=== PATIENT | male | born 1955 | race African-American/Black ===

== ENCOUNTER 2017-03-10 08:55 | Inpatient (IN) | payer MEDICAID ==
--- NOTE | 2017-03-10 09:19 | EDPHY ---
H & P Stated Complaint: B swollen legs Time Seen by Provider: 03/10/17 09:18 Source: Patient Exam Limitations: No limitations - Personal History Current Tetanus Diphtheria and Acellular Pertussis (TDAP): Yes Tetanus Vaccine Date: 2016 - Medical/Surgical History Hx Asthma: No Hx Chronic Respiratory Disease: No Hx Diabetes: No Hx Cardiac Disease: No Hx Renal Disease: Yes Hx Cirrhosis: No Hx Alcoholism: No Hx HIV/AIDS: No Hx Splenectomy or Spleen Trauma: No Other PMH: scolison, russo kerry, IBS, rectal surgery, hodgkins lymphoma/ remission 2011, lactose intolerance, tremor, "three kidneys" - Social History Smoking Status: Never smoked Constitutional: Initial Vital Signs Temperature (C) 36.4 C 03/10/17 08:56 Heart Rate 67 03/10/17 08:56 Respiratory Rate 18 03/10/17 08:56 Blood Pressure 149/83 H 03/10/17 08:56 O2 Sat (%) 99 03/10/17 08:56 O2 Delivery Mode Room Air Allergies/Adverse Reactions: ibuprofen [From Motrin] Allergy (Verified 03/10/17 09:05) Home Medications: Medication Instructions Recorded Bentyl 20 MG (*) 03/10/17 Inderal 10mg (*) 03/10/17 Wellbutrin Sr 03/10/17 Medical Decision Making - Diagnostics Imaging: Discussed imaging studies w/ vulcanizing machine operator Radiologist ED Course/Re-evaluation: CHIEF COMPLAINT: Abdominal swelling, lower extremity swelling. HISTORY OF PRESENT ILLNESS: The patient is a 61-year-old male with history of Hodgkin's lymphoma. He had chemotherapy in 2010 and is now in remission. The patient has not had a repeat scan in many years as he has been incarcerated for 25 years. He was released 5 weeks ago and has noticed increased lower extremity and abdominal swelling. He denies chest pain, shortness of breath, or fever. REVIEW OF SYSTEMS: A 10 point review of systems was performed and is negative with the exception of the elements mentioned in the history of present illness. PHYSICAL EXAM: HR, BP, O2 Sat, RR. Temp noted General Appearance: Alert, well hydrated, appropriate, and non-toxic appearing. Head: Atraumatic without scalp tenderness or obvious injury Eyes: Pupils equal, round, reactive to light and accommodation, EOMI, no trauma , no injection. Throat: There is no erythema or exudates, no lesions, normal tonsils, mucus membranes moist. Neck: Supple, 2+ carotid upstroke, nontender, no lymphadenopathy. Respiratory: No retractions, no distress, no wheezes, and no accessory muscle use. Lungs are clear to auscultation bilaterally. Cardiovascular: Regular rate and rhythm, no murmurs, rubs, or gallops. Bilateral carotid, radial, dorsalis pedis, and posterior tibial pulses intact. Good capillary refill all extremities. Gastrointestinal: Abdomen is tense and distended. Diffusely tender. Musculoskeletal: Bilateral peripheral edema with vein collateralization. Neurological: Alert, appropriate, and interactive. The patient has normal DTRs and non-focal cranial nerves, motor, sensory, and cerebellar exam. Skin: No rashes, good turgor, no nodules on palpation. Past medical history: Hodgkin's lymphoma in remission. Past surgical history: Denies. Family history: Noncontributory. Social history: Incarcerated for 25 years, released 5 weeks ago. [facility] the [facility]. Denies alcohol use. DIAGNOSTICS/PROCEDURES/CRITICAL CARE TIME: CT abdomen shows [place]'s syndrome vs large bowel obstruction. DIFFERENTIAL DIAGNOSIS: MEDICAL DECISION MAKING: The patient has a concerning history of Hodgkin's lymphoma, in remission. He denies history of liver disease and states he does not use alcohol. He has not had a recent workup or followup as he has been incarcerated for 25 years. The patient has a diffusely tender abdomen with fluid. I am concerned about possible bowel obstruction. He has peripheral swelling with more than expected vein collateralization. Lab work including abdominal CT to look for tumor or bowel obstruction. The patient is hypertensive at 149/83. The patient's CT shows Ogalv's syndrome vs distal large bowel obstruction. His lab work shows low Potassium and low Albumin but is otherwise negative. The patient will be admitted to the hospitalist, Dr. Lang. The general surgeon Dr. Russell will consult. - Data Points Laboratory Results: Laboratory Results 03/10/17 09:41 03/10/17 09:41 03/10/17 03/10/17 03/10/17 09:41 09:41 09:41 WBC 5.90 10^3/uL 10^3/uL (3.80-9.50) RBC 4.12 10^6/uL L 10^6/uL (4.40-6.38) Hgb 13.1 g/dL L g/dL (13.7-17.5) POC Hgb Hct 36.8 % L % (40.0-51.0) POC Hct MCV 89.3 fL fL (81.5-99.8) MCH 31.8 pg pg (27.9-34.1) MCHC 35.6 g/dL g/dL (32.4-36.7) RDW 14.6 % % (11.5-15.2) Plt Count 227 10^3/uL 10^3/uL (150-400) MPV 8.9 fL fL (8.7-11.7) Neut % (Auto) 71.1 % % (39.3-74.2) Lymph % (Auto) 19.8 % % (15.0-45.0) [place] % (Auto) 6.1 % % (4.5-13.0) Eos % (Auto) 1.9 % % (0.6-7.6) Baso % (Auto) 0.8 % % (0.3-1.7) Nucleat RBC Rel Count 0.0 % % (0.0-0.2) Absolute Neuts (auto) 4.19 10^3/uL 10^3/uL (1.70-6.50) Absolute Lymphs (auto) 1.17 10^3/uL 10^3/uL (1.00-3.00) Absolute Monos (auto) 0.36 10^3/uL 10^3/uL (0.30-0.80) Absolute Eos (auto) 0.11 10^3/uL 10^3/uL (0.03-0.40) Absolute Basos (auto) 0.05 10^3/uL 10^3/uL (0.02-0.10) Absolute Nucleated RBC 0.00 10^3/uL 10^3/uL (0-0.01) Immature Gran % 0.3 % % (0.0-1.1) Immature Gran # 0.02 10^3/uL 10^3/uL (0.00-0.10) PT 14.2 SEC SEC (12.0-15.0) INR 1.08 (0.83-1.16) APTT 30.1 SEC SEC (23.0-38.0) POC Sodium Sodium 145 mEq/L mEq/L (135-145) POC Potassium Potassium 3.1 mEq/L L mEq/L (3.5-5.2) POC Chloride Chloride 106 mEq/L mEq/L (97-110) Carbon Dioxide 29 mEq/l mEq/l (22-31) Anion Gap 10 mEq/L mEq/L (8-16) POC BUN BUN 16 mg/dL mg/dL (7-23) Creatinine 0.9 mg/dL mg/dL (0.7-1.3) POC Creatinine Estimated GFR > 60 Glucose 77 mg/dL mg/dL (70-100) POC Glucose Calcium 8.6 mg/dL mg/dL (8.5-10.4) Magnesium 1.8 mg/dL mg/dL (1.6-2.3) Total Bilirubin 0.5 mg/dL mg/dL (0.1-1.4) Conjugated Bilirubin 0.2 mg/dL mg/dL (0.0-0.5) Unconjugated Bilirubin 0.3 mg/dL mg/dL (0.0-1.1) AST 27 IU/L IU/L (17-59) ALT 39 IU/L IU/L (21-72) Alkaline Phosphatase 77 IU/L IU/L (38-126) Troponin I < 0.012 ng/mL ng/mL (0.000-0.034) NT-Pro-B Natriuret Pep 208 pg/mL H pg/mL (0-125) Total Protein 6.3 g/dL g/dL (6.3-8.2) Albumin 3.1 g/dL L g/dL (3.5-5.0) Lipase 155 IU/L IU/L (23-300) 03/10/17 09:37 WBC RBC Hgb POC Hgb 13.6 gm/dL L gm/dL (13.7-17.5) Hct POC Hct 40 % % (40-51) MCV MCH MCHC RDW Plt Count MPV Neut % (Auto) Lymph % (Auto) [place] % (Auto) Eos % (Auto) Baso % (Auto) Nucleat RBC Rel Count Absolute Neuts (auto) Absolute Lymphs (auto) Absolute Monos (auto) Absolute Eos (auto) Absolute Basos (auto) Absolute Nucleated RBC Immature Gran % Immature Gran # PT INR APTT POC Sodium 144 mEq/L mEq/L (135-145) Sodium POC Potassium 2.9 mEq/L L mEq/L (3.3-5.0) Potassium POC Chloride 102 mEq/L mEq/L (97-110) Chloride Carbon Dioxide Anion Gap POC BUN 15 mg/dL mg/dL (7-23) BUN Creatinine POC Creatinine 1.0 mg/dL mg/dL (0.7-1.3) Estimated GFR Glucose POC Glucose 79 mg/dL mg/dL (70-100) Calcium Magnesium Total Bilirubin Conjugated Bilirubin Unconjugated Bilirubin AST ALT Alkaline Phosphatase Troponin I NT-Pro-B Natriuret Pep Total Protein Albumin Lipase Point of Care Test Results: 03/10/17 09:37 POC Sodium 144 POC Potassium 2.9 L POC Chloride 102 POC BUN 15 POC Creatinine 1.0 POC Glucose 79 Departure - Departure Disposition: [facility] Inpatient Acute Clinical Impression: Zara's syndrome, Large bowel obstruction Condition: Fair Referrals: NONE *PRIMARY CARE P,. [Primary Care Provider] - As per Instructions Report Scribed for: Jimi Smith Report Scribed by: Joanna Fischer Date of Report: 03/10/17 Time of Report: 09:37
[2017-03-10] MEDS ORDERED: IOPAMIDOL (ISOVUE-300) 100 ML BTL ONE (09:42)
[2017-03-10 09:51] LABS: PLATELET COUNT 227 10^3/uL (150-400)
[2017-03-10 10:00] LABS: INR 1.08 (0.83-1.16); PROTIME(PATIENT) 14.2 SEC (12.0-15.0)
[2017-03-10] MEDS ORDERED: ONDANSETRON 4 MG/2 ML VIAL IVP PRN (12:18)
[2017-03-10] MEDS ORDERED: ONDANSETRON DISINTEGRATING 4 MG TAB PO PRN (12:18)
[2017-03-10] MEDS ORDERED: PROTOCOL POTASSIUM 1 DOSE MISC PRN (12:45)
[2017-03-10] MEDS: ACETAMINOPHEN 325 MG TAB PO PRN ×2 (12:59→20:03)
--- NOTE | 2017-03-10 13:41 | GCON ---
[f rep st] CONSULTATION DATE OF CONSULTATION: 03/10/2017 CHIEF COMPLAINT: Abdominal pain. HPI: I am asked to see this patient in consultation by Petra Decker for a chief complaint of abdo tori pain. Patient is a 61-year-old with a complex past medical history including multiple episodes of constipation and dilated colon. He does have a history of Hodgkin lymphoma treated by chemothera py in remission since 2011. He has had rectal surgery. 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 He will then have a bowel movement, pass g as, and will improve. He states that he did require hospitalization for this about a year ago, that he underwent a colonoscopy with decompression. Has been released from long-term incarceration recent ly and living in a situation that is difficult for him. He feels that this has increased his bowel s ymptoms. He has been having distended belly for the past few days, although did have a bowel movemen t this morning and feels a little less distended. No blood in his stools or melena, but did state he had some rectal bleeding about 6 months ago. He is having some abdominal tenderness, but no nausea or vomiting. ALLERGIES: The patient has allergies to Motrin, also food allergies to corn, peanuts, soy, and wheat . MEDICATIONS: Active medications are: Tylenol, Lovenox, ondansetron. Medications prior to admission are: Wellbutrin, Inderal, and Bentyl. He denies any narcotic pain me dication. 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 He has scoliosis and underlying irritable bowel syndrome. He has food intolerances. FAMILY HISTORY: Negative for colon cancer. SOCIAL HISTORY: Denies alcohol use. REVIEW OF SYSTEMS: I have performed a complete review of systems which is negative except for the pe rtinent positives and negatives noted above in the HPI. PHYSICAL EXAM: VITAL SIGNS: He is afebrile at 36.4, BP 149/86, pulse 62. CONSTITUTIONAL: He is al ert and oriented, no apparent distress. EYES: No scleral icterus. HEENT: No oral lesions. CARDIO VASCULAR: Regular rhythm. CHEST: Clear to auscultation. ABDOMEN: Significantly distended and tym panic. There is some tenderness to palpation. In the upper area is a midline infraumbilical surgica l scar. No rebound. NEUROLOGIC: Grossly nonfocal. SKIN: No rashes. LABORATORY DATA: Show a potassium low at 3.1, BUN and creatinine are 16 and 0.9. Pro time normal at 14.2 with an INR 1.02. White count 8, hematocrit 36.8 with hemoglobin of 13.1. LFTs are normal. L ipase normal. CT scan shows significantly distended transverse colon measuring 15 x 13 cm, but no ev idence of volvulus or obstruction. ASSESSMENT: Patient with distended colon. I suspect this is acute on chronic issue. He does have h istory of significant colonic dilation in the past, apparently requiring hospitalization and decompre ssion at an outside facility, perhaps a year ago. Since then, does state that his abdomen gets signi ficantly distended to this same extent, intermittently, usually will resolve spontaneously after pass ing gas. Suspect that he has some underlying neurologic bowel issue predisposing him to pseudo-obstr uction. The patient also has had prior rectal surgery. However, there is no evidence of obstruction . Although patient's dilation is above 12 cm and considered severe, he is hemodynamically and clinic ally stable. I suspect likely because this is acute on chronic issue, although he does have abdomina l pain and we will need to monitor for any signs of peritonitis. TREATMENT OPTIONS: Could consider neostigmine, although given the significant side effects in this o lder patient with unknown if he has underlying coronary disease, could hold risks. First off, I woul d recommend conservative measures with a rectal tube and correct his electrolytes. This patient is p assing stool already. This may resolve spontaneously. However, if not, may need consider options of a colonic decompression. However, this would hold increased risks. There is increased risk of perf oration, especially since this would have to be done unprepped and generally colonic decompression in the setting of pseudo-obstruction does not provide durable treatment. PLAN: Discussed with the hospitalist. They will correct electrolytes and place a rectal tube. I wo uld recommend repeat plain film of the x-ray later today to ensure that this is not worsening. And i f not better, could consider options of neostigmine or high risk attempt at colonic decompression if seen by surgery and they do not feel he has any peritoneal signs and is okay for colonoscopy, if need ed. We will follow. Thank you for this consult. /[id number]/MODL
--- NOTE | 2017-03-10 14:25 | GHP ---
[f rep st] HISTORY AND PHYSICAL DATE OF ADMISSION: 03/10/2017 CHIEF COMPLAINT: Abdominal pain as well as swelling to his lower extremity. HISTORY OF PRESENT ILLNESS: The patient is a 61-year-old male with a past medical history of Hodgkin lymphoma that has been in remission, who presented to the emergency room with ongoing abdominal discomfort. He also is concerned about lower extremity leg swelling. He has been incarcerated for the past 25 years and was released February 05. He describes that he has had issues with his abdomen for many years. He was seen at [facility] approximately a year and a half ago and had a workup there which included endoscopy. He does not recall exactly the results of this. He describes having loose stools and increased pain anytime he eats. He said he has not eaten much. He also describes having a recent weight loss in the last month from 148 pounds to 130 pounds. He denies any fever. He has chronic chills. He also says he has some chest pain and shortness of breath when his abdomen feels distended. What has helped him with the abdominal pain is when he passes flatus and is able to lie on his left side. He has been having worsening swelling to his lower extremities for the past 2 weeks. During my interview, he is having some vague abdominal pain. He also had an imperforated anus at . PAST MEDICAL HISTORY: 1. Scoliosis. 2. Hodgkin lymphoma that is in remission. His oncologist is Dr. Lion at [facility] in [place]. He saw him approximately a year ago. 3. Tremor. 4. Three kidneys. 5. Kidney infection in 2004. PAST SURGICAL HISTORY: Mc rods for scoliosis in 1963, rectal surgery to treat his imperforated anus. SOCIAL HISTORY: He currently lives at the [facility]. He does not smoke. He does not drink alcohol. He is not in a relationship and he does not have any children. His family is located in the [place], [place], area. He is hoping to return there. FAMILY HISTORY: He knows his mom is alive and does not know her health history. His father of complications from an [place] at age 67. ALLERGIES: Ibuprofen and to various foods. HOME MEDICATIONS: Wellbutrin SR, Inderal 10 mg, and Bentyl 20 mg p.r.n. REVIEW OF SYSTEMS: A 10-point review of system was performed and was negative other than pertinent positives in the HPI and past medical history. PHYSICAL EXAM: GENERAL: The patient is a 61-year-old male who appears in poor health and appears uncomfortable. VITAL SIGNS: Blood pressure is 149/86, heart rate is 60, respiratory rate is 16, O2 saturation on room air 97%, temperature 36.4 Celsius. EYES: Pupils are equal and reactive. EOMs are intact. ENT: Normal ears, hearing intact. NECK: Trachea is midline. CARDIOVASCULAR: He is in regular rate and rhythm. No murmurs, rubs, or gallops noted. CHEST/LUNGS: Normal respiratory effort without wheezing, rales , rhonchi. ABDOMEN: Extremely distended. He has some vague abdominal pain with palpation to his bilateral lower quadrants. SKIN: No rashes or ulcers. EXTREMITIES: Bilateral lower extremities, he has a positive Homans sign when right foot is flexed. MUSCULOSKELETAL: Equal upper and lower extremity strength. PSYCHIATRIC: He is alert and oriented. Normal affect. Normal insight and normal memory. LABORATORY DATA: CBC shows a white blood cell count of 5.9, hemoglobin 13.1, hematocrit of 36.8, platelet count of 227. Coags show a pro time 14.2, INR of 1.08, PTT is 30.1. Chemistries: Sodium 148, potassium 3.1, chloride of 106, CO2 of 29, BUN 16, creatinine 0.9. Troponin is less than 0.012. BNP of 208, albumin of 3.1, lipase of 155. CT of the abdomen was performed, which showed massively distended colon with no evidence of volvulus or low colonic mass. He has query neurogenic bowel. It notes that his transverse colon measures 15 x 13 cm in diameter. He has no pneumatosis, portal vein gas, pneumoperitoneum or evidence of ischemic bowel. He has mild left hydronephrosis, which may be secondary to mass effect of the dilated colon. On the upper urinary tract, he has query anasarca, evidenced by diffuse mesenteric and subcutaneous edema. No free fluid or abscess is noted. I reviewed his care with Dr. Jimi Smith in the emergency room. I also reviewed his care with Dr. Leela Coleman and Dr. Delia Solomon. I appreciate their involvement with his care. ASSESSMENT/PLAN: 1. Abdominal pain. I suspect this is mainly due to his massively distended colon. I suspect he has had this in the past. I have asked to get previous records from his oncologist to evaluate if this has been enlarging. For now we will ask nursing staff to place a rectal tube to allow for patient's comfort. In addition, we will make him n.p.o. He may need a colonoscopy. Will ask Surgery for their input in regard to this. Will get a repeat abdominal x ray for close monitoring. 2. Significant weight loss with hypoalbuminemia. This may be because he just got out of residential and he has been living at the [facility]. Further followup with Dr. Lion in case he needs further workup in regard to his lymphoma. 3. Hypokalemia. Will place him on the protocol and add potassium to his IV fluids. 4. Tremor. Will resume his home medications once he is taking in oral intake. 5. Lower extremity swelling. Will get an ultrasound for further evaluation. 6. Length of stay. Will place him in as observation status for now. This can be re-evaluated in the morning. 7. Deep vein thrombosis prophylaxis, high risk due to his past medical history and age. Will hold low molecular weight heparin in case he needs surgical intervention.. 8. Code status. Full. /[id number]/MODL MTDD
--- NOTE | 2017-03-10 17:07 | GCON ---
[f rep st] CONSULTATION DATE OF CONSULTATION: 03/10/2017 REFERRING PHYSICIAN: Jimi Smith MD REASON FOR CONSULTATION: Enlarged colon. HISTORY OF PRESENT ILLNESS: The patient is a 61-year-old man with a past medical history significant for Hodgkin lymphoma that has been in remission. He presents to the emergency room with a 2-3 month history of abdominal distention. He has also had new left lower leg edema and pain. He has had pre vious abdominal surgery for what sounds like an imperforate anus as a child. He reports that he has also had other workup for abdominal pain at [facility]. He is able to pass gas, especially when l michael on his side. He does have loose stools. He reports that his distention has increased over the past couple of months. He has also had some weight loss. He does not have a lot of abdominal pain. PAST MEDICAL HISTORY: Hodgkin lymphoma in remission. PAST SURGICAL HISTORY: Mc rods for scoliosis, rectal surgery. SOCIAL HISTORY: He currently lives at [facility]. He denies tobacco use. FAMILY HISTORY: Significant for myocardial infarction. ALLERGIES: Ibuprofen. REVIEW OF SYSTEMS: Ten-point review of systems negative except per HPI. PHYSICAL EXAMINATION: VITALS: 36.4, 60, 149/86, 16, 97% room air. GENERAL: Pleasant, well-nourish ed, well-groomed man, sitting up on gurney. Appears comfortable. HEENT: Normocephalic. No gross h earing deficits. Mucous membranes moist. Pupils equal and round. No scleral icterus. LUNGS: Judit r to auscultation bilaterally. No increased work of breathing. CARDIAC: Regular rate. He has slig ht peripheral edema. ABDOMEN: His bowel sounds are present. He has a large midline incision that i s well healed. He is very distended and tympanitic. He does not have peritoneal signs. EXTREMITIES : His left calf is tender to palpation. His right calf is not. No obvious rashes. NEURO: Grossly intact. PSYCH: Mood and affect normal. RESULTS REVIEWED: I personally reviewed the results of his CT scan and see a markedly dilated transv erse colon with some stool within it. I do not see any distinct signs of a transition point. His wh ite count is normal. IMPRESSION AND PLAN: A 61-year-old with markedly dilated colon. This appears to be an [id number] sarina issue. I think that he would benefit from a rectal tube. I have asked the hospitalist to also carlos AYERS who may consider a decompressive colonoscopy. This is, of course, risky, as his colon is s o dilated that this could cause perforation. However, I do not see an acute reason to take him to [facility] operating room at this time. He has had abdominal issues in the past that have resolved with conse rvative, nonsurgical treatment, and I am hopeful this may do the same. Surgery will continue to foll ow. /[id number]/MODL
--- NOTE | 2017-03-10 17:39 | CPEKG ---
Heart Rate: 61 RR Interval: 984 P-R Interval: 136 QRSD Interval: 82 QT Interval: 420 QTC Interval: 423 P Davenport: 47 QRS Davenport: 17 T Wave Daven[place]: 0 EKG Severity - BORDERLINE ECG - EKG Impression: SINUS RHYTHM EKG Impression: BORDERLINE T ABNORMALITIES, INFERIOR LEADS Electronically Signed By: Noe Coronel 11-Mar-2017 04:30:44
--- NOTE | 2017-03-10 19:43 | SOAPPROG ---
SOAP Progress Note Assessment/Plan: Assessment: Abdominal distension with increase distension on abd film at 5:00 PM but now abdominal exam is improved and overall softer to palpation no rebound. As pt is passing gas suspect this is beginning to resolve. Still with low potassium Plan: Replace potassium Continue conservative treatment as clinically improved on exam Recheck [address] way in AM, consider high risk colon if not better Discussed with patient to alert nursing staff if he feels abdominal distension is getting worse or if abdominal pain, then consider high risk colonic decompression tonight. 03/10/17 19:36 Subjective: PM rounds Pt passing gas rectal tube placed, no increase abd pain Objective: Vital Signs Temp Pulse Resp BP Pulse Ox 37.2 C 82 18 129/70 H 98 03/10/17 19:27 03/10/17 19:27 03/10/17 19:27 03/10/17 19:27 03/10/17 19:27 Laboratory Results 03/10/17 18:35 03/09/17 03/10/17 03/11/17 05:59 05:59 05:59 Intake Total 600 Balance 600 PT 14.2 SEC (12.0-15.0) 03/10/17 09:41 INR 1.08 (0.83-1.16) 03/10/17 09:41 Physical Exam - Physical Exam General Appearance: no apparent distress Respiratory: lungs clear Cardiac/Chest: regular rate, rhythm Abdomen: non-tender, distended (overall abd is softer as compared to this afternoon) ICD10 Worksheet Patient Problems: Problems Problem Status Onset Large bowel obstruction Acute [place]'s syndrome Acute
[2017-03-10] MEDS ORDERED: POTASSIUM Cl (KCl) 100 ML IV SCH (19:55)
[2017-03-10] MEDS ORDERED: PNEUMOCOCCAL 0.5ML VACCINE VIAL IM ONE (19:56)
[2017-03-10] MEDS: POTASSIUM Cl (KCl) 10 MEQ in NS 100 ML IV SCH ×3 (20:33→22:54)
[2017-03-10] MEDS: LORazepam 2 MG/ML INJ IVP PRN (22:42)
[2017-03-11] MEDS: POTASSIUM Cl (KCl) 10 MEQ in NS 100 ML IV SCH (00:03)
[2017-03-11] MEDS: NS W/ 20 KCl/L 1,000 ML IV SCH ×2 (00:05→11:15)
[2017-03-11] MEDS: ACETAMINOPHEN 325 MG TAB PO PRN ×3 (04:50→21:40)
[2017-03-11 05:19] LABS: PLATELET COUNT 225 10^3/uL (150-400)
[2017-03-11] MEDS ORDERED: PROTOCOL MAGNESIUM 1 DOSE IV PRN (05:58)
[2017-03-11] MEDS ORDERED: PROTOCOL K PHOSPHATE 1 DOSE IV PRN (05:58)
[2017-03-11] MEDS ORDERED: POTASSIUM Cl (KCl) 100 ML IV SCH (06:30)
[2017-03-11] MEDS: POTASSIUM Cl (KCl) 100 ML IV SCH ×3 (06:47→09:45)
[2017-03-11] MEDS ORDERED: MAGNESIUM SULF 1 GM/DEXTROSE 100 ML IV ONE (09:00)
[2017-03-11] MEDS ORDERED: ENOXAPARIN 40 MG/0.4 ML SYR SC SCH (09:00)
--- NOTE | 2017-03-11 10:44 | ASMTCASEMG ---
Living Arrangements What is your living Answers: With Other (Not Family) arrangement? Who do you live with? Type Of Residence What kind of residence do Answers: Prison you live in? Type of Residence Facility Name Notes: [facility] Discharge Plan Comments Coordination Status Comments Notes: Patient is a 61yo single male who was admitted for abdominal pain, (massive distended colon), hypokalemia, tremor, and significant weight loss with hypoalbuminemia. Patient just recently was released from residential after 25 years and is living at [facility]. No therapies have been ordered. D/C needs TBD. CM will follow. Date Signed: 03/11/2017 10:43 AM Electronically Signed By:Morena Smith LCSW
[2017-03-11] MEDS ORDERED: fentaNYL 100 MCG/2 ML INJ ONE (11:21)
[2017-03-11] MEDS ORDERED: MIDAZOLAM 2 MG/2 ML VIAL ONE (11:21)
--- NOTE | 2017-03-11 11:29 | ASMTCMCOM ---
CM Note CM Note Notes: Spoke with patient who is distressed he has to sleep on the floor at [facility] and is convinced it aggravates his medical condition. Contacted [facility] and spoke with a porter sample case there who states patient does in fact have to sleep on the floor and they do not have storage for a cot even if patient had his own. Attempted to call patient's nuclear medicine officer, Dayan Rucker ([phone]) but their office is closed. Patient states his nuclear medicine officer is actively involved in helping him get housing and so we will contact her tomorrow to see what can be coordinated for patient at discharge. CM will follow. Date Signed: 03/11/2017 11:28 AM Electronically Signed By:Morena Smith LCSW
--- NOTE | 2017-03-11 11:37 | PDPROPOC ---
Sedation Plan of Care Sedation Plan of Care: vital signs stable, mental status noted, patient educated of risks, benefits, alternatives, patient can tolerate sedation ASA Classification: ASA 2 Planned drugs: fentanyl, midazolam Mallampati Score: Class 2 Mallampati Reference Image: Patient passed 3-3-2 rule?: Yes
--- NOTE | 2017-03-11 12:04 | GIREPORT ---
[facility] - Endoscopy Department Patient Name: Mario Germain Procedure Date: 03/11/2017 11:26 AM Patient Type: Inpatient Attending MD/ ER Physician: Delia Solomon MD Procedure: Colonoscopy Indications: Generalized abdominal pain, Abnormal CT of the GI tract with massively dilated colon unresponsive to medical management Providers: Delia Solomon MD Medicines: Midazolam 3 mg IV, Fentanyl 100 micrograms IV Complications: No immediate complications. Description of Procedure: After obtaining informed consent, the scope was passed under direct vis ion. Throughout the procedure, the patient's blood pressure, pulse, and oxyg en saturations were monitored continuously. The Colonoscope was introduced through the anus and advanced to the transverse colon for evaluation. T his was the intended extent. The colonoscopy was performed with difficulty due to poor endoscopic visualization. The patient tolerated the procedure w ell. The quality of the bowel preparation was poor. The rectum was photograp hed. Findings: The perianal exam findings include tender. The lumen of the in the colon was significantly dilated. decompressed Estimated Blood Loss: Estimated blood loss: none. Post Op Diagnosis: - Preparation of the colon was poor full of liquid stool. - No obstruction seen. Mucosal could not be evaluated due to poor prep. - Dilated colon decompressed. - No specimens collected. Recommendation: - Clear liquid diet. - [facility] to [facility]. - Ambulate as tolerated. - OK to d/c rectal tube. - Thank you for allowing me to participate in the care of your patient. Attending Participation: I personally performed the entire procedure. Delia Solomon MD Delia Solomon MD 03/11/2017 12:03:33 PM This report has been signed electronicallyDelia Solomon MD Number of Addenda: 0 Note Initiated On: 03/11/2017 11:26 AM Total Procedure Duration Time 0 hours 9 minutes 26 seconds [email or web address]
--- NOTE | 2017-03-11 17:28 | SOAPPROG ---
SOAP Progress Note Assessment/Plan: Assessment/plan: 61yo M with massive colonic distension XR this am with persistent dilation GI did decompressive colonoscopy today Patient continues to have significant distension Passing flatus, especially when laying on left side Repeat XR in am Clear liquids Appreciate hospitalists and GI. Will remain on standby if he needs surgical intervention S: just got back from colonoscopy. hungry. passes gas if lays on left side. feels same amount of distension as before procedure O: Lying in bed, comfortable, no acute distress No increased work of breathing Midline scar well healed. Abdominal distension significant. Tenderness to deep palpation right lower quadrant. No rebound or guarding. Plan: 03/11/17 17:24 Objective: Vital Signs Temp Pulse Resp BP Pulse Ox 36.3 C 78 18 130/89 H 100 03/11/17 13:16 03/11/17 15:16 03/11/17 15:16 03/11/17 15:16 03/11/17 15:16 PT 14.2 SEC (12.0-15.0) 03/10/17 09:41 INR 1.08 (0.83-1.16) 03/10/17 09:41 ICD10 Worksheet Patient Problems: Problems Problem Status Onset Large bowel obstruction Acute [place]'s syndrome Acute
--- NOTE | 2017-03-11 17:34 | HOSPPROG ---
Hospitalist Progress Note Assessment/Plan: * Acute on chronic colonic distention s/p colonoscopy decompression -okay to DC rectal tube per GI -continue clear liquids - check f/u AXR in am * Congenital imperforate anus s/p surgical repair as an -unclear if needs revision - very tight * Hodgkin's lymphoma - in remission * Essential tremor - continue propranolol Subjective: Feels much better, very hungry, wants to eat Objective: Vital Signs Temp Pulse Resp BP Pulse Ox 36.3 C 74 18 130/89 H 96 03/11/17 13:16 03/11/17 16:16 03/11/17 15:16 03/11/17 15:16 03/11/17 16:16 PT 14.2 SEC (12.0-15.0) 03/10/17 09:41 INR 1.08 (0.83-1.16) 03/10/17 09:41 ABD XRAY viewed - massive colonic distention CT ABD - no perf, massive colon distention Laboratory Tests 03/11/17 04:51 WBC 4.77 Hct 35.6 L Plt Count 225 - Physical Exam Constitutional: no apparent distress, appears nourished, not in pain Cardiovascular: regular rate and rhythym, no murmur, rub, or gallop Respiratory: no respiratory distress, no rales or rhonchi, clear to auscultation Gastrointestinal: normoactive bowel sounds, soft, non-tender abdomen, no palpable masses Skin: no rashes or abrasions, no fluctuance, no induration Neurologic: AAOx3, sensation intact bilaterally Psychiatric: interacting appropriately, not anxious, not encephalopathic, thought process linear ICD10 Worksheet Patient Problems: Problems Problem Status Onset Large bowel obstruction Acute [place]'s syndrome Acute
[2017-03-11] MEDS ORDERED: POTASSIUM CL 10 MEQ TAB PO ONE (21:06)
--- NOTE | 2017-03-11 21:33 | SOAPPROG ---
SO[facility]IR[facility] Progress Note Assessment/Plan: Assessment: 61-year-old male seen in conjunction today with Bianka LATHAM. Patient with a history of imperforate anus and now with massive colonic distention Decompressive colonoscopy today showed no obstruction but has had very little success and ameliorating his distension. Patient stasis problems been going on for approximately 3 months but he does have bowel movements and passes gas regularly HEENT nonicteric Chest clear Cor regular rhythm Abdomen markedly distended and tympanitic but nontender, well-healed midline scar, no hernias Impression is chronic neurogenic colon probably related to his early imperforate anus problem/no relief from colonoscopy or from Perla likes tablet/ patient is on Wellbutrin and Bentyl which could be contributing Plan: Will add Reglan 03/11/17 21:29 03/11/17 21:33 Also hyperkalemia may need to be addressed more aggressively the potassium is 3.1/he is on a potassium protocol Objective: Vital Signs Temp Pulse Resp BP Pulse Ox 36.9 C 93 16 118/61 96 03/11/17 19:02 03/11/17 19:02 03/11/17 19:02 03/11/17 19:02 03/11/17 19:02 Laboratory Results 03/11/17 20:20 03/10/17 03/11/17 03/12/17 05:59 05:59 05:59 Intake Total 1768 Output Total 900 Balance 868 PT 14.2 SEC (12.0-15.0) 03/10/17 09:41 INR 1.08 (0.83-1.16) 03/10/17 09:41 ICD10 Worksheet Patient Problems: Problems Problem Status Onset Large bowel obstruction Acute [place]'s syndrome Acute
[2017-03-11] MEDS: LORazepam 2 MG/ML INJ IVP PRN (21:40)
[2017-03-11] MEDS: DICYCLOMINE 20 MG TAB PO SCH (21:41)
[2017-03-11] MEDS: PROPRANOLOL HCL 10 MG TAB PO SCH (21:41)
[2017-03-12] MEDS: NS W/ 20 KCl/L 1,000 ML IV SCH (02:12)
[2017-03-12 06:02] LABS: PLATELET COUNT 199 10^3/uL (150-400)
[2017-03-12] MEDS ORDERED: POTASSIUM CL 10 MEQ TAB PO ONE ×3 (07:03→19:57)
[2017-03-12] MEDS ORDERED: MAGNESIUM SULF 1 GM/DEXTROSE 100 ML IV ONE (07:04)
[2017-03-12] MEDS: PROPRANOLOL HCL 10 MG TAB PO SCH ×2 (09:18→16:23)
[2017-03-12] MEDS: buPROPion XL 150 MG TAB PO SCH (09:18)
[2017-03-12] MEDS: DICYCLOMINE 20 MG TAB PO SCH (09:19)
--- NOTE | 2017-03-12 10:21 | SOAPPROG ---
SOAP Progress Note Assessment/Plan: Assessment/Plan: 61 y/o male with massively distended colon and history of imperforate anus Much less abdominal distention than in the ER and looks to be significantly more comfortable Decompressive colonoscopy yesterday showed no obstruction and mildly decreased his distention Advance to regular diet, consulted with GI Discussed following up outpatient, with possible partial colectomy in the future (non-urgent) if he continues to have recurrence of colon distention S: patient is laying in bed in no acute distress he reports feeling better today is passing gas and having BMs with mild discomfort he is very insistent that he does not want a colostomy O: Abdomen: distended with significant decrease from Saturday, soft, non-tender to palpation, large scar present from correction of imperforate anus as a child 03/12/17 10:35 Objective: Vital Signs Temp Pulse Resp BP Pulse Ox 36.6 C 70 18 133/91 H 98 03/12/17 08:00 03/12/17 08:00 03/12/17 08:00 03/12/17 08:00 03/12/17 08:00 Laboratory Results 03/12/17 05:09 03/12/17 05:09 03/11/17 03/12/17 03/13/17 05:59 05:59 05:59 Intake Total 2459 Output Total 1250 Balance 1209 PT 14.2 SEC (12.0-15.0) 03/10/17 09:41 INR 1.08 (0.83-1.16) 03/10/17 09:41 ICD10 Worksheet Patient Problems: Problems Problem Status Onset Large bowel obstruction Acute [place]'s syndrome Acute
--- NOTE | 2017-03-12 11:52 | SOAPPROG ---
SOAP Progress Note Assessment/Plan: Assessment: Abdominal distension with increase distension on abd film at 5:00 PM but now abdominal exam is improved and overall softer to palpation no rebound. As pt is passing gas suspect this is beginning to resolve. Still with low potassium Plan: Replace potassium Continue conservative treatment as clinically improved on exam Recheck 2 way in AM, consider high risk colon if not better Discussed with patient to alert nursing staff if he feels abdominal distension is getting worse or if abdominal pain, then consider high risk colonic decompression tonight. 03/10/17 19:36 03/12/17 11:50 A/ Dilated colon with adb distension s/p colonic decompression yesterday. Since post procedure there has been some reaccumulation p/ Trial of increased diet Ambulate If recurrent colonic distension may need to consider surgical options. Pt wants to try conservative measures first. Subjective: Abd distension Pt feels overall better but noting some reaccumulation of gas Objective: Vital Signs Temp Pulse Resp BP Pulse Ox 36.6 C 70 18 133/91 H 98 03/12/17 08:00 03/12/17 08:00 03/12/17 08:00 03/12/17 08:00 03/12/17 08:00 Laboratory Results 03/12/17 05:09 03/12/17 05:09 03/11/17 03/12/17 03/13/17 05:59 05:59 05:59 Intake Total 2459 Output Total 1250 Balance 1209 PT 14.2 SEC (12.0-15.0) 03/10/17 09:41 INR 1.08 (0.83-1.16) 03/10/17 09:41 Physical Exam - Physical Exam General Appearance: WD/WN Respiratory: lungs clear Cardiac/Chest: regular rate, rhythm Abdomen: non-tender, distended ICD10 Worksheet Patient Problems: Problems Problem Status Onset Large bowel obstruction Acute [place]'s syndrome Acute
--- NOTE | 2017-03-12 11:59 | PDMN ---
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
--- NOTE | 2017-03-12 16:37 | HOSPPROG ---
Hospitalist Progress Note Assessment/Plan: * Acute on chronic colonic distention s/p colonoscopy decompression -not tolerating PO -wishes to proceed with surgery * Congenital imperforate anus s/p surgical repair as an -needs revision - very tight * Hodgkin's lymphoma - in remission * Essential tremor - continue propranolol Subjective: Not really tolerating PO Objective: Vital Signs Temp Pulse Resp BP Pulse Ox 36.6 C 70 18 133/91 H 98 03/12/17 08:00 03/12/17 08:00 03/12/17 08:00 03/12/17 08:00 03/12/17 08:00 Laboratory Results 03/12/17 05:09 03/12/17 05:09 03/11/17 03/12/17 03/13/17 05:59 05:59 05:59 Intake Total 2459 Output Total 1250 Balance 1209 PT 14.2 SEC (12.0-15.0) 03/10/17 09:41 INR 1.08 (0.83-1.16) 03/10/17 09:41 d/w Dr. obrien - patient wishes to proceed with OR, he has not been doing well for some time AXR viewed, my personal interpretation is - minimal improvement - Physical Exam Constitutional: no apparent distress, appears nourished, not in pain Cardiovascular: regular rate and rhythym, no murmur, rub, or gallop Respiratory: no respiratory distress, no rales or rhonchi, clear to auscultation Gastrointestinal: normoactive bowel sounds, soft, non-tender abdomen, no palpable masses Skin: no rashes or abrasions, no fluctuance, no induration Neurologic: AAOx3, sensation intact bilaterally Psychiatric: interacting appropriately, not anxious, not encephalopathic, thought process linear ICD10 Worksheet Patient Problems: Problems Problem Status Onset Large bowel obstruction Acute Zara's syndrome Acute
--- NOTE | 2017-03-12 17:37 | ASMTCMCOM ---
CM Note CM Note Notes: Left 2 messages for Dayan Martinez, patient's marine safety officer. She has not returned calls yet. Patient was informed today by Dr. Coleman he would benefit from surgery. Patient has agreed with her recommendation. D/C needs are changing due to new surgery to take place. No therapies have been ordered to date. This too may change after patient has surgery. Spoke with patient's nurse who states patient may need SNF rehab care after surgery. CM will follow. Date Signed: 03/12/2017 05:37 PM Electronically Signed By:Morena Smith LCSW
[2017-03-12] MEDS: LORazepam 2 MG/ML INJ IVP PRN (20:18)
--- NOTE | 2017-03-12 23:08 | SOAPPROG ---
SOOMAIRA Progress Note Assessment/Plan: Assessment/Plan: 61 y/o male with massively distended colon and history of imperforate anus Much less abdominal distention than in the ER and looks to be significantly more comfortable Decompressive colonoscopy yesterday showed no obstruction and mildly decreased his distention Advance to regular diet, consulted with GI Discussed following up outpatient, with possible partial colectomy in the future (non-urgent) if he continues to have recurrence of colon distention Addendum: Later discussed that he would want surgery at this hospital admission. Will discuss more tomorrow S: patient is laying in bed in no acute distress he reports feeling better today is passing gas and having BMs with mild discomfort he is very insistent that he does not want a colostomy O: General: Pleasant, sitting in bed HEENT: Normocephalic, no gross hearing deficits, mucous membranes moist, pupils equal and round, no scleral icterus Lungs: No increased work of breathing Abdomen: distended with significant decrease from Saturday, soft, non-tender to palpation, large scar present from correction of imperforate anus as a child 03/12/17 10:35 03/12/17 23:05 Objective: Vital Signs Temp Pulse Resp BP Pulse Ox 36.8 C 79 16 125/71 H 98 03/12/17 16:00 03/12/17 16:00 03/12/17 16:00 03/12/17 16:00 03/12/17 16:00 Laboratory Results 03/12/17 05:09 03/12/17 19:06 03/11/17 03/12/17 03/13/17 05:59 05:59 05:59 Intake Total 2459 Output Total 1250 Balance 1209 PT 14.2 SEC (12.0-15.0) 03/10/17 09:41 INR 1.08 (0.83-1.16) 03/10/17 09:41 ICD10 Worksheet Patient Problems: Problems Problem Status Onset Large bowel obstruction Acute [place]'s syndrome Acute
[2017-03-13] MEDS: PROPRANOLOL HCL 10 MG TAB PO SCH ×4 (00:06→22:20)
[2017-03-13] MEDS ORDERED: POTASSIUM CL 10 MEQ TAB PO ONE ×2 (09:00→22:26)
[2017-03-13] MEDS ORDERED: MAGNESIUM SULF 1 GM/DEXTROSE 100 ML IV ONE (09:00)
--- NOTE | 2017-03-13 09:29 | SOAPPROG ---
SOAP Progress Note Assessment/Plan: Assessment/plan: 61yo M with massive colonic distension s/p decompressive colonoscopy without improvement in dilation OR saturday for open colectomy Passing flatus, especially when laying on left side Clear liquids Appreciate hospitalists and GI Seen c Dr. Coleman S: feels very bloated and uncomfortable. RLQ pain. O: Lying in bed, comfortable, no acute distress No increased work of breathing Midline scar well healed. Abdominal distension significant. Tenderness to deep palpation right lower quadrant. No rebound or guarding. Objective: Vital Signs Temp Pulse Resp BP Pulse Ox 36.4 C 68 16 134/84 H 100 03/13/17 08:00 03/13/17 08:00 03/13/17 08:00 03/13/17 08:00 03/13/17 08:00 Laboratory Results 03/12/17 05:09 03/13/17 04:56 03/12/17 03/13/17 03/14/17 05:59 05:59 05:59 Intake Total 2459 Output Total 1250 Balance 1209 PT 14.2 SEC (12.0-15.0) 03/10/17 09:41 INR 1.08 (0.83-1.16) 03/10/17 09:41 ICD10 Worksheet Patient Problems: Problems Problem Status Onset Large bowel obstruction Acute Zara's syndrome Acute
[2017-03-13] MEDS: buPROPion XL 150 MG TAB PO SCH (09:54)
--- NOTE | 2017-03-13 16:12 | HOSPPROG ---
Hospitalist Progress Note Assessment/Plan: * Acute on chronic colonic distention s/p colonoscopy decompression -massive colon distention continues -to OR Saturday - d/w Dr. Coleman * Congenital imperforate anus s/p surgical repair as an -needs revision - very tight * Hodgkin's lymphoma - in remission * Essential tremor - continue propranolol * Foot pain - possible due to frostbite -check Xray Subjective: Right foot pain with numbness to toes. Tender to touch. No trauma. Possible frostbite as he has been sleeping outside and tennis shoes often freeze Objective: Vital Signs Temp Pulse Resp BP Pulse Ox 36.4 C 85 16 134/84 H 100 03/13/17 08:00 03/13/17 15:55 03/13/17 08:00 03/13/17 15:55 03/13/17 08:00 Laboratory Results 03/12/17 05:09 03/13/17 04:56 03/12/17 03/13/17 03/14/17 05:59 05:59 05:59 Intake Total 2459 Output Total 1250 250 Balance 1209 -250 PT 14.2 SEC (12.0-15.0) 03/10/17 09:41 INR 1.08 (0.83-1.16) 03/10/17 09:41 - Physical Exam Constitutional: no apparent distress, appears nourished, not in pain Cardiovascular: regular rate and rhythym, no murmur, rub, or gallop Respiratory: no respiratory distress, no rales or rhonchi, clear to auscultation Gastrointestinal: normoactive bowel sounds, distension, No tenderness, No ascites Skin: no rashes or abrasions, no fluctuance, no induration Musculoskeletal: full muscle strength, no muscle tenderness, normal joint ROM Neurologic: AAOx3, sensation intact bilaterally ICD10 Worksheet Patient Problems: Problems Problem Status Onset Large bowel obstruction Acute [place]'s syndrome Acute
--- NOTE | 2017-03-13 17:03 | ASMTCMCOM ---
CM Note CM Note Notes: Left another message for Dayan, patient's mounted police officer. ULTC 100 was completed and faxed to [facility] for LTC Medicaid. Alyse was contacted also to work on patient's LTC Medicaid.Patient may need SNF rehab care after surgery. Conversation with Dayan is important as patient states she is helping him secure housing and also has the ability to arrange respite care if needed. Care coordination with Dayan will most likely give us the most options. CM will follow. Date Signed: 03/13/2017 05:03 PM Electronically Signed By:Morena Smith LCSW
--- NOTE | 2017-03-13 17:58 | ASMTCMCOM ---
CM Note CM Note Notes: Met with patient who gave me the resource people he is currently working with. Poppy Hutton with [facility] is patient's mental health counselor ([phone]). Patient has applied for SSI and Jayy Delroy is the individual handling his application. ([phone], ext [phone]) Jayy has been trying to call him and he has missed the calls and returned the calls but only has left a message. Patient would appreciate a call to Jayy to find out what he needs and make sure the application is going forward. Patient has a health wrestling coach with the [facility], Eileen Grimm ([phone]). Patient is a with honorable discharge from the [employer]. His VA outreach person is Bassem Ardon ([phone]).. Patient's cancer dr is Dr. Lion ([phone]). Patient reports Juliet Leal with [facility] [employer] is helping him with housing options ([phone]) Sawyer Renard Grove with [facility] helps with getting patient's medications when needed. To start tomorrow, CM needs to contact the SSI intake , Jayy to find out where patient is in the application process. Continue to try and get Dayan on the phone to coordinate housing and touch base with Juliet to see where they are at with securing patient housing. CM will follow. Date Signed: 03/13/2017 05:58 PM Electronically Signed By:Morena Smith LCSW
[2017-03-13] MEDS: LORazepam 2 MG/ML INJ IVP PRN (23:41)
[2017-03-14 06:06] LABS: PLATELET COUNT 178 10^3/uL (150-400)
[2017-03-14] MEDS: buPROPion XL 150 MG TAB PO SCH (08:08)
[2017-03-14] MEDS: PROPRANOLOL HCL 10 MG TAB PO SCH ×3 (08:08→21:48)
[2017-03-14] MEDS ORDERED: POTASSIUM CL 10 MEQ TAB PO ONE ×2 (12:15→21:43)
[2017-03-14] MEDS ORDERED: HYDROmorphONE/DILAUDID 1 MG/ML INJ IVP PRN (12:54)
[2017-03-14] MEDS: oxyCODONE IR 5 MG TAB PO PRN ×2 (14:19→21:48)
[2017-03-14] MEDS: ACETAMINOPHEN 325 MG TAB PO PRN (14:19)
[2017-03-14] MEDS ORDERED: MAGNESIUM SULF 1 GM/DEXTROSE 100 ML IV ONE (16:15)
--- NOTE | 2017-03-14 17:16 | HOSPPROG ---
Hospitalist Progress Note Assessment/Plan: * Acute on chronic colonic distention s/p colonoscopy decompression -massive colon distention continues -to OR tomorrow * Congenital imperforate anus s/p surgical repair as an -needs revision - very tight * Hodgkin's lymphoma - in remission * Essential tremor - continue propranolol * Stress fracture right foot - consult PT Subjective: Still with abdominal pain Objective: Vital Signs Temp Pulse Resp BP Pulse Ox 36.8 C 84 18 128/78 H 97 03/14/17 15:34 03/14/17 15:34 03/14/17 15:34 03/14/17 15:34 03/14/17 15:34 Laboratory Results 03/14/17 05:02 03/14/17 05:02 03/13/17 03/14/17 03/15/17 05:59 05:59 05:59 Intake Total 1100 Output Total 925 Balance 175 PT 14.2 SEC (12.0-15.0) 03/10/17 09:41 INR 1.08 (0.83-1.16) 03/10/17 09:41 - Physical Exam Constitutional: no apparent distress, appears nourished, not in pain Cardiovascular: regular rate and rhythym, no murmur, rub, or gallop Respiratory: no respiratory distress, no rales or rhonchi, clear to auscultation Gastrointestinal: distension, No tenderness, No ascites, No guarding, No rebound Skin: no rashes or abrasions, no fluctuance, no induration Neurologic: AAOx3, sensation intact bilaterally Psychiatric: interacting appropriately, not anxious, not encephalopathic, thought process linear ICD10 Worksheet Patient Problems: Problems Problem Status Onset Large bowel obstruction Acute Zara's syndrome Acute
--- NOTE | 2017-03-14 21:49 | SOAPPROG ---
SOAP Progress Note Assessment/Plan: Assessment/Plan: 61 y/o male with massively distended colon and history of imperforate anus More distension today and more uncomfortable Will proceed with colectomy and possible ileostomy Risks and benefits discussed S: patient is laying in bed in no acute distress he reports feeling worse today O: General: Pleasant, sitting in bed HEENT: Normocephalic, no gross hearing deficits, mucous membranes moist, pupils equal and round, no scleral icterus Lungs: No increased work of breathing Abdomen: distended with significant increase from yesteday. Firm and uncomfortable but no peritoneal signs, large scar present from correction of imperforate anus as a child 03/12/17 10:35 03/12/17 23:05 03/14/17 21:47 Objective: Vital Signs Temp Pulse Resp BP Pulse Ox 36.8 C 84 18 128/78 H 97 03/14/17 15:34 03/14/17 15:34 03/14/17 15:34 03/14/17 15:34 03/14/17 15:34 Laboratory Results 03/14/17 05:02 03/14/17 19:20 03/13/17 03/14/17 03/15/17 05:59 05:59 05:59 Intake Total 1100 Output Total 925 Balance 175 PT 14.2 SEC (12.0-15.0) 03/10/17 09:41 INR 1.08 (0.83-1.16) 03/10/17 09:41 ICD10 Worksheet Patient Problems: Problems Problem Status Onset Large bowel obstruction Acute Zara's syndrome Acute
[2017-03-14] MEDS: LORazepam 2 MG/ML INJ IVP PRN (23:26)
[2017-03-15] MEDS: oxyCODONE IR 5 MG TAB PO PRN (06:28)
[2017-03-15] MEDS ORDERED: ERTAPENEM 1 GM VIAL IVP ONE (07:47)
[2017-03-15] MEDS ORDERED: POTASSIUM Cl (KCl) 100 ML IV SCH (08:15)
[2017-03-15] MEDS: buPROPion XL 150 MG TAB PO SCH (08:34)
[2017-03-15] MEDS: PROPRANOLOL HCL 10 MG TAB PO SCH ×2 (08:34→23:03)
[2017-03-15] MEDS: POTASSIUM Cl (KCl) 10 MEQ in NS 100 ML IV SCH ×2 (08:48→09:57)
[2017-03-15] MEDS ORDERED: BUPIVACAINE 0.5% 30 ML SDV ONE (10:32)
[2017-03-15] MEDS ORDERED: ERTAPENEM 1 GM VIAL ONE (11:15)
[2017-03-15] MEDS ORDERED: MIDAZOLAM 2 MG/2 ML VIAL IVP ONE (12:59)
--- NOTE | 2017-03-15 13:02 | PDANEPAE ---
ANE Past Medical History - Cardiovascular History Hx Hypertension: Yes Hx Arrhythmias: No Hx Chest Pain: Yes Hx Coronary Artery / Peripheral Vascular Disease: No Hx CHF / Valvular Disease: No Hx Palpitations: No - Pulmonary History Hx COPD: No Hx Asthma/Reactive Airway Disease: No Hx Recent Upper Respiratory Infection: No Hx Oxygen in Use at Home: No Hx Sleep Apnea: No Sleep Apnea Screening Result - Last Documented: Negative - Endocrine History Hx Diabetes: No Hypothyroid: No Hyperthyroid: No Obesity: no - Liver History Hx Hepatic Disorders: Yes Hepatic History Comment: hep c - Neurological & Psychiatric Hx Hx Neurological and Psychiatric Disorders: Yes Neurological / Psychiatric History Comment: depression - Cancer History Hx Cancer: Yes - Congenital Disorder History Hx Congenital Disorders: Yes Congenital History Comment: per patient, has 3 kidneys - GI History GERD: mild Hx Gastrointestinal Disorders: Yes ANE Review of Systems Review of Systems: - Exercise capacity METS (RN): 4 METS ANE Patient History - Allergies Allergies/Adverse Reactions: corn Allergy (Verified 03/15/17 11:08) ibuprofen [From Motrin] Allergy (Verified 03/10/17 09:05) peanut Allergy (Verified 03/10/17 12:26) soy Allergy (Verified 03/10/17 12:26) wheat Allergy (Verified 03/10/17 12:26) - Home Medications Home Medications: Dicyclomine HCl 20 mg PO BID 03/10/17 [Last Taken 03/09/17 21:00] Propranolol HCl [Inderal 10mg (*)] 10 mg PO TID 03/10/17 [Last Taken 03/09/17 21 :00] buPROPion XL [Wellbutrin Xl] 150 mg PO DAILY 03/10/17 [Last Taken 03/09/17 08:00 ] - NPO status NPO Since - Liquids (Date): 03/15/17 NPO Since - Liquids (Time): 00:00 NPO Since - Solids (Date): 03/15/17 NPO Since - Solids (Time): 00:00 - Anes Hx Anes Hx: no prior problems - Smoking Hx Smoking Status: Never smoked - Alcohol Use Alcohol Use: None - Family Anes Hx Family Anes Hx: neg - N/A ANE Labs/Vital Signs - Labs Result Diagrams: 03/14/17 05:02 03/15/17 05:00 - Vital Signs Blood Pressure: 128/90 Heart Rate: 54 Respiratory Rate: 16 O2 Sat (%): 99 Height: 172.72 cm Weight: 60.8 kg ANE Physical Exam - Airway Neck exam: decreased ROM Mallampati Score: Class 2 Mouth exam: normal dental/mouth exam - Pulmonary Pulmonary: no respiratory distress, no rales or rhonchi, clear to auscultation - Cardiovascular Cardiovascular: regular rate and rhythym, no murmur, rub, or gallop - ASA Status ASA Status: III ANE Anesthesia Plan Anesthesia Plan: general endotracheal anesthesia, spinal Total IV Anesthesia: No
[2017-03-15] MEDS ORDERED: MIDAZOLAM 2 MG/2 ML VIAL ONE (13:12)
[2017-03-15] MEDS ORDERED: fentaNYL 100 MCG/2 ML INJ ONE (13:23)
[2017-03-15] MEDS ORDERED: PROPOFOL 200 MG/20 ML VIAL ONE (13:25)
[2017-03-15] MEDS ORDERED: morphINE PF 5 MG/10 ML INJ ONE (13:26)
[2017-03-15] MEDS ORDERED: ROCURONIUM 50 MG/5 ML VIAL ONE (13:37)
[2017-03-15] MEDS ORDERED: ONDANSETRON 4 MG/2 ML VIAL ONE (13:37)
[2017-03-15] MEDS ORDERED: DEXAMETHASONE 4 MG/ML VIAL ONE (13:37)
[2017-03-15] MEDS ORDERED: PHENYLEPHRINE HCL 100 MCG/ML SYR ONE ×2 (13:40→16:17)
[2017-03-15] MEDS ORDERED: LIDOCAINE 2% 5 ML SDV ONE (13:40)
[2017-03-15] MEDS ORDERED: PROPOFOL/EMULSION 500 MG/50 ML BOTTLE IV ONE (14:03)
[2017-03-15] MEDS ORDERED: REMIFENTANIL HCL 1 MG VIAL ONE (14:04)
[2017-03-15] MEDS ORDERED: LR 500 ML IV PRN (14:18)
[2017-03-15] MEDS ORDERED: ONDANSETRON 4 MG/2 ML VIAL IVP PRN (14:18)
[2017-03-15] MEDS ORDERED: NALOXONE HCL 0.4 MG/ML INJ IVP PRN ×3 (14:18→17:31)
[2017-03-15] MEDS ORDERED: fentaNYL 100 MCG/2 ML INJ IVP PRN (14:18)
--- NOTE | 2017-03-15 15:12 | ASMTCMCOM ---
CM Note CM Note Notes: Surgical PA asked Michelle to meet Pt. in room today to offer support/meal assistance to his friend who is here supporting him for surgery. Abdirahmanr met Pt. and his friend, Mariela in room. Provided Mariela with some snacks from floor refrigerator. Mariela and Pt. very grateful. Pt. had open colectomy surgery today. Should Pt. need LTC 30-day stay, PT and OT consults will be needed. Marni from [facility] came to see Pt. today, but unfortunately he was in surgery. Marni states she will return on Saturday. Michelle made [employer] referrals to the following today in preparation for Medicaid LTC stay: [facility], [facility], [facility] Worrell, and [facility]ole Galindo. Please see colleagues prior notes for lots of details regarding Pt's support system in the community. CM to follow for d/c POC. Date Signed: 03/15/2017 03:11 PM Electronically Signed By:Nayana Helm LCSW
--- NOTE | 2017-03-15 16:28 | POSTOPPROG ---
Post Op Note Date of Operation: 03/15/17 Surgeon: Leela Coleman Manager Of International: ana Anesthesiologist: klever Anesthesia: GET(General Endotracheal) Pre-op Diagnosis: megacolon Post-op Diagnosis: same Indication: 61yo M history of imperforate anus, chronicly dilated colon Procedure: ex lap colectomy Findings: massively dilated proximal, transverse and descending colon Inf/Abcess present in the surg proc area at time of surgery?: No EBL: 100-500 Specimen(s): colon
--- NOTE | 2017-03-15 16:52 | HOSPPROG ---
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 - very tight * Hodgkin's lymphoma - in remission * Essential tremor - continue propranolol * Stress fracture right foot - consult PT Subjective: No complaints Objective: Vital Signs Temp Pulse Resp BP Pulse Ox 37.6 C 54 L 16 128/90 H 99 03/15/17 11:05 03/15/17 13:03 03/15/17 13:03 03/15/17 13:03 03/15/17 13:03 Laboratory Results 03/14/17 05:02 03/15/17 05:00 03/14/17 03/15/17 03/16/17 05:59 05:59 05:59 Intake Total 1100 Output Total 925 300 Balance 175 -300 PT 14.2 SEC (12.0-15.0) 03/10/17 09:41 INR 1.08 (0.83-1.16) 03/10/17 09:41 - Physical Exam Constitutional: no apparent distress, appears nourished, not in pain Cardiovascular: No edema Respiratory: no respiratory distress Neurologic: AAOx3, No facial droop Psychiatric: interacting appropriately, thought process linear, No anxious, No depressed, No agitated ICD10 Worksheet Patient Problems: Problems Problem Status Onset Large bowel obstruction Acute Fruitland's syndrome Acute
[2017-03-15] MEDS ORDERED: HYDROmorphONE/DILAUDID 1 MG/ML INJ ONE ×2 (17:07→17:41)
--- NOTE | 2017-03-15 17:16 | POSTANESTH ---
Post Anesthetic Evaluation Cardiovascular Status: Normal, Stable Respiratory Status: Normal, Stable Level of Consciousness/Mental Status: Can Participate in Eval Pain Control: Adequate, Prn Tx Ordered Nausea/Vomiting Control: Adequate, Prn Tx Ordered Complications Possibly Related to Anesthesia: None Noted
[2017-03-15] MEDS: HYDROmorphONE/DILAUDID 1 MG/ML INJ IVP PRN ×5 (17:22→18:20)
[2017-03-15] MEDS ORDERED: KETOROLAC 30 MG/1 ML SDV IVP ONE (17:40)
[2017-03-15] MEDS ORDERED: KETOROLAC 30 MG/1 ML SDV ONE (17:51)
[2017-03-15] MEDS: HYDROmorphONE/DILAUDID 6 MG/30 ML PCA IV PRN (18:52)
[2017-03-15] MEDS: NS 1,000 ML IV SCH (18:55)
[2017-03-16] MEDS: NS 1,000 ML IV SCH ×2 (05:00→16:03)
[2017-03-16 06:25] LABS: PLATELET COUNT 189 10^3/uL (150-400)
[2017-03-16] MEDS: PROPRANOLOL HCL 10 MG TAB PO SCH ×4 (06:53→21:13)
[2017-03-16] MEDS: POTASSIUM Cl (KCl) 10 MEQ in NS 100 ML IV SCH (06:54)
[2017-03-16] MEDS ORDERED: MAGNESIUM SULF 1 GM/DEXTROSE 100 ML IV ONE (07:56)
[2017-03-16] MEDS: buPROPion XL 150 MG TAB PO SCH (08:06)
--- NOTE | 2017-03-16 17:05 | ASMTCMCOM ---
CM Note CM Note Notes: PT and OT now recommending SNF. Per Epifanio [facility] has accepted Pt. Caitlyn to meet w/ Pt. on Saturday. Please refer to Allscripts to see if Pt. accepted anywhere else, so Pt. can have choice. Await visit from [facility] for assessment on Saturday to see if Pt. is eligible for LTC medicaid stay. CM to follow for d/c POC. Date Signed: 03/16/2017 05:04 PM Electronically Signed By:Nayana Helm LCSW
--- NOTE | 2017-03-16 17:48 | HOSPPROG ---
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 -needs revision - very tight * Hodgkin's lymphoma - in remission * Essential tremor - continue propranolol * Stress fracture right foot - consult PT Subjective: Doing well Objective: Vital Signs Temp Pulse Resp BP Pulse Ox 37.3 C 84 16 106/60 94 03/16/17 17:44 03/16/17 17:44 03/16/17 17:44 03/16/17 17:44 03/16/17 17:44 Laboratory Results 03/16/17 04:49 03/16/17 04:49 03/15/17 03/16/17 03/17/17 05:59 05:59 05:59 Intake Total 2000 Output Total 1125 500 Balance 875 -500 PT 14.2 SEC (12.0-15.0) 03/10/17 09:41 INR 1.08 (0.83-1.16) 03/10/17 09:41 on IV dilaudid RADIOTELEGRAPHER with good pain control - Physical Exam Constitutional: no apparent distress, appears nourished, not in pain Cardiovascular: regular rate and rhythym, no murmur, rub, or gallop Respiratory: no respiratory distress, no rales or rhonchi, clear to auscultation Gastrointestinal: normoactive bowel sounds, soft, non-tender abdomen, no palpable masses Skin: no rashes or abrasions, no fluctuance, no induration Neurologic: AAOx3, sensation intact bilaterally Psychiatric: interacting appropriately, not anxious, not encephalopathic, thought process linear ICD10 Worksheet Patient Problems: Problems Problem Status Onset Large bowel obstruction Acute Webster's syndrome Acute
[2017-03-17] MEDS: NS 1,000 ML IV SCH (02:29)
[2017-03-17 05:09] LABS: PLATELET COUNT 147 10^3/uL (150-400)
[2017-03-17] MEDS: buPROPion XL 150 MG TAB PO SCH (08:15)
[2017-03-17] MEDS: PROPRANOLOL HCL 10 MG TAB PO SCH ×3 (08:15→21:47)
--- NOTE | 2017-03-17 09:07 | SOAPPROG ---
YAKELIN Progress Note Assessment/Plan: Assessment: 61-year-old male seen in conjunction today with Bianka LATHAM. Patient with a history of imperforate anus and now with massive colonic distention Decompressive colonoscopy today showed no obstruction but has had very little success and ameliorating his distension. Patient stasis problems been going on for approximately 3 months but he does have bowel movements and passes gas regularly HEENT nonicteric Chest clear Cor regular rhythm Abdomen markedly distended and tympanitic but nontender, well-healed midline scar, no hernias Impression is chronic neurogenic colon probably related to his early imperforate anus problem/no relief from colonoscopy or from Perla likes tablet/ patient is on Wellbutrin and Bentyl which could be contributing Plan: Will add Reglan 03/11/17 21:29 03/11/17 21:33 Also hyperkalemia may need to be addressed more aggressively the potassium is 3.1/he is on a potassium protocol 03/17/17 09:06 afebrile/ minimal flatus/ afebrile/ vs stable/ wound ok/ uo good Objective: Vital Signs Temp Pulse Resp BP Pulse Ox 37.3 C 91 14 130/63 H 94 03/17/17 07:44 03/17/17 07:44 03/17/17 07:44 03/17/17 07:44 03/17/17 07:44 Laboratory Results 03/17/17 04:32 03/17/17 04:32 03/16/17 03/17/17 03/18/17 05:59 05:59 05:59 Intake Total 2000 1200 Output Total 1125 500 Balance 875 700 PT 14.2 SEC (12.0-15.0) 03/10/17 09:41 INR 1.08 (0.83-1.16) 03/10/17 09:41 ICD10 Worksheet Patient Problems: Problems Problem Status Onset Large bowel obstruction Acute Zara's syndrome Acute
[2017-03-17] MEDS: HYDROmorphONE/DILAUDID 6 MG/30 ML PCA IV PRN (10:50)
[2017-03-17] MEDS: D5W 1/2 NS 1,000 ML IV SCH (11:36)
--- NOTE | 2017-03-17 17:05 | HOSPPROG ---
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 -needs revision - very tight * Hodgkin's lymphoma - in remission * Essential tremor - continue propranolol * Stress fracture right foot - consult PT Subjective: No flatus, pain well controlled on IV dilaudid analysis or research safety inspector Objective: Vital Signs Temp Pulse Resp BP Pulse Ox 37.7 C 86 14 141/80 H 96 03/17/17 16:00 03/17/17 16:00 03/17/17 16:00 03/17/17 16:00 03/17/17 16:00 Laboratory Results 03/17/17 11:45 03/17/17 04:32 03/16/17 03/17/17 03/18/17 05:59 05:59 05:59 Intake Total 2000 1200 Output Total 9708 966 1770 Balance 875 700 -1175 PT 14.2 SEC (12.0-15.0) 03/10/17 09:41 INR 1.08 (0.83-1.16) 03/10/17 09:41 IV dilaudid COLLAR TRIMMER for pain control - Physical Exam Constitutional: no apparent distress, appears nourished, not in pain Cardiovascular: regular rate and rhythym, no murmur, rub, or gallop Respiratory: no respiratory distress, no rales or rhonchi, clear to auscultation Gastrointestinal: soft, non-tender abdomen, no palpable masses, No normoactive bowel sounds Skin: no rashes or abrasions, no fluctuance, no induration Neurologic: AAOx3, sensation intact bilaterally Psychiatric: interacting appropriately, not anxious, not encephalopathic, thought process linear ICD10 Worksheet Patient Problems: Problems Problem Status Onset Large bowel obstruction Acute Sparta's syndrome Acute
[2017-03-18] MEDS: D5W 1/2 NS 1,000 ML IV SCH ×2 (00:54→07:42)
[2017-03-18 05:33] LABS: PLATELET COUNT 160 10^3/uL (150-400)
[2017-03-18] MEDS ORDERED: POTASSIUM CL 10 MEQ TAB PO ONE (08:09)
--- NOTE | 2017-03-18 09:43 | SOAPPROG ---
SOAP Progress Note Assessment/Plan: Assessment/plan: 61yo M with massive colonic distension, POD#3 s/p subtotal colectomy No flatus, no BM NPO, sips and chips ok Increased nausea this am - will check AXR Appreciate hospitalists Dispo: inpatient until return of bowel function S: feels "terrible" this morning. tired and weak. increased nausea. wants something to eat O: Lying in bed, no acute distress No increased work of breathing Hypoactive bowel sounds, softly distended. Tenderness around incision. No rebound or guarding. Midline dressing with mild staining Objective: Vital Signs Temp Pulse Resp BP Pulse Ox 37.0 C 73 13 132/89 H 94 03/18/17 07:25 03/18/17 07:25 03/18/17 07:25 03/18/17 07:25 03/18/17 07:25 Laboratory Results 03/18/17 05:10 03/18/17 05:10 03/17/17 03/18/17 03/19/17 05:59 05:59 05:59 Intake Total 1200 1200 Output Total 500 2500 500 Balance 700 -1300 -500 PT 14.2 SEC (12.0-15.0) 03/10/17 09:41 INR 1.08 (0.83-1.16) 03/10/17 09:41 ICD10 Worksheet Patient Problems: Problems Problem Status Onset Large bowel obstruction Acute Zara's syndrome Acute
[2017-03-18] MEDS ORDERED: cefOXitin SODIUM 2 GM in STERILE WATER INJ 21 ML IV ONE (10:42)
[2017-03-18] MEDS ORDERED: BUPIVACAINE 0.25% 30 ML SDV ONE (11:02)
--- NOTE | 2017-03-18 11:13 | PDANEPAE ---
ANE History of Present Illness free air s/p colectomy ANE Past Medical History - Cardiovascular History Hx Hypertension: Yes Hx Arrhythmias: No Hx Chest Pain: Yes Hx Coronary Artery / Peripheral Vascular Disease: No Hx CHF / Valvular Disease: No Hx Palpitations: No - Pulmonary History Hx COPD: No Hx Asthma/Reactive Airway Disease: No Hx Recent Upper Respiratory Infection: No Hx Oxygen in Use at Home: No Hx Sleep Apnea: No Sleep Apnea Screening Result - Last Documented: Negative - Endocrine History Hx Diabetes: No Hypothyroid: No Hyperthyroid: No Obesity: no - Liver History Hx Hepatic Disorders: Yes Hepatic History Comment: hep c - Neurological & Psychiatric Hx Hx Neurological and Psychiatric Disorders: Yes Neurological / Psychiatric History Comment: depression - Cancer History Hx Cancer: Yes - Congenital Disorder History Hx Congenital Disorders: Yes Congenital History Comment: per patient, has 3 kidneys - GI History GERD: mild Hx Gastrointestinal Disorders: Yes ANE Review of Systems Review of Systems: - Exercise capacity Exercise capacity: >=4 METS METS (RN): 4 METS - Systems Gastrointestinal: Reports: abdominal pain, other ANE Patient History - Allergies Allergies/Adverse Reactions: corn Allergy (Verified 03/15/17 11:08) ibuprofen [From Motrin] Allergy (Verified 03/10/17 09:05) peanut Allergy (Verified 03/10/17 12:26) soy Allergy (Verified 03/10/17 12:26) wheat Allergy (Verified 03/10/17 12:26) - Home Medications Home Medications: Dicyclomine HCl 20 mg PO BID 03/10/17 [Last Taken 03/09/17 21:00] Propranolol HCl [Inderal 10mg (*)] 10 mg PO TID 03/10/17 [Last Taken 03/09/17 21 :00] buPROPion XL [Wellbutrin Xl] 150 mg PO DAILY 03/10/17 [Last Taken 03/09/17 08:00 ] - NPO status NPO Status: no food or drink >8 hours NPO Since - Liquids (Date): 03/15/17 NPO Since - Liquids (Time): 00:00 NPO Since - Solids (Date): 03/15/17 NPO Since - Solids (Time): 00:00 - Anes Hx Anes Hx: no prior problems - Smoking Hx Smoking Status: Never smoked - Alcohol Use Alcohol Use: None ANE Labs/Vital Signs - Labs Result Diagrams: 03/18/17 05:10 03/18/17 05:10 - Vital Signs Vital Signs: reviewed preoperatively; see RN documention for details Blood Pressure: 132/89 Heart Rate: 73 Respiratory Rate: 14 O2 Sat (%): 94 Height: 172.72 cm Weight: 60.8 kg ANE Physical Exam - Airway Neck exam: FROM Mallampati Score: Class 2 Mouth exam: poor dentition - Pulmonary Pulmonary: no respiratory distress - Cardiovascular Cardiovascular: regular rate and rhythym - ASA Status ASA Status: III, E ANE Anesthesia Plan Anesthesia Plan: general endotracheal anesthesia (poss a.line/TLC)
[2017-03-18] MEDS: buPROPion XL 150 MG TAB PO SCH (11:15)
[2017-03-18] MEDS: PROPRANOLOL HCL 10 MG TAB PO SCH ×3 (11:16→23:20)
[2017-03-18] MEDS ORDERED: LIDOCAINE 2% 100 MG/5 ML SYR ONE (11:32)
[2017-03-18] MEDS ORDERED: ROCURONIUM 100 MG/10 ML VIAL ONE (11:32)
[2017-03-18] MEDS ORDERED: fentaNYL 100 MCG/2 ML INJ ONE ×3 (11:32→12:43)
[2017-03-18] MEDS ORDERED: PROPOFOL 200 MG/20 ML VIAL ONE (12:13)
[2017-03-18] MEDS ORDERED: LR 1,000 ML IV ONE (12:32)
--- NOTE | 2017-03-18 12:55 | HOSPPROG ---
Hospitalist Progress Note Assessment/Plan: DIAGNOSES: * acute pneumoperitoneum today lead to return to operating room with finding of anastomotic leak treated with partial colectomy and end-colostomy and pouch formation * sinus tachycardia postop -differential diagnosis includes bleeding, infection, pain; no fevers at this time or other specific signs of infection or sepsis * Acute on chronic colonic distention s/p colonoscopy decompression -massive colon distention continued - s/p lap partial colectomy * post-op ileus * Congenital imperforate anus s/p surgical repair as an -needs revision - very tight * Hodgkin's lymphoma - in remission * Essential tremor - continue propranolol * Stress fracture right foot -physical therapy, bruit PLANS: -recheck hemoglobin -follow closely for signs of fever or other signs of infection -IV hydration -depending on duration of his ileus in recovery may need to consider TPN SUBJECTIVE: Patient with notable abdominal discomfort No short of breath, or chest discomfort No chills or sweats No appetite at all OBJECTIVE Vitals reviewed: Tachycardia, otherwise no fever blood pressure is good Management Manager, my review: Exam: alert oriented skin warm dry color ok resps not labored lungs clear BSs heart regular abd distended with absent bowel sounds, ostomy site looks okay, rectal drain with small amount of semi-liquid stool; NG in with a very small amount of bilious drainage limbs warm, no edema iv site ok Abdominal x-ray today, I reviewed image which shows massive amount of pneumoperitoneum Objective: Vital Signs Temp Pulse Resp BP Pulse Ox 37 C 73 14 132/89 H 94 03/18/17 12:38 03/18/17 12:38 03/18/17 12:38 03/18/17 12:38 03/18/17 12:38 Laboratory Results 03/18/17 05:10 03/18/17 05:10 03/17/17 03/18/17 03/19/17 06:59 06:59 06:59 Intake Total 1200 1200 Output Total 400 2500 500 Balance 800 -1300 -500 PT 14.2 SEC (12.0-15.0) 03/10/17 09:41 INR 1.08 (0.83-1.16) 03/10/17 09:41 - Time Spent With Patient Time Spent with Patient: greater than 35 minutes Time Spent with Patient: Greater than 35 minutes spent on this patients care, greater than 50% of time spent counseling, educating, and coordinating care regarding the above mentioned plan. ICD10 Worksheet Patient Problems: Problems Problem Status Onset Large bowel obstruction Acute Zara's syndrome Acute
[2017-03-18] MEDS ORDERED: SUGAMMADEX SODIUM 200 MG/2 ML VIAL IVP ONE (13:34)
[2017-03-18] MEDS ORDERED: HYDROmorphONE/DILAUDID 1 MG/ML INJ IVP PRN (14:08)
[2017-03-18] MEDS ORDERED: PROMETHAZINE HCL 25 MG/ML INJ IVP PRN (14:08)
[2017-03-18] MEDS ORDERED: NALOXONE HCL 0.4 MG/ML INJ IVP PRN (14:08)
[2017-03-18] MEDS ORDERED: ONDANSETRON 4 MG/2 ML VIAL IVP PRN (14:08)
[2017-03-18] MEDS ORDERED: fentaNYL 100 MCG/2 ML INJ IVP PRN (14:08)
[2017-03-18] MEDS ORDERED: ALBUTEROL 3 ML DEYVIAL IH PRN (14:08)
--- NOTE | 2017-03-18 14:20 | POSTOPPROG ---
Post Op Note Date of Operation: 03/18/17 Surgeon: Anshul Francois Manager Procurement: katt Anesthesiologist: robb Anesthesia: GET(General Endotracheal) Pre-op Diagnosis: free air Post-op Diagnosis: anastomotic leak Indication: 61yo M s/p subtotal colectomy with free air Procedure: ex lap colectomy, end colostomy Findings: several small holes at anastomosis, very tense rectal distension Inf/Abcess present in the surg proc area at time of surgery?: Yes Depth: Organ Space EBL: 100-500 Drains: Fede Lundy Specimen(s): peritoneal fluid for culture anastomosis for permanent
--- NOTE | 2017-03-18 15:49 | ASMTCMCOM ---
CHARLES Note CHARLES Note Notes: Marni from [facility] came to meet with patient today but he was in surgery. She will return on Saturday to do his review. [facility] is considering patient but Caitlyn needs to present to her board since the patient is a registered sex offender. Patient has been cooperative and respectful for the duration of his stay with us. He has also been proactive trying to get himself set up with support systems since he was released from detention. CM will follow. Date Signed: 03/18/2017 03:48 PM Electronically Signed By:Morena Smith LCSW
[2017-03-18] MEDS: NS 1,000 ML IV SCH (16:55)
[2017-03-18] MEDS ORDERED: POTASSIUM Cl (KCl) 100 ML IV SCH (17:00)
--- NOTE | 2017-03-18 17:38 | GOP ---
[f rep st] OPERATIVE REPORT DATE OF OPERATION: 03/18/2017 SURGEON: Anshul Francois MD SCREEN PRINTING MACHINE LOADER UNLOADER: Gama Oh MD and Bianka Turcios PA-C. ANESTHESIA: General endotracheal. ANESTHESIOLOGIST: Provided by Dr. Yuniel Freeman. PREOPERATIVE DIAGNOSIS: Intraabdominal free air. POSTOPERATIVE DIAGNOSIS: Anastomotic leak. PROCEDURE PERFORMED: 1. Exploratory laparotomy. 2. Extensive adhesiolysis. 3. Resection of previous anastomosis with end ileostomy and Sheldon's pouch. FINDINGS: Small 1-2 mm perforation noted on the anterior portion of the previous anastomosis. Distal rectum full of fluid. Proximal small bowel dilated. No other significant findings noted. No gross contamination of the abdominal cavity. SPECIMENS: Previous anastomotic site as well as abdominal fluid cultures. ESTIMATED BLOOD LOSS: 100 cc. DESCRIPTION OF PROCEDURE: The patient was greeted in the preoperative suite. Once again, risks, benefits, and alternatives were discussed. Consent was signed. He was then brought back to the operative suite, placed on the OR table in supine position. After all anesthesia machines, including SCDs, were on and functioning, World Health Organization time-out was performed. After a successful induction of general anesthesia, the patient's abdomen was prepped and draped in typical sterile fashion. Entered the abdomen via his previous midline incision via cutting the stitch. Once successfully in the abdomen, I eviscerated the small bowel. There was minimal contamination, although there was some blood-tinged fluid in both quadrants which was successfully irrigated. I turned my attention toward the patient's ileo rectal anastomosis. Initially did not find anything that concerning for a leak. I then began to systematically run the small bowel and stomach, starting at the stomach and moving to the ligament of Treitz more distally and found no other significant pathology. I once again interrogated the anastomosis and on the end of the right most anterior portion identified a small 1-2 mm leak which was probed and had bilious fluid emanating from it. After this was done, I left that for a period of time and completed adhesiolysis through the patient's small bowel which was extensive. Once I successfully lysed the adhesions, and had a better idea of the lay out of the patient's small bowel, I turned my attention back toward the anastomosis. I made the decision at that point in time to resect the anastomosis down to a distal portion of rectum which again was fairly fluid- filled and dilated. Given the fact that the patient I do not feel is emptying appropriately, I did not feel comfortable over-sewing it. Once I successfully stapled it off using multiple fires of the RUTHIE blue load stapler, I took down the mesentery with multiple Vicryl ties. I then stapled off the proximal portion and passed off the previous anastomotic site. I then irrigated the patient's abdomen with warm normal saline, noting clear effluent in the suction canister. I placed a 19-German Curtis drain on the patient's rectal stump and brought it out through a separate stab incision in the left upper quadrant which was attached to the skin with an interrupted silk stitch. I then reapproximated. Prior to this, I changed gown and gloves, and a clean closure set was brought in. I then reapproximated the midline fascia with a #1 PDS suture, noting excellent fascial reapproximation. Prior to doing that, however, I had brought the ileostomy through a separate incision in a mid rectus incision for future ileostomy. The midline was closed with yudy. I then matured my ileostomy through this previous incision noting to brook it so that there was at least 1-2 cm of the stoma everted from the skin edge. After this was done, I digitized it, and it was widely patent. A 2 piece stoma appliance was successfully placed. A sterile dressing was placed in the midline. Given the fact that the patient had a significant amount of fluid in his rectal stump, I then placed a Malecot drain into his rectum and attached it to the skin. Immediately I got 200-300 cc of liquid stool into a Bah bag which was attached to the Malecot drain. The patient was then extubated in the operative suite and taken to the PACU in satisfactory condition. DRAINS: 19-German channel drain and pelvis adjacent to rectal stump. COUNTS: All counts were reported as correct x2. /[id number]/MODL MTDD
[2017-03-18] MEDS: POTASSIUM Cl (KCl) 10 MEQ in NS 100 ML IV SCH ×2 (17:41→20:09)
[2017-03-18] MEDS: METOCLOPRAMIDE 10 MG/2 ML VIAL IV SCH (20:09)
[2017-03-19] MEDS: METOCLOPRAMIDE 10 MG/2 ML VIAL IV SCH ×5 (00:49→23:45)
[2017-03-19] MEDS: NS 1,000 ML IV SCH ×2 (03:29→13:46)
[2017-03-19 05:14] LABS: PLATELET COUNT 229 10^3/uL (150-400)
[2017-03-19] MEDS ORDERED: FLUCONAZOLE/NaCl 100 ML IV SCH (09:00)
--- NOTE | 2017-03-19 09:05 | SOAPPROG ---
YAKELIN Progress Note Assessment/Plan: Assessment: 61-year-old male seen in conjunction today with Bianka LATHAM. Patient with a history of imperforate anus and now with massive colonic distention Decompressive colonoscopy today showed no obstruction but has had very little success and ameliorating his distension. Patient stasis problems been going on for approximately 3 months but he does have bowel movements and passes gas regularly HEENT nonicteric Chest clear Cor regular rhythm Abdomen markedly distended and tympanitic but nontender, well-healed midline scar, no hernias Impression is chronic neurogenic colon probably related to his early imperforate anus problem/no relief from colonoscopy or from Perla likes tablet/ patient is on Wellbutrin and Bentyl which could be contributing Plan: Will add Reglan 03/11/17 21:29 03/11/17 21:33 Also hyperkalemia may need to be addressed more aggressively the potassium is 3.1/he is on a potassium protocol 03/17/17 09:06 afebrile/ minimal flatus/ afebrile/ vs stable/ wound ok/ uo good 03/19/17 09:04 ABD SOFT/ OSTOMY OK/ AFEBRILE/ PULLED HIS NG OUT/ +BS, -FLATUS/ STABLE Objective: Vital Signs Temp Pulse Resp BP Pulse Ox 36.9 C 109 H 16 122/92 H 99 03/19/17 07:19 03/19/17 07:19 03/19/17 07:19 03/19/17 07:19 03/19/17 07:19 Microbiology 03/18/17 11:56 Gram Stain - Final Abdomen - Aspirate Laboratory Results 03/19/17 04:36 03/19/17 04:36 03/18/17 03/19/17 03/20/17 05:59 05:59 05:59 Intake Total 1200 2950 Output Total 2500 1995 45 Balance -1300 955 -45 PT 14.2 SEC (12.0-15.0) 03/10/17 09:41 INR 1.08 (0.83-1.16) 03/10/17 09:41 ICD10 Worksheet Patient Problems: Problems Problem Status Onset Large bowel obstruction Acute [place]'s syndrome Acute
[2017-03-19] MEDS: ERTAPENEM 1 GM VIAL IVP SCH (09:11)
[2017-03-19] MEDS: PROPRANOLOL HCL 10 MG TAB PO SCH ×3 (09:21→23:08)
[2017-03-19] MEDS: buPROPion XL 150 MG TAB PO SCH (09:21)
--- NOTE | 2017-03-19 10:04 | SOAPPROG ---
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 Pain well controlled. No nausea. No bloating. O: Lying in bed, no acute distress No increased work of breathing + quiet bowel sounds, soft, min distended. Nontender. No rebound or guarding. Midline dressing without staining. R ileostomy with good profile, thin serosanguinous fluid in bag. Rectal tube thin stool in bag. law yellow urine Objective: Vital Signs Temp Pulse Resp BP Pulse Ox 36.9 C 109 H 16 122/92 H 99 03/19/17 07:19 03/19/17 07:19 03/19/17 07:19 03/19/17 07:19 03/19/17 07:19 Microbiology 03/18/17 11:56 Gram Stain - Final Abdomen - Aspirate Laboratory Results 03/19/17 04:36 03/19/17 04:36 03/18/17 03/19/17 03/20/17 05:59 05:59 05:59 Intake Total 1200 2950 Output Total 2500 1995 45 Balance -1300 955 -45 PT 14.2 SEC (12.0-15.0) 03/10/17 09:41 INR 1.08 (0.83-1.16) 03/10/17 09:41 ICD10 Worksheet Patient Problems: Problems Problem Status Onset Large bowel obstruction Acute Emmett's syndrome Acute
--- NOTE | 2017-03-19 10:41 | ASMTCMCOM ---
CM Note CM Note Notes: CM met w/ pt for dispo planning. Pt is requesting that his flight communications officer be contacted, Dayan Rucker ([phone]). CM left a msg for Dayan and requested a call back. Marni from [facility] will come on to evaluate for 30 day SNF rehab. CM to follow. Plan: SNF Date Signed: 03/19/2017 10:40 AM Electronically Signed By:NICKO Cantu
--- NOTE | 2017-03-19 10:47 | HOSPPROG ---
Hospitalist Progress Note Assessment/Plan: DIAGNOSES: * Acute on chronic masses colonic distention due to colonic atony s/p colonoscopy decompression followed by lap partial colectomy with anastomosis, then anastomotic leak requiring adhesiolysis, partial colon resection with colostomy 03/18 * sinus tachycardia postop -no fevers, no evidence of bleeding, excellent urine output * post-op ileus * Hodgkin's lymphoma - in remission * Essential tremor - continue propranolol * Stress fracture right foot -physical therapy, bruit I reviewed in detail today with Dr. Leela Coleman PLANS: -continue routine postop care, will leave NG out at this time but if he becomes more symptomatic or has significant distension would need to put back in, patient is very reluctant -follow closely for signs of fever or other signs of infection -IV hydration -strongly encouraged increased activity for the patient -watch closely to see if he tolerates further doses of regular though he may not accept this medicine -consider using methyl naltrexone with NG tube out -depending on duration of his ileus in recovery may need to consider TPN SUBJECTIVE: Nasogastric tube came out last night, sounds like it may have been twisted internally and not likely in proper position and was giving patient quite a bit of for difficulty with throat symptoms, throat symptoms resolved with tube out At this time he has very well controlled abdominal pain, he has had some mild intermittent nausea but not really very bothersome to him. Reglan was started last night when his tube came out and he has had very bothersome side effects from the Reglan does not want that medicine anymore. Denies any chills or fever symptoms, shortness of breath, chest pain, leg symptoms OBJECTIVE Vitals reviewed: Continues with Tachycardia, otherwise no fever, blood pressure is good Exam: alert oriented more relaxed today than yesterday skin warm dry color ok resps not labored lungs clear BSs heart regular abd distended but soft with absent bowel sounds, some tenderness no rebound, ostomy site looks okay small amount of fluid in bag, rectal drain with small amount of semi-liquid stool; NG out limbs warm, no edema iv site ok Laboratory data: White blood cell count a bit higher, hemoglobin stable Serum chemistries including basic and liver panels are stable Objective: Vital Signs Temp Pulse Resp BP Pulse Ox 36.9 C 109 H 16 122/92 H 99 03/19/17 07:19 03/19/17 07:19 03/19/17 07:19 03/19/17 07:19 03/19/17 07:19 Microbiology 03/18/17 11:56 Gram Stain - Final Abdomen - Aspirate Laboratory Results 03/19/17 04:36 03/19/17 04:36 03/18/17 03/19/17 03/20/17 06:59 06:59 06:59 Intake Total 1200 2950 Output Total 2500 1995 45 Balance -1300 955 -45 PT 14.2 SEC (12.0-15.0) 03/10/17 09:41 INR 1.08 (0.83-1.16) 03/10/17 09:41 - Time Spent With Patient Time Spent with Patient: greater than 35 minutes Time Spent with Patient: Greater than 35 minutes spent on this patients care, greater than 50% of time spent counseling, educating, and coordinating care regarding the above mentioned plan. ICD10 Worksheet Patient Problems: Problems Problem Status Onset Large bowel obstruction Acute [place]'s syndrome Acute
[2017-03-19] MEDS ORDERED: MAGNESIUM SULF 1 GM/DEXTROSE 100 ML IV ONE (11:01)
[2017-03-20] MEDS: METOCLOPRAMIDE 10 MG/2 ML VIAL IV SCH ×2 (01:58→11:55)
[2017-03-20] MEDS: HYDROmorphONE/DILAUDID 6 MG/30 ML PCA IV PRN (08:45)
--- NOTE | 2017-03-20 09:42 | SOAPPROG ---
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 Good ileosotmy function O: General: Pleasant, sitting in bed, a bit cranky although not disrespectful Abdomen: flat. ostomy with good profile. Lots of stool in bag. NADJA with serosanguinous fluid. 03/12/17 10:35 03/12/17 23:05 03/14/17 21:47 03/20/17 09:39 Objective: Vital Signs Temp Pulse Resp BP Pulse Ox 36.9 C 105 H 16 147/88 H 97 03/20/17 07:12 03/20/17 07:12 03/20/17 07:12 03/20/17 07:12 03/20/17 07:12 Microbiology 03/18/17 11:56 Gram Stain - Final Abdomen - Aspirate Laboratory Results 03/19/17 04:36 03/20/17 05:32 03/19/17 03/20/17 03/21/17 05:59 05:59 05:59 Intake Total 2949 2629 Output Total 1994 1789 Balance 955 839 PT 14.2 SEC (12.0-15.0) 03/10/17 09:41 INR 1.08 (0.83-1.16) 03/10/17 09:41 ICD10 Worksheet Patient Problems: Problems Problem Status Onset Large bowel obstruction Acute [place]'s syndrome Acute
[2017-03-20] MEDS: ERTAPENEM 1 GM VIAL IVP SCH (10:26)
[2017-03-20] MEDS: NS 1,000 ML IV SCH (10:26)
[2017-03-20] MEDS: buPROPion XL 150 MG TAB PO SCH (10:31)
[2017-03-20] MEDS: PROPRANOLOL HCL 10 MG TAB PO SCH ×3 (10:31→22:48)
--- NOTE | 2017-03-20 10:41 | WOCRNPDOC ---
ISAAKCRSalome Advanced Assessment Note - Ileostomy Assessment, Advanced Right Medial Abdomen Ileostomy Ileostomy Appliance Intact: Yes Ileostomy Appliance Currently in Use: Two Piece Flat, 2 3/4 Stoma Color: [place], Red Stoma Turgor: Moist Stoma Shape: Round Stoma Height: Protruding Slightly Ileostomy Effluent: Fecal, Liquid Ileostomy Comment/Treatment Details: Delivered Day 2 teachings material to patient. Plan was to change ostomy for patient while he observed/asked questions. Patient reports ostomy was changed in the early hours of the morning because it was leaking and is not up to another change at this time. 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 He reports that currently, a barrier to caring for it is the pain from his incision and his inability to see the ostomy. Patient reports, and ELIZ Luevano confirms, that patient will be going to a SNF upon discharge from [facility]. Wound care will round again tomorrow for continued teaching, encouraging as much participation from patient as he is willing.
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
--- NOTE | 2017-03-20 18:06 | HOSPPROG ---
Hospitalist Progress Note Assessment/Plan: DIAGNOSES: * Acute on chronic massive colonic distention due to colonic atony, s/p colonoscopy decompression followed by lap partial colectomy with anastomosis, then anastomotic leak requiring adhesiolysis, partial colon resection with ileostomy 03/18; post-op ileus -now has bowel sounds and good ostomy output, starting to get slightly hungry , no nausea * sinus tachycardia postop persists at this time -no fevers, no evidence of bleeding, excellent urine output -may be slightly dry * Hodgkin's lymphoma treated several years ago- in remission * Essential tremor - continue propranolol once he is able to take p.o. * Stress fracture right foot -physical therapy PLANS: -continue routine postop care, will leave NG out at this time but if he becomes more symptomatic or has significant distension would need to put back in, patient is very reluctant -if doing well tomorrow consider advancing diet for DR Coleman -IV hydration -strongly encouraged increased activity for the patient SUBJECTIVE: Again still tolerating absence of nasogastric suction, now has bowel sounds in stool output from ostomy. He is starting to get a little bit hungry, no nausea , no chills or sweats, insignificant pain No fever symptoms, no respiratory symptoms, did get up and walk a short distance today OBJECTIVE Vitals reviewed: Continues with Tachycardia, otherwise no fever, blood pressure is good Exam: alert oriented more relaxed today than yesterday skin warm dry color ok resps not labored lungs clear BSs heart regular abd distended but soft with absent bowel sounds, some tenderness no rebound, ostomy site looks okay with good output today limbs warm, no edema iv site ok Objective: Vital Signs Temp Pulse Resp BP Pulse Ox 36.9 C 115 H 16 153/82 H 94 03/20/17 17:28 03/20/17 17:28 03/20/17 17:28 03/20/17 17:28 03/20/17 17:28 Microbiology 03/18/17 11:56 Gram Stain - Final Abdomen - Aspirate Laboratory Results 03/19/17 04:36 03/20/17 05:32 03/19/17 03/20/17 03/21/17 06:59 06:59 06:59 Intake Total 2950 2629 Output Total 1994 1789 1200 Balance 955 839 -1200 PT 14.2 SEC (12.0-15.0) 03/10/17 09:41 INR 1.08 (0.83-1.16) 03/10/17 09:41 ICD10 Worksheet Patient Problems: Problems Problem Status Onset Large bowel obstruction Acute [place]'s syndrome Acute
[2017-03-21] MEDS: NS 1,000 ML IV SCH (05:25)
[2017-03-21] MEDS: ERTAPENEM 1 GM VIAL IVP SCH (08:14)
--- NOTE | 2017-03-21 09:00 | HOSPPROG ---
Hospitalist Progress Note Assessment/Plan: This patient has a remote history of surgery for imperforate anus, and chronic history of colonic distension, comes in at this time with colonic atony and significant ongoing symptoms from that. He developed some acute severe symptomatology requiring colonic decompression and it was elected to undergo partial colectomy which was done laparoscopically but followed by anastomotic leak and resurgery. He is now recovering with return of bowel function and will begin eating soon. He also has been living outdoors and doing a lot of walking and has pain in his right foot with x-ray showing a possible 3rd metatarsal stress injury. DIAGNOSES: * Acute on chronic massive colonic distention due to colonic atony, s/p colonoscopy decompression followed by lap partial colectomy with anastomosis, then anastomotic leak requiring adhesiolysis, partial colon resection with ileostomy 03/18; post-op ileus -now has bowel sounds and good ostomy output, starting to get slightly hungry , no nausea * low grade temp elevation Am 03/21 * sinus tachycardia postop persists at this time -no fevers, no evidence of bleeding, excellent urine output -may be slightly dry * Hodgkin's lymphoma treated several years ago- in remission * Essential tremor - continue propranolol once he is able to take p.o. * Stress fracture right foot -physical therapy PLANS: -follow temperatures closely -continue routine postop care -advanced diet starting today as per Dr. Coleman -IV hydration -strongly encouraged increased activity for the patient; will ask PT to get a boot for R foot SUBJECTIVE: Denies significant abdominal discomfort, has noticed increased output from his ostomy. Is hungry this morning. No shortness of breath, no chills No nausea OBJECTIVE Vitals reviewed: mild tachycardia continues, temperature 37.5degrees this morning good blood pressure Exam: alert oriented relaxed skin warm dry color ok resps not labored lungs clear BSs heart regular abd minimally distended, soft with bowel sounds, minimal tenderness, ostomy site looks good with good output today limbs warm, no edema iv site ok Objective: Vital Signs Temp Pulse Resp BP Pulse Ox 37.5 C 101 H 20 152/86 H 98 03/21/17 08:00 03/21/17 08:00 03/21/17 08:00 03/21/17 08:00 03/21/17 08:00 Microbiology 03/18/17 11:56 Gram Stain - Final Abdomen - Aspirate Laboratory Results 03/19/17 04:36 03/20/17 05:32 03/20/17 03/21/17 03/22/17 06:59 06:59 06:59 Intake Total 2629 1343 Output Total 4086 3940 375 Balance 839 -1327 -375 PT 14.2 SEC (12.0-15.0) 03/10/17 09:41 INR 1.08 (0.83-1.16) 03/10/17 09:41 ICD10 Worksheet Patient Problems: Problems Problem Status Onset Large bowel obstruction Acute Zara's syndrome Acute
[2017-03-21] MEDS: oxyCODONE IR 5 MG TAB PO PRN ×3 (09:02→20:09)
[2017-03-21] MEDS: buPROPion XL 150 MG TAB PO SCH (09:03)
[2017-03-21] MEDS: PROPRANOLOL HCL 10 MG TAB PO SCH ×4 (09:03→23:35)
--- NOTE | 2017-03-21 10:54 | SOAPPROG ---
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 Urinating well since law removal, pain improved from yesterday and is controlled. Having ileostomy output and had ileostomy education yesterday. O: General: Pleasant, sitting in bed, no acute distress Abdomen: flat,ostomy with good profile, liquid stool in bag. NADJA with serosanguinous fluid. Rectal rube in place. 03/21/17 10:55 Objective: Vital Signs Temp Pulse Resp BP Pulse Ox 36.9 C 97 16 157/92 H 100 03/21/17 10:00 03/21/17 10:00 03/21/17 10:00 03/21/17 10:00 03/21/17 10:00 Microbiology 03/18/17 11:56 Gram Stain - Final Abdomen - Aspirate Laboratory Results 03/19/17 04:36 03/20/17 05:32 03/20/17 03/21/17 03/22/17 05:59 05:59 05:59 Intake Total 2629 1343 Output Total 1790 2670 675 Balance 839 1327 -675 PT 14.2 SEC (12.0-15.0) 03/10/17 09:41 INR 1.08 (0.83-1.16) 03/10/17 09:41 ICD10 Worksheet Patient Problems: Problems Problem Status Onset Large bowel obstruction Acute [place]'s syndrome Acute
[2017-03-22] MEDS: oxyCODONE IR 5 MG TAB PO PRN ×5 (00:17→21:09)
[2017-03-22] MEDS: LORazepam 0.5 MG TAB PO PRN (03:59)
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
[2017-03-22] MEDS: PROPRANOLOL HCL 10 MG TAB PO SCH ×3 (09:48→21:09)
[2017-03-22] MEDS: buPROPion XL 150 MG TAB PO SCH (09:48)
[2017-03-22] MEDS: ERTAPENEM 1 GM VIAL IVP SCH (09:49)
--- NOTE | 2017-03-22 14:55 | SOAPPROG ---
SOAP Progress Note Assessment/Plan: Assessment/Plan: 61 y/o male with massively distended colon and history of imperforate anus s/p subtotal colectomy, had leak and now with end ileostomy U/S for DVT CBC and CMP tomorrow Ileostomy good output, liquid stools, stools should begin to thicken Encouraged increased ambulation IV was D/Cd and patient is tolerating PO meds with increased pain control Foot fracture - hospitalist following, PT Heme/ID - abx S: Patient reports feeling well today, his pain is mild. After advancing to regular diet he feels he has more energy. He does report having an anxiety attack yesterday evening. He ambulated in the jesus today and plans on doing it 2 -3 more times today. IV is out and patient is on PO medications with increased pain control. He continues to have some acid reflux which is much improved when he is sitting upright. He occasionally uses suction device at his bedside. O: General: Pleasant, sitting in bed, no acute distress Abdomen: flat, ostomy with good profile, liquid stool in bag. NADJA with serosanguinous fluid. Rectal rube in place. 03/22/17 15:09 Objective: Vital Signs Temp Pulse Resp BP Pulse Ox 36.8 C 86 12 96/51 L 95 03/22/17 11:01 03/22/17 11:01 03/22/17 11:01 03/22/17 11:01 03/22/17 11:01 Microbiology 03/18/17 11:56 Gram Stain - Final Abdomen - Aspirate Laboratory Results 03/19/17 04:36 03/20/17 05:32 03/21/17 03/22/17 03/23/17 05:59 05:59 05:59 Intake Total 1343 Output Total 2670 1790 130 Balance -1327 -1790 -130 PT 14.2 SEC (12.0-15.0) 03/10/17 09:41 INR 1.08 (0.83-1.16) 03/10/17 09:41 ICD10 Worksheet Patient Problems: Problems Problem Status Onset Large bowel obstruction Acute Zara's syndrome Acute
--- NOTE | 2017-03-22 17:45 | ASMTCMCOM ---
CM Note CM Note Notes: SWer met w/ Pt. at bedside. With Pt.'s explicit verbal consent, Pt. invited his friend Mariela to join us in discussion when she arrived back to the room. Abdirahmanr reiterated to Pt. that because of his registry as a sex offender he is not going to get admitted through our [facility] regular SNF referral process. Pt. understanding of the situation. Pt. has a plan to get a room to rent possibly with his friend Jasiel who is also currently homeless. Pt. states that Juliet from [facility] is assisting him with finding apartments . Would like SWer to call Juliet to check on status. Abdirahmanr left Juliet a detailed msg today. Await return call. Pt. also asked Abdirahmanr to contact [employer] Dayan Rucker [phone] to see if Officer Alka can assist with admitting him to [facility] as part of his re-entry program from half-way. Left msg for Officer Alka. She did not return the last message I left her. Pt. and SWer discussed scenario where Pt. goes [facility] bed. Pt. states he has already completed homeless Coordinated Entry process. Perhaps [facility] can assist with advocacy for Pt. to get a reserved [facility] bed through a [facility] program. Also, CM to consider getting Pt. into a medical respite bed in [place] through the [facility]. Pt. would rather not go to a [facility] if possible. Pt. also states sleeping on the floor at [facility] is also not tenable now due to his physical condition. Note: Pt. states he receives Old Age Pension benefits at this time in the amt of some $700/mo. 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 CM to follow. Date Signed: 03/22/2017 05:45 PM Electronically Signed By:Nayana Helm LCSW
[2017-03-23] MEDS: LORazepam 0.5 MG TAB PO PRN (01:00)
[2017-03-23] MEDS: oxyCODONE IR 5 MG TAB PO PRN ×5 (01:01→22:20)
[2017-03-23] MEDS: ERTAPENEM 1 GM VIAL IVP SCH (08:05)
[2017-03-23] MEDS: PROPRANOLOL HCL 10 MG TAB PO SCH ×3 (08:05→22:14)
[2017-03-23] MEDS: buPROPion XL 150 MG TAB PO SCH (08:16)
--- NOTE | 2017-03-23 10:20 | SOAPPROG ---
SOAP Progress Note Assessment/Plan: Assessment/Plan: 61 y/o male with massively distended colon and history of imperforate anus s/p subtotal colectomy, had leak and now with end ileostomy U/S for DVT negative CBC and CMP showed mild decrease in his H&H, re-check in a few days Ileostomy good output, lots of flatus in bag and stools beginning to thicken Encouraged increased ambulation Plan on removing rectal tube tomorrow Abx per ID S: Patient reports feeling significantly better today. He is tolerating a full diet and is excited to try some pizza today. His pain is well-controlled. He continues to have good ostomy output and denies nausea/vomiting. His reflux is decreasing in severity the more he stays upright. He is planning on ambulation 3x today. O: General: Pleasant, sitting in bed, no acute distress Abdomen: flat, ostomy with good profile, gas and liquid stool (mildly more solid than yesterday) in bag. NADJA with serosanguinous fluid. Rectal tube in place. Normoactive BS, soft and nontender. 03/23/17 10:54 Objective: Vital Signs Temp Pulse Resp BP Pulse Ox 36.8 C 85 16 101/59 L 96 03/23/17 07:25 03/23/17 08:05 03/23/17 07:25 03/23/17 08:05 03/23/17 07:25 Microbiology 03/18/17 11:56 Gram Stain - Final Abdomen - Aspirate Laboratory Results 03/23/17 05:08 03/23/17 05:08 03/22/17 03/23/17 03/24/17 05:59 05:59 05:59 Intake Total 400 Output Total 1790 2220 225 Balance -1790 -1820 -225 PT 14.2 SEC (12.0-15.0) 03/10/17 09:41 INR 1.08 (0.83-1.16) 03/10/17 09:41 ICD10 Worksheet Patient Problems: Problems Problem Status Onset Large bowel obstruction Acute Zara's syndrome Acute
--- NOTE | 2017-03-23 12:11 | HOSPPROG ---
Hospitalist Progress Note Assessment/Plan: Colon distention 2/2 atony s/p c-scope for decompression followed by sub-total colectomy after free air seen on imaging, POD #8. Minimal contamination per OR note. Polymicrobial Cx data. Discussed with ID. Making good progress. Good ostomy output. -cont invanz, day 5/ -cont to advance diet, ambulate -d/c rectal tube today per surgery H/O Hodgkins - outpt f/u Stress fracture right foot - Cont PT, no pain with ambulation Dispo - Cont inpt. difficult dispo, needs SNF, but hard to place with sex offender history. CM working on LTC options. Subjective: Pt doing well. Tolerating po. Denies abdominal pain, CP or SOB. Ambulating. No fevers. Eager to have rectal tube removed. Objective: Vital Signs Temp Pulse Resp BP Pulse Ox 36.8 C 85 16 101/59 L 96 03/23/17 07:25 03/23/17 08:05 03/23/17 07:25 03/23/17 08:05 03/23/17 07:25 Microbiology 03/18/17 11:56 Gram Stain - Final Abdomen - Aspirate Laboratory Results 03/23/17 05:08 03/23/17 05:08 03/22/17 03/23/17 03/24/17 05:59 05:59 05:59 Intake Total 400 Output Total 1790 2220 225 Balance -1790 -1820 -225 PT 14.2 SEC (12.0-15.0) 03/10/17 09:41 INR 1.08 (0.83-1.16) 03/10/17 09:41 - Physical Exam Constitutional: no apparent distress Eyes: PERRL Ears, Nose, Mouth, Throat: moist mucous membranes Cardiovascular: regular rate and rhythym Respiratory: no respiratory distress, clear to auscultation Gastrointestinal: normoactive bowel sounds, soft, non-tender abdomen Skin: warm Musculoskeletal: full muscle strength Neurologic: AAOx3 Psychiatric: interacting appropriately ICD10 Worksheet Patient Problems: Problems Problem Status Onset Large bowel obstruction Acute Zara's syndrome Acute
[2017-03-24] MEDS: LORazepam 0.5 MG TAB PO PRN (01:09)
[2017-03-24] MEDS: oxyCODONE IR 5 MG TAB PO PRN ×3 (08:43→21:23)
[2017-03-24] MEDS: PROPRANOLOL HCL 10 MG TAB PO SCH ×3 (08:44→21:23)
[2017-03-24] MEDS: ERTAPENEM 1 GM VIAL IVP SCH (08:44)
[2017-03-24] MEDS: buPROPion XL 150 MG TAB PO SCH (08:47)
--- NOTE | 2017-03-24 10:57 | SOAPPROG ---
SOAP Progress Note Assessment/Plan: Assessment/Plan: 61 y/o male with massively distended colon and history of imperforate anus s/p subtotal colectomy, had leak and now with end ileostomy Remove rectal tube today S: Marcellus was sleeping and declined examination 03/23/17 10:54 03/24/17 10:56 Objective: Vital Signs Temp Pulse Resp BP Pulse Ox 36.9 C 95 18 115/63 96 03/24/17 08:00 03/24/17 08:44 03/24/17 08:00 03/24/17 08:44 03/24/17 08:00 Laboratory Results 03/23/17 05:08 03/23/17 05:08 03/23/17 03/24/17 03/25/17 05:59 05:59 05:59 Intake Total 400 550 Output Total 2220 1290 Balance -1820 -740 PT 14.2 SEC (12.0-15.0) 03/10/17 09:41 INR 1.08 (0.83-1.16) 03/10/17 09:41 ICD10 Worksheet Patient Problems: Problems Problem Status Onset Large bowel obstruction Acute Zara's syndrome Acute
--- NOTE | 2017-03-24 16:47 | HOSPPROG ---
Hospitalist Progress Note Assessment/Plan: Colon distention 2/2 atony s/p c-scope for decompression followed by sub-total colectomy after free air seen on imaging, POD #9. Minimal contamination per OR note. Polymicrobial Cx data. Discussed with ID. Making good progress. Good ostomy output. -cont invanz, day 6/ -cont to advance diet, ambulate -d/c rectal tube today per surgery H/O Hodgkins - outpt f/u Stress fracture right foot - Cont PT, no pain with ambulation Dispo - Cont inpt. difficult dispo, needs SNF, but hard to place with sex offender history. CM working on options, but may d/c to homeless skilled nursing. CM will look into [facility] options. Subjective: Pt feels ok, bottom a little sore after removal of rectal tube. Ostomy functioning. No N/V. No fevers. Ambulating. He is frustrated about not being able to get into a SNF. Acknowledges he will probably dc to skilled nursing. Objective: Vital Signs Temp Pulse Resp BP Pulse Ox 37.2 C 90 18 99/60 L 95 03/24/17 15:56 03/24/17 15:56 03/24/17 15:56 03/24/17 15:56 03/24/17 15:56 Laboratory Results 03/23/17 05:08 03/23/17 05:08 03/23/17 03/24/17 03/25/17 05:59 05:59 05:59 Intake Total 400 550 Output Total 2220 1290 450 Balance -1820 -740 -450 PT 14.2 SEC (12.0-15.0) 03/10/17 09:41 INR 1.08 (0.83-1.16) 03/10/17 09:41 ICD10 Worksheet Patient Problems: Problems Problem Status Onset Large bowel obstruction Acute Lund's syndrome Acute
[2017-03-24] MEDS: traMADol 50 MG TAB PO PRN (18:40)
[2017-03-25] MEDS: LORazepam 0.5 MG TAB PO PRN (02:41)
[2017-03-25] MEDS: oxyCODONE IR 5 MG TAB PO PRN ×2 (09:39→20:29)
[2017-03-25] MEDS: PROPRANOLOL HCL 10 MG TAB PO SCH ×3 (09:39→21:15)
[2017-03-25] MEDS: ERTAPENEM 1 GM VIAL IVP SCH (09:39)
[2017-03-25] MEDS: buPROPion XL 150 MG TAB PO SCH (09:46)
--- NOTE | 2017-03-25 09:59 | ASMTCMCOM ---
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 As a sex offender doen't have options with SNF's. Will need friend/family care or to Alf. Date Signed: 03/25/2017 09:58 AM Electronically Signed By:Kim Gray LCSW
--- NOTE | 2017-03-25 10:03 | SOAPPROG ---
SOAP Progress Note Assessment/Plan: Assessment/Plan: 61 yo M with massively distended colon and history of imperforate anus s/p subtotal colectomy, s/p anastomotic leak now with end ileostomy Return of bowel function Rectal tube removed over weekend - no new issues Voiding spontaneously NADJA drain to suction Ostomy education Ambulation, IS IV antibiotics Dispo: pending placement S: Tired this morning but overall well. No abdominal pain or nausea. Not hungry yet this morning. Had the sensation of needing to have a BM after rectal tube removed. Has not yet participated in ostomy change O: Sitting in chair, comfortable no acute distress Abdomen soft, nondistended. ileostomy with good profile, soft stool in bag. NADJA with serosanguinous fluid. +BS Midline incision intact Objective: Vital Signs Temp Pulse Resp BP Pulse Ox 37.2 C 89 16 118/76 95 03/25/17 08:00 03/25/17 09:39 03/25/17 08:00 03/25/17 09:39 03/25/17 08:00 Microbiology 03/18/17 11:56 Gram Stain - Final Abdomen - Aspirate Laboratory Results 03/25/17 05:01 03/23/17 05:08 03/24/17 03/25/17 03/26/17 05:59 05:59 05:59 Intake Total 550 2020 Output Total 1290 1450 Balance -740 570 PT 14.2 SEC (12.0-15.0) 03/10/17 09:41 INR 1.08 (0.83-1.16) 03/10/17 09:41 ICD10 Worksheet Patient Problems: Problems Problem Status Onset Large bowel obstruction Acute Zara's syndrome Acute
--- NOTE | 2017-03-25 10:34 | HOSPPROG ---
Hospitalist Progress Note Assessment/Plan: Colon distention 2/2 atony s/p c-scope for decompression followed by sub-total colectomy after free air seen on imaging, POD #9. Minimal contamination per OR note. Polymicrobial Cx data. Discussed with ID. Making good progress. Good ostomy output. -cont invanz, day 08/31 -advance diet, ambulate -rectal tube out H/O Hodgkins - outpt f/u Stress fracture right foot - Cont PT, no pain with ambulation Dispo - Cont inpt. difficult dispo, needs SNF, but hard to place with sex offender history. CM working on options, but may d/c to homeless half-way. CM will look into [facility] options. Subjective: Pt doing fine. Denies pain. No fevers. No N/V. Objective: Vital Signs Temp Pulse Resp BP Pulse Ox 37.2 C 89 16 118/76 95 03/25/17 08:00 03/25/17 09:39 03/25/17 08:00 03/25/17 09:39 03/25/17 08:00 Microbiology 03/18/17 11:56 Gram Stain - Final Abdomen - Aspirate Laboratory Results 03/25/17 05:01 03/23/17 05:08 03/24/17 03/25/17 03/26/17 05:59 05:59 05:59 Intake Total 550 2020 Output Total 1290 1450 Balance -740 570 PT 14.2 SEC (12.0-15.0) 03/10/17 09:41 INR 1.08 (0.83-1.16) 03/10/17 09:41 - Physical Exam Constitutional: no apparent distress Eyes: PERRL Ears, Nose, Mouth, Throat: moist mucous membranes Cardiovascular: regular rate and rhythym Respiratory: no respiratory distress, clear to auscultation Gastrointestinal: normoactive bowel sounds, soft, non-tender abdomen, other ( ostomy appears healthy, functioning well, nl output) Skin: warm Musculoskeletal: full muscle strength Neurologic: AAOx3 Psychiatric: interacting appropriately ICD10 Worksheet Patient Problems: Problems Problem Status Onset Large bowel obstruction Acute Zara's syndrome Acute
--- NOTE | 2017-03-25 11:26 | ASMTCMCOM ---
CM Note CM Note Notes: This CM contacted [facility] [employer] [phone] who is trying to assist patient in finding housing-no luck as yet. Also this CM left a message for Dayan Juan [phone], patient's Podiatrist Assistant. Date Signed: 03/25/2017 11:26 AM Electronically Signed By:Kim Gray LCSW
--- NOTE | 2017-03-26 08:42 | SOAPPROG ---
SOAP Progress Note Assessment/Plan: Assessment/Plan: 61 yo M with massively distended colon and history of imperforate anus s/p subtotal colectomy, s/p anastomotic leak now with end ileostomy Return of bowel function Recheck labs Rectal tube removed over weekend - no new issues Voiding spontaneously NADJA drain to suction Ostomy education Ambulation, IS IV antibiotics Dispo: pending placement S: Feels "off" and weak. Does not feel any abdominal pain or rectal pain. No distension O: laying in bed, comfortable no acute distress Abdomen soft, nondistended. ileostomy with good profile, soft stool in bag. NADJA with scant serosanguinous fluid. +BS Midline incision intact Objective: Vital Signs Temp Pulse Resp BP Pulse Ox 36.7 C 82 16 102/69 96 03/26/17 07:24 03/26/17 07:24 03/26/17 07:24 03/26/17 07:24 03/26/17 07:24 Microbiology 03/18/17 11:56 Gram Stain - Final Abdomen - Aspirate Anaerobic Culture - Final Lactobacillus Species Bacteroides Ovatus Bifidobacterium Species Laboratory Results 03/25/17 05:01 03/23/17 05:08 03/25/17 03/26/17 03/27/17 05:59 05:59 05:59 Intake Total 2020 Output Total 1450 1085 Balance 570 -1085 PT 14.2 SEC (12.0-15.0) 03/10/17 09:41 INR 1.08 (0.83-1.16) 03/10/17 09:41 ICD10 Worksheet Patient Problems: Problems Problem Status Onset Large bowel obstruction Acute Dover's syndrome Acute
[2017-03-26] MEDS: PROPRANOLOL HCL 10 MG TAB PO SCH ×4 (09:42→22:06)
[2017-03-26] MEDS: buPROPion XL 150 MG TAB PO SCH (09:43)
[2017-03-26 12:12] LABS: PLATELET COUNT 618 10^3/uL (150-400)
--- NOTE | 2017-03-26 13:17 | HOSPPROG ---
Hospitalist Progress Note Assessment/Plan: Colon distention 2/2 atony s/p c-scope for decompression followed by sub-total colectomy after free air seen on imaging, POD #10. Minimal contamination per OR note. Polymicrobial Cx data. Discussed with ID, treat for 7 days. Making good progress. Good ostomy output. -completed 7 days of invanz -advance diet, ambulate -rectal tube out Hyperkalemia - suspect volume depletion, will repeat Azotemia - ?poor oral intake -NS x1L, recheck in am Thrombocytosis - again query volume depletion vs APR -follow H/O Hodgkins - outpt f/u Stress fracture right foot - Cont PT, no pain with ambulation Dispo - Cont inpt. difficult dispo, needs SNF, but hard to place with sex offender history. CM working on options, but may d/c to homeless fpc. CM will look into [facility] options. Subjective: Pt doing ok. He reports not drinking much fluids. No fevers. No abdominal pain, N/V. No CP or SOB. He is ambulating. Objective: Vital Signs Temp Pulse Resp BP Pulse Ox 36.7 C 82 16 102/69 96 03/26/17 07:24 03/26/17 07:24 03/26/17 07:24 03/26/17 07:24 03/26/17 07:24 Microbiology 03/18/17 11:56 Gram Stain - Final Abdomen - Aspirate Anaerobic Culture - Final Lactobacillus Species Bacteroides Ovatus Bifidobacterium Species Laboratory Results 03/26/17 11:56 03/26/17 11:56 03/25/17 03/26/17 03/27/17 05:59 05:59 05:59 Intake Total 2020 Output Total 1450 1085 Balance 570 -1085 PT 14.2 SEC (12.0-15.0) 03/10/17 09:41 INR 1.08 (0.83-1.16) 03/10/17 09:41 - Physical Exam Constitutional: no apparent distress Eyes: PERRL Ears, Nose, Mouth, Throat: moist mucous membranes Cardiovascular: regular rate and rhythym Respiratory: no respiratory distress, clear to auscultation Gastrointestinal: normoactive bowel sounds, soft, non-tender abdomen, other ( ostomy functioning well) Skin: warm Musculoskeletal: full muscle strength Neurologic: AAOx3 Psychiatric: interacting appropriately ICD10 Worksheet Patient Problems: Problems Problem Status Onset Large bowel obstruction Acute Zara's syndrome Acute
[2017-03-26] MEDS: oxyCODONE IR 5 MG TAB PO PRN (14:40)
[2017-03-26] MEDS ORDERED: NS 1,000 ML IV SCH (15:00)
--- NOTE | 2017-03-26 15:02 | WOCRNPDOC ---
MARLO Advanced Assessment Note - Ileostomy Assessment, Advanced Right Medial Abdomen Ileostomy Ileostomy Appliance Intact: Yes Ileostomy Appliance Currently in Use: Two Piece Flat, 2 3/4 Ileostomy Accessory: Barrier Ring, Stoma Paste (in crease at 4 o'clock) Stoma Color: Red Stoma Turgor: Moist Stoma Shape: Round Stoma Height: Protruding Mucocutaneus Junction: Intact Ileostomy Effluent: Fecal Ileostomy Details: End Peristomal Skin: Intact Ileostomy Comment/Treatment Details: Removed 2-piece appliance, which was covering yudy on midline incision. Stoma is red, moist, protruding, w/ small , pinpoint, raised nodules throughout. Uncertain of etiology, but nodules are intact and no bleeding or necrosis noted. Peristomal skin is intact w/ no evidence of breakdown. Contours of patient's abdomen do not provide an even pouching surface; crease in peristomal skin noted at 4 o'clock. This was filled in w/ paste. Stoma measuring 35mm in diameter, borderline for 2 3/4 vs 2 1/4 appliance. Given abdominal contours, patient may be better suited for a 1-piece appliance, which can more readily conform to the abdomen than a 2-piece system which is more rigid. For now, will continue w/ 2-piece 2 3/4 system, using an ostomy ring around opening to provide additional barrier against effluent leaking. Patient did not particiapte in appliance change. He did not ask any questions, and said he thought it would be "easy" to manage. parts and service manager will continue to evaluate while he remains inpatient.
[2017-03-26] MEDS ORDERED: RANITIDINE HCL 150 MG/10 ML UDCUP PO PRN (15:44)
--- NOTE | 2017-03-26 16:25 | ASMTCMCOM ---
CM Note CM Note Notes: Nicole Pillai ([facility] mental health clinician with [facility] [employer]) called to check on patient and his status. Nicole plans to call Poppy with the ACT program, [facility] to ask her to coordinate with us. The ACT program is a program to keep people living in their communities with support. Nicole also suggested [facility] in [place] who has taken people out of jail in the past. She knows Ksenia Welsh who is an ACT therapist and can help patient possibly secure housing there. The number Nicole gave me calls directly to the facility and they do not know Patricia. (when I called) Nicole plans to email Ksenia Recinos and copy me so I will await the email to pursue this further. Contacted Juliet ([employer]) via telephone today and Juliet states her program can help with finances but the patient has to find the place to rent. Juliet suggested [facility], a respite program in [place]. However, when I spoke to Angie Rosas ([phone]) she states they do not accept referrals from any hospital except [facility]. Juliet stated patient had identified 2 properties, one with a [employer] and one with [employer], Prashant Prado. She has tried to call them but has not heard back from either one of them. As these leads did not work out, we are back to custodial bed unless we find something else.CM will follow. Date Signed: 03/26/2017 04:25 PM Electronically Signed By:Morena Smith LCSW
[2017-03-27] MEDS: LORazepam 0.5 MG TAB PO PRN (02:51)
--- NOTE | 2017-03-27 09:10 | SOAPPROG ---
SOAP Progress Note Assessment/Plan: Assessment/Plan: 61 yo M with massively distended colon and history of imperforate anus s/p subtotal colectomy, s/p anastomotic leak now with end ileostomy Return of bowel function Recheck platelets Rectal tube removed - no new issues Voiding spontaneously NADJA drain removal today Ostomy education Ambulation, IS IV antibiotics Dispo: pending placement. seen with Dr. Coleman S: Tired this morning. Does not feel any abdominal pain or rectal pain. No distension O: laying in bed, comfortable no acute distress Abdomen soft, nondistended. stool in appliance. NADJA with scant serosanguinous fluid Midline incision intact 03/27/17 09:10 Objective: Vital Signs Temp Pulse Resp BP Pulse Ox 36.3 C 97 16 122/73 H 98 03/26/17 22:03 03/26/17 22:03 03/26/17 22:03 03/26/17 22:03 03/26/17 22:03 Laboratory Results 03/26/17 11:56 03/26/17 14:50 03/26/17 03/27/17 03/28/17 05:59 05:59 05:59 Intake Total 1000 Output Total 1085 375 Balance -1085 625 PT 14.2 SEC (12.0-15.0) 03/10/17 09:41 INR 1.08 (0.83-1.16) 03/10/17 09:41 ICD10 Worksheet Patient Problems: Problems Problem Status Onset Large bowel obstruction Acute Grannis's syndrome Acute
[2017-03-27] MEDS: PROPRANOLOL HCL 10 MG TAB PO SCH ×2 (09:37→17:48)
[2017-03-27] MEDS: RANITIDINE HCL 150 MG/10 ML UDCUP PO PRN ×2 (09:38→17:20)
[2017-03-27 09:57] LABS: PLATELET COUNT 586 10^3/uL (150-400)
[2017-03-27] MEDS: buPROPion XL 150 MG TAB PO SCH (10:24)
--- NOTE | 2017-03-27 10:44 | WOCRNPDOC ---
MAR[facility] Advanced Assessment Note - Ileostomy Assessment, Advanced Right Medial Abdomen Ileostomy Ileostomy Appliance Intact: Yes Ileostomy Appliance Currently in Use: Two Piece Flat, 2 1/4 Stoma Shape: Round Stoma Height: Protruding Slightly Ileostomy Comment/Treatment Details: Saw patient this AM to reinforce need of self-sufficiency with ileostomy as finding placement, and therefore someone to assist with appliance, is proving difficult. Patient continues to express no concern in caring for the ostomy yet has also not attempted to care for it himself. He claims that "once this line is out", referring to a NADJA drain, he'll be able to better assist. Per ELIZ Junior, the ileostomy leaked and was replaced last night by nursing staff with a 2 1/4 two piece appliance. Appliance intact currently and draining green, liquid stool. Patient not interested in changing today. Wound care will round again tomorrow, Thurs 03/28.
--- NOTE | 2017-03-27 16:13 | ASMTCMCOM ---
CM Note CM Note Notes: Today Michelle worked on trying to get Pt. into a housing respite program. [facility] cannot take Pt. due to sexual offender registry. Pt. gladly signed Releases of Information for [facility] (see hard chart). Emailed releases to Poppy Mcdaniels at [facility] . Abdirahmanr spoke with Poppy on the phone. Poppy hopes to admit Pt. to the [facility] respite program. Please follow with her to see if this plan can work. If Pt. cannot admit to [facility] respite program, CM to arrange for [facility] bed and follow up appointments. SWer updated Pt. Pt. aware of Jail option should [facility] respite not work out. CM to follow. Date Signed: 03/27/2017 04:12 PM Electronically Signed By:Nayana Helm LCSW
--- NOTE | 2017-03-27 17:55 | HOSPPROG ---
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 Coleman and case mgmt - NADJA drain removed # Hypokalemia. Repleted # Acute hyponatremia. 2/2 hypovolemia, s/p NS - recheck in AM # Hx Hodgkins. Chronic, outpt f/u # Stress fracture right foot. Amb w/ walker, cont PT Diet. Regular PPx. High risk, lovenox Code. Full Dispo. ADD /, pending safe discharge arrangements w/ case mgmt Subjective: patient wants to be discharged to a respite situation, he is very apprehensive about alf and his ability to be safe there Objective: Vital Signs Temp Pulse Resp BP Pulse Ox 36.3 C 95 18 116/81 H 98 03/27/17 08:00 03/27/17 08:00 03/27/17 08:00 03/27/17 08:00 03/27/17 08:00 Laboratory Results 03/27/17 09:11 03/27/17 09:11 03/26/17 03/27/17 03/28/17 05:59 05:59 05:59 Intake Total 1000 200 Output Total 1085 375 Balance -1085 625 200 PT 14.2 SEC (12.0-15.0) 03/10/17 09:41 INR 1.08 (0.83-1.16) 03/10/17 09:41 - Time Spent With Patient Time Spent with Patient: greater than 35 minutes Time Spent with Patient: Greater than 35 minutes spent on this patients care, greater than 50% of time spent counseling, educating, and coordinating care regarding the above mentioned plan. - Pending Discharge Pending Discharge Within 48 Hours: Yes Pending Discharge Date: 03/29/17 Pending Discharge Time: 11:00 - Physical Exam Constitutional: not in pain, chronically ill appearing, cachectic, No uncomfortable Cardiovascular: regular rate and rhythym, no murmur, rub, or gallop, No edema Respiratory: no respiratory distress, no rales or rhonchi, clear to auscultation Gastrointestinal: normoactive bowel sounds, distension (mild), other (ostomy w/ normal appearing stool), No tenderness Skin: No erythema Neurologic: AAOx3 Psychiatric: interacting appropriately, not anxious, not encephalopathic, thought process linear ICD10 Worksheet Patient Problems: Problems Problem Status Onset Large bowel obstruction Acute London's syndrome Acute
[2017-03-27] MEDS ORDERED: PROPRANOLOL HCL 10 MG TAB PO PRN (18:09)
[2017-03-28] MEDS: oxyCODONE IR 5 MG TAB PO PRN ×2 (02:15→19:24)
--- NOTE | 2017-03-28 08:25 | SOAPPROG ---
SOAP Progress Note Assessment/Plan: Assessment/Plan: 61 y/o male with massively distended colon and history of imperforate anus s/p subtotal colectomy, had leak and now with end ileostomy Platelets still high but trending down, H&H mildly lower than yesterday All yudy to be taken out today Will make an appt for him at the wound healing center next week Encouraged increased ambulation to build strength Case management working on discharge plan S: Patient was awake laying in bed. Feels much better today than he has the past 2 days. He has increased his ambulation. Complains of occasional nausea. He mentions his ostomy leaked multiple times yesterday, has not leaked today. Mentions having some feelings in his rectum like he has to have a BM. O: General: alert an oriented laying awake in bed Abdomen: soft, nondistended, staple line intact, stool present in appliance. 03/23/17 10:54 03/24/17 10:56 03/28/17 08:19 03/28/17 08:26 03/28/17 08:27 03/28/17 08:28 03/28/17 11:05 Objective: Vital Signs Temp Pulse Resp BP Pulse Ox 36.4 C 83 18 116/79 100 03/28/17 07:37 03/28/17 07:37 03/28/17 07:18 03/28/17 07:18 03/28/17 07:37 Laboratory Results 03/27/17 09:11 03/27/17 09:11 03/27/17 03/28/17 03/29/17 05:59 05:59 05:59 Intake Total 1000 400 Output Total 375 250 75 Balance 625 150 -75 PT 14.2 SEC (12.0-15.0) 03/10/17 09:41 INR 1.08 (0.83-1.16) 03/10/17 09:41 ICD10 Worksheet Patient Problems: Problems Problem Status Onset Large bowel obstruction Acute [place]'s syndrome Acute
[2017-03-28 09:10] LABS: PLATELET COUNT 560 10^3/uL (150-400)
--- NOTE | 2017-03-28 13:02 | ASMTCMCOM ---
CM Note CM Note Notes: Left another message for Poppy Arslan at [facility] ([phone]) regarding need for patient to be admitted to their respite program. Awaiting her return call. CM will follow. Date Signed: 03/28/2017 01:01 PM Electronically Signed By:Morena Smith LCSW
--- NOTE | 2017-03-28 13:12 | WOCRNPDOC ---
MAR[facility] Advanced Assessment Note - Ileostomy Assessment, Advanced Right Medial Abdomen Ileostomy Ileostomy Appliance Intact: Yes Ileostomy Appliance Currently in Use: Two Piece Flat, 2 1/4 Stoma Color: [place] Stoma Turgor: Moist Stoma Shape: Round Stoma Height: Protruding Slightly Ileostomy Effluent: Fecal, Thick, Liquid Ileostomy Comment/Treatment Details: Patient still not interested in hands on teaching. He tells me that in the last day his appliance has been changes 4 times because of issues with leaking. He is unable to identify a pattern or location of the leaks. I reviewed that he has a crease in his anatomy at about 4 o'clock and asked if he'd observed anyone place anything to fill that crease when they've changed the appliance. He states no. We also reviewed ensuring that the skin surrounding the stoma is clean and very dry before applying the appliances. Also suggested he apply heat to the area with each new appliances. Suggesed he either use his hand to cover the area, or to request a warm blanket to apply to the site for several minutes. Patient did minimally assist me in draining the pouch. He would prefer that nursing offer him gloves and wipes if asking him to perform this task. He did also have a conversation with Dr. Coleman today and is hopeful that she has something "that will make the leaking stop". Wound care will attempt to round again tomorrow for further teaching.
[2017-03-28] MEDS ORDERED: FAMOTIDINE 20 MG TAB PO PRN (15:52)
--- NOTE | 2017-03-28 16:15 | HOSPPROG ---
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 Repleted # Acute hyponatremia. 2/2 hypovolemia, s/p NS, resolved # Hx Hodgkins. Chronic, outpt f/u # Stress fracture right foot. Amb w/ walker, cont PT Diet. Regular PPx. High risk, lovenox Code. Full Dispo. ADD /, pending safe discharge arrangements w/ case mgmt Subjective: abd pain intermittent, responding to PO pain Rx Objective: Vital Signs Temp Pulse Resp BP Pulse Ox 37.1 C 102 H 18 116/79 99 03/28/17 15:26 03/28/17 15:26 03/28/17 15:26 03/28/17 15:26 03/28/17 15:26 Laboratory Results 03/28/17 09:02 03/28/17 09:02 03/27/17 03/28/17 03/29/17 05:59 05:59 05:59 Intake Total 1000 400 50 Output Total 375 250 175 Balance 625 150 -125 PT 14.2 SEC (12.0-15.0) 03/10/17 09:41 INR 1.08 (0.83-1.16) 03/10/17 09:41 - Pending Discharge Pending Discharge Within 24 Hours: Yes Pending Discharge Date: 03/29/17 Pending Discharge Time: 11:00 - Physical Exam Constitutional: no apparent distress, not in pain, chronically ill appearing, uncomfortable, cachectic Cardiovascular: regular rate and rhythym, no murmur, rub, or gallop, No edema Respiratory: no respiratory distress, no rales or rhonchi, clear to auscultation Gastrointestinal: normoactive bowel sounds, tenderness (minimal to palpation), other (central incision, ostomy), No guarding, No distension Skin: other (no wound breakdown, no necrosis/erythema/leak) Neurologic: AAOx3, sensation intact bilaterally, No weakness Psychiatric: interacting appropriately, not anxious, not encephalopathic, thought process linear ICD10 Worksheet Patient Problems: Problems Problem Status Onset Hayti's syndrome Acute Large bowel obstruction Acute
[2017-03-29] MEDS: oxyCODONE IR 5 MG TAB PO PRN ×2 (04:40→14:02)
[2017-03-29 08:58] LABS: PLATELET COUNT 534 10^3/uL (150-400)
--- NOTE | 2017-03-29 15:03 | SOAPPROG ---
SOAP Progress Note Assessment/Plan: Assessment/Plan: 61 yo M with massively distended colon and history of imperforate anus s/p subtotal colectomy, s/p anastomotic leak now with end ileostomy Return of bowel function. Regular diet Platelets improving Ostomy education Ambulation, IS Dispo: pending placement. seen with Dr. Coleman S: Lots of energy this morning. Does not feel any abdominal pain or rectal pain. No distension O: laying in bed, comfortable no acute distress Abdomen soft, nondistended. stool in appliance. Midline incision CDI Objective: Vital Signs Temp Pulse Resp BP Pulse Ox 36.6 C 93 16 104/71 98 03/29/17 07:37 03/29/17 07:37 03/29/17 07:37 03/29/17 07:37 03/29/17 07:37 Laboratory Results 03/29/17 08:36 03/29/17 08:36 03/28/17 03/29/17 03/30/17 05:59 05:59 05:59 Intake Total 400 290 200 Output Total 250 600 Balance 150 -310 200 PT 14.2 SEC (12.0-15.0) 03/10/17 09:41 INR 1.08 (0.83-1.16) 03/10/17 09:41 ICD10 Worksheet Patient Problems: Problems Problem Status Onset Large bowel obstruction Acute Pryor's syndrome Acute
--- NOTE | 2017-03-29 16:24 | ASMTCMCOM ---
CM Note CM Note Notes: Poppy McdanielsGopi, informed CM today that the respite program does not hold beds for anyone. She also states the respite program said we can d/c patient on March when they have a bed but he has to go through the crisis center application process and it is no guarantee patient will get the bed. In researching another possible resource [facility] ([facility]), I sent an email to patient's parole mental health worker Nicole Pillai. I have requested she see if she can make the referral since they will only accept clients through the court systems, probation/parole. The program is a senior living house specifically for people released from the corrections system. We are awaiting her reply. The d/c plan is back to 2 nights with the hospital usp bed unless Nicole can help us. [facility] ([phone]) is located at [address] [place] [address] CM will follow. Date Signed: 03/29/2017 04:23 PM Electronically Signed By:Morena Smith LCSW
--- NOTE | 2017-03-29 16:59 | HOSPPROG ---
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 services for patients on parole, counseled patient extensively regarding our progress, and coordinated w/ case mgmt throughout day , updated Dr. Coleman that we will likely not have a safe discharge plan by end of day today, and it will likely not be until Saturday that we have a response from the outside parties # Hypokalemia. Repleted # Acute hyponatremia. 2/2 hypovolemia, s/p NS # Hx Hodgkins. Chronic, outpt f/u # Stress fracture right foot. Amb w/ walker, cont PT Diet. Regular PPx. High risk, lovenox Code. Full Dispo. ADD uncertain, pending safe discharge arrangements w/ case mgmt Subjective: patient less pain on abd, passing flatus Objective: Vital Signs Temp Pulse Resp BP Pulse Ox 36.6 C 93 16 104/71 98 03/29/17 07:37 03/29/17 07:37 03/29/17 07:37 03/29/17 07:37 03/29/17 07:37 Laboratory Results 03/29/17 08:36 03/29/17 08:36 03/28/17 03/29/17 03/30/17 05:59 05:59 05:59 Intake Total 400 290 200 Output Total 250 600 Balance 150 -310 200 PT 14.2 SEC (12.0-15.0) 03/10/17 09:41 INR 1.08 (0.83-1.16) 03/10/17 09:41 - Time Spent With Patient Time Spent with Patient: greater than 35 minutes Time Spent with Patient: Greater than 35 minutes spent on this patients care, greater than 50% of time spent counseling, educating, and coordinating care regarding the above mentioned plan. - Physical Exam Constitutional: not in pain, chronically ill appearing, cachectic, No uncomfortable Cardiovascular: regular rate and rhythym, no murmur, rub, or gallop, No edema Respiratory: no respiratory distress, no rales or rhonchi, clear to auscultation Gastrointestinal: tenderness (mild mid abd), other (ostomy in place), No guarding, No distension Skin: No erythema, No induration, No fluctuance, No rash Neurologic: AAOx3 Psychiatric: interacting appropriately, not anxious, not encephalopathic, thought process linear ICD10 Worksheet Patient Problems: Problems Problem Status Onset Zara's syndrome Acute Large bowel obstruction Acute
[2017-03-30] MEDS: oxyCODONE IR 5 MG TAB PO PRN ×3 (01:57→22:40)
--- NOTE | 2017-03-30 12:42 | SOAPPROG ---
YAKELIN Progress Note Assessment/Plan: Assessment: 61-year-old male seen in conjunction today with Bianka LATHAM. Patient with a history of imperforate anus and now with massive colonic distention Decompressive colonoscopy today showed no obstruction but has had very little success and ameliorating his distension. Patient stasis problems been going on for approximately 3 months but he does have bowel movements and passes gas regularly HEENT nonicteric Chest clear Cor regular rhythm Abdomen markedly distended and tympanitic but nontender, well-healed midline scar, no hernias Impression is chronic neurogenic colon probably related to his early imperforate anus problem/no relief from colonoscopy or from Prela likes tablet/ patient is on Wellbutrin and Bentyl which could be contributing Plan: Will add Reglan 03/11/17 21:29 03/11/17 21:33 Also hyperkalemia may need to be addressed more aggressively the potassium is 3.1/he is on a potassium protocol 03/17/17 09:06 afebrile/ minimal flatus/ afebrile/ vs stable/ wound ok/ uo good 03/19/17 09:04 ABD SOFT/ OSTOMY OK/ AFEBRILE/ PULLED HIS NG OUT/ +BS, -FLATUS/ STABLE 03/30/17 12:41 AFEBRILE/IMPROVING DRAMATICALLY/OSTOMY OKAY/ABDOMEN SOFT Objective: Vital Signs Temp Pulse Resp BP Pulse Ox 36.6 C 94 16 123/74 H 97 03/30/17 07:52 03/30/17 07:52 03/30/17 07:52 03/30/17 07:52 03/30/17 07:52 Laboratory Results 03/29/17 08:36 03/29/17 08:36 03/29/17 03/30/17 03/31/17 05:59 05:59 05:59 Intake Total 290 1450 Output Total 600 200 Balance -310 1250 PT 14.2 SEC (12.0-15.0) 03/10/17 09:41 INR 1.08 (0.83-1.16) 03/10/17 09:41 ICD10 Worksheet Patient Problems: Problems Problem Status Onset Large bowel obstruction Acute Zara's syndrome Acute
--- NOTE | 2017-03-30 16:18 | HOSPPROG ---
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 services for patients on parole, counseled patient extensively regarding our progress, and coordinated w/ case mgmt throughout day , counseled him that it will likely not be until Saturday that we have a response from the outside parties - patient and I had very honest dialogue about the alternative to respite care, which is 2 nights of secured [facility] bed and him going to the [facility] crisis center to apply in-person for their respite, as they have informed us that they are not able to hold or guarantee a respite for him from [facility] # Hypokalemia. Repleted # Acute hyponatremia. 2/2 hypovolemia, s/p NS # Hx Hodgkins. Chronic, outpt f/u # Stress fracture right foot. Amb w/ walker, cont PT Diet. Regular PPx. High risk, lovenox Code. Full Dispo. ADD uncertain, pending safe discharge arrangements w/ case mgmt Subjective: mild abd pain, mostly w/ reflux symptoms Objective: Vital Signs Temp Pulse Resp BP Pulse Ox 36.7 C 96 14 108/73 97 03/30/17 15:22 03/30/17 15:22 03/30/17 15:22 03/30/17 15:22 03/30/17 15:22 Laboratory Results 03/29/17 08:36 03/29/17 08:36 03/29/17 03/30/17 03/31/17 05:59 05:59 05:59 Intake Total 290 1450 Output Total 600 200 Balance -310 1250 PT 14.2 SEC (12.0-15.0) 03/10/17 09:41 INR 1.08 (0.83-1.16) 03/10/17 09:41 - Time Spent With Patient Time Spent with Patient: greater than 35 minutes Time Spent with Patient: Greater than 35 minutes spent on this patients care, greater than 50% of time spent counseling, educating, and coordinating care regarding the above mentioned plan. - Physical Exam Constitutional: not in pain, chronically ill appearing, cachectic, No uncomfortable Cardiovascular: regular rate and rhythym, no murmur, rub, or gallop Respiratory: no respiratory distress, no rales or rhonchi, clear to auscultation Gastrointestinal: normoactive bowel sounds, tenderness (mild R side of abd), other (ostomy), No guarding, No distension Skin: No erythema (around ostomy and surg site) Neurologic: AAOx3 Psychiatric: interacting appropriately, not anxious, not encephalopathic, thought process linear ICD10 Worksheet Patient Problems: Problems Problem Status Onset Van Wert's syndrome Acute Large bowel obstruction Acute
[2017-03-30] MEDS: CALCIUM CARBONATE 500 MG CHEWABLE TAB PO PRN (21:04)
[2017-03-30] MEDS: FAMOTIDINE 20 MG TAB PO SCH ×2 (21:04→21:08)
[2017-03-31] MEDS: FAMOTIDINE 20 MG TAB PO SCH ×2 (09:03→19:39)
--- NOTE | 2017-03-31 10:59 | HOSPPROG ---
Hospitalist Progress Note Assessment/Plan: Assessment: 61 yo M p/w acute colonic distention 2/2 atony requiring decompression, subtotal colectomy c/b anastomotic leak requiring subsequent ileostomy and acute vomiting 2/3 PM Plan: # Vomiting. Acute, new problem to this provider, further w/u indicated. Unclear if this is 2/2 patient's many food sensitivities (he is concerned that it may have been triggered by his sensitivity to turkey) vs. developing SBO (patient unable to beatriz solids or liquids last PM) - getting stat abd upright x-ray - bowel rest, patient only attempting liquids this AM - patient prefers to hold off on IV line, but I encouraged that we run IVF if he indeed has an SBO, and potential NGT - communicated above with Dr. 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 services for patients on parole, counseled him that it will likely not be until Saturday that we have a response from the outside parties - patient and I have had very honest dialogue about the alternative to respite care, which is 2 nights of secured fdc bed and him going to the [facility] crisis center to apply in-person for their respite, as they have informed us that they are not able to hold or guarantee a respite for him from [facility] (patient and I both agree that this scenario would be high-risk for him, as he is deconditioned , using walker, and at risk for ostomy site complications if he is having to bus across town for [facility] appointments, possibly out in the elements all day, and has uncertain nocturnal arrangements) # Hypokalemia. Repleted # Acute hyponatremia. 2/2 hypovolemia, s/p NS # Hx Hodgkins. Chronic, outpt f/u # Stress fracture right foot. Amb w/ walker, cont PT - patient requested boot, one ordered when OOB Diet. Regular PPx. High risk, lovenox Code. Full Dispo. ADD uncertain, pending safe discharge arrangements w/ case mgmt Subjective: vomited sandwich and broth last PM, ongoing bilat flank "gas" pain, liquids ostomy output Objective: Vital Signs Temp Pulse Resp BP Pulse Ox 36.7 C 97 16 123/78 H 98 03/31/17 07:13 03/31/17 07:13 03/31/17 07:13 03/31/17 07:13 03/31/17 07:13 Laboratory Results 03/29/17 08:36 03/29/17 08:36 03/30/17 03/31/17 04/01/17 05:59 05:59 05:59 Intake Total 1450 500 Output Total 200 Balance 1250 500 PT 14.2 SEC (12.0-15.0) 03/10/17 09:41 INR 1.08 (0.83-1.16) 03/10/17 09:41 - Physical Exam Constitutional: no apparent distress, chronically ill appearing, uncomfortable, cachectic Cardiovascular: regular rate and rhythym, no murmur, rub, or gallop, No edema Respiratory: no respiratory distress, no rales or rhonchi, clear to auscultation Gastrointestinal: tenderness (mild in bilat CVAs), other (R ostomy w/ liquid brown stool), No normoactive bowel sounds (hypoactive bowel sounds), No guarding , No distension Skin: No erythema, No induration, No fluctuance, No rash, No other (no necrosis at wound) Neurologic: AAOx3, sensation intact bilaterally, No weakness Psychiatric: interacting appropriately, not anxious, not encephalopathic, thought process linear ICD10 Worksheet Patient Problems: Problems Problem Status Onset Zara's syndrome Acute Large bowel obstruction Acute
[2017-03-31] MEDS: oxyCODONE IR 5 MG TAB PO PRN (11:44)
--- NOTE | 2017-03-31 13:33 | SOAPPROG ---
SOAP Progress Note Assessment/Plan: Assessment: 61-year-old male seen in conjunction today with Bianka LATHAM. Patient with a history of imperforate anus and now with massive colonic distention Decompressive colonoscopy today showed no obstruction but has had very little success and ameliorating his distension. Patient stasis problems been going on for approximately 3 months but he does have bowel movements and passes gas regularly HEENT nonicteric Chest clear Cor regular rhythm Abdomen markedly distended and tympanitic but nontender, well-healed midline scar, no hernias Impression is chronic neurogenic colon probably related to his early imperforate anus problem/no relief from colonoscopy or from Perla likes tablet/ patient is on Wellbutrin and Bentyl which could be contributing Plan: Will add Reglan 03/11/17 21:29 03/11/17 21:33 Also hyperkalemia may need to be addressed more aggressively the potassium is 3.1/he is on a potassium protocol 03/17/17 09:06 afebrile/ minimal flatus/ afebrile/ vs stable/ wound ok/ uo good 03/19/17 09:04 ABD SOFT/ OSTOMY OK/ AFEBRILE/ PULLED HIS NG OUT/ +BS, -FLATUS/ STABLE 03/30/17 12:41 AFEBRILE/IMPROVING DRAMATICALLY/OSTOMY OKAY/ABDOMEN SOFT 03/31/17 13:32 Emesis today for uncertain reasons/eating well presently/abdomen soft nontender will/wound okay/ostomy functioning well 2 abdomen is nondiagnostic Objective: Vital Signs Temp Pulse Resp BP Pulse Ox 36.7 C 97 16 123/78 H 98 03/31/17 07:13 03/31/17 07:13 03/31/17 07:13 03/31/17 07:13 03/31/17 07:13 Laboratory Results 03/29/17 08:36 03/29/17 08:36 03/30/17 03/31/17 04/01/17 05:59 05:59 05:59 Intake Total 1450 500 Output Total 200 Balance 1250 500 PT 14.2 SEC (12.0-15.0) 03/10/17 09:41 INR 1.08 (0.83-1.16) 03/10/17 09:41 ICD10 Worksheet Patient Problems: Problems Problem Status Onset Large bowel obstruction Acute Weehawken's syndrome Acute
--- NOTE | 2017-03-31 13:38 | WOCRNPDOC ---
MARLO Advanced Assessment Note - Ileostomy Assessment, Advanced Right Medial Abdomen Ileostomy Ileostomy Appliance Intact: Yes Ileostomy Appliance Currently in Use: Two Piece Flat, 2 1/4, Cut to Fit Stoma Color: Red (nodular) Stoma Turgor: Moist Stoma Shape: Oval ([id number]) Stoma Height: Protruding Ileostomy Effluent: Fecal, Pasty Ileostomy Details: End, Sheldon's Pouch Peristomal Skin: Intact Ileostomy Comment/Treatment Details: Appliance change and teaching at the bedside today w/ moderate patient assist. He was able to empty his pouch by himself. He had a 2-piece appliance in place, which is too rigid for his abdomen and overlaps onto his midline sutures. I switched him to a 1-piece system today, which I am hoping will work better w/ his abdominal contours. He is so thin from recent illness, and has loose skin surrounding his stoma, which can make it complicated to pouch. operations and maintenance technician will follow up with him on Saturday to determine if 1-piece system is working well. Patient will need supplies when he dc's, and we discussed this at length. Wound/ostomy care should be able to provide him with some supplies to help bridge the gap in care until his [employer] officer can find a permanent placement for him.
[2017-04-01] MEDS: CALCIUM CARBONATE 500 MG CHEWABLE TAB PO PRN ×2 (05:12→12:25)
[2017-04-01] MEDS: oxyCODONE IR 5 MG TAB PO PRN ×2 (05:12→16:23)
[2017-04-01] MEDS: FAMOTIDINE 20 MG TAB PO SCH ×2 (08:13→20:56)
[2017-04-01 08:32] LABS: PLATELET COUNT 592 10^3/uL (150-400)
--- NOTE | 2017-04-01 12:42 | SOAPPROG ---
SOAP Progress Note Assessment/Plan: Assessment/Plan: 61 y/o male with massively distended colon and history of imperforate anus s/p subtotal colectomy, had leak and now with end ileostomy Emesis on Saturday, none since, is eating well Hyperkalemia and Elevated Cr per hospitalists New ostomy appliance, doing well no leaking Case management working on discharge plan S: Pt sitting up in chair, feels much stronger, pain is controlled. Reports some rectal mucus. O: General: alert , is able to stand up out of chair easily unassisted Abdomen: soft, nondistended, incision cdi, stool present in appliance. 04/01/17 12:39 04/01/17 12:42 04/01/17 17:53 Objective: Vital Signs Temp Pulse Resp BP Pulse Ox 36.7 C 99 16 118/72 98 04/01/17 08:14 04/01/17 08:14 04/01/17 08:14 04/01/17 08:14 04/01/17 08:14 Laboratory Results 04/01/17 08:18 04/01/17 08:18 03/31/17 04/01/17 04/02/17 05:59 05:59 05:59 Intake Total 500 500 Balance 500 500 PT 14.2 SEC (12.0-15.0) 03/10/17 09:41 INR 1.08 (0.83-1.16) 03/10/17 09:41 ICD10 Worksheet Patient Problems: Problems Problem Status Onset Large bowel obstruction Acute Zara's syndrome Acute
[2017-04-01] MEDS ORDERED: NS 1,000 ML IV ONE (16:20)
--- NOTE | 2017-04-01 16:26 | HOSPPROG ---
Hospitalist Progress Note Assessment/Plan: # massively dilated colon s/p endoscopic decompression, colectomy c/b anastamotic leak s/p resection and end ileostomy - s/p invanz x 7 days # MALATHI/hyperK - patient agreeable to 1L NS - suspect pre-renal/hypovolemia - recheck tomorrow # tachycardia - possibly d/y hypovolemia in setting of inadequate PO intake - trial of 1L NS # ABLA - post-op # hypoNa - hypovolemic # thrombocytosis - concerned that this is d/t ongoing inflammation - recheck tomorrow # Hodgkins # stress fx R foot # dispo - CM looking at options Subjective: c/o being bored, frustrated with still being inthe hospital Objective: Vital Signs Temp Pulse Resp BP Pulse Ox 36.5 C 114 H 16 117/81 H 99 04/01/17 15:35 04/01/17 15:35 04/01/17 15:35 04/01/17 15:35 04/01/17 15:35 Laboratory Results 04/01/17 08:18 04/01/17 08:18 03/31/17 04/01/17 04/02/17 05:59 05:59 05:59 Intake Total 500 500 Balance 500 500 PT 14.2 SEC (12.0-15.0) 03/10/17 09:41 INR 1.08 (0.83-1.16) 03/10/17 09:[address] abd personally reviewed - Physical Exam Constitutional: no apparent distress, appears nourished Eyes: anicteric sclera Ears, Nose, Mouth, Throat: hearing normal Cardiovascular: No edema Respiratory: no respiratory distress Gastrointestinal: other (ostomy, no TTP) Genitourinary: No law in urethra Skin: warm Musculoskeletal: full muscle strength Neurologic: AAOx3 Psychiatric: not anxious ICD10 Worksheet Patient Problems: Problems Problem Status Onset Zara's syndrome Acute Large bowel obstruction Acute
--- NOTE | 2017-04-01 16:49 | ASMTCMCOM ---
CM Note CM Note Notes: Spoke with Nicole Rosas today and she states the [facility] program will not work because patient will have to be active and engaged and what he needs is time to rest and recover. Nicole agreed to call [facility] for me to advocate some more for patient and their respite care program. They have told us they do not hold beds and cannot guarantee patient anything. Nicole is also going to check on hotel vouchers for the patient through her program in the event we have no other options. CM will check back in with Nicole tomorrow. CM will follow. Date Signed: 04/01/2017 04:30 PM Electronically Signed By:Morena Smith LCSW
[2017-04-02] MEDS: CALCIUM CARBONATE 500 MG CHEWABLE TAB PO PRN ×3 (03:35→20:44)
[2017-04-02] MEDS: oxyCODONE IR 5 MG TAB PO PRN ×4 (03:40→22:48)
[2017-04-02 05:33] LABS: PLATELET COUNT 489 10^3/uL (150-400)
[2017-04-02] MEDS: FAMOTIDINE 20 MG TAB PO SCH ×2 (09:03→20:43)
--- NOTE | 2017-04-02 13:58 | SOAPPROG ---
SOAP Progress Note Assessment/Plan: Assessment/Plan: 61 yo M with massively distended colon and history of imperforate anus s/p subtotal colectomy, s/p anastomotic leak now with end ileostomy Return of bowel function. Regular diet Ostomy education Ambulation, IS Dispo: pending placement S: Feeling well. eating [place] food. no complaints other than occ gas pains O: sitting up in chair, comfortable no acute distress Appliance leak Midline incision CDI Objective: Vital Signs Temp Pulse Resp BP Pulse Ox 36.6 C 96 18 102/74 98 04/02/17 07:31 04/02/17 07:31 04/02/17 07:31 04/02/17 07:31 04/02/17 07:31 Laboratory Results 04/02/17 05:10 04/02/17 05:10 04/01/17 04/02/17 04/03/17 05:59 05:59 05:59 Intake Total 500 2030 Output Total 500 350 Balance 500 1530 -350 PT 14.2 SEC (12.0-15.0) 03/10/17 09:41 INR 1.08 (0.83-1.16) 03/10/17 09:41 ICD10 Worksheet Patient Problems: Problems Problem Status Onset Large bowel obstruction Acute Zara's syndrome Acute
[2017-04-02] MEDS ORDERED: NS 1,000 ML IV SCH (14:45)
--- NOTE | 2017-04-02 14:45 | HOSPPROG ---
Hospitalist Progress Note Assessment/Plan: # massively dilated colon s/p endoscopic decompression, colectomy c/b anastomotic leak s/p resection and end ileostomy - s/p invanz x 7 days # MALATHI/hyperK - FeNa 0.3% - will give 2L NS overnight and recheck tomorrow # tachycardia - better after 1L NS # ABLA - post-op # hypoNa - hypovolemic # thrombocytosis - concerned that this is d/t ongoing inflammation - recheck tomorrow # Hodgkins # stress fx R foot # dispo - CM looking at options Subjective: feels better today; changing ostomy bag Objective: Vital Signs Temp Pulse Resp BP Pulse Ox 36.6 C 96 18 102/74 98 04/02/17 07:31 04/02/17 07:31 04/02/17 07:31 04/02/17 07:31 04/02/17 07:31 Laboratory Results 04/02/17 05:10 04/02/17 05:10 04/01/17 04/02/17 04/03/17 05:59 05:59 05:59 Intake Total 500 2030 Output Total 500 350 Balance 500 1530 -350 PT 14.2 SEC (12.0-15.0) 03/10/17 09:41 INR 1.08 (0.83-1.16) 03/10/17 09:[address] Coleman - Physical Exam Constitutional: no apparent distress, appears nourished Eyes: anicteric sclera Ears, Nose, Mouth, Throat: hearing normal Cardiovascular: No edema Respiratory: no respiratory distress Gastrointestinal: other (ostomy) Genitourinary: No law in urethra Skin: warm Musculoskeletal: full muscle strength Neurologic: AAOx3 Psychiatric: not anxious ICD10 Worksheet Patient Problems: Problems Problem Status Onset [place]'s syndrome Acute Large bowel obstruction Acute
--- NOTE | 2017-04-02 15:32 | ASMTCMCOM ---
CM Note CM Note Notes: Left a message for Nicole Pillai, patient's parole mental health worker to see if she and her tube drawing supervisor were able to get [facility] to commit to giving Mario the bed for respite in light of his special circumstances.Awaiting a call back from them. CM will follow. Date Signed: 04/02/2017 03:31 PM Electronically Signed By:Morena Smith LCSW
[2017-04-03] MEDS: CALCIUM CARBONATE 500 MG CHEWABLE TAB PO PRN ×3 (06:04→16:10)
[2017-04-03] MEDS: FAMOTIDINE 20 MG TAB PO SCH ×2 (07:51→21:22)
[2017-04-03] MEDS: oxyCODONE IR 5 MG TAB PO PRN ×3 (07:51→18:27)
--- NOTE | 2017-04-03 08:06 | SOAPPROG ---
SOAP Progress Note Assessment/Plan: Assessment/Plan: 61 yo M with massively distended colon and history of imperforate anus s/p subtotal colectomy, s/p anastomotic leak now with end ileostomy Return of bowel function. Regular diet Ostomy education Ambulation, IS Dispo: pending placement S: Feeling well. occ gas pains O: sitting up in chair, comfortable no acute distress Abd soft, nt, nd. Ostomy stool in appliance Midline incision CDI 04/03/17 08:05 Objective: Vital Signs Temp Pulse Resp BP Pulse Ox 36.7 C 77 18 106/69 98 04/03/17 07:35 04/03/17 07:35 04/03/17 07:35 04/03/17 07:35 04/03/17 07:35 Laboratory Results 04/02/17 05:10 04/03/17 04:47 04/02/17 04/03/17 04/04/17 05:59 05:59 05:59 Intake Total 2030 1800 Output Total 500 352 Balance 1530 1448 PT 14.2 SEC (12.0-15.0) 03/10/17 09:41 INR 1.08 (0.83-1.16) 03/10/17 09:41 ICD10 Worksheet Patient Problems: Problems Problem Status Onset Large bowel obstruction Acute [place]'s syndrome Acute
--- NOTE | 2017-04-03 09:58 | HOSPPROG ---
Hospitalist Progress Note Assessment/Plan: # massively dilated colon s/p endoscopic decompression, colectomy c/b anastomotic leak s/p resection and end ileostomy - s/p invanz x 7 days # MALATHI/hyperK - better today; push fluids, recheck tomorrow # tachycardia - resolved after IVF # ABLA - post-op # hypoNa - hypovolemic # thrombocytosis - concerned that this is d/t ongoing inflammation - recheck tomorrow # hx Hodgkins # stress fx R foot # dispo - CM looking at options Subjective: feels better; eating well Objective: Vital Signs Temp Pulse Resp BP Pulse Ox 36.7 C 77 18 106/69 98 04/03/17 07:35 04/03/17 07:35 04/03/17 07:35 04/03/17 07:35 04/03/17 07:35 Laboratory Results 04/02/17 05:10 04/03/17 04:47 04/02/17 04/03/17 04/04/17 05:59 05:59 05:59 Intake Total 2030 1800 Output Total 500 352 Balance 1530 1448 PT 14.2 SEC (12.0-15.0) 03/10/17 09:41 INR 1.08 (0.83-1.16) 03/10/17 09:41 - Physical Exam Constitutional: unkempt Cardiovascular: regular rate and rhythym, no murmur, rub, or gallop Respiratory: no respiratory distress, no rales or rhonchi Gastrointestinal: soft, non-tender abdomen, no palpable masses, other (ostomy) ICD10 Worksheet Patient Problems: Problems Problem Status Onset [place]'s syndrome Acute Large bowel obstruction Acute
--- NOTE | 2017-04-03 18:43 | ASMTCMCOM ---
CM Note CM Note Notes: Researched an assisted living that considers sex offenders and sent a referral today to the [facility] in [place], [place]. Spoke with Ivy on the phone who said they take Medicaid but it was unclear how the reimbursement would happen. She will have the admission people review the referral and call us back tomorrow. Spoke with the [facility] in [place] who states patient is eligible to receive veterans benfits but she did not have any services she thought he would be eligible for. She did say he can present to the hospital for an assessment. Spoke with taxi driver supervisor from parole office and she did not have any ideas other than the [facility]. Poppy Mcdaniels, wound care center consultant from [facility] was unable to get the respite program to make any committment and in fact is saying she doesn't think the respite program will come through and we need to arrange for a fpc bed. CM is out of resources currently except for our hospital fpc bed. CM will follow. Date Signed: 04/03/2017 06:42 PM Electronically Signed By:Morena Smith LCSW
[2017-04-04] MEDS: CALCIUM CARBONATE 500 MG CHEWABLE TAB PO PRN ×2 (02:35→08:33)
[2017-04-04 06:01] LABS: PLATELET COUNT 399 10^3/uL (150-400)
[2017-04-04] MEDS: FAMOTIDINE 20 MG TAB PO SCH (08:33)
[2017-04-04] MEDS ORDERED: NS 1,000 ML IV ONE (09:03)
[2017-04-04] MEDS ORDERED: SIMETHICONE 80 MG TAB CHEW PO ONE (10:45)
--- NOTE | 2017-04-04 10:49 | SOAPPROG ---
SOAP Progress Note Assessment/Plan: Assessment/Plan: 61 y/o male with massively distended colon and history of imperforate anus s/p subtotal colectomy, had leak and now with end ileostomy BUN and Cr improved today, instructions per hospitalist Ostomy appliances from the wound healing center tubed up to his room to be tried Abdominal pain last night, but good ostomy output Case management working on discharge plan S: Pt sitting up in chair, reports not sleeping well due to stomach aches last night. Good ostomy output with stool and gas. He is feeling better this morning. O: General: sitting up in chair, alert and oriented, in no acute distress Abdomen: soft, nondistended, incision cdi, stool and gas present in appliance. Objective: Vital Signs Temp Pulse Resp BP Pulse Ox 36.5 C 111 H 16 112/70 98 04/04/17 08:00 04/04/17 08:00 04/04/17 08:00 04/04/17 08:00 04/04/17 08:00 Laboratory Results 04/04/17 05:31 04/04/17 05:31 04/03/17 04/04/17 04/05/17 05:59 05:59 05:59 Intake Total 1800 598 Output Total 352 900 Balance 1448 -302 PT 14.2 SEC (12.0-15.0) 03/10/17 09:41 INR 1.08 (0.83-1.16) 03/10/17 09:41 ICD10 Worksheet Patient Problems: Problems Problem Status Onset Large bowel obstruction Acute [place]'s syndrome Acute
[2017-04-04] MEDS: SIMETHICONE 80 MG TAB CHEW PO SCH ×4 (11:55→20:58)
[2017-04-04] MEDS: PANTOPRAZOLE SODIUM 40 MG TAB PO SCH (11:56)
[2017-04-04] MEDS: ENOXAPARIN 40 MG/0.4 ML SYR SC SCH (11:57)
[2017-04-04] MEDS: oxyCODONE IR 5 MG TAB PO PRN ×3 (12:34→23:36)
--- NOTE | 2017-04-04 13:57 | WOCRNPDOC ---
WOCRSalome Advanced Assessment Note - Ileostomy Assessment, Advanced Right Medial Abdomen Ileostomy Ileostomy Appliance Intact: Yes Ileostomy Appliance Currently in Use: Two Piece Flat, 2 1/4 Ileostomy Accessory: Belt (Provided today with instruction) Stoma Color: [place] Stoma Turgor: Moist Stoma Shape: Round Stoma Height: Protruding Slightly Ileostomy Effluent: Fecal, Liquid Ileostomy Comment/Treatment Details: Patient provided with several wafers and one piece convex appliances to try. Patient provided with a mirror as he indicated that this was a barrier to being able to complete an appliance change independently. Ultimately, patient needs to demonstrate competence with this skill and has been reluctant to take on the task independently. There is little more that wound care can provide this patient at this time. Have asked nursing staff to encourage independence with all tasks related to caring for and changing of ostomy and appliance. Wound care will not continue to round. Wound care will be happy to observe and project manager/team coach if/when patient states he is willing/ ready to perform an appliance change.
[2017-04-05] MEDS: oxyCODONE IR 5 MG TAB PO PRN ×3 (04:11→19:44)
[2017-04-05] MEDS: PANTOPRAZOLE SODIUM 40 MG TAB PO SCH (08:23)
[2017-04-05] MEDS: SIMETHICONE 80 MG TAB CHEW PO SCH ×4 (08:23→19:44)
[2017-04-05] MEDS: ENOXAPARIN 40 MG/0.4 ML SYR SC SCH (08:24)
--- NOTE | 2017-04-05 08:54 | SOAPPROG ---
SOAP Progress Note Assessment/Plan: Assessment/Plan: 61 yo M with massively distended colon and history of imperforate anus s/p subtotal colectomy, s/p anastomotic leak now with end ileostomy Return of bowel function. Regular diet Ostomy education - trying different appliances to prevent leaks Ambulation, IS Dispo: pending placement. Seen with Dr. Coleman S: No changes. feeling well. getting labs drawn and upset that labor mediator came by at 4am O: laying in bed, comfortable no acute distress Abd soft, nt, nd. Ostomy stool in appliance Midline incision CDI Objective: Vital Signs Temp Pulse Resp BP Pulse Ox 36.6 C 91 18 99/71 L 98 04/05/17 08:00 04/05/17 08:00 04/05/17 08:00 04/05/17 08:00 04/05/17 08:00 Laboratory Results 04/04/17 05:31 04/04/17 05:31 04/04/17 04/05/17 04/06/17 05:59 05:59 05:59 Intake Total 598 Output Total 900 130 Balance -302 -130 PT 14.2 SEC (12.0-15.0) 03/10/17 09:41 INR 1.08 (0.83-1.16) 03/10/17 09:41 ICD10 Worksheet Patient Problems: Problems Problem Status Onset Large bowel obstruction Acute Zara's syndrome Acute
--- NOTE | 2017-04-05 13:34 | HOSPPROG ---
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 (not noted on CT abd) # tachycardia - resolved after IVF # ABLA - post-op # hypoNa - hypovolemic # thrombocytosis - resolved - recheck every few days # hx Hodgkins # stress fx R foot # dispo - CM looking at options; should be ready medically in a few days if can sustain renal function without NS bolus Subjective: feels well today Objective: Vital Signs Temp Pulse Resp BP Pulse Ox 36.6 C 91 18 99/71 L 98 04/05/17 08:00 04/05/17 08:00 04/05/17 08:00 04/05/17 08:00 04/05/17 08:00 Laboratory Results 04/04/17 05:31 04/05/17 08:55 04/04/17 04/05/17 04/06/17 05:59 05:59 05:59 Intake Total 598 Output Total 900 230 Balance -302 -230 PT 14.2 SEC (12.0-15.0) 03/10/17 09:41 INR 1.08 (0.83-1.16) 03/10/17 09:41 - Physical Exam Constitutional: no apparent distress, appears nourished Cardiovascular: No edema Respiratory: no respiratory distress Gastrointestinal: other (soft, ostomy with good output) Genitourinary: No law in urethra Skin: warm Musculoskeletal: no muscle tenderness Neurologic: AAOx3 Psychiatric: interacting appropriately ICD10 Worksheet Patient Problems: Problems Problem Status Onset [place]'s syndrome Acute Large bowel obstruction Acute
[2017-04-05] MEDS: CALCIUM CARBONATE 500 MG CHEWABLE TAB PO PRN (15:23)
--- NOTE | 2017-04-05 17:01 | ASMTCMCOM ---
CM Note CM Note Notes: CM spoke w/ Amy at [facility]. Amy will come out to assess pt. CM met w/ pt and provided updates. Pt would prefer to stay in [place]. Pt reports that he doesn't think his marketing and communications officer will allow him to go that far. CM spoke w/ Nicole (P#: [phone]) today and she reports that a PhD from [facility] is looking resources at the PR. CM spoke w/ Poppy Mcdaniels (P#: [phone]) CHARLES at [facility] and she suggested that CM call the mobile crisis to see if they can come do an evaluation. CM called the mobile crisis. CM was notified that pt will need to be medically cleared. Per Bassem RN pt will be here for a couple more days to monitor kidney functioning. CM to follow. Plan: TBD Date Signed: 04/05/2017 05:00 PM Electronically Signed By:NICKO Cantu
[2017-04-06] MEDS: oxyCODONE IR 5 MG TAB PO PRN ×3 (00:09→20:07)
[2017-04-06] MEDS: CALCIUM CARBONATE 500 MG CHEWABLE TAB PO PRN ×4 (00:09→20:07)
[2017-04-06] MEDS: SIMETHICONE 80 MG TAB CHEW PO SCH ×4 (07:25→20:07)
[2017-04-06] MEDS ORDERED: SUCRALFATE 1 GM TAB PO PRN (08:33)
--- NOTE | 2017-04-06 08:34 | SOAPPROG ---
SOAP Progress Note Assessment/Plan: Assessment/Plan: 61 yo M with massively distended colon and history of imperforate anus s/p subtotal colectomy, s/p anastomotic leak now with end ileostomy Return of bowel function. Regular diet Ostomy education - trying different appliances to prevent leaks. trial and error Ambulation, IS appreciate hospitalists Dispo: pending placement. Seen with Dr. Coleman S: No changes. feeling well. O: laying in bed, comfortable no acute distress Abd soft, nt, nd. Ostomy stool in appliance Midline incision CDI Objective: Vital Signs Temp Pulse Resp BP Pulse Ox 36.6 C 93 16 105/69 95 04/06/17 08:00 04/06/17 08:00 04/06/17 08:00 04/06/17 08:00 04/06/17 08:00 Laboratory Results 04/04/17 05:31 04/06/17 07:46 04/05/17 04/06/17 04/07/17 05:59 05:59 05:59 Intake Total 500 Output Total 230 Balance 270 PT 14.2 SEC (12.0-15.0) 03/10/17 09:41 INR 1.08 (0.83-1.16) 03/10/17 09:41 ICD10 Worksheet Patient Problems: Problems Problem Status Onset Large bowel obstruction Acute Zara's syndrome Acute
[2017-04-06] MEDS: PANTOPRAZOLE SODIUM 40 MG TAB PO SCH (08:58)
--- NOTE | 2017-04-06 13:22 | HOSPPROG ---
Hospitalist Progress Note Assessment/Plan: 61-year-old recently incarcerated man admitted with massively dilated colon and imperforate anus status post total colectomy complicated by a leak and now with end ileostomy. He has been doing better with good p.o. intake today, tolerating [employer]. # massively dilated colon status post endoscopic decompression, colectomy and eventual ileostomy. Tolerating good p.o. currently working with wound and ostomy care and ready for dispo once a adequate plan has been established. He was evaluated by assisted-living last night and we are waiting their apply * Continue ostomy care * Continue monitoring electrolytes although appears to be more stable * Appears ready for discharge # acute kidney injury, creatinine has stabilized at 1.3. Electrolytes stable today. Will continue to monitor while in-house. # tachycardia, resolved # acute blood loss anemia, stable and expected due to surgery # hyponatremia, resolved # thrombocytosis, improved # history of Hodgkin's lymphoma remotely # stress fracture right foot working with physical therapy Disposition: Currently looking at an assisted living facility which evaluated him last night and awaiting the reply. Other options would include [facility]. Subjective: Patient new to me and chart reviewed. No specific complaints today eating well with minimal pain. Objective: Vital Signs Temp Pulse Resp BP Pulse Ox 36.6 C 93 16 105/69 95 04/06/17 08:00 04/06/17 08:00 04/06/17 08:00 04/06/17 08:00 04/06/17 08:00 Laboratory Results 04/04/17 05:31 04/06/17 07:46 04/05/17 04/06/17 04/07/17 05:59 05:59 05:59 Intake Total 500 Output Total 230 Balance 270 PT 14.2 SEC (12.0-15.0) 03/10/17 09:41 INR 1.08 (0.83-1.16) 03/10/17 09:41 - Physical Exam Constitutional: no apparent distress, chronically ill appearing Eyes: PERRL Ears, Nose, Mouth, Throat: moist mucous membranes Cardiovascular: regular rate and rhythym Respiratory: no respiratory distress Gastrointestinal: normoactive bowel sounds, other (And ileostomy) Genitourinary: no bladder fullness Skin: warm, normal color Neurologic: No facial droop Psychiatric: interacting appropriately, not anxious ICD10 Worksheet Patient Problems: Problems Problem Status Onset Large bowel obstruction Acute Zara's syndrome Acute
[2017-04-07] MEDS: CALCIUM CARBONATE 500 MG CHEWABLE TAB PO PRN ×3 (02:23→19:49)
[2017-04-07] MEDS: oxyCODONE IR 5 MG TAB PO PRN ×5 (05:06→23:35)
[2017-04-07] MEDS: SIMETHICONE 80 MG TAB CHEW PO SCH ×5 (09:00→23:00)
[2017-04-07] MEDS: PANTOPRAZOLE SODIUM 40 MG TAB PO SCH (09:23)
--- NOTE | 2017-04-07 10:40 | SOAPPROG ---
SOAP Progress Note Assessment/Plan: Assessment/Plan: 61 yo M with massively distended colon and history of imperforate anus s/p subtotal colectomy, s/p anastomotic leak now with end ileostomy Return of bowel function. Regular diet Ostomy education - trying different appliances to prevent leaks. trial and error Ambulation, IS appreciate hospitalists Dispo: pending placement. S: No changes. feeling well. ate taco posadas for dinner last night and looking at [employer] food menu now. O: sitting up in chair, comfortable no acute distress Abd soft, nt, nd. Ostomy stool in appliance Midline incision CDI, no e/o infection Objective: Vital Signs Temp Pulse Resp BP Pulse Ox 36.6 C 119 H 16 104/73 97 04/07/17 07:50 04/07/17 07:50 04/07/17 07:50 04/07/17 07:50 04/07/17 07:50 Laboratory Results 04/04/17 05:31 04/06/17 04/07/17 04/08/17 05:59 05:59 05:59 Intake Total 500 1506 Output Total 230 1100 Balance 270 406 PT 14.2 SEC (12.0-15.0) 03/10/17 09:41 INR 1.08 (0.83-1.16) 03/10/17 09:41 ICD10 Worksheet Patient Problems: Problems Problem Status Onset Large bowel obstruction Acute Zara's syndrome Acute
--- NOTE | 2017-04-07 13:28 | HOSPPROG ---
Hospitalist Progress Note Assessment/Plan: 61-year-old recently incarcerated man admitted with massively dilated colon and imperforate anus status post total colectomy complicated by a leak and now with end ileostomy. He has been doing better with good p.o. intake today, tolerating [employer]. # massively dilated colon status post endoscopic decompression, colectomy and eventual ileostomy. Tolerating good p.o. currently working with wound and ostomy care and ready for dispo once a adequate plan has been established. He was evaluated by assisted-living last night and we are waiting their apply * Continue ostomy care * Continue monitoring electrolytes although appears to be more stable * Appears ready for discharge # acute kidney injury, creatinine has stabilized at 1.2. Electrolytes stable today. Will continue to monitor while in-house. # tachycardia, intermittent tachycardia, elevated this morning however pulse 92 currently and patient asymptomatic. He states he has a history of tachycardia generally in the 100s which is chronic # acute blood loss anemia, stable and expected due to surgery # hyponatremia, resolved # thrombocytosis, improved # history of Hodgkin's lymphoma remotely # stress fracture right foot working with physical therapy Disposition: Currently looking at an assisted living facility which evaluated him last night and awaiting the reply. Other options would include [facility]. Subjective: Doing well, eating well, no new complaints Objective: Vital Signs Temp Pulse Resp BP Pulse Ox 36.6 C 119 H 16 104/73 97 04/07/17 07:50 04/07/17 07:50 04/07/17 07:50 04/07/17 07:50 04/07/17 07:50 Laboratory Results 04/04/17 05:31 04/07/17 10:31 04/06/17 04/07/17 04/08/17 05:59 05:59 05:59 Intake Total 500 1506 Output Total 230 1100 Balance 270 406 PT 14.2 SEC (12.0-15.0) 03/10/17 09:41 INR 1.08 (0.83-1.16) 03/10/17 09:41 - Physical Exam Constitutional: no apparent distress, chronically ill appearing Cardiovascular: regular rate and rhythym Respiratory: no respiratory distress ICD10 Worksheet Patient Problems: Problems Problem Status Onset [place]'s syndrome Acute Large bowel obstruction Acute
[2017-04-08] MEDS: CALCIUM CARBONATE 500 MG CHEWABLE TAB PO PRN ×2 (06:52→16:55)
[2017-04-08] MEDS: oxyCODONE IR 5 MG TAB PO PRN ×4 (06:52→21:26)
[2017-04-08] MEDS: SIMETHICONE 80 MG TAB CHEW PO SCH ×4 (06:54→21:27)
[2017-04-08] MEDS: PANTOPRAZOLE SODIUM 40 MG TAB PO SCH (06:54)
--- NOTE | 2017-04-08 09:22 | SOAPPROG ---
SOAP Progress Note Assessment/Plan: Assessment/Plan: 61 yo M with massively distended colon and history of imperforate anus s/p subtotal colectomy, s/p anastomotic leak now with end ileostomy Return of bowel function. Regular diet Ostomy education - trying different appliances to prevent leaks. trial and error Ambulation, IS appreciate hospitalists Dispo: pending placement. S: No changes. tolerating diet. leaked from appliance yesterday because it got too full. O: sitting up in chair, comfortable no acute distress Abd soft, nt, nd. Ostomy stool in appliance Midline incision CDI, no e/o infection Objective: Vital Signs Temp Pulse Resp BP Pulse Ox 37.1 C 86 18 93/63 L 100 04/08/17 07:58 04/08/17 07:58 04/08/17 07:58 04/08/17 07:58 04/08/17 07:58 Laboratory Results 04/04/17 05:31 04/07/17 10:31 04/07/17 04/08/17 04/09/17 05:59 05:59 05:59 Intake Total 1506 480 Output Total 1100 800 Balance 406 -320 PT 14.2 SEC (12.0-15.0) 03/10/17 09:41 INR 1.08 (0.83-1.16) 03/10/17 09:41 ICD10 Worksheet Patient Problems: Problems Problem Status Onset Large bowel obstruction Acute Zara's syndrome Acute
--- NOTE | 2017-04-08 13:55 | HOSPPROG ---
Hospitalist Progress Note Assessment/Plan: 61-year-old recently incarcerated man admitted with massively dilated colon and imperforate anus status post total colectomy complicated by a leak and now with end ileostomy. He has been doing better with good p.o. intake today, asking for lasagna. # massively dilated colon status post endoscopic decompression, colectomy and eventual ileostomy. Tolerating good p.o. currently working with wound and ostomy care and ready for dispo once a adequate plan has been established. He was evaluated by assisted-living last night and we are waiting their apply * Continue ostomy care * Electrolytes stable for several days off IV fluids * Appears ready for discharge # acute kidney injury, creatinine has stabilized at 1.2. Electrolytes stable today. Will continue to monitor while in-house. # tachycardia, intermittent tachycardia, elevated this morning however pulse 92 currently and patient asymptomatic. He states he has a history of tachycardia generally in the 100s which is chronic # acute blood loss anemia, stable and expected due to surgery # hyponatremia, resolved # thrombocytosis, improved # history of Hodgkin's lymphoma remotely # stress fracture right foot working with physical therapy Disposition: Currently looking at an assisted living facility which evaluated him last night and awaiting the reply. Other options would include [facility]. Subjective: No complaints today. wants to eat lao food today Objective: Vital Signs Temp Pulse Resp BP Pulse Ox 37.1 C 86 18 93/63 L 100 04/08/17 07:58 04/08/17 07:58 04/08/17 07:58 04/08/17 07:58 04/08/17 07:58 Laboratory Results 04/04/17 05:31 04/07/17 10:31 04/07/17 04/08/17 04/09/17 05:59 05:59 05:59 Intake Total 1506 480 Output Total 1100 800 700 Balance 406 -320 -700 PT 14.2 SEC (12.0-15.0) 03/10/17 09:41 INR 1.08 (0.83-1.16) 03/10/17 09:41 - Physical Exam Constitutional: no apparent distress Cardiovascular: regular rate and rhythym, No edema Respiratory: no respiratory distress Psychiatric: interacting appropriately ICD10 Worksheet Patient Problems: Problems Problem Status Onset Zara's syndrome Acute Large bowel obstruction Acute
--- NOTE | 2017-04-08 16:16 | ASMTCMCOM ---
CM Note CM Note Notes: Spoke with [facility] who states they cannot accept patient in their facility due to his medical needs being too much for them. Contacted the respite program at [facility] to request they come and do an asessment. Jenna from [facility] told me patient is not eligible for the respite program and told me to call [facility] [place]. I called [facility] and they said I had been misinformed because the crisis program is supposed to do all their screenings for them. The [facility] manager rn case told me she was going to call the respite program and talk to them about this. She also said he is eligilbe for respite care and doesn't know why we were told he was not. I am awaiting her return call. Spoke with Leela Leal ([phone]) [employer] and she is calling a colleague of hers in [place] with [facility] which could possibly be a respite for patient. She wants to make the call because they normally only take referrals from [facility] but she understands the obstacles in helping someon out of [facility]. Leela runs [employer]. She will call or email me back. Spoke with patient today who is doing well to not get discouraged. He is very grateful the hospital is supporting him and hopeful a solution can be found. Patient did say he would be willing to go to [place] if he had to. Poppy Arslan was also informed the respite program will not come to evaluate and [facility] did not understand. She will call [facility] as well and will call me back around 4:00 today. CM will follow. Date Signed: 04/08/2017 04:15 PM Electronically Signed By:Morena Smith LCSW
[2017-04-09] MEDS: PANTOPRAZOLE SODIUM 40 MG TAB PO SCH (08:43)
[2017-04-09] MEDS: oxyCODONE IR 5 MG TAB PO PRN ×3 (08:43→19:07)
[2017-04-09] MEDS: SIMETHICONE 80 MG TAB CHEW PO SCH ×4 (08:43→21:45)
[2017-04-09] MEDS: CALCIUM CARBONATE 500 MG CHEWABLE TAB PO PRN (12:15)
--- NOTE | 2017-04-09 15:44 | HOSPPROG ---
Hospitalist Progress Note Assessment/Plan: 61-year-old recently incarcerated man admitted with massively dilated colon and imperforate anus status post total colectomy complicated by a leak and now with end ileostomy. He has been doing better with good p.o. intake today, asking for lasagna. # massively dilated colon status post endoscopic decompression, colectomy and eventual ileostomy. Tolerating good p.o. currently working with wound and ostomy care and ready for dispo once a adequate plan has been established. He was evaluated by assisted-living last night and we are waiting their apply * Continue ostomy care, this is permanent * Electrolytes stable for several days off IV fluids * Appears ready for discharge # acute kidney injury, creatinine has stabilized at 1.2. Electrolytes stable today. Will continue to monitor while in-house. # tachycardia, intermittent tachycardia, elevated this morning however pulse 92 currently and patient asymptomatic. He states he has a history of tachycardia generally in the 100s which is chronic # acute blood loss anemia, stable and expected due to surgery # hyponatremia, resolved # thrombocytosis, improved # history of Hodgkin's lymphoma remotely # stress fracture right foot working with physical therapy Disposition: Patient to go to [facility] care [facility], they request a urine tox screen prior to transfer Subjective: No complaints Objective: Vital Signs Temp Pulse Resp BP Pulse Ox 36.2 C 96 18 102/58 L 100 04/09/17 07:33 04/08/17 22:21 04/09/17 07:33 04/09/17 07:33 04/08/17 22:21 Laboratory Results 04/04/17 05:31 04/07/17 10:31 04/08/17 04/09/17 04/10/17 05:59 05:59 05:59 Intake Total 480 Output Total 800 700 Balance -320 -700 PT 14.2 SEC (12.0-15.0) 03/10/17 09:41 INR 1.08 (0.83-1.16) 03/10/17 09:41 - Physical Exam Constitutional: no apparent distress ICD10 Worksheet Patient Problems: Problems Problem Status Onset Echo's syndrome Acute Large bowel obstruction Acute
--- NOTE | 2017-04-09 16:26 | ASMTCMCOM ---
CM Note CM Note Notes: [facility] to say she will come to assess patient for respite program which is now housed at [facility]. Jenna did state after the eval that [facility] will accept him into the program and gave me a taxi voucher to transport him there tomorrow. (they will not have a bed until tomorrow) Patient is relieved and happy to get to stay in [place] and not have to go to [place] since he already has several services started here. Patient needs clothes and a walker which case management will have tomorrow. Jenna needs patient to have a tox screen to meet state and federal requirements for the program. Patient's nurse ordered and CM will fax results to Jenna:[facility] ([phone]). This is a must or they will send patient back. Patient will need supplies to care for his ileostomy which can be done tomorrow before d/c. Case Management will discuss with the physician in the morning. D/C to [facility] respite program/[facility] tomorrow. CM will follow. Date Signed: 04/09/2017 04:25 PM Electronically Signed By:Morena Smith LCSW
--- NOTE | 2017-04-09 17:09 | SOAPPROG ---
SOAP Progress Note Assessment/Plan: Assessment/Plan: 61 yo M with massively distended colon and history of imperforate anus s/p subtotal colectomy, s/p anastomotic leak now with end ileostomy Return of bowel function. Regular diet Ostomy education - trying different appliances to prevent leaks. trial and error Ambulation, IS appreciate hospitalists Dispo: pending placement. follow-up with Dr. Coleman in 1 month or sooner if needed. S: No changes. tolerating diet. leaked from appliance this morning so he taped the edges O: sitting up in chair, comfortable no acute distress Abd soft, nt, nd. Ostomy stool in appliance Midline incision CDI, no e/o infection Objective: Vital Signs Temp Pulse Resp BP Pulse Ox 36.7 C 88 18 99/57 L 97 04/09/17 16:00 04/09/17 16:00 04/09/17 16:00 04/09/17 16:00 04/09/17 16:00 Laboratory Results 04/04/17 05:31 04/07/17 10:31 04/08/17 04/09/17 04/10/17 05:59 05:59 05:59 Intake Total 480 Output Total 800 700 Balance -320 -700 PT 14.2 SEC (12.0-15.0) 03/10/17 09:41 INR 1.08 (0.83-1.16) 03/10/17 09:41 ICD10 Worksheet Patient Problems: Problems Problem Status Onset Large bowel obstruction Acute Zara's syndrome Acute
[2017-04-09 21:49] VITALS: RESP 16
[2017-04-10] MEDS: CALCIUM CARBONATE 500 MG CHEWABLE TAB PO PRN (01:34)
[2017-04-10 07:58] VITALS: BP 92/56; PULSE 81; TEMP 98; O2SAT 96
[2017-04-10] MEDS: oxyCODONE IR 5 MG TAB PO PRN (08:04)
[2017-04-10] MEDS: PANTOPRAZOLE SODIUM 40 MG TAB PO SCH (08:04)
[2017-04-10] MEDS: SIMETHICONE 80 MG TAB CHEW PO SCH (08:04)
[2017-04-10] MEDS: traMADol 50 MG TAB PO PRN (10:49)
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
--- NOTE | 2017-04-10 18:50 | GDS ---
[f rep st] DISCHARGE SUMMARY DISCHARGE DIAGNOSES: Include: 1. Massively dilated colon, status post endoscopic decompression colectomy, and ileostomy. 2. Acute kidney injury, resolved. 3. Intermittent tachycardia. 4. Acute blood loss anemia. 5. Hypovolemic hyponatremia. 6. Reactive thrombocytosis. 7. History of Hodgkin lymphoma. 8. Stress fracture of the right foot. HISTORY OF PRESENT ILLNESS: A 61-year-old male who presents with abdominal pain with a massively dil ated colon and imperforate anus, status post total colectomy complicated by leak, now with an end ile ostomy. For details of patient's initial presentation, please see the History and Physical from 02/25. CONSULTATIVE SERVICES: General Surgery, Dr. Coleman. HOSPITAL COURSE BY ISSUE: 1. Massively dilated colon: Patient presented initially with abdominal pain AND found to have sever e dilation of his colon and an imperforate anus. Was taken for a total colectomy, which was complica siena by leak, ultimately leading to surgical placement of an end ileostomy. Patient has been receivin g ostomy care and stabilization. On the day of disposition, his ostomy is functioning well, and he i s tolerating solid oral intake without complication. He is to follow in the outpatient setting with Dr. Coleman as well as the wound care team. 2. Acute kidney injury: Patient received fluid resuscitation. Creatinine is 1.2 on the day of disp osition. 3. Acute blood loss anemia: Patient's vital signs are stable. hemoglobin is 11 and hematocrit 32, on the day of discharge. He will follow in the outpatient setting with his primary care provider for long-term monitoring of his anemia. APPOINTMENTS: Include: 1. Dr. Coleman. 2. [facility]. PENDING STUDIES: At the time of this dictation are none. TIME SPENT: I spent greater than 30 minutes in the planning and coordination of this discharge. /[id number]
== END 2017-04-10 11:28 | disposition home or self-care (01) | DRG 330 ==
LOC: INTOOBSV 11:06 → F3E 11:42 → OBSVTOIN 03-11 14:57
PROVIDERS: ADMIT Internal Medicine; ATTEND Internal Medicine
PROC: 0DJD8ZZ Inspection of Lower Intestinal Tract, Via Natural or Artificial Opening Endoscopic (ICD-10-PCS; 2017-03-11)
PROC: 0DBE0ZX Excision of Large Intestine, Open Approach, Diagnostic (ICD-10-PCS; principal; 2017-03-15 11:00)
PROC: 0DN80ZZ Release Small Intestine, Open Approach (ICD-10-PCS; 2017-03-18)
PROC: 0DB80ZZ Excision of Small Intestine, Open Approach (ICD-10-PCS; 2017-03-18)
PROC: 0D1B0Z4 Bypass Ileum to Cutaneous, Open Approach (ICD-10-PCS; 2017-03-18)
DX: K59.39 Other megacolon (principal); K59.2 Neurogenic bowel, not elsewhere classified; K91.89 Other postprocedural complications and disorders of digestive system; K56.7 Ileus, unspecified; D62 Acute posthemorrhagic anemia; N17.9 Acute kidney failure, unspecified; K66.8 Other specified disorders of peritoneum; R00.0 Tachycardia, unspecified; E87.5 Hyperkalemia; E87.1 Hypo-osmolality and hyponatremia; M84.374A Stress fracture, right foot, initial encounter for fracture; G25.0 Essential tremor; I10 Essential (primary) hypertension; C81.90 Hodgkin lymphoma, unspecified, unspecified site; Q42.3 Congenital absence, atresia and stenosis of anus without fistula; Z65.2 Problems related to release from prison; Z59.8 Other problems related to housing and economic circumstances
CPT/HCPCS: 80307; 82947-QW; 97116-GP; 97161-GP; 97165-GO; 97530-GO; 97530-GP; 97535-GO; G0009; G0378; G0480; J0171; J0694; J1100; J1170; J1335; J1450; J1650; J1885; J2001; J2060; J2250; J2274; J2370; J2405; J2704; J2765; J3010; J3475; J3480; Q9967

== ENCOUNTER 2017-06-03 11:14 | Emergency (ER) | payer MEDICAID ==
[2017-06-03 11:21] VITALS: BP 145/111
--- NOTE | 2017-06-03 11:51 | EDPHY ---
H & P Time Seen by Provider: 06/03/17 11:27 HPI/ROS: Chief complaint. Abdominal pain HPI. 7-year-old male presents emergency department with problems with this colostomy. He apparently was seen Saturday only in at triage because his supplies for ostomy care had not arrived. He was given supplies and then he did not want to check in. He arrives with no ostomy bag and stool down the front of them. He feels he is having a hard time caring for his ostomy and again does not have supplies currently. No vomiting. No fever. ROS Constitutional. no fever/chills, no weakness Eyes. no problems with vision ENT. no sore throat, no nasal drainage Cardiovascular. no chest pain Respiratory. no shortness of breath, no cough Abdominal. No ostomy bag . no problems urinating MS. no calf pain/swelling, no neck/back pain, no joint pain Skin. no rash Lymph. no swollen glands Neuro. no headache, no dizziness, no difficulty walking or with speech Past Medical/Surgical History: Past medical history scoliosis, IBS, rectal reconstruction, Hodgkin's lymphoma, colostomy Social History: Single, nonsmoker, no alcohol Smoking Status: Never smoked Physical Exam: General Appearance: Alert well-developed male mild distress vital signs are stable Eyes: Pupils equal and round no pallor or injection. ENT, Mouth: Mucous membranes are moist. Respiratory: There are no retractions, lungs are clear to auscultation. Cardiovascular: Regular rate and rhythm. Gastrointestinal: Abdomen is soft. Id no ostomy bag. No obvious evidence for infection Neurological: Awake and alert, sensory and motor exams grossly normal. Skin: Irritation of the skin around the ostomy site. Musculoskeletal: Neck is supple nontender. Extremities symmetrical, full range of motion. Psychiatric: Patient is oriented X 3, there is no agitation. Constitutional: Initial Vital Signs Temperature (C) 36.7 C 06/03/17 11:18 Heart Rate 113 H 06/03/17 11:18 Respiratory Rate 20 06/03/17 11:18 Blood Pressure 145/111 H 06/03/17 11:18 O2 Sat (%) 99 06/03/17 11:18 O2 Delivery Mode Room Air Allergies/Adverse Reactions: corn Allergy (Verified 06/03/17 11:17) ibuprofen [From Motrin] Allergy (Verified 06/03/17 11:17) peanut Allergy (Verified 06/03/17 11:17) soy Allergy (Verified 06/03/17 11:17) wheat Allergy (Verified 06/03/17 11:17) Home Medications: Medication Instructions Recorded Pantoprazole Sodium [Protonix 40mg 40 mg PO DAILY #30 tab 04/10/17 (*)] Propranolol HCl [Inderal 10mg (*)] 10 mg PO TID #90 tab 04/10/17 Simethicone [Mylicon] 80 mg PO PCHS #90 tab.chew 04/10/17 Sucralfate [Carafate 1 GM (*)] 1 gm PO ACHS PRN #90 tab 04/10/17 buPROPion XL [Wellbutrin 150mg XL] 150 mg PO DAILY #30 tab 04/10/17 traMADol [Ultram 50 mg (*)] 50 mg PO Q6HRS PRN #60 tab 04/10/17 Oxycontin 06/03/17 Medical Decision Making Procedures: Patient is cleaned up an ostomy bag is placed. ED Course/Re-evaluation: Case management is involved and the wound care an ostomy care team will see the patient now. I discussed this with the patient. He expresses understanding and agreement Differential Diagnosis: Homeless male with ostomy that is out of supplies. No obvious evidence for infection, acute abdomen, bleeding Departure - Departure Disposition: Home, Routine, Self-Care Clinical Impression: Colostomy complication, unspecified Condition: Good Instructions: Colostomy Care (ED) Additional Instructions: The wound care and colostomy care team will see you now. Return for worsening symptoms Referrals: Leela Coleman MD [Primary Care Provider] - As per Instructions
--- NOTE | 2017-06-03 18:52 | ASMTCMCOM ---
CM Note CM Note Notes: Patient presented to the ED through triage for bleeding and leaking of his ileostomy (refer to 03/11/17 admission and surgery notes for additional info r/t ostomy). Pt did not have a pouch on his ileostomy and had stool all over his chest, abdomen, groin area and legs. The ED RN assisted the patient with cleaning up, provided paper scrub pants and top, and applied a new pouch and wafer/flange. This CM spoke with patient and it is difficult to follow his story as he sometimes starts verbalizing a new thought in the middle of the sentence or keeps perserverating on "people just need to tell me the truth, stop lying to me." [Pt had been provided a pouch and two wafers/flanges on Thursday 06/01 when he had stopped by the ED in the morning for ostomy supplies; the ED cafe worker Jacque provided pt with enough supplies that would get him through Saturday. This CM followed up with pt over the phone on Saturday and pt stated he was supposed to receive his ostomy supplies this last week but they never showed up and that he contacted the ostomy supplier, Michael ( ) and they said they were going to ship out another box of supplies but in the meantime "a company in [place]" will be delivering two days worth of supplies. Pt didn't know the name of the company in [place]. This CM attempted to contact [place] but they are not available on the weekend. This CM contacted [employer] and [employer], both located in [place], and neither company had pt in their system or knew anything about delivering a two day supply to someone in [place]. This CM called the pt Saturday afternoon and left a voicemail but never received a call back.] Today this CM called over to [facility] ([id number]) and spoke with Nilda, front desk auxiliary staff, who is familiar with patient and his ongoing issue with not having ostomy supplies. Nilda stated patient could come over there to receive some extra supplies while his shipment delivery gets figured out. Patient wants to walk over to the Wound Care clinic himself, "I like talking to them." Pt made it over to the Wound Clinic and the new wafer and pouch started leaking again by the time he got there. This CM walked over to the clinic to drop off the cab voucher (pt was going to be cab'd to [facility] navigation center after picking up his supplies) and then spoke with Mel (?) ELIZ Quintero at the clinic, who is very familiar with patient. The RN assisted patient with cleaning and applying another new set of wafer/flange and pouch. Pt's skin is very irritated so it was difficult to get the wafer to stick his skin. Patient was provided numerous extra wafers, flanges, borders, pouches and spray adhesive and a new belt (and pt was educated/instructed/demonstrated on how to wear the bag to help support the ostomy pouch). Pt states his ostomy supplies were supposed to be delivered to [facility] at [address] [place] [address] and his White Sugar Boiler, Poppy Hutton, through [facility] at the [facility] was going to help him w/receiving them. This CM called ELIZ Rivero Search Engineer at [facility] ([facility] - [phone]) and she said pt hasn't been seen there since 02/28/17. Josefa said she notified Poppy of pt's ED visit and needing supplies; Poppy told Josefa the supplies have not been delivered there today but will keep an eye out and call the patient if they do get delivered. Per Josefa, pt has been staying at respite apartment through [facility] up until yesterday when they asked him to leave because he wasn't following the rules (letting someone stay with him and then lying about it). Pt tried to stay at the [facility] [facility] last night but because pt had initially been [facility] to [facility] when he completed Coordinated Entry in February, he was not allowed to stay there unless it was a reserved bed through [facility]. Pt stated he slept on the bus and went to [facility] in [place] overnight. This CM called [facility] Campaign Assistant Prison Warden ([phone]) and confirmed that patient would need to go through "re-entry" at [facility] to use their services. Pt is reluctant "theyre just going to have me sleep on the floor," but we discussed that they might refer him to [facility] due to his new complex medical needs but also might still refer him to [facility]. Pt agreeable to being cab'd over to [facility] Navigation center and completing re-entry process. This CM called [facility] CM front desk auxiliary again and provided ED CM # for their staff to call for additional information, questions, assistance, etc. This CM never heard back from [facility]. This CM spoke with teodora Pierre at [facility] around 5:30pm to see if she was able to view pt's "re-entry" referral from today, and she said pt had again been referred to [facility] rotating shelters. This CM called patient ([phone]) to see where he was and to offer the reserved bed at the custodial but pt didn't answer and his voicemail box was full. This CM had also set up an appt at [facility] on 06/14 at 2:05pm w/Juanita Shabazz; Josefa offered to help pt with ostomy care, troubleshooting and even assisting w/receiving and storing supplies. When CM informed patient of this appt he then told me his PCP is Dr. Pat and he doesn't want to be seen at [facility]. While the patient was at the Wound Care Clinic, this CM called Josefa back and informed her of pt's PCP and she will pass this onto Poppy, but will keep pt's 06/14 appt in case Poppy can persuade patient to be seen at [facility] to streamline care coordination, etc. This CM called pt's ostomy supplier Michael again but was never able to get through to anyone; at one point the phone tree lead to a message that simply said "Due to unexpected circumstances, we are closed and not able to answer your call at this time." Pt may need to be set up with a new ostomy supplier? Also, patient has a environmental technical officer, "Mr Polo" and pt states he has been in contact with him and keeping him up to date. This CM to follow up tomorrow. Date Signed: 06/03/2017 06:51 PM Electronically Signed By:Nayana Butcher RN
--- NOTE | 2017-06-03 18:59 | ASDISCHSUM ---
Discharge Information Plan Status:Homeless/Intermediate Medically Cleared to Leave: Discharge Date:06/03/2017 12:44 PM D/C Disposition:Streets (Homeless) ADT D/C Disposition:Home, Routine, Self-Care Projected Discharge Date:06/03/2017 12:44 PM Transportation at D/C:Cab Voucher Discharge Delay Reason: Follow-Up Date:06/03/2017 12:44 PM Discharge Slot: Final Diagnosis: Placement Information Patient Contact Information Contact Name:BENJABernardino Relationship: Address: Home Phone: Work Phone: City: Alternate Phone: State/Zip Code: Email: Financial Information Financial Class:Medicaid Primary Plan Desc:MEDICAID HEALTH FIRST INVENTORY ASSOCIATE AND DRIVER Primary Plan Number:[id number] Secondary Plan Desc: Secondary Plan Number: Assessment Information [facility] Progress Note CM Note CM Note Notes: Patient presented to the ED through triage for bleeding and leaking of his ileostomy (refer to 03/11/17 admission and surgery notes for additional info r/t ostomy). Pt did not have a pouch on his ileostomy and had stool all over his chest, abdomen, groin area and legs. The ED RN assisted the patient with cleaning up, provided paper scrub pants and top, and applied a new pouch and wafer/flange. This CM spoke with patient and it is difficult to follow his story as he sometimes starts verbalizing a new thought in the middle of the sentence or keeps perserverating on "people just need to tell me the truth, stop lying to me." [Pt had been provided a pouch and two wafers/flanges on Thursday 06/01 when he had stopped by the ED in the morning for ostomy supplies; the ED screen maker Jacque provided pt with enough supplies that would get him through Saturday. This CM followed up with pt over the phone on Saturday and pt stated he was supposed to receive his ostomy supplies this last week but they never showed up and that he contacted the ostomy supplier, [facility] ( ) and they said they were going to ship out another box of supplies but in the meantime "a company in [place]" will be delivering two days worth of supplies. Pt didn't know the name of the company in [place]. This CM attempted to contact [employer] but they are not available on the weekend. This CM contacted [employer] in [place] and [employer], both located in [place], and neither company had pt in their system or knew anything about delivering a two day supply to someone in [place]. This CM called the pt Saturday afternoon and left a voicemail but never received a call back.] Today this CM called over to [facility] ([id number]) and spoke with Nilda, frontload driver staff, who is familiar with patient and his ongoing issue with not having ostomy supplies. Nilda stated patient could come over there to receive some extra supplies while his shipment delivery gets figured out. Patient wants to walk over to the Wound Care clinic himself, "I like talking to them." Pt made it over to the Wound Clinic and the new wafer and pouch started leaking again by the time he got there. This CM walked over to the clinic to drop off the cab voucher (pt was going to be cab'd to [facility] navigation center after picking up his supplies) and then spoke with Mel (?) ELIZ Quintero at the clinic, who is very familiar with patient. The RN assisted patient with cleaning and applying another new set of wafer/flange and pouch. Pt's skin is very irritated so it was difficult to get the wafer to stick his skin. Patient was provided numerous extra wafers, flanges, borders, pouches and spray adhesive and a new belt (and pt was educated/instructed/demonstrated on how to wear the bag to help support the ostomy pouch). Pt states his ostomy supplies were supposed to be delivered to [facility] at [address] [place] [address] and his Paper Stripper, Poppy Hutton, through [facility] the [facility] was going to help him w/receiving them. This CM called ELIZ Rivero Curing Press Operator at [facility] ([facility] - [phone]) and she said pt hasn't been seen there since 02/28/17. Josefa said she notified Poppy of pt's ED visit and needing supplies; Poppy told Josefa the supplies have not been delivered there today but will keep an eye out and call the patient if they do get delivered. Per Josefa, pt has been staying at respite apartment through [facility] up until yesterday when they asked him to leave because he wasn't following the rules (letting someone stay with him and then lying about it). Pt tried to stay at the [facility] last night but because pt had initially been referred to [facility] when he completed Coordinated Entry in February, he was not allowed to stay there unless it was a reserved bed through [facility]. Pt stated he slept on the bus and went to [facility] in [place] overnight. This CM called [facility] Teaching Associate Research Geneticist ([phone]) and confirmed that patient would need to go through "re-entry" at [facility] to use their services. Pt is reluctant "theyre just going to have me sleep on the floor," but we discussed that they might refer him to [facility] due to his new complex medical needs but also might still refer him to [facility]. Pt agreeable to being cab'd over to [facility] Navigation center and completing re-entry process. This CM called [facility] CM frontload driver again and provided ED CM # for their staff to call for additional information, questions, assistance, etc. This CM never heard back from [facility]. This CM spoke with teodora Pierre at [facility] around 5:30pm to see if she was able to view pt's "re-entry" referral from today, and she said pt had again been referred to [facility] rotating shelters. This CM called patient ([phone]) to see where he was and to offer the reserved bed at the halfway but pt didn't answer and his voicemail box was full. This CM had also set up an appt at [facility] on 06/14 at 2:05pm w/Juanita Shabazz; Josefa offered to help pt with ostomy care, troubleshooting and even assisting w/receiving and storing supplies. When CM informed patient of this appt he then told me his PCP is Dr. Pat and he doesn't want to be [facility]. While the patient was at the Wound Care Clinic, this CM called Josefa back and informed her of pt's PCP and she will pass this onto Poppy, but will keep pt's 06/14 appt in case Poppy can persuade patient to be seen at [facility] to streamline care coordination, etc. This CM called pt's ostomy supplier Michael again but was never able to get through to anyone; at one point the phone tree lead to a message that simply said "Due to unexpected circumstances, we are closed and not able to answer your call at this time." Pt may need to be set up with a new ostomy supplier? Also, patient has a disability liaison officer, "Mr Polo" and pt states he has been in contact with him and keeping him up to date. This CM to follow up tomorrow. Date Signed: 06/03/2017 06:51 PM Electronically Signed By:Nayana Butcher RN Intervention Information Intervention Type:Cab Vouchers Date of Service:06/03/2017 06:53 PM Patient Type:Emergency Room Staff Member:ELIZ Butcher Sharon Hours:0.5 Discipline:Paper Stripper Severity: Comment:Cab to [facility] Intervention Type:Education Family/Patient Date of Service:06/03/2017 06:53 PM Patient Type:Emergency Room Staff Member:ELIZ Butcher Sharon Hours:1 Discipline:Paper Stripper Severity: Comment:Various time spent with patient Intervention Type:Clothing Date of Service:06/03/2017 06:53 PM Patient Type:Emergency Room Staff Member:ELIZ Butcher Sharon Hours:0.25 Discipline:Paper Stripper Severity: Comment:paper scrubs (couple of sets), cloth s crub pants Intervention Type:Post Acute Communication Date of Service:06/03/2017 06:53 PM Patient Type:Emergency Room Staff Member:ELIZ Butcher Sharon Hours:2 Discipline:Paper Stripper Severity: Comment:[facility], [facility], [facility] Intervention Type:Health Clinic Date of Service:06/03/2017 06:53 PM Patient Type:Emergency Room Staff Member:ELIZ Butcher Sharon Hours:0.5 Discipline:Paper Stripper Severity: Comment:[facility], [facility] , [facility]
== END 2017-06-03 12:44 | disposition home or self-care (01) ==
DX: K94.00 Colostomy complication, unspecified (principal); Z91.010 Allergy to peanuts

== ENCOUNTER 2017-06-14 15:16 | Inpatient (IN) | payer MEDICAID ==
[2017-06-14] MEDS ORDERED: ACETAMINOPHEN 325 MG TAB PO PRN (16:20)
[2017-06-14] MEDS ORDERED: ONDANSETRON DISINTEGRATING 4 MG TAB PO PRN (16:20)
[2017-06-14] MEDS ORDERED: ONDANSETRON 4 MG/2 ML VIAL IVP PRN (16:20)
[2017-06-14] MEDS ORDERED: HYDROmorphONE/DILAUDID 1 MG/ML INJ IVP PRN (16:35)
--- NOTE | 2017-06-14 16:39 | PDGENHP ---
History and Physical - Chief Complaint malfunctionin ileostomy, skin breakdown - History of Present Illness This is a 61 yo male who is being directly admitted from the Wound clinic due to malfunctioning ileostomy and surrounding wound breakdown. There is leaking around the ileostomy. He denies abd pain. He is homeless and caring for his ostomy has been difficult. He denies fever. denies n/v. no cp or sob. no leg swelling. PMHx: scoliosis IBS Rectal reconstruction Mc rods for scoliosis Hodgkins lymphoma colostomy stress fracture of right foot imperforate anus soc hx: no t/e/i fmHx: father from an [place] Labs: most recent reviewed. showed elevate cr. but none obtained today. History Information - Allergies/Home Medication List Allergies/Adverse Reactions: corn Allergy (Verified 06/03/17 11:17) ibuprofen [From Motrin] Allergy (Verified 06/03/17 11:17) peanut Allergy (Verified 06/03/17 11:17) soy Allergy (Verified 06/03/17 11:17) wheat Allergy (Verified 06/03/17 11:17) Home Medications: Oxycontin 06/03/17 [Last Taken Unknown] I have personally reviewed and updated: medical history, social history - Social History Smoking Status: Never smoked Review of Systems Review of Systems: ROS: 10pt was reviewed & negative except for what was stated in HPI & below Physical Exam Physical Exam: Constitutional: no apparent distress Eyes: PERRL, EOMI Ears, Nose, Mouth, Throat: moist mucous membranes, hearing normal Cardiovascular: regular rate and rhythym, No edema Respiratory: no respiratory distress, no rales or rhonchi, clear to auscultation Gastrointestinal: other (ileostomy bag in place. There is old stool around the skin and on his underwear. There is skin breakdown surrounding the ileostomy bag mostly on the right side) Skin: warm Neurologic: AAOx3 Psychiatric: interacting appropriately, not anxious, not encephalopathic Lymph, Heme, Immunologic: No petechiae Assessment & Plan Assessment: #Malfunctioning Ileostomy #Skin breakdown around Ileostomy #IBS Plan: Admit observation regular diet for now, will make NPO at midnight in case of procedure Surgery to see in a.m. pain mgmt scds
[2017-06-14] MEDS ORDERED: HYDROmorphone HCL/NS 0.5 MG/ML SYR IVP PRN (16:41)
[2017-06-14 17:09] LABS: PLATELET COUNT 206 10^3/uL (150-400)
[2017-06-14] MEDS: oxyCODONE IR 5 MG TAB PO PRN ×2 (17:37→23:35)
[2017-06-14] MEDS ORDERED: traMADol 50 MG TAB PO PRN (19:39)
[2017-06-14] MEDS ORDERED: PROPRANOLOL HCL 10 MG TAB PO PRN (19:39)
[2017-06-15 04:32] LABS: PLATELET COUNT 171 10^3/uL (150-400)
[2017-06-15] MEDS: oxyCODONE IR 5 MG TAB PO PRN ×3 (05:35→20:03)
[2017-06-15] MEDS ORDERED: buPROPion XL 150 MG TAB PO SCH (09:00)
[2017-06-15] MEDS: buPROPion XL 150 MG TAB PO SCH (11:01)
--- NOTE | 2017-06-15 11:48 | HOSPPROG ---
Hospitalist Progress Note Assessment/Plan: 61 yo M w ostomy and skin breakdown skin breakdown: due to leakage no e/o infection wound care nurse to see imperforate anus: needs full thickness biopsy- dr obrien arranging at [facility] proph: [facility]mwh h/o hodgkins: counts ok cough: follow no dyspnea or sob dispo: inpt Subjective: case d/w dr obrien. cough Objective: Vital Signs Temp Pulse Resp BP Pulse Ox 36.8 C 64 16 96/51 L 95 06/15/17 07:44 06/15/17 07:44 06/15/17 07:44 06/15/17 07:44 06/15/17 07:44 Laboratory Results 06/15/17 04:12 06/15/17 04:12 06/14/17 06/15/17 06/16/17 05:59 05:59 05:59 Intake Total 500 Balance 500 - Physical Exam Constitutional: no apparent distress, appears nourished Eyes: PERRL, anicteric sclera Ears, Nose, Mouth, Throat: moist mucous membranes, hearing normal Cardiovascular: regular rate and rhythym, no murmur, rub, or gallop Respiratory: no respiratory distress, no rales or rhonchi Gastrointestinal: normoactive bowel sounds, soft, non-tender abdomen, other ( moderate skin breakdown around ostomy site.) Genitourinary: no bladder fullness, No law in urethra Skin: warm, normal color Musculoskeletal: full muscle strength ICD10 Worksheet Patient Problems: Problems Problem Status Onset Large bowel obstruction Acute Zara's syndrome Acute
--- NOTE | 2017-06-15 12:05 | SOAPPROG ---
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 O: Alert, NAD Afebrile Abdomen: soft, nontender. Ostomy is pink with brown stool in appliance. Surrounding skin breakdown Plan: Seen with Dr. Coleman. Pt will need full thickness skin bx. Discussed with pt plan to arrange to have done at [facility] on Saturday. Situation is complicated due to pt being homeless and history of incarceration. He does not qualify for SNF. Will keep him here until bx is arranged at [facility]. 06/15/17 12:05 Objective: Vital Signs Temp Pulse Resp BP Pulse Ox 36.8 C 64 16 96/51 L 95 06/15/17 07:44 06/15/17 07:44 06/15/17 07:44 06/15/17 07:44 06/15/17 07:44 Laboratory Results 06/15/17 04:12 06/15/17 04:12 06/14/17 06/15/17 06/16/17 05:59 05:59 05:59 Intake Total 500 Balance 500 ICD10 Worksheet Patient Problems: Problems Problem Status Onset Large bowel obstruction Acute Senatobia's syndrome Acute
--- NOTE | 2017-06-15 12:07 | ASMTCMCOM ---
CM Note CM Note Notes: Mr. Germain is well known to me through the [facility] program. Mario's last home was [facility] for [facility] years. HIs mother and family live in [place]; he has recently been in touch with his brother and mother. He has had a colostomy since childhood and was managed through the [facility] system. Mario states that he is a . No further information regarding this fact. Mario is a [facility] client. For the past two weeks Mario has been given the [facility] Homeless Residential bed (reserved by me). It is very difficult for Mario to sleep on the floor because of his ill-fitting appliance; the over night services are on the floor. The longterm bed is a cot; one step above the floor. He is very thankful and appreciative. Lisa Shaw reached a doctor at [facility] that is willing to do a biopsy of Mario's colon. This should be done during this admission or directly following. Dr. Shaw is following. A skilled facility or a perm. supportive housing solution is a goal for Mario. Seeing that his colostomy is hard for the doctor's to manage as a wound. He is not a standard fit and most solutions have failed; having a perm. supportive housing solution would allow for daily wound care though home health services. Please feel free to contact me regarding this patient. Date Signed: 06/15/2017 12:07 PM Electronically Signed By:Francisca Suarez RN
--- NOTE | 2017-06-15 12:57 | PDMN ---
Medical Necessity Medical necessity: C/M review: est. 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
[2017-06-16] MEDS: oxyCODONE IR 5 MG TAB PO PRN ×3 (07:39→23:14)
[2017-06-16] MEDS: buPROPion XL 150 MG TAB PO SCH (08:04)
[2017-06-16] MEDS: ENOXAPARIN 40 MG/0.4 ML SYR SC SCH (08:05)
--- NOTE | 2017-06-16 09:56 | SOAPPROG ---
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 O: Alert, NAD Afebrile Abdomen: soft, nontender. Ostomy is pink with brown stool in appliance. Surrounding skin breakdown Plan: Seen with Dr. Coleman. Pt will need full thickness skin bx. Discussed with pt plan to arrange to have done at [facility] on Saturday. Situation is complicated due to pt being homeless and history of incarceration. He does not qualify for SNF. Will keep him here until bx is arranged at [facility]. 06/15/17 12:05 06/16/17 09:52 Doing well overall, although c/o itchiness around stoma. Wound care to see later today. More questions answered. Stoma is pink with brown stool in appliance. Per pt, case management has found him a bed when he is discharged from here. Objective: Vital Signs Temp Pulse Resp BP Pulse Ox 36.9 C 97 18 130/77 H 98 06/16/17 08:01 06/16/17 08:01 06/16/17 08:01 06/16/17 08:01 06/16/17 08:01 Laboratory Results 06/15/17 04:12 06/16/17 03:45 06/15/17 06/16/17 06/17/17 05:59 05:59 05:59 Intake Total 500 2740 Balance 500 2740 ICD10 Worksheet Patient Problems: Problems Problem Status Onset Large bowel obstruction Acute [place]'s syndrome Acute
--- NOTE | 2017-06-16 13:35 | HOSPPROG ---
Hospitalist Progress Note Assessment/Plan: 61 yo M w ostomy and skin breakdown skin breakdown: due to leakage no e/o infection wound care nurse to see imperforate anus: needs full thickness biopsy- dr obrien arranging at [facility] proph: [facility] h/o hodgkins: counts ok cough: follow no dyspnea or sob dispo: inpt Subjective: case d/w dr obrien Objective: Vital Signs Temp Pulse Resp BP Pulse Ox 36.9 C 97 18 130/77 H 98 06/16/17 08:01 06/16/17 08:01 06/16/17 08:01 06/16/17 08:01 06/16/17 08:01 Laboratory Results 06/15/17 04:12 06/16/17 03:45 06/15/17 06/16/17 06/17/17 05:59 05:59 05:59 Intake Total 500 2740 Balance 500 2740 - Physical Exam Constitutional: no apparent distress, appears nourished Eyes: PERRL, anicteric sclera Ears, Nose, Mouth, Throat: moist mucous membranes, hearing normal Cardiovascular: regular rate and rhythym, no murmur, rub, or gallop Respiratory: no respiratory distress, no rales or rhonchi Gastrointestinal: normoactive bowel sounds, soft, non-tender abdomen, other ( skin breakdown improved) Genitourinary: no bladder fullness, No law in urethra Skin: warm, normal color Musculoskeletal: full muscle strength ICD10 Worksheet Patient Problems: Problems Problem Status Onset Large bowel obstruction Acute [place]'s syndrome Acute
--- NOTE | 2017-06-16 14:07 | WOCRNPDOC ---
MARLO Advanced Assessment Note - Colostomy Assessment, Advanced Right Upper Abdomen Ileostomy Stoma Colostomy Appliance Intact: Yes Colostomy Appliance Currently in Use: One Piece Convex, 1 3/4 Colostomy Accessory: Barrier Ring, Powder Stoma Color: [place] Stoma Turgor: Moist Stoma Shape: Oval Stoma Height: Protruding Slightly Mucocutaneus Junction: Intact Colostomy Effluent: Fecal, Thin Colostomy Size - Head-to-Toe Length X Width X Depth (cm): 3.9x2.5 Peristomal Skin: Raw, Denuded Peristomal Skin Complications: Irritant Contact Dermatitis Colostomy Comment/Treatment Details: Patient admitted from outpatient wound clinic for lisa-stomal skin issues. Patient reports that he's been having difficulty maintaining his ostomy appliance because, as a homeless individual, he often has to ambulate great distances. As such, he has been using rubber cement to attempt to create a seal. With patient's permission, I removed his appliance and measured stoma. Lisa-stomal skin is macerated circumferentially to about 1cm from stoma. Evidence of much greater skin breakdown present on patient's abdomen, now healed but still thin and tender. Patient had not realized that stoma had changed so much in size and shape. He reports that he is still cutting his appliances from a template. When I asked to see the template, it was round cut at 39mm, allowing lisa-stomal skin to be exposed to effluant. This template was discarded and a new one cut to fit current stoma and placed in pink bucket in room with patient supplies. Skin cleaned gently with warm water and wash cloth and dried thoroughly. Lisa-stomal powder applied to macerated skin. Barrier ring cut in 1/2 and stretched to fit oval stoma. One piece appliance cut to fit stoma. Patient tolerated with moderate pain but was medicated by ELIZ Chung during change. 3 one piece appliances and 3 barrier rings sent to floor for patient's use. Wound care will round again later this week.
[2017-06-17] MEDS: ENOXAPARIN 40 MG/0.4 ML SYR SC SCH (08:42)
[2017-06-17] MEDS: buPROPion XL 150 MG TAB PO SCH (08:43)
--- NOTE | 2017-06-17 12:27 | SOAPPROG ---
SOAP Progress Note Assessment/Plan: Assessment/Plan: 61yo M with a complicated surgical history, including imperforate anus repaired as an . Most recently s/p subtotal colectomy for toxic megacolon, with anastomotic leak requiring diverting ileostomy. Admitted with peristomal skin breakdown due to appliances not fitting. Complicated by homelessness Needs bx to determine if innervation of rectum, rule out Hirschprungs. If biopsy negative, will do ileostomy takedown. If biopsy positive, will need relocation of ileostomy. Complicated because full thickness biopsy needs to be performed at [facility]. I am looking into the name of the rn transport that he was referred to at the to assist in coordination of care. For now, regular diet. Wound/ostomy care. Hospitalist management of comorbidities. O: Alert, NAD Afebrile Abdomen: soft, nontender. Ostomy is pink with brown stool in appliance. Surrounding skin breakdown Objective: Vital Signs Temp Pulse Resp BP Pulse Ox 36.9 C 74 16 126/71 H 96 06/17/17 07:28 06/17/17 07:28 06/17/17 07:28 06/17/17 07:28 06/17/17 07:28 Laboratory Results 06/15/17 04:12 06/16/17 03:45 06/16/17 06/17/17 06/18/17 05:59 05:59 05:59 Intake Total 2740 1600 Balance 2740 1600 ICD10 Worksheet Patient Problems: Problems Problem Status Onset Large bowel obstruction Acute [place]'s syndrome Acute
[2017-06-17] MEDS: MULTIVITAMINS W-MINERALS 1 EACH TAB PO SCH (13:24)
--- NOTE | 2017-06-17 18:28 | HOSPPROG ---
Hospitalist Progress Note Assessment/Plan: Assessment: 61 yo M p/w ostomy and skin breakdown in setting of imperforate anus Plan: # acute ostomy and skin breakdown: 2/2 leakage at stoma and difficult seal, patient using non-medical adhesives to keep ostomy pouch from leaking, and these have resulted in excoriation at the stoma site which requires revision -d/w Gen Surg, the methodology of revision depends on whether the patient has objective denervation at the anus, and this can be determined by full thickness biopsy (to be performed at [facility]) -patient will require transfer for biopsy procedure once it is secured through [facility], and then can be repatriated to [facility] for revision surgery by Dr. Coleman -once all of his medical needs are met, he can be transitioned back to the alf bed currently held for him, given high risk of infxn/complication of care if homeless -encouraged patient to eat as tolerated, and will attempt to clarify this w/ kitchen so patient is served as much as he is hungry to eat, cont ensure/supp -patient requested we contact his brother Dallin ([phone]) to provide update # Hx hodgkin's lymphoma: counts ok Diet. As tolerates, d/w kitchen, they have advised that b/c of tray size, only one entree can be ordered (w/ as many sides as desired) per order placed/called , but patient is welcome to call in as many orders as he needs to feel nourished PPx. Mod risk, ambulating, refuses pharm Code. Full Dispo. ADD uncertain Subjective: minimal pain at site, ambulating steadily Objective: Vital Signs Temp Pulse Resp BP Pulse Ox 37 C 89 16 108/69 96 06/17/17 14:46 06/17/17 14:46 06/17/17 14:46 06/17/17 14:46 06/17/17 14:46 Laboratory Results 06/15/17 04:12 06/16/17 03:45 06/16/17 06/17/17 06/18/17 05:59 05:59 05:59 Intake Total 2740 1600 340 Balance 2740 1600 340 - Physical Exam Constitutional: no apparent distress, not in pain, chronically ill appearing, cachectic, No uncomfortable Cardiovascular: regular rate and rhythym, no murmur, rub, or gallop, No edema Respiratory: no respiratory distress, no rales or rhonchi, clear to auscultation Gastrointestinal: normoactive bowel sounds, soft, non-tender abdomen, other (R ostomy present), No guarding, No distension Skin: other (unable to visualize under stool/ostomy bag) Neurologic: AAOx3, sensation intact bilaterally, No weakness Psychiatric: interacting appropriately, not anxious, not encephalopathic, thought process linear ICD10 Worksheet Patient Problems: Problems Problem Status Onset [place]'s syndrome Acute Large bowel obstruction Acute
[2017-06-18] MEDS: ENOXAPARIN 40 MG/0.4 ML SYR SC SCH (09:36)
[2017-06-18] MEDS: buPROPion XL 150 MG TAB PO SCH (10:07)
[2017-06-18] MEDS: MULTIVITAMINS W-MINERALS 1 EACH TAB PO SCH (10:07)
--- NOTE | 2017-06-18 14:12 | SOAPPROG ---
YAKELIN Progress Note Assessment/Plan: Assessment: 61 yo s/p sub total colectomy with primary anastomosis. Had a post op 1-2 mm leak and s/p resection of margin and distal anastomosis. Homelessness Having difficulty pouching his ileostomy since his body habitus has changed so much Multiple efforts to manage as an outpatient Mario will have a few options - 1) reverse ileostomy - will need full thickness rectal biopsy to make sure does not have neurogenic bowel - ? hirshsprungs as a child - learned that had imperforate anus and ileostomy 2) If no nerve tissue is found then revision/relocation of ileostomy Procedure cannot be done at [facility]. Will transfer to [place] on Saturday to see Dr. Mccabe. Case discussed with him this am S: Upset that did not get correct breakfast O: Appliance in place Plan: 06/18/17 14:12 06/18/17 14:13 06/18/17 14:15 Objective: Vital Signs Temp Pulse Resp BP Pulse Ox 36.6 C 97 17 119/95 H 98 06/18/17 08:00 06/18/17 08:00 06/18/17 08:00 06/18/17 08:00 06/18/17 08:00 Laboratory Results 06/15/17 04:12 06/16/17 03:45 06/17/17 06/18/17 06/19/17 05:59 05:59 05:59 Intake Total 1600 1040 Balance 1600 1040 ICD10 Worksheet Patient Problems: Problems Problem Status Onset Large bowel obstruction Acute [place]'s syndrome Acute
[2017-06-18] MEDS: oxyCODONE IR 5 MG TAB PO PRN ×2 (16:55→20:55)
--- NOTE | 2017-06-18 17:16 | ASMTCMCOM ---
CM Note CM Note Notes: Spoke w/Dr Coleman regarding plan of care. Pt will need to go to [facility] for biopsy procedure that cannot be done here. Please see Dr Mcgraw note 06/18. Then, based on bx findings, pt will return to [facility] for indicated surgery. Pt is scheduled for this procedure at [facility] this Saturday, June 21 at 12:30. Contact # at [place] is [phone] Shaw has spoken with accepting GI doc, Dr Mccabe. We will need to clarify if hospitalist needs to do doc to doc as well. There are instructions at the front of chart, however, there is some conflicting info on these we need to clarify as well. Left voicemail today addressing this. Pt will most likely need transport arranged for about 10:45 on Saturday. Francisca Suarez is involved in this case. Please see her note from 06/15. Received call from [place] at [facility] who said that he received call from pt asking if he could help set him up at SNF after his hospitalization. CM will try to meet w/pt tomorrow to discuss but would be good idea to consult w/Francisca Suarez first. CM will follow. Date Signed: 06/18/2017 05:15 PM Electronically Signed By:Kirti Burrows RN
--- NOTE | 2017-06-18 17:26 | HOSPPROG ---
Hospitalist Progress Note Assessment/Plan: Assessment: 61 yo M p/w ostomy and skin breakdown in setting of imperforate anus Plan: # acute ostomy and skin breakdown: 2/2 leakage at stoma and difficult seal, patient using non-medical adhesives to keep ostomy pouch from leaking, and these have resulted in excoriation at the stoma site which requires revision -the methodology of revision depends on whether the patient has objective denervation at the anus, and this can be determined by full thickness biopsy ( to be performed at [facility]), case mgmt arranging procedure for this Saturday, to be transferred to [facility] and returned same day (will need DC and then H&P) if no complications -patient then can be repatriated to [facility] for revision surgery by Dr. Coleman ( either change in ostomy site vs. reanastomosis, depending on whether he has a Hirshsprung's pathology) -once all of his medical needs are met, he can be transitioned back to the senior living bed currently held for him, given high risk of infxn/complication of care if homeless -encouraged patient to eat as tolerated, counseled him that I did clarify this w / kitchen so patient is served as much as he is hungry to eat, cont ensure/supp , and he knows that he needs to make separate orders to kitchen if he would like multiple entrees -patient requested we contact his brother Dallin ([phone]) to provide update # Hx hodgkin's lymphoma: counts ok Diet. As tolerates, d/w kitchen, they have advised that b/c of tray size, only one entree can be ordered (w/ as many sides as desired) per order placed/called , but patient is welcome to call in as many orders as he needs to feel nourished PPx. Mod risk, ambulating, refuses pharm Code. Full Dispo. ADD uncertain Subjective: patient still aggravated by his experience with kitchen questioning his meal orders Objective: Vital Signs Temp Pulse Resp BP Pulse Ox 36.7 C 104 H 17 120/79 96 06/18/17 15:56 06/18/17 15:56 06/18/17 15:56 06/18/17 15:56 06/18/17 15:56 Laboratory Results 06/15/17 04:12 06/16/17 03:45 06/17/17 06/18/17 06/19/17 05:59 05:59 05:59 Intake Total 1600 1040 500 Balance 1600 1040 500 - Time Spent With Patient Time Spent with Patient: greater than 25 minutes Time Spent with Patient: Greater than 25 minutes spent on this patients care, greater than 50% of time spent counseling, educating, and coordinating care regarding the above mentioned plan. - Physical Exam Constitutional: no apparent distress, not in pain, chronically ill appearing, cachectic, No uncomfortable Neurologic: AAOx3 Psychiatric: interacting appropriately, not anxious, not encephalopathic, thought process linear ICD10 Worksheet Patient Problems: Problems Problem Status Onset [place]'s syndrome Acute Large bowel obstruction Acute
--- NOTE | 2017-06-19 08:08 | SOAPPROG ---
YAKELIN Progress Note Assessment/Plan: Assessment: Called his brother to give updates this am at [place] request. Spoke with Dallin Nunez 61 yo s/p sub total colectomy with primary anastomosis. Had a post op 1-2 mm leak and s/p resection of margin and distal anastomosis. Homelessness Having difficulty pouching his ileostomy since his body habitus has changed so much Multiple efforts to manage as an outpatient Mario will have a few options - 1) reverse ileostomy - will need full thickness rectal biopsy to make sure does not have neurogenic bowel - ? [place] as a child - learned that had imperforate anus and ileostomy 2) If no nerve tissue is found then revision/relocation of ileostomy Procedure cannot be done at [facility]. Will transfer to [place] on Saturday to see Dr. Mccabe. Anticipate results from biopsy around June 26- and can plan surgery from there Plan: 06/18/17 14:12 06/18/17 14:13 06/18/17 14:15 06/19/17 08:07 Objective: Vital Signs Temp Pulse Resp BP Pulse Ox 37.1 C 84 18 112/70 95 06/19/17 02:52 06/19/17 02:52 06/19/17 02:52 06/19/17 02:52 06/19/17 02:52 Laboratory Results 06/15/17 04:12 06/16/17 03:45 06/18/17 06/19/17 06/20/17 05:59 05:59 05:59 Intake Total 1040 1440 Balance 1040 1440 ICD10 Worksheet Patient Problems: Problems Problem Status Onset Large bowel obstruction Acute [place]ara's syndrome Acute
[2017-06-19] MEDS: MULTIVITAMINS W-MINERALS 1 EACH TAB PO SCH (09:44)
[2017-06-19] MEDS: buPROPion XL 150 MG TAB PO SCH (09:44)
[2017-06-19] MEDS: ENOXAPARIN 40 MG/0.4 ML SYR SC SCH (09:47)
[2017-06-19] MEDS: oxyCODONE IR 5 MG TAB PO PRN ×2 (10:36→21:35)
--- NOTE | 2017-06-19 11:18 | WOCRNPDOC ---
WOCRN Advanced Assessment Note - Colostomy Assessment, Advanced Right Upper Abdomen Ileostomy Stoma Colostomy Appliance Intact: Yes Colostomy Appliance Currently in Use: One Piece Flat, 2 1/4, Cut to Fit Stoma Color: Red Stoma Turgor: Dry Stoma Height: Protruding Mucocutaneus Junction: Intact Colostomy Effluent: Fecal, Pasty Peristomal Skin: Macerated Peristomal Skin Complications: Irritant Contact Dermatitis, Psuedoverrucous Lesions Colostomy Comment/Treatment Details: Upon inspection the barrier on the patient was no longer sealed around the stoma, so it was removed. The patient's os at 7 oclock. Lisa stomal skin is scarred and macerated to 1 cm lisa stoma but there is minimal denudement. There is scar tissue present to several cm past the stoma circumferentially, however the remainder of the skin is intact. A new template for the stoma was created and cut and left in the room. A one piece soft convex cut to fit ostomy appliance was used without an adapt barrier ring after one layer of crusting with stoma powder and skin prep. Discussed plan with patient. Patient seems to have tried multiple different pouches and plans over the months with limited success. The pineda for this patient is staying on top of the daily pouching changes and changing the wafer at the first sign of the barrier being compromised peristomally. It would be helpful for the patient to wear a belt as well, with either a flat or a soft convex appliance, as it should help the pouch stay intact. Wound/pantograph machine set up operator will round weekly and staff radiologist's will change pouch daily. Priscilla KHAN and Gin RN in room for care.
--- NOTE | 2017-06-19 15:27 | HOSPPROG ---
Hospitalist Progress Note Assessment/Plan: Assessment: 61 yo M p/w ostomy and skin breakdown in setting of possible neurogenic anus Plan: # acute ostomy and skin breakdown: 2/2 leakage at stoma and difficult seal 2/2 changes in body habitus, patient using non-medical adhesives to keep ostomy pouch from leaking, and these have resulted in excoriation at the stoma site which requires revision -the methodology of revision depends on whether the patient has objective denervation at the anus, and this can be determined by full thickness biopsy ( to be performed at [facility]) -d/w Dr. Coleman and case mgmt, the procedure has been arranged with Dr. Mccabe at [facility] for 06/21 and he should be discharge first thing 06/21 AM w/ EMTALA to be completed for transfer to inpatient hospital medicine service at [facility] -plan readmit/accept patient from [facility] following the biopsy on 06/21 PM, as our case mgmt dept is able to arrange him w/ ongoing outpt intermediate to minimize the ostomy complications -discharge patient from [facility] w/ scheduled follow-up in wound clinic after biopsy results available (06/26-06/28) and Dr. Coleman will determine whether patient can get reanastomosis (preferable if he does NOT have neurogenic anus) vs. ostomy relocation (if he does have neurogenic anus) -plan communicated by Dr. Coleman to patient's brother, Dallin # Hx hodgkin's lymphoma: counts ok Diet. As tolerates, d/w kitchen, they have advised that b/c of tray size, only one entree can be ordered (w/ as many sides as desired) per order placed/called , but patient is welcome to call in as many orders as he needs to feel nourished PPx. Mod risk, ambulating, refuses pharm Code. Full Dispo. ADD transfer for biopsy 06/21 Subjective: patient reports mild pain at ostomy site skin, eating well Objective: Vital Signs Temp Pulse Resp BP Pulse Ox 36.4 C 83 18 116/76 97 06/19/17 08:00 06/19/17 08:00 06/19/17 08:00 06/19/17 08:00 06/19/17 08:00 Laboratory Results 06/15/17 04:12 06/16/17 03:45 06/18/17 06/19/17 06/20/17 05:59 05:59 05:59 Intake Total 1040 1440 Balance 1040 1440 - Physical Exam Constitutional: no apparent distress, not in pain, chronically ill appearing, cachectic, No uncomfortable Cardiovascular: regular rate and rhythym, no murmur, rub, or gallop, No edema Respiratory: no respiratory distress, no rales or rhonchi, clear to auscultation Gastrointestinal: normoactive bowel sounds, soft, non-tender abdomen, other ( ostomy bag RUQ), No guarding, No distension Neurologic: AAOx3 Psychiatric: interacting appropriately, not anxious, not encephalopathic, thought process linear ICD10 Worksheet Patient Problems: Problems Problem Status Onset [place]'s syndrome Acute Large bowel obstruction Acute
--- NOTE | 2017-06-19 16:17 | ASMTCMCOM ---
CHARLES Note CM Note Notes: Plan is for pt to transfer to [facility] with EMTALA Saturday for biopsy and return to [facility] on same day. Biopsy will determine next course of action. In addition to reserved group home bed pt has, he states he is working with Juliet Morales from [facility] for more permanent housing. He states the options so far have been in [place] and he needs to be closer to [place] fo visits to his [facility], etc. CM will continue working with pt for DC plan. Date Signed: 06/19/2017 04:16 PM Electronically Signed By:Zuly Cantu LCSW
[2017-06-20] MEDS: ENOXAPARIN 40 MG/0.4 ML SYR SC SCH (08:52)
[2017-06-20] MEDS: oxyCODONE IR 5 MG TAB PO PRN ×3 (08:52→23:00)
[2017-06-20] MEDS: MULTIVITAMINS W-MINERALS 1 EACH TAB PO SCH (08:52)
[2017-06-20] MEDS: buPROPion XL 150 MG TAB PO SCH (08:52)
--- NOTE | 2017-06-20 15:05 | HOSPPROG ---
Hospitalist Progress Note Assessment/Plan: * Massively dilated colon s/p subtotal colectomy, complicated by anastomotic leak * Ileostomy with skin breakdown - needs revision * Possible neurogenic bowel -rectal biopsy tomorrow at -reanastomosis vs. ostomy relocation to be determined depending on biopsy result * Congenital imperforate anus * h/o Hodgkins Subjective: Tolerating PO Objective: Vital Signs Temp Pulse Resp BP Pulse Ox 36.6 C 84 16 124/67 H 96 06/20/17 07:40 06/20/17 07:40 06/20/17 07:40 06/20/17 07:40 06/20/17 07:40 Laboratory Results 06/15/17 04:12 06/16/17 03:45 06/19/17 06/20/17 06/21/17 05:59 05:59 05:59 Intake Total 1440 2900 Balance 1440 2900 - Physical Exam Constitutional: no apparent distress, appears nourished, not in pain Cardiovascular: regular rate and rhythym, no murmur, rub, or gallop Respiratory: no respiratory distress, no rales or rhonchi, clear to auscultation Gastrointestinal: normoactive bowel sounds, soft, non-tender abdomen, no palpable masses Skin: no rashes or abrasions, no fluctuance, no induration Neurologic: AAOx3, sensation intact bilaterally Psychiatric: interacting appropriately, not anxious, not encephalopathic, thought process linear ICD10 Worksheet Patient Problems: Problems Problem Status Onset Large bowel obstruction Acute [place]'s syndrome Acute
--- NOTE | 2017-06-20 16:25 | ASMTCMCOM ---
CM Note CM Note Notes: Pt will get a biopsy at [facility] with Dr Mccabe tomorrow. He needs to arrive at noon. [facility] transport set to picker tender at 10:15 and take to the [facility] at [address] in [place] on the 2nd floor outpatient pavilion ([phone]). [facility] set up a will call for his return to [facility] is aware Pt's med list should be sent with [facility] tomorrow. Date Signed: 06/20/2017 04:25 PM Electronically Signed By:Zuly Cantu LCSW
[2017-06-21] MEDS: buPROPion XL 150 MG TAB PO SCH (08:23)
[2017-06-21] MEDS: MULTIVITAMINS W-MINERALS 1 EACH TAB PO SCH (08:23)
[2017-06-21] MEDS: oxyCODONE IR 5 MG TAB PO PRN (08:40)
--- NOTE | 2017-06-21 15:45 | ASMTCMCOM ---
CM Note CM Note Notes: Patient chart reviewed. Spoke with hospital medicine. Patient went to [facility] in [place] for endoscopic biopsy. Will return to inpatient bed here later today. Likely to keep here until biopsy results are in due to his chronic health condition. CM to follow. Plan: TBD Date Signed: 06/21/2017 03:44 PM Electronically Signed By:Radha Blanc RN
--- NOTE | 2017-06-21 17:59 | HOSPPROG ---
Hospitalist Progress Note Assessment/Plan: Patient left for this am with intent to return tonight after rectal biopsy. 9 clips were required during procedure and has decided to keep him at their facility for pain control. Unclear if he will be stable to return to our facility tomorrow. * Massively dilated colon s/p subtotal colectomy, complicated by anastomotic leak * Ileostomy with skin breakdown - needs revision * Possible neurogenic bowel -full thickness rectal biopsy at -reanastomosis vs. ostomy relocation to be determined depending on biopsy result * Congenital imperforate anus * h/o Hodgkins Objective: Vital Signs Temp Pulse Resp BP Pulse Ox 36.6 C 79 18 125/68 H 93 06/21/17 08:00 06/21/17 08:00 06/21/17 08:00 06/21/17 08:00 06/21/17 08:00 Laboratory Results 06/15/17 04:12 06/16/17 03:45 06/20/17 06/21/17 06/22/17 05:59 05:59 05:59 Intake Total 2900 2800 150 Balance 2900 2800 150 ICD10 Worksheet Patient Problems: Problems Problem Status Onset Large bowel obstruction Acute [place]'s syndrome Acute
[2017-06-22] MEDS: MULTIVITAMINS W-MINERALS 1 EACH TAB PO SCH (09:18)
[2017-06-22] MEDS: buPROPion XL 150 MG TAB PO SCH (09:18)
--- NOTE | 2017-06-22 16:43 | HOSPPROG ---
Hospitalist Progress Note Assessment/Plan: * Massively dilated colon s/p subtotal colectomy, complicated by anastomotic leak * Ileostomy with skin breakdown - needs revision * Possible Hirschsprung -full thickness rectal biopsy at - await path -Cipro 500mg BID for 7 days -no NSAIDS for 7 days -reanastomosis vs. ostomy relocation to be determined depending on biopsy result * Congenital imperforate anus * h/o Hodgkins * Anemia -low HH at -recheck CBC in am Subjective: Procedure went well, some pain Objective: Vital Signs Temp Pulse Resp BP Pulse Ox 36.5 C 86 18 102/77 96 06/22/17 16:00 06/22/17 16:00 06/22/17 16:00 06/22/17 16:00 06/22/17 16:00 Laboratory Results 06/15/17 04:12 06/16/17 03:45 06/21/17 06/22/17 06/23/17 05:59 05:59 05:59 Intake Total 2800 150 Balance 2800 150 case d/w DR. Wynne at [facility] - he needs PO abx for 1 week procedure note from reviewed - clips placed - Physical Exam Constitutional: no apparent distress, appears nourished, not in pain Cardiovascular: regular rate and rhythym, no murmur, rub, or gallop Respiratory: no respiratory distress, no rales or rhonchi, clear to auscultation Gastrointestinal: normoactive bowel sounds, soft, non-tender abdomen, no palpable masses Skin: no rashes or abrasions, no fluctuance, no induration Neurologic: AAOx3, sensation intact bilaterally Psychiatric: interacting appropriately, not anxious, not encephalopathic, thought process linear ICD10 Worksheet Patient Problems: Problems Problem Status Onset Large bowel obstruction Acute Zara's syndrome Acute
[2017-06-22] MEDS: CIPROFLOXACIN 500 MG TAB PO SCH (20:55)
[2017-06-23] MEDS: oxyCODONE IR 5 MG TAB PO PRN ×3 (00:38→20:10)
[2017-06-23 05:23] LABS: PLATELET COUNT 194 10^3/uL (150-400)
[2017-06-23] MEDS: buPROPion XL 150 MG TAB PO SCH (09:17)
[2017-06-23] MEDS: MULTIVITAMINS W-MINERALS 1 EACH TAB PO SCH (09:17)
[2017-06-23] MEDS: CIPROFLOXACIN 500 MG TAB PO SCH ×2 (09:17→20:10)
--- NOTE | 2017-06-23 14:04 | HOSPPROG ---
Hospitalist Progress Note Assessment/Plan: * Massively dilated colon s/p subtotal colectomy, complicated by anastomotic leak * Ileostomy with skin breakdown - needs revision * Possible Hirschsprung -full thickness rectal biopsy at - await path -Cipro 500mg BID for 7 days -no NSAIDS for 7 days -reanastomosis vs. ostomy relocation to be determined depending on biopsy result * Congenital imperforate anus * h/o Hodgkins * Anemia -stable Subjective: No complaints. Objective: Vital Signs Temp Pulse Resp BP Pulse Ox 36.8 C 82 16 107/94 H 94 06/23/17 08:00 06/23/17 08:00 06/23/17 08:00 06/23/17 08:00 06/23/17 08:00 Laboratory Results 06/23/17 04:46 06/23/17 04:46 06/22/17 06/23/17 06/24/17 05:59 05:59 05:59 Intake Total 150 1480 Balance 150 1480 - Physical Exam Constitutional: no apparent distress, appears nourished, not in pain Cardiovascular: regular rate and rhythym, no murmur, rub, or gallop Respiratory: no respiratory distress, no rales or rhonchi, clear to auscultation Gastrointestinal: normoactive bowel sounds, soft, non-tender abdomen, no palpable masses Skin: no rashes or abrasions, no fluctuance, no induration Neurologic: AAOx3, sensation intact bilaterally Psychiatric: interacting appropriately, not anxious, not encephalopathic, thought process linear ICD10 Worksheet Patient Problems: Problems Problem Status Onset Large bowel obstruction Acute [place]'s syndrome Acute
--- NOTE | 2017-06-23 14:33 | ASMTCMCOM ---
CM Note CM Note Notes: Patient is back at [facility] after leaving on 06/21 to go to [facility] for a full thickness rectal biopsy. He had to stay overnight there and returned to the unit yesterday afternoon. The result of the biopsy will help determine if patient needs a reanastomosis or an ostomy relocation. He has been staying at the [facility], but a more permanent housing situation is needed. Director of Case Management Francisca Suarez has been working with patient and [facility] toward this end. Date Signed: 06/23/2017 02:32 PM Electronically Signed By:Ruth Peña RN
[2017-06-24] MEDS: oxyCODONE IR 5 MG TAB PO PRN ×3 (04:13→15:01)
[2017-06-24] MEDS: CIPROFLOXACIN 500 MG TAB PO SCH ×2 (09:21→21:23)
[2017-06-24] MEDS: buPROPion XL 150 MG TAB PO SCH (09:21)
[2017-06-24] MEDS: MULTIVITAMINS W-MINERALS 1 EACH TAB PO SCH (09:21)
--- NOTE | 2017-06-24 13:28 | ASMTCMCOM ---
CM Note CM Note Notes: Chart reviewed. Patient per MD is to stay until biopsy results are back. He is homeless but per the patient has passed up housing options in [place] as he would prefer to stay in [place]. The Director of CM has been involved with his care and in the past has secured one of the [facility] beds for him. This may be the only option at discharge although its not optimal. CM to follow. Plan: TBD Date Signed: 06/24/2017 01:28 PM Electronically Signed By:Radha Blanc RN
--- NOTE | 2017-06-24 16:30 | SOAPPROG ---
YAKELIN Progress Note Assessment/Plan: Assessment/Plan: 61yo M with a complicated surgical history, including imperforate anus repaired as an . Most recently s/p subtotal colectomy for toxic megacolon, with anastomotic leak requiring diverting ileostomy. Admitted with peristomal skin breakdown due to appliances not fitting. Complicated by homelessness I stopped by twice today and both times patient not in the room. Awaiting biopsy results. If biopsy negative, will do ileostomy takedown. If biopsy positive, will need relocation of ileostomy. For now, regular diet. Wound/ ostomy care. Hospitalist management of comorbidities. Exam deferred Objective: Vital Signs Temp Pulse Resp BP Pulse Ox 37.2 C 90 14 120/63 97 06/24/17 15:14 06/24/17 15:14 06/24/17 15:14 06/24/17 15:14 06/24/17 15:14 Laboratory Results 06/23/17 04:46 06/23/17 04:46 06/23/17 06/24/17 06/25/17 05:59 05:59 05:59 Intake Total 1480 500 Balance 1480 500 ICD10 Worksheet Patient Problems: Problems Problem Status Onset Large bowel obstruction Acute Zara's syndrome Acute
--- NOTE | 2017-06-24 17:55 | HOSPPROG ---
Hospitalist Progress Note Assessment/Plan: * Massively dilated colon s/p subtotal colectomy, complicated by anastomotic leak * Ileostomy with skin breakdown - needs revision * Possible Hirschsprung -full thickness rectal biopsy at - await path -Cipro 500mg BID for 7 days -no NSAIDS for 7 days -reanastomosis vs. ostomy relocation to be determined depending on biopsy result * Congenital imperforate anus * h/o Hodgkins * Anemia -stable Subjective: No new complaints. Objective: Vital Signs Temp Pulse Resp BP Pulse Ox 37.2 C 90 14 120/63 97 06/24/17 15:14 06/24/17 15:14 06/24/17 15:14 06/24/17 15:14 06/24/17 15:14 Laboratory Results 06/23/17 04:46 06/23/17 04:46 06/23/17 06/24/17 06/25/17 05:59 05:59 05:59 Intake Total 1480 500 Balance 1480 500 - Physical Exam Constitutional: no apparent distress, appears nourished, not in pain Cardiovascular: regular rate and rhythym, no murmur, rub, or gallop Respiratory: no respiratory distress, no rales or rhonchi, clear to auscultation Gastrointestinal: normoactive bowel sounds, soft, non-tender abdomen, no palpable masses Skin: no rashes or abrasions, no fluctuance, no induration Neurologic: AAOx3, sensation intact bilaterally Psychiatric: interacting appropriately, not anxious, not encephalopathic, thought process linear ICD10 Worksheet Patient Problems: Problems Problem Status Onset Large bowel obstruction Acute Zara's syndrome Acute
--- NOTE | 2017-06-25 08:34 | HOSPPROG ---
Hospitalist Progress Note Assessment/Plan: #Dilated colon: s/p subtotal colectomy #Ileostomy with skin breakdown from anastomotic leak: revision per surgery. Awaiting path. Wound care consulted #Possible Hirschsprung: rectal path pending at [facility] -Cipro 500m BID x 7 days, no NSAIDs #Congential imperforate anus #h/o Hodgkins #Normocytic anemia #Diet: reg #DVT ppx: ambulatory #Disp: cont inpatient admission for wound care, surgical plan Subjective: no N/V. No abd pain Objective: Vital Signs Temp Pulse Resp BP Pulse Ox 36.9 C 78 16 116/69 97 06/25/17 04:54 06/25/17 04:54 06/25/17 04:54 06/25/17 04:54 06/25/17 04:54 Laboratory Results 06/23/17 04:46 06/23/17 04:46 06/24/17 06/25/17 06/26/17 05:59 05:59 05:59 Intake Total 500 200 Balance 500 200 - Time Spent With Patient Time Spent with Patient: greater than 35 minutes Time Spent with Patient: Greater than 35 minutes spent on this patients care, greater than 50% of time spent counseling, educating, and coordinating care regarding the above mentioned plan. - Physical Exam Constitutional: no apparent distress Eyes: PERRL Ears, Nose, Mouth, Throat: moist mucous membranes Cardiovascular: regular rate and rhythym Respiratory: no respiratory distress Gastrointestinal: other (ileostomy with brown stool) Genitourinary: no bladder fullness Skin: warm Musculoskeletal: full muscle strength Neurologic: AAOx3, CN II-XII Intact Psychiatric: interacting appropriately ICD10 Worksheet Patient Problems: Problems Problem Status Onset Large bowel obstruction Acute Zara's syndrome Acute
[2017-06-25] MEDS: CIPROFLOXACIN 500 MG TAB PO SCH ×2 (09:17→22:14)
[2017-06-25] MEDS: MULTIVITAMINS W-MINERALS 1 EACH TAB PO SCH (09:17)
[2017-06-25] MEDS: buPROPion XL 150 MG TAB PO SCH (09:17)
[2017-06-25] MEDS: oxyCODONE IR 5 MG TAB PO PRN ×3 (09:20→22:15)
[2017-06-26] MEDS: CIPROFLOXACIN 500 MG TAB PO SCH ×2 (08:42→20:23)
[2017-06-26] MEDS: buPROPion XL 150 MG TAB PO SCH (08:42)
[2017-06-26] MEDS: MULTIVITAMINS W-MINERALS 1 EACH TAB PO SCH (08:42)
--- NOTE | 2017-06-26 11:07 | SOAPPROG ---
SOAP Progress Note Assessment/Plan: Assessment/Plan: 61yo M with a complicated surgical history, including imperforate anus repaired as an infant. Most recently s/p subtotal colectomy for toxic megacolon, with anastomotic leak requiring diverting ileostomy. Admitted with peristomal skin breakdown due to appliances not fitting. Complicated by homelessness Biopsy at [facility] negative for Hirschsprung. Proceed with ostomy takedown with likely diverting ileostomy (temporary 6 weeks ) on Saturday06/28/17 scheduled at 12:45. Wound/ostomy nurse will see prior to surgery to ray ideal ostomy placement Objective: Vital Signs Temp Pulse Resp BP Pulse Ox 37.0 C 91 17 122/80 H 97 06/26/17 09:50 06/26/17 09:50 06/26/17 09:50 06/26/17 09:50 06/26/17 09:50 Laboratory Results 06/23/17 04:46 06/23/17 04:46 06/25/17 06/26/17 06/27/17 05:59 05:59 05:59 Intake Total 200 2700 Balance 200 2700 ICD10 Worksheet Patient Problems: Problems Problem Status Onset Large bowel obstruction Acute [place]'s syndrome Acute
[2017-06-26] MEDS: oxyCODONE IR 5 MG TAB PO PRN ×2 (11:56→23:17)
--- NOTE | 2017-06-26 14:33 | HOSPPROG ---
Hospitalist Progress Note Assessment/Plan: #Dilated colon: s/p subtotal colectomy #Ileostomy with skin breakdown from anastomotic leak: plan for ostomy takedown and diverting ostomy 06/28/17. Wound care consulted #Possible Hirschsprung: path negative from [facility]. Cipro 500m BID x 7 days to be stopped 06/27. #Insomnia: melatonin #Congential imperforate anus #h/o Hodgkins #Normocytic anemia: H/H stable #Social issues: "feels imprisoned here". Concerned about belonging at the [facility]. Case management is assisting #Diet: reg #DVT ppx: ambulatory #Disp: cont inpatient admission for wound care, surgical plan Subjective: "I feel like I am in alf again" Objective: Vital Signs Temp Pulse Resp BP Pulse Ox 37.0 C 91 17 122/80 H 97 06/26/17 09:50 06/26/17 09:50 06/26/17 09:50 06/26/17 09:50 06/26/17 09:50 Laboratory Results 06/23/17 04:46 06/23/17 04:46 06/25/17 06/26/17 06/27/17 05:59 05:59 05:59 Intake Total 200 2700 Balance 200 2700 - Physical Exam Constitutional: other (very thin) Eyes: PERRL Ears, Nose, Mouth, Throat: moist mucous membranes Cardiovascular: regular rate and rhythym Respiratory: no respiratory distress Gastrointestinal: normoactive bowel sounds, other (ostomy in place, +BS, no TTP) ICD10 Worksheet Patient Problems: Problems Problem Status Onset Large bowel obstruction Acute [place]'s syndrome Acute
[2017-06-26] MEDS: MELATONIN 3 MG TAB PO SCH (20:23)
[2017-06-27] MEDS: CIPROFLOXACIN 500 MG TAB PO SCH ×2 (10:20→21:01)
[2017-06-27] MEDS: MULTIVITAMINS W-MINERALS 1 EACH TAB PO SCH (10:20)
[2017-06-27] MEDS: buPROPion XL 150 MG TAB PO SCH (10:20)
--- NOTE | 2017-06-27 13:53 | HOSPPROG ---
Hospitalist Progress Note Assessment/Plan: #Ileostomy with skin breakdown from anastomotic leak: -plan for ostomy takedown and diverting ostomy 06/28/17. Wound care consulted #Possible Hirschsprung: path negative from [facility]. Cipro 500m BID x 7 days to be stopped 06/27. #Insomnia: melatonin #Congential imperforate anus #h/o Hodgkins #Normocytic anemia: H/H stable #Social issues: "feels imprisoned here". Concerned about belonging at the [facility]. Case management is assisting with mail, obtaining personal items #Diet: reg #DVT ppx: ambulatory #Disp: cont inpatient admission for wound care, surgery Subjective: no acute issues overnight Objective: Vital Signs Temp Pulse Resp BP Pulse Ox 37.0 C 65 18 108/70 95 06/27/17 09:23 06/27/17 09:23 06/27/17 09:23 06/27/17 09:23 06/27/17 09:23 Laboratory Results 06/23/17 04:46 06/23/17 04:46 06/26/17 06/27/17 06/28/17 05:59 05:59 05:59 Intake Total 2700 500 240 Balance 2700 500 240 - Physical Exam Constitutional: no apparent distress Eyes: PERRL Ears, Nose, Mouth, Throat: moist mucous membranes Cardiovascular: regular rate and rhythym, no murmur, rub, or gallop Gastrointestinal: normoactive bowel sounds, soft, non-tender abdomen, other ( ostomy in place) Genitourinary: no bladder fullness Skin: warm Musculoskeletal: full muscle strength Neurologic: AAOx3, CN II-XII Intact Psychiatric: interacting appropriately, anxious ICD10 Worksheet Patient Problems: Problems Problem Status Onset Large bowel obstruction Acute [place]'s syndrome Acute
[2017-06-27] MEDS: oxyCODONE IR 5 MG TAB PO PRN ×2 (15:49→22:09)
--- NOTE | 2017-06-27 16:51 | ASMTCMCOM ---
CM Note CM Note Notes: Pt to have surgery tomrrow 06/[address] Coleman[address] Christin Suarez is aware of plan and will work with [facility] to obtain a bed for pt there ronald. christin will also work with [facility] to help pt get his mail. Pt asked CM to call Jose at [facility] ( ) To find out about his place on a waiting list. Jose confirmed that pt is on a list for the [facility] in [place]. There are 10 people on the list and it will be filled as people vacate the [facility] unit [facility]. Also spoke with Juliet Shi ([phone]) at [facility]. Juliet states that she is working with pt to help with the finacial expenses of deposit or a month's rent once he finds a place. CM will continue to follow. Date Signed: 06/27/2017 04:50 PM Electronically Signed By:Zuly Cantu LCSW
--- NOTE | 2017-06-27 19:58 | SOAPPROG ---
YAKELIN Progress Note Assessment/Plan: Assessment: Summarized 61 yo s/p sub total colectomy with primary anastomosis. Had a post op 1-2 mm leak and s/p resection of margin and distal anastomosis. End ileostomy Had discussion with Mario about step 1 Open laparotomy with ileorectal anastomosis and diverting loop colostomy. Risks and benefits discussed and questions answered Will ray prior to surgery Expect about 1 week in the hospital post op. Will still have difficult housing situation Understands will have around 6 bm per day (as much as is emptying pouch) Plan: 06/18/17 14:12 06/18/17 14:13 06/18/17 14:15 06/19/17 08:07 06/27/17 19:56 Objective: Vital Signs Temp Pulse Resp BP Pulse Ox 36.8 C 88 16 108/70 90 L 06/27/17 16:00 06/27/17 16:00 06/27/17 16:00 06/27/17 16:00 06/27/17 16:00 Laboratory Results 06/23/17 04:46 06/23/17 04:46 06/26/17 06/27/17 06/28/17 05:59 05:59 05:59 Intake Total 2700 500 1740 Balance 2700 500 1740 ICD10 Worksheet Patient Problems: Problems Problem Status Onset Large bowel obstruction Acute [place]'s syndrome Acute
[2017-06-27] MEDS: MELATONIN 3 MG TAB PO SCH (20:15)
[2017-06-28] MEDS: buPROPion XL 150 MG TAB PO SCH (10:00)
[2017-06-28] MEDS: MULTIVITAMINS W-MINERALS 1 EACH TAB PO SCH (10:01)
--- NOTE | 2017-06-28 10:14 | HOSPPROG ---
Hospitalist Progress Note Assessment/Plan: # s/p colectomy (d/t dilated colon) c/b anastomotic leak s/p resection and end ileostomy - presented with skin breakdown around the ileostomy - biopsy from [facility] negative for Hirschprung's - plan ileostomy takedown with ileorectal anastomosis and diverting loop colostomy today # congenital imperforate anus # hx Hodgkin's # normocytic anemia - stable # homelessness Subjective: no complaints; looking forward to moving forward with next surgery Objective: Vital Signs Temp Pulse Resp BP Pulse Ox 36.6 C 64 15 103/52 L 98 06/28/17 08:55 06/28/17 08:55 06/28/17 08:55 06/28/17 08:55 06/28/17 08:55 Laboratory Results 06/23/17 04:46 06/23/17 04:46 06/27/17 06/28/17 06/29/17 05:59 05:59 05:59 Intake Total 500 1740 Balance 500 1740 chart reviewed - Time Spent With Patient Time Spent with Patient: greater than 35 minutes Time Spent with Patient: Greater than 35 minutes spent on this patients care, greater than 50% of time spent counseling, educating, and coordinating care regarding the above mentioned plan. - Physical Exam Constitutional: no apparent distress, appears nourished Cardiovascular: regular rate and rhythym, no murmur, rub, or gallop Respiratory: no respiratory distress, no rales or rhonchi, clear to auscultation Gastrointestinal: other (soft, TTP RUQ; ostomy with healing surrounding skin), No guarding, No rebound, No distension ICD10 Worksheet Patient Problems: Problems Problem Status Onset Zara's syndrome Acute Large bowel obstruction Acute
[2017-06-28] MEDS ORDERED: LR 1,000 ML IV ONE (11:35)
--- NOTE | 2017-06-28 12:18 | WOCRNPDOC ---
WOCRN Advanced Assessment Note - Ileostomy Assessment, Advanced Right Abdomen Ileostomy Ileostomy Appliance Intact: Yes Ileostomy Appliance Currently in Use: Two Piece Convex, 1 /, Cut to Fit Ileostomy Accessory: Barrier Ring Stoma Color: Red Stoma Turgor: Moist Stoma Shape: Oval Stoma Height: Protruding Mucocutaneus Junction: Intact Ileostomy Effluent: Fecal Ileostomy Details: End Peristomal Skin: Denuded Peristomal Skin Complications: Irritant Contact Dermatitis, Stripping Injury Ileostomy Comment/Treatment Details: Patient going to OR today for ostomy revision/ reanastamosis. Request from surgeon to site ray him for new loop stoma. Removed existing 2-piece appliance to better visualize abdomen. Assessed patient in the supine position, and was able to identify the rectus abdominus muscle easily. Patient then asked to sit at the side of the bed to assess his abdomen in the seated position. He is very thin, and has multiple loose skin folds r/t weight loss over his entire abdomen. It was very difficult to find any skin without a horizontal crease immediately adjacent to it. Per surgeon's request, I marked sites on both the right and the left to provide more options. Both sites marked in the right and left lower quadrants w/ permanent marker, then covered w/ tegaderm film. New 2-piece appliance applied to existing ileostomy. Report given to head start coordinator Ian.
[2017-06-28] MEDS ORDERED: BUPIVACAINE 0.5% 30 ML SDV ONE (12:21)
[2017-06-28] MEDS ORDERED: MIDAZOLAM 2 MG/2 ML VIAL ONE (12:36)
[2017-06-28] MEDS ORDERED: ROCURONIUM 50 MG/5 ML VIAL ONE ×2 (12:37→14:05)
[2017-06-28] MEDS ORDERED: DEXAMETHASONE 4 MG/ML VIAL ONE (12:37)
[2017-06-28] MEDS ORDERED: PROPOFOL 200 MG/20 ML VIAL ONE (12:37)
[2017-06-28] MEDS ORDERED: fentaNYL 100 MCG/2 ML INJ ONE ×4 (12:37→15:47)
[2017-06-28] MEDS ORDERED: METOCLOPRAMIDE 10 MG/2 ML VIAL ONE (12:37)
[2017-06-28] MEDS ORDERED: LIDOCAINE 2% 100 MG/5 ML SYR ONE (12:37)
[2017-06-28] MEDS ORDERED: LABETALOL HCL 5 MG/ML 20 ML MDV ONE (14:26)
[2017-06-28] MEDS ORDERED: SUGAMMADEX SODIUM 200 MG/2 ML VIAL IVP ONE (15:11)
--- NOTE | 2017-06-28 15:41 | POSTOPPROG ---
Post Op Note Date of Operation: 06/28/17 Surgeon: Leela Coleman Anesthesiologist: dana Anesthesia: GET(General Endotracheal) Pre-op Diagnosis: ileostomy, hx of imperforate anus Post-op Diagnosis: same Indication: 61 yo with ileostomy, Procedure: ex lap jailyn revision of ostomy Findings: multiple dense adhesions, full bladder, stenosis of anus Inf/Abcess present in the surg proc area at time of surgery?: No EBL: 50-100 Specimen(s): ostomy
[2017-06-28] MEDS ORDERED: LABETALOL HCL 5 MG/ML 20 ML MDV IVP PRN (15:42)
[2017-06-28] MEDS ORDERED: ONDANSETRON 4 MG/2 ML VIAL IVP PRN (15:42)
[2017-06-28] MEDS ORDERED: ALBUTEROL 3 ML DEYVIAL IH PRN (15:42)
[2017-06-28] MEDS ORDERED: MEPERIDINE 25 MG/0.5 ML AMP IVP PRN (15:42)
[2017-06-28] MEDS ORDERED: NALOXONE HCL 0.4 MG/ML INJ IVP PRN ×2 (15:42)
--- NOTE | 2017-06-28 15:44 | POSTANESTH ---
Post Anesthetic Evaluation Cardiovascular Status: Similar to Pre-Op Cond Respiratory Status: Similar to Pre-op Cond. Level of Consciousness/Mental Status: Mildly Sleepy, Arousable Pain Control: Adequate, Prn Tx Ordered Nausea/Vomiting Control: Adequate, Prn Tx Ordered Complications Possibly Related to Anesthesia: None Noted
[2017-06-28] MEDS: fentaNYL 100 MCG/2 ML INJ IVP PRN ×2 (15:50→15:55)
[2017-06-28] MEDS ORDERED: HYDROmorphONE/DILAUDID 2 MG/ML INJ ONE (16:02)
[2017-06-28] MEDS: HYDROmorphONE/DILAUDID 2 MG/ML INJ IVP PRN ×3 (16:12→16:44)
[2017-06-28] MEDS: HYDROmorphONE/DILAUDID 6 MG/30 ML PCA IV PRN (17:01)
[2017-06-28] MEDS: NS 1,000 ML IV SCH (17:34)
[2017-06-28] MEDS: MELATONIN 3 MG TAB PO SCH (20:39)
[2017-06-29] MEDS: NS 1,000 ML IV SCH ×2 (08:43→18:45)
[2017-06-29] MEDS: MULTIVITAMINS W-MINERALS 1 EACH TAB PO SCH (10:22)
[2017-06-29] MEDS: buPROPion XL 150 MG TAB PO SCH (10:23)
--- NOTE | 2017-06-29 11:18 | HOSPPROG ---
Hospitalist Progress Note Assessment/Plan: # s/p colectomy (d/t dilated colon) c/b anastomotic leak s/p resection and end ileostomy, presented with skin breakdown around the ileostomy - now POD#1 ileostomy takedown and replacement - biopsy from [facility] negative for Hirschprung's - unable to re-anastamose d/t extensive inflammation and stenotic anus; ileostomy placed on L side # urinary bladder distension - keep law today # congenital imperforate anus # hx Hodgkin's # normocytic anemia - stable # homelessness Subjective: s/p surgery yesterday; complaining about his law catheter Objective: Vital Signs Temp Pulse Resp BP Pulse Ox 37.1 C 82 16 122/70 H 93 06/29/17 10:07 06/29/17 10:07 06/29/17 10:07 06/29/17 10:07 06/29/17 10:07 Laboratory Results 06/23/17 04:46 06/23/17 04:46 06/28/17 06/29/17 06/30/17 05:59 05:59 05:59 Intake Total 1740 1400 Output Total 1150 Balance [address] Francois brief op-note reviewed - Physical Exam Constitutional: no apparent distress, appears nourished Cardiovascular: regular rate and rhythym, no murmur, rub, or gallop Respiratory: no respiratory distress, no rales or rhonchi Gastrointestinal: normoactive bowel sounds, other (soft, surgical gauze CDI, L sided ileostomy) ICD10 Worksheet Patient Problems: Problems Problem Status Onset [place]'s syndrome Acute Large bowel obstruction Acute
--- NOTE | 2017-06-29 12:53 | SOAPPROG ---
SOAP Progress Note Assessment/Plan: Assessment/Plan: - 61 yo M s/p ileostomy revision - SS, HDs - having pain from law, apparently has Hx of urethral stricture as well. Bladder was VERY distended intra-op. Uro consult rec leaving law at least 48hrs. Will keep through today, bargained that we will remove tomorrow - OK for CLD, ADAT if tolerates. Has some fluid in appliance and has bowel sounds - OOB 06/29/17 12:52 Subjective: wants law out Objective: Vital Signs Temp Pulse Resp BP Pulse Ox 37.1 C 77 16 128/67 H 99 06/29/17 12:31 06/29/17 12:31 06/29/17 12:31 06/29/17 12:31 06/29/17 12:31 Laboratory Results 06/23/17 04:46 06/23/17 04:46 06/28/17 06/29/17 06/30/17 05:59 05:59 05:59 Intake Total 1740 1400 Output Total 1150 Balance 1740 250 ICD10 Worksheet Patient Problems: Problems Problem Status Onset Large bowel obstruction Acute [place]'s syndrome Acute
[2017-06-29] MEDS: MELATONIN 3 MG TAB PO SCH (19:42)
[2017-06-29] MEDS: HYDROmorphONE/DILAUDID 6 MG/30 ML PCA IV PRN (19:48)
[2017-06-30] MEDS: NS 1,000 ML IV SCH (08:03)
[2017-06-30] MEDS: buPROPion XL 150 MG TAB PO SCH (08:03)
[2017-06-30] MEDS: MULTIVITAMINS W-MINERALS 1 EACH TAB PO SCH (08:04)
--- NOTE | 2017-06-30 10:25 | HOSPPROG ---
Hospitalist Progress Note Assessment/Plan: # s/p colectomy (d/t dilated colon) c/b anastomotic leak s/p resection and end ileostomy, presented with skin breakdown around the ileostomy - now POD#2 ileostomy takedown and replacement - bowel function returning, advancing diet - biopsy from [facility] negative for Hirschprung's - unable to re-anastamose d/t extensive inflammation and stenotic anus; ileostomy placed on L side # urinary bladder distension - law dc'd # congenital imperforate anus # hx Hodgkin's # normocytic anemia - stable # homelessness # dispo - CM working on housing options vs respite bed Subjective: happy to have law out Objective: Vital Signs Temp Pulse Resp BP Pulse Ox 37.1 C 89 17 122/71 H 98 06/30/17 08:03 06/30/17 08:03 06/30/17 08:03 06/30/17 08:03 06/30/17 08:03 Laboratory Results 06/23/17 04:46 06/23/17 04:46 06/29/17 06/30/17 07/01/17 05:59 05:59 05:59 Intake Total 1400 2432 Output Total 1150 1550 Balance [address] Francois - Physical Exam Constitutional: no apparent distress, appears nourished Cardiovascular: regular rate and rhythym, no murmur, rub, or gallop Respiratory: no respiratory distress, no rales or rhonchi, clear to auscultation Gastrointestinal: no palpable masses, other (L sided ostomy; gauze; TTP diffusely) ICD10 Worksheet Patient Problems: Problems Problem Status Onset [place]'s syndrome Acute Large bowel obstruction Acute
--- NOTE | 2017-06-30 10:53 | SOAPPROG ---
SOOMAIRA Progress Note Assessment/Plan: Assessment/Plan: - 61 yo M s/p ileostomy revision - continues to do well, main complaint is still from law. Removed this AM - Tolerating CLD, has ostomy output. Reg diet - OOB, PO pain meds 06/29/17 12:52 06/30/17 10:53 Subjective: had a better day yesterday, still wants the law out Objective: Vital Signs Temp Pulse Resp BP Pulse Ox 37.2 C 92 16 124/80 H 100 06/30/17 10:33 06/30/17 10:33 06/30/17 10:33 06/30/17 10:33 06/30/17 10:33 Laboratory Results 06/23/17 04:46 06/23/17 04:46 06/29/17 06/30/17 07/01/17 05:59 05:59 05:59 Intake Total 1400 2432 Output Total 1150 1550 Balance 250 882 ICD10 Worksheet Patient Problems: Problems Problem Status Onset Large bowel obstruction Acute [place]'s syndrome Acute
[2017-06-30] MEDS: oxyCODONE IR 5 MG TAB PO PRN ×3 (13:44→22:04)
--- NOTE | 2017-06-30 14:29 | ASMTCMCOM ---
CM Note CM Note Notes: Surgery completed, patient will be ready for discharge Saturday. Contacts made 06/27/17 will need to be called for bed availability on Saturday. Date Signed: 06/30/2017 02:29 PM Electronically Signed By:Kim Gray LCSW
[2017-06-30] MEDS: MELATONIN 3 MG TAB PO SCH (19:58)
[2017-07-01] MEDS: oxyCODONE IR 5 MG TAB PO PRN ×6 (01:59→22:33)
[2017-07-01] MEDS: buPROPion XL 150 MG TAB PO SCH (09:59)
[2017-07-01] MEDS: MULTIVITAMINS W-MINERALS 1 EACH TAB PO SCH (09:59)
--- NOTE | 2017-07-01 10:17 | SOAPPROG ---
SOAP Progress Note Assessment/Plan: Assessment/Plan: 61yo M POD #3 s/p ileostomy revision Pain controlled c PO pain meds Return of bowel function Regular diet Voiding spontaneously s/p law removal yesterday No current issues with ileostomy appliance Wound ostomy care nurse today Dispo: will be ready from surgery standpoint for discharge this afternoon. FU with Jared/Bianka weekly for dressing/packing change. S: feeling well this am. urinating without difficulty. taking pain medication every 4 hours. walking around unit frequently. eating well without n/v/d O: laying in bed, comfortable, NAD No increased WOB +BS, abd soft, nondistended nontender. Midline dressing CDI. R abd ileostomy takedown site outer dressing min stained- change prior to DC. LLQ ileostomy good profile, thin brown stool in bag. Objective: Vital Signs Temp Pulse Resp BP Pulse Ox 36.6 C 75 16 110/66 96 07/01/17 07:57 07/01/17 07:57 07/01/17 07:57 07/01/17 07:57 07/01/17 07:57 Laboratory Results 06/23/17 04:46 06/23/17 04:46 06/30/17 07/01/17 07/02/17 05:59 05:59 05:59 Intake Total 2432 1700 200 Output Total 1550 550 500 Balance 882 1150 -300 ICD10 Worksheet Patient Problems: Problems Problem Status Onset Large bowel obstruction Acute [place]'s syndrome Acute
--- NOTE | 2017-07-01 10:43 | HOSPPROG ---
Hospitalist Progress Note Assessment/Plan: # s/p colectomy (d/t dilated colon) c/b anastomotic leak s/p resection and end ileostomy, presented with skin breakdown around the ileostomy - now POD#3 ileostomy takedown and replacement - bowel function has returned - biopsy from [facility] negative for Hirschprung's - unable to re-anastamose d/t extensive inflammation and stenotic anus; ileostomy placed on L side # urinary bladder distension - law dc'd; voiding without issue # congenital imperforate anus # hx Hodgkin's # normocytic anemia - stable # homelessness # dispo - considering short term motel room; will need weekly f/u Dr Coleman and Bianka Subjective: feels well; tolerating full diet; having output in ostomy Objective: Vital Signs Temp Pulse Resp BP Pulse Ox 36.6 C 75 16 110/66 96 07/01/17 07:57 07/01/17 07:57 07/01/17 07:57 07/01/17 07:57 07/01/17 07:57 Laboratory Results 06/23/17 04:46 06/23/17 04:46 06/30/17 07/01/17 07/02/17 05:59 05:59 05:59 Intake Total 2432 1700 200 Output Total 1550 550 500 Balance 882 1150 -300 - Time Spent With Patient Time Spent with Patient: greater than 25 minutes Time Spent with Patient: Greater than 25 minutes spent on this patients care, greater than 50% of time spent counseling, educating, and coordinating care regarding the above mentioned plan. - Physical Exam Constitutional: no apparent distress, appears nourished Cardiovascular: regular rate and rhythym, no murmur, rub, or gallop Respiratory: no respiratory distress, no rales or rhonchi Gastrointestinal: soft, non-tender abdomen, other (ostomy with stool; some diffuse TTP; gauze CDI) ICD10 Worksheet Patient Problems: Problems Problem Status Onset Zara's syndrome Acute Large bowel obstruction Acute
--- NOTE | 2017-07-01 12:47 | WOCRNPDOC ---
WOCRN Advanced Assessment Note - Ileostomy Assessment, Advanced Left Abdomen Ileostomy Ileostomy Appliance Intact: Yes Ileostomy Appliance Currently in Use: Two Piece Flat, 2 1, Cut to Fit Stoma Color: Red Stoma Turgor: Moist Stoma Shape: Round Stoma Height: Protruding Slightly Ileostomy Effluent: Flatus, Fecal, Pasty Ileostomy Details: End Ileostomy Comment/Treatment Details: Did not remove wafer. Patient is changing pouch independently. Stoma looks good. No need for further tracer bullet charging machine operator consults. Will initiate a home order of one piece soft convex adelita 2 03/04, adelita belt and coloplast brava strips per patient request from [employer]. To send to C/O Poppy Mcdaniels at [address] [facility] [address] [phone] per patient request. Submitted to sample case porter today for physician signature. Wound care will sign off.
--- NOTE | 2017-07-01 17:16 | ASMTCMCOM ---
CM Note CM Note Notes: Patient nearing discharge. He tells the hospitalist tells me that the patient is willing to pay for a hotel and is uncomfortable with the plan for the care home. Will check with the department regarding any local companies that may offer discount rates. Wound care sent colostomy supply order form but no one available at surgery office to sign order. Form placed on chart and will ask CM tomorrow to finish form and fax completed order. CM to follow. Plan: TBD Date Signed: 07/01/2017 05:15 PM Electronically Signed By:Radha Blanc RN
[2017-07-01] MEDS: MELATONIN 3 MG TAB PO SCH (21:25)
[2017-07-02] MEDS: oxyCODONE IR 5 MG TAB PO PRN ×7 (02:36→23:01)
[2017-07-02] MEDS: buPROPion XL 150 MG TAB PO SCH ×2 (09:40→10:20)
[2017-07-02] MEDS: MULTIVITAMINS W-MINERALS 1 EACH TAB PO SCH ×2 (09:41→10:24)
[2017-07-02] MEDS ORDERED: oxyCODONE IR 5 MG TAB PO PRN (13:02)
--- NOTE | 2017-07-02 15:57 | HOSPPROG ---
Hospitalist Progress Note Assessment/Plan: # s/p colectomy (d/t dilated colon) c/b anastomotic leak s/p resection and diverting ileostomy, presented with skin breakdown around the ileostomy - now POD#3 ileostomy revision - bowel function has returned - biopsy from [facility] negative for Hirschprung's - needs to f/u with colo-rectal surgeon prior to ileostomy takedown # urinary bladder distension - law dc'd; voiding without issue # congenital imperforate anus # hx Hodgkin's # normocytic anemia - stable # homelessness # dispo - considering short term motel room Subjective: abd pain today Objective: Vital Signs Temp Pulse Resp BP Pulse Ox 36.8 C 86 16 113/68 94 07/02/17 14:57 07/02/17 14:57 07/02/17 14:57 07/02/17 14:57 07/02/17 14:57 Laboratory Results 06/23/17 04:46 06/23/17 04:46 07/01/17 07/02/17 07/03/17 05:59 05:59 05:59 Intake Total 1700 850 Output Total 550 720 200 Balance 1150 130 -200 - Physical Exam Constitutional: no apparent distress, appears nourished Cardiovascular: regular rate and rhythym, no murmur, rub, or gallop Respiratory: no respiratory distress, no rales or rhonchi, clear to auscultation Gastrointestinal: normoactive bowel sounds, other (L sided ostomy; soft, mild TTP) ICD10 Worksheet Patient Problems: Problems Problem Status Onset Zara's syndrome Acute Large bowel obstruction Acute
--- NOTE | 2017-07-02 16:46 | ASMTCMCOM ---
CM Note CM Note Notes: Spoke with patient re: d/c planning. He plans to go to a hotel for a few days; CM Director Francisca has said she'll pay for one night; patient will be responsible for the rest. I offered him our H rates at the [facility] and the [facility] in [place]. He will decide which hotel he'd like to go to. Riccardo, patient's Mobile Engineer from the [facility] ([phone]), can help with transporting patient and his belongings to the hotel. Patient will then utilize a bed at the [facility] as he navigates the permanent housing system. Per Riccardo, [facility] is advocating for patient to have a semi-permanent bed there. This would eliminate him having to use one of [facility]'s beds at the [facility]. I faxed an order for ostomy supplies to [facility]; they anticipate that the supplies will ship tomorrow and be delivered by Saturday. They will be delivered to [address] [place] [address]. Also - Riccardo from [facility] asked me to call patient's facility security officer Gray Polo ([phone]) to advocate for patient being released from parole so he can move back to [place] where he says he will be better resourced. I called Officer Christ and left a message. Date Signed: 07/02/2017 04:45 PM Electronically Signed By:Ruth Peña RN
--- NOTE | 2017-07-02 18:35 | SOAPPROG ---
YAKELIN Progress Note Assessment/Plan: Assessment: Summarized 61 yo s/p sub total colectomy with primary anastomosis. Had a post op 1-2 mm leak and s/p resection of margin and distal anastomosis. End ileostomy S/P revision and relocation of ileostomy. I decided not to perform anastomosis and divert due to rectum being dilated and anal stenosis. My hope is that he will be able to manage his ileosotmy as an outpatient better now that it is in a different location. Mario is having a tough day today - feeling like he is being treated differently. Mario had an exploratory surgery with a large midline incision and I expect that he will need pain medications. I hope that he will be able to discharge to hotel or prison on Ultimately may see colorectal surgeon as outpatient S: Frustrated today O: Changed dressing RLQ. Ostomy appliance fitting nicely with no leaks. Stool in bag Abdomen soft. Plan: 06/18/17 14:12 06/18/17 14:13 06/18/17 14:15 06/19/17 08:07 06/27/17 19:56 07/02/17 18:30 Objective: Vital Signs Temp Pulse Resp BP Pulse Ox 36.8 C 86 16 113/68 94 07/02/17 14:57 07/02/17 14:57 07/02/17 14:57 07/02/17 14:57 07/02/17 14:57 Laboratory Results 06/23/17 04:46 06/23/17 04:46 07/01/17 07/02/17 07/03/17 05:59 05:59 05:59 Intake Total 1700 850 Output Total 550 720 650 Balance 1150 130 -650 ICD10 Worksheet Patient Problems: Problems Problem Status Onset Large bowel obstruction Acute Zara's syndrome Acute
[2017-07-02] MEDS: MELATONIN 3 MG TAB PO SCH (22:13)
[2017-07-03] MEDS: oxyCODONE IR 5 MG TAB PO PRN ×3 (02:15→08:00)
[2017-07-03] MEDS: buPROPion XL 150 MG TAB PO SCH (10:21)
[2017-07-03] MEDS: morphINE SR 15 MG TAB PO SCH ×2 (10:21→20:54)
[2017-07-03] MEDS: MULTIVITAMINS W-MINERALS 1 EACH TAB PO SCH (10:21)
--- NOTE | 2017-07-03 10:28 | SOAPPROG ---
YAKELIN Progress Note Assessment/Plan: Assessment: Summarized 61 yo s/p sub total colectomy with primary anastomosis. Had a post op 1-2 mm leak and s/p resection of margin and distal anastomosis. End ileostomy S/P revision and relocation of ileostomy. I decided not to perform anastomosis and divert due to rectum being dilated and anal stenosis. My hope is that he will be able to manage his ileosotmy as an outpatient better now that it is in a different location. I added MS Contin 15 mg po bid DC tramadol DC IV morphine Hope less Oxy IR DC tomorrow I spoke with Dr. Dhaliwal in [place] who can see as an outpatient in a couple of months. Tough situation and may not be able to be reversed S: Better today. Bumped head in shower O: No abrasions on scalp Abdomen soft Dressings dry Ostomy appliance fitting nicely with no leaks. Stool in bag Plan: 06/18/17 14:12 06/18/17 14:13 06/18/17 14:15 06/19/17 08:07 06/27/17 19:56 07/02/17 18:30 07/03/17 10:21 Objective: Vital Signs Temp Pulse Resp BP Pulse Ox 36.6 C 75 16 114/59 L 96 07/03/17 08:31 07/03/17 08:31 07/03/17 08:31 07/03/17 08:31 07/03/17 08:31 Laboratory Results 06/23/17 04:46 06/23/17 04:46 07/02/17 07/03/17 07/04/17 05:59 05:59 05:59 Intake Total 850 1300 Output Total 720 1650 Balance 130 -350 ICD10 Worksheet Patient Problems: Problems Problem Status Onset Large bowel obstruction Acute [place]'s syndrome Acute
--- NOTE | 2017-07-03 15:23 | HOSPPROG ---
Hospitalist Progress Note Assessment/Plan: # s/p colectomy (d/t dilated colon) c/b anastomotic leak s/p resection and diverting ileostomy, presented with skin breakdown around the ileostomy - now POD#4 ileostomy revision - bowel function has returned - biopsy from [facility] negative for Hirschprung's - needs to f/u with colo-rectal surgeon prior to ileostomy takedown # urinary bladder distension - law dc'd; voiding without issue # congenital imperforate anus # hx Hodgkin's # normocytic anemia - stable # homelessness # dispo - considering short term motel room, likely tomorrow Subjective: no o/n events. denies pain. Objective: Vital Signs Temp Pulse Resp BP Pulse Ox 36.6 C 75 16 114/59 L 96 07/03/17 08:31 07/03/17 08:31 07/03/17 08:31 07/03/17 08:31 07/03/17 08:31 Laboratory Results 06/23/17 04:46 06/23/17 04:46 07/02/17 07/03/17 07/04/17 05:59 05:59 05:59 Intake Total 850 1300 Output Total 720 1650 500 Balance 130 -350 -500 - Physical Exam Constitutional: no apparent distress Eyes: PERRL, EOMI Ears, Nose, Mouth, Throat: moist mucous membranes, hearing normal Cardiovascular: regular rate and rhythym Respiratory: no respiratory distress, no rales or rhonchi, clear to auscultation Skin: warm Neurologic: AAOx3 Psychiatric: interacting appropriately, not anxious, not encephalopathic Lymph, Heme, Immunologic: No petechiae ICD10 Worksheet Patient Problems: Problems Problem Status Onset Large bowel obstruction Acute [place]'s syndrome Acute
--- NOTE | 2017-07-03 17:22 | ASMTCMCOM ---
CM Note CM Note Notes: Discussed case w/Dr Coleman who said pt will likely dc tomorrow. Notified [facility] to confirm that they received fax w/ostomy supplies order; rep told me that the order was still pending verification and they were waiting on signed prescription from MD. However, info that was sent to them yesterday which they did receive includes this. I tried to notify them again but could not reach, CM will need to try tomorrow early AM. Met w/pt to discuss dc. He plans to stay [facility] b[facility]c of [facility] locker and also ostomy supplies getting delivered to [address]. CM will need to notify Francisca Suarez tomorrow morning regarding hotel stay. Pt plans to spend o few nights in hotel here and then look for something in [place]. CM will follow. Date Signed: 07/03/2017 05:21 PM Electronically Signed By:Kirti Burrows RN
[2017-07-03] MEDS: MELATONIN 3 MG TAB PO SCH (22:39)
[2017-07-04] MEDS: oxyCODONE IR 5 MG TAB PO PRN (04:28)
[2017-07-04] MEDS: buPROPion XL 150 MG TAB PO SCH (08:50)
[2017-07-04] MEDS: MULTIVITAMINS W-MINERALS 1 EACH TAB PO SCH (08:50)
[2017-07-04] MEDS: morphINE SR 15 MG TAB PO SCH (08:50)
--- NOTE | 2017-07-04 12:45 | PDDCSUM ---
Discharge Summary Discharge Summary: HPI/Hosptial Course: This is a 61 yo with hx of total colectomy with primary anastomosis. Had a post op 1-2 mm leak and s/p resection of margin and distal anastomosis. End ileostomy. He was admitted due to leaking and skin breakdown around the ileostomy. Surgery was consulted. He is on POD #5 S/P revision and relocation of ileostomy. Anastomosis and divert could not be done due to rectum being dilated and anal stenosis. We are hoping is that he will be able to manage his ileosotmy as an outpatient better now that it is in a different location. For pain mgmt, he is on MS Contin 15 mg po bid and Oxy. Dr. Dhaliwal in [place] will see the pt as an outpatient in a couple of months. Tough situation and may not be able to be reversed DDX: # s/p colectomy (d/t dilated colon) c/b anastomotic leak s/p resection and diverting ileostomy, presented with skin breakdown around the ileostomy - now POD#5 ileostomy revision - bowel function has returned - biopsy from [facility] negative for Hirschprung's - needs to f/u with colo-rectal surgeon prior to ileostomy takedown # urinary bladder distension - law dc'd; voiding without issue # congenital imperforate anus # hx Hodgkin's # normocytic anemia - stable # homelessness Exam: NAD AAOX3 RRR CTAB NO LE EDEMA MEDS: SEE MED REC F/U: WITH DR. CRAVEN ON 07/11 3 PM. TOTAL TIME SPENT ON D/C IS 40 MINS. D/W PT, NURSE, AND CM WHO ARE ALL IN AGREEMENT WITH D/C
--- NOTE | 2017-07-04 13:01 | PDIAF ---
- Diagnosis Diagnosis: colectomy Code Status: Full Code - Medication Management Discharge Medications: Medications to Continue on Transfer Bupropion HCl [Wellbutrin Xl] 300 mg PO DAILY 06/14/17 [Last Taken 06/14/17 06: 00] Propranolol HCl [Inderal 10mg (*)] 10 mg PO DAILY PRN 06/14/17 [Last Taken 06/11] traMADol [Ultram 50 mg (*)] 50 mg PO Q6HRS PRN 06/14/17 [Last Taken 06/13/17] Melatonin [Melatonin 3 MG (*)] 3 mg PO HS #30 tab 07/04/17 [Last Taken Unknown] morphINE SR [Ms Contin/Oramorph 15 mg (*)] 15 mg PO BID #60 tab 07/04/17 [Last Taken Unknown] oxyCODONE IR [Oxycodone Ir (*)] 5 mg PO Q3H PRN #30 tab 07/04/17 [Last Taken Unknown] Discharge Medications: Refer to the Discharge Home Medication list for PRN reason. - Orders Services needed: Home Care (wound care) Home Care Face to Face: I certify that this patient was under my care and that I had the required hobh-uy-gita encounter meeting the encounter requirements on the discharge day. My findings support the fact that the patient is homebound as defined in Home Care Face to Face Continued: CMS Chapter 7 Medicare Benefits Manual 30.1.1 , The condition of the patient is such that there exists a normal inability to leave home and consequently, leaving home would require a considerable and taxing effort. Diet Recommendation: no restrictions on diet Diet Texture: Regular Texture Diet Additional Instructions: No heavy lifting pushing or pulling greater than 15 lbs for 5 weeks Ostomy cares Change midline and dressing on right abdomen if needed (saturated, leaking or stained) f/u with Dr. Shaw on 07/11 - Follow Up Care Current Providers and Referrals: Leela Coleman MD [Primary Care Provider] - 07/11/17 3:00 pm
--- NOTE | 2017-07-04 13:39 | SOAPPROG ---
YAKELIN Progress Note Assessment/Plan: Assessment: Summarized 61 yo s/p sub total colectomy with primary anastomosis. Had a post op 1-2 mm leak and s/p resection of margin and distal anastomosis. End ileostomy S/P revision and relocation of ileostomy. I decided not to perform anastomosis and divert due to rectum being dilated and anal stenosis. My hope is that he will be able to manage his ileosotmy as an outpatient better now that it is in a different location. I added MS Contin 15 mg po bid DC tramadol DC IV morphine Hope less Oxy IR DC tomorrow I spoke with Dr. Dhaliwal in [place] who can see as an outpatient in a couple of months. Tough situation and may not be able to be reversed S: Better today. Appropriately anxious about dc planning as [place] hotels [place] [facility] [place] O: Abdomen soft HFB and dressing changed. midline cdi. Dressing changed Ostomy appliance fitting nicely with no leaks. Stool in bag Plan: 06/18/17 14:12 06/18/17 14:13 06/18/17 14:15 06/19/17 08:07 06/27/17 19:56 07/02/17 18:30 07/03/17 10:21 07/04/17 13:38 Objective: Vital Signs Temp Pulse Resp BP Pulse Ox 37 C 83 16 95/70 L 96 07/04/17 09:20 07/04/17 09:20 07/04/17 09:20 07/04/17 09:20 07/04/17 09:20 Laboratory Results 06/23/17 04:46 06/23/17 04:46 07/03/17 07/04/17 07/05/17 05:59 05:59 05:59 Intake Total 1300 Output Total 1650 1375 500 Balance -350 -1375 -500 ICD10 Worksheet Patient Problems: Problems Problem Status Onset Large bowel obstruction Acute [place]'s syndrome Acute
[2017-07-04 14:33] VITALS: BP 128/79
--- NOTE | 2017-07-04 17:26 | ASMTCMCOM ---
CM Note CM Note Notes: Pt ready for DC today.[facility] was willing to pay for a resp[facility] bed but [facility] due to [facility] and pt refused [facility] b/c [place] is too far away to get around by bus. Pt was able to get a cheap room at the [facility] in [place]. His plan is stay there for three days. Francisca Suarez indicated that pt could get one night at the Holiday on Saturday or Saturday and then stay at the [facility]. She stated that pt has her phone number to call her to arrange the hotel over the wkend and she will contactthe [facility]. Pt's supplies from [employer] were sent to [address] [place] [address] today. Pt will contact Josefa at the clinic ([phone]) and make sure they are there before picking them up on Saturday. Josefa will also arrange a f/u appt with pt's kathy CRENSHAW, Juanita Shabazz, if pt wants to cnitnue seeing him. [employer] contacted about delivering to pt's hotel. Pt got extra supplies for his ostomy until Saturday. Pt given cab voucher to [facility]. Date Signed: 07/04/2017 05:26 PM Electronically Signed By:Zuly Cantu LCSW
--- NOTE | 2017-07-25 08:55 | GOP ---
[f rep st] OPERATIVE REPORT DATE OF OPERATION: 06/28/2017 SURGEON: Leela Coleman MD BPM DEVELOPER: Anshul Francois MD. ANESTHESIA: Hua Gutierrez MD/General. PREOPERATIVE DIAGNOSIS: History of imperforate anus and recent megacolon with leak and ileostomy. POSTOPERATIVE DIAGNOSIS: History of imperforate anus and recent megacolon with leak and ileostomy. PROCEDURE PERFORMED: Exploratory laparotomy with lysis of adhesions and revision of ostomy. FINDINGS: Multiple dense adhesions, full bladder, stenosis of anus. SPECIMENS: Ostomy. ESTIMATED BLOOD LOSS: 100 cc. INDICATIONS: The patient is a 61-year-old man who had a history of imperforate anus as a child which we learned the details about more recently. He presented to the hospital with megacolon and was kathy en to the operating room for a subtotal colectomy with a ileorectal anastomosis. He developed a smal l leak postoperatively and my partner took him back and performed an end ostomy and oversewed the rec janet stump. When he initially presented his abdomen was very round, distended and where the ostomy en ded up being placed as his body changed shape ended up creating multiple leaks. In addition, he is h omeless and this has become exceedingly difficult for him to take care of. He has had unger over his abdomen. We admitted him and had him go down to get full-thickness biopsies of his rectum to make s ure that there was not also a component of Hirschsprung causing the rectal stump to blow-out. There was not. Our goal for the operation was either to perform an ileorectal anastomosis or to revise the ileostomy. DESCRIPTION OF PROCEDURE: Patient was brought into the operating room, placed supine on the table an d general anesthesia was administered. I made a midline incision and dissected down through the skin and subcutaneous tissues. He had numerous adhesions. I performed approximately 1.5 hours of lysis of adhesions to even free up his current ileostomy. His bladder was extremely distended. The anus w as very stenotic and the stump was still distended. Inside the stump there was clips from his previo us procedure done by GI as well as old stool. I did not feel that it was safe to do an ileorectal an astomosis at this time due to the stenosis at the anus. I then elected to revise the location of the ileostomy which had been premarked by our ostomy team. I made an incision on his skin and dissected down through the skin and subcutaneous tissues. I divided the fascia enough to accommodate 2 finger breadths. I pulled up the ostomy and then performed clean closure. Irrigation performed. The area inspected and no injuries noted. Skin closed with 0 PDS followed by yudy. I placed a waterproof silver Mepilex dressing. Next, attention was drawn to maturing the ostomy. The ostomy was sutured t o the fascia with 3-0 Vicryl. I then removed the staple line from the ostomy and brooked it. I then performed the remaining sutures with 3-0 Vicryl. A new appliance was placed. He was awakened in e operating room, extubated, transferred to PACU in stable condition. /[id number]/MODL
== END 2017-07-04 15:40 | disposition home health service (06) | DRG 223 ==
LOC: F1N 16:07 → OBSVTOIN 16:07
PROVIDERS: ADMIT Family Medicine; ATTEND Family Medicine
PROC: 0DNW0ZZ Release Peritoneum, Open Approach (ICD-10-PCS; principal; 2017-06-28 12:45)
PROC: 0DSB0ZZ Reposition Ileum, Open Approach (ICD-10-PCS; principal; 2017-06-28 12:45)
DX: K94.13 Enterostomy malfunction (principal); K66.0 Peritoneal adhesions (postprocedural) (postinfection); Q42.3 Congenital absence, atresia and stenosis of anus without fistula; D64.9 Anemia, unspecified; G47.00 Insomnia, unspecified; C81.90 Hodgkin lymphoma, unspecified, unspecified site; M41.9 Scoliosis, unspecified; K58.9 Irritable bowel syndrome, unspecified; Z59.0 Homelessness
CPT/HCPCS: 97161-GP; G0378; J0696; J1100; J1170; J1650; J2001; J2250; J2270; J2704; J2765; J3010

== ENCOUNTER 2017-07-06 21:46 | Inpatient (IN) | payer MEDICAID ==
[2017-07-07] MEDS ORDERED: ONDANSETRON 4 MG/2 ML VIAL IVP PRN (00:02)
[2017-07-07] MEDS ORDERED: ONDANSETRON DISINTEGRATING 4 MG TAB PO PRN (00:02)
[2017-07-07] MEDS ORDERED: ACETAMINOPHEN 325 MG TAB PO PRN (00:02)
[2017-07-07] MEDS: NS W/ 20 KCl/L 1,000 ML IV SCH ×3 (00:42→22:32)
--- NOTE | 2017-07-07 00:44 | PDGENHP ---
History and Physical - Chief Complaint Abdominal pain - History of Present Illness 61 yo M w/ hx of congenital imperforate anus and Hodgkin's w/ colectomy performed for dilated colon transferred from [facility] with abdominal pain. Patient was discharged from [facility] on 07/04 after revision of ileostomy due to leak. He developed abdominal pain early this morning. He states he had not passed gas or had ostomy output for much of the day. He did pass gas just before my evaluation and was feeling somewhat better. CT performed at OSH revealed ileus vs. bowel obstruction and complex fluid collection concerning for early abscess. Patient was transferred here for further care under the request of Dr. Coleman. History Information - Allergies/Home Medication List Allergies/Adverse Reactions: ibuprofen [From Motrin] Allergy (Verified 06/03/17 11:17) peanut Allergy (Verified 06/03/17 11:17) Home Medications: Bupropion HCl [Wellbutrin Xl] 300 mg PO DAILY 06/14/17 [Last Taken 06/14/17 06: 00] Propranolol HCl [Inderal 10mg (*)] 10 mg PO DAILY PRN 06/14/17 [Last Taken 06/11] traMADol [Ultram 50 mg (*)] 50 mg PO Q6HRS PRN 06/14/17 [Last Taken 06/13/17] I have personally reviewed and updated: family history, medical history - Past Medical History Additional medical history: Hodgkin's lymphoma. Congenital imperforate anus - Surgical History Reports: colectomy - Family History Additional family history: Asked, denies - Social History Smoking Status: Never smoked Review of Systems Review of Systems: ROS: 10pt was reviewed & negative except for what was stated in HPI & below Physical Exam Physical Exam: Constitutional: chronically ill appearing, uncomfortable Eyes: PERRL, EOMI Ears, Nose, Mouth, Throat: moist mucous membranes, no oral mucosal ulcers Cardiovascular: regular rate and rhythym, no murmur, rub, or gallop Respiratory: no respiratory distress, no rales or rhonchi Gastrointestinal: tenderness (Around incision site, soft), other (Ostomy), No guarding, No rebound Skin: warm, other (Surgical incision with intact dressing in place) Musculoskeletal: full muscle strength, no muscle tenderness Neurologic: AAOx3, CN II-XII Intact Psychiatric: interacting appropriately, not anxious Lab Data & Imaging Review Imaging Review: CT from OSH: Impression: 1. Dilated loops of bowel concerning for obstruction or ileus. Ileostomy seen in the left lower quadrant without parastomal hernia. 2. Complex gas and fluid collection in the ventral abdominal mesentery extending inferiorly along the left lateral aspect of the urinary bladder, concerning for developing abscess. 3. Intra-abdominal free air could indicate recent postoperative changes or hollow viscus perforation. Assessment & Plan Assessment: 61 yo M w/ hx of colectomy 2/2 dilated colon w/ recent revision presents with obstruction vs. ileus and possible early abscess. Plan: 1. Obstruction vs. ileus - Dilated loops of bowel seen on OSH CT; now passing gas and feeling somewhat improved. Abdominal exam is reassuring. - Admit for observation - NPO, mIVF, pain control, anti-emetics - Discussed case with Dr. Coleman, she will see the patient in the morning 2. Abdominal fluid collection - Per OSH CT: complex gas and fluid collection in the ventral abdominal mesentery extending inferiorly along the left lateral aspect of the urinary bladder, concerning for developing abscess. WBC 9 and afebrile currently, non-toxic appearing. - S/p dose of Zosyn at OSH prior to transfer - Hopefully cultures were drawn there prior to abx and we can follow those - Surgery service consulted - Will continue Zosyn for now pending surgical evaluation 3. Hx congenital imperforate anus - Now s/p colectomy and ileostomy. Recently admitted for leak and revision. - Surgery service following along Diet - NPO, ADAT Code - Full Ppx - SCDs Dispo - Admit under observation status
[2017-07-07 04:51] LABS: PLATELET COUNT 285 10^3/uL (150-400)
[2017-07-07] MEDS: PIPERACILLIN/TAZO 3.375 GM/DEX 50 ML IV SCH ×3 (05:33→17:17)
[2017-07-07] MEDS: oxyCODONE IR 5 MG TAB PO PRN ×5 (05:35→21:34)
--- NOTE | 2017-07-07 12:14 | SOAPPROG ---
SOAP Progress Note Assessment/Plan: Assessment: Marcellus is well known to me. Presented to [facility] last night due to nausea, vomiting and no stool output CT with fluid collection anterior abdomen and ileus Transferred to [facility] and now having gas and stool output will slowly advance diet S: Feeling better today although disappointed O: Midline dressings cdi Ostomy pink with good profile Plan: 07/07/17 12:12 Objective: Vital Signs Temp Pulse Resp BP Pulse Ox 36.9 C 96 16 160/80 H 96 07/07/17 11:05 07/07/17 11:05 07/07/17 11:05 07/07/17 11:05 07/07/17 11:05 Laboratory Results 07/07/17 04:30 07/07/17 04:30 07/06/17 07/07/17 07/08/17 05:59 05:59 05:59 Output Total 200 Balance -200 ICD10 Worksheet Patient Problems: Problems Problem Status Onset Large bowel obstruction Acute Zara's syndrome Acute
[2017-07-07] MEDS ORDERED: oxyCODONE IR 5 MG TAB PO PRN (13:16)
[2017-07-07] MEDS ORDERED: traMADol 50 MG TAB PO PRN (13:16)
--- NOTE | 2017-07-07 13:17 | HOSPPROG ---
Hospitalist Progress Note Assessment/Plan: 61M s/p multiple surgeries, now with end ileostomy. Discharged 07/04 to [facility], presented in [place] with ileus and fluid collection seen on CT. Now with good ostomy output. # ileus - much improved - hold long acting morphine for now # abd fluid collection - CD with abdominal CT taken to radiology to load into PACS; will need to review images when they are available - cont empiric abx pending review of CT # end ileostomy, unable to create anastamosis d/t anal stenosis - needs to f/u colorectal surgeon to eval after discharge # urinary bladder distension - no problems urinating recently # hx Hodgkin's # normocytic anemia # homelessness Subjective: now having ostomy output and gas Objective: Vital Signs Temp Pulse Resp BP Pulse Ox 36.9 C 96 16 160/80 H 96 07/07/17 11:05 07/07/17 11:05 07/07/17 11:05 07/07/17 11:05 07/07/17 11:05 Laboratory Results 07/07/17 04:30 07/07/17 04:30 07/06/17 07/07/17 07/08/17 05:59 05:59 05:59 Output Total 200 Balance -[address] Coleman CT report reviewed - Physical Exam Constitutional: no apparent distress, appears nourished Cardiovascular: regular rate and rhythym, no murmur, rub, or gallop, systolic murmur Respiratory: no respiratory distress, no rales or rhonchi, clear to auscultation Gastrointestinal: other (L sided ostomy; no TTP) ICD10 Worksheet Patient Problems: Problems Problem Status Onset Zara's syndrome Acute Large bowel obstruction Acute
--- NOTE | 2017-07-07 13:50 | PDMN ---
Medical Necessity Medical necessity: C/M review: est. > 2 MN LOS for eval and TX of acute ileus - much improved, now having ostomy output and gas, abdominal fluid collection - CD with abdominal CT from outside hospital taken to radiology to load into PACS , Hospitalist will need to review images when they are available, requiring ongoing IV fluids, continue empiric IV Zosyn pending review of CT, comorbid history of S/P multiple surgeries, patient now with end ileostomy, discharged to a hotel, presented to [facility] 07/06/2017 with ileus and fluid collection seen on CT, subsequent transfer to [facility], urinary bladder distention - no problems with urinating recently, history of Hodgkin's, normocytic anemia, homelessness per 07/07/2017 Hospitalist progress note.
--- NOTE | 2017-07-07 14:20 | ASMTCMCOM ---
CM Note CM Note Notes: Pt discharged to a hotel 07/04 after a long stay in [facility] and presented to [place] ED with n/v and no stool output last night. Dr Coleman requested his transfer here. D/C plan unclear at this time. Francisca Suarez had been instrumental in arranging his d/c on previous admission 06/14-07/04/17. CM will follow for any d/c needs Date Signed: 07/07/2017 02:19 PM Electronically Signed By:BIN Woo
[2017-07-08] MEDS: PIPERACILLIN/TAZO 3.375 GM/DEX 50 ML IV SCH ×4 (00:03→17:21)
[2017-07-08] MEDS: oxyCODONE IR 5 MG TAB PO PRN ×5 (03:36→20:27)
[2017-07-08] MEDS: buPROPion XL 150 MG TAB PO SCH (09:37)
--- NOTE | 2017-07-08 09:53 | HOSPPROG ---
Hospitalist Progress Note Assessment/Plan: 61M s/p multiple surgeries, now with end ileostomy. Discharged 07/04 to [facility], presented in [place] with ileus and fluid collection seen on CT. Now with good ostomy output. # ileus - much improved - hold long acting morphine for now -seen by Dr Coleman, she will review the images with Dr Tucker/ ? abscess # abd fluid collection - - CT with fluid collection of the anterior abdomen and ileus -on Zosyn/to go to IR to see if amenable by drainage # end ileostomy, unable to create anastomosis d/t anal stenosis - needs to f/u colorectal surgeon to eval after discharge # urinary bladder distension - no problems urinating recently # hx Hodgkin's # normocytic anemia # homelessness,had been staying at a motel. #Plan: to go to IR today Subjective: Mario is not c/o any pain. Objective: Vital Signs Temp Pulse Resp BP Pulse Ox 36.8 C 79 16 141/81 H 99 07/08/17 07:26 07/08/17 07:26 07/08/17 07:26 07/08/17 07:26 07/08/17 07:26 Laboratory Results 07/07/17 04:30 07/07/17 04:30 07/07/17 07/08/17 07/09/17 05:59 05:59 05:59 Intake Total 2827 Output Total 200 900 250 Balance -200 1927 -250 - Physical Exam Constitutional: no apparent distress, appears nourished, not in pain Eyes: PERRL Ears, Nose, Mouth, Throat: hearing normal Respiratory: no respiratory distress Gastrointestinal: normoactive bowel sounds Skin: warm Musculoskeletal: full muscle strength Neurologic: AAOx3 Psychiatric: interacting appropriately ICD10 Worksheet Patient Problems: Problems Problem Status Onset Large bowel obstruction Acute Zara's syndrome Acute
--- NOTE | 2017-07-08 10:55 | ASMTCMCOM ---
CM Note CM Note Notes: Spoke with patient's nurse who states patient will go for IR drainage today. Patient is voiding normally again and most likely will be ready for discharge tomorrow. Spoke with Riccardo, case packer and sealer at [facility] who told me he will check with his recycling crew supervisor and get back to me. If [facility] cannot help, we will have to reserve a nursing home bed or hotel room for one night. Patient is still pursuing [facility]. CM will follow. Date Signed: 07/08/2017 10:55 AM Electronically Signed By:Morena Smith LCSW
--- NOTE | 2017-07-08 13:33 | SOAPPROG ---
SOAP Progress Note Assessment/Plan: Assessment/Plan: 61yo M s/p ileostomy revision. Readmitted with SBO Passing stool and flatus - great return of bowel function Fluid collection on CT (performed at outside hospital) not amenable to drainage per radiology - will monitor Advance to clear liquids Pain controlled Continue inpt until return of bowel function S: feeling much better than admission. No nausea. Pain controlled. No vomiting. No fevers O: Well-developed well-nourished man in no acute distress No increased work of breathing Positive bowel sounds throughout, soft, nondistended, nontender. Thin stool in ostomy appliance. Midline and ileostomy takedown dressing intact Objective: Vital Signs Temp Pulse Resp BP Pulse Ox 36.8 C 67 16 106/70 95 07/08/17 11:55 07/08/17 11:55 07/08/17 11:55 07/08/17 11:55 07/08/17 11:55 Laboratory Results 07/07/17 04:30 07/07/17 04:30 07/07/17 07/08/17 07/09/17 05:59 05:59 05:59 Intake Total 2827 Output Total 200 900 250 Balance -200 1927 -250 ICD10 Worksheet Patient Problems: Problems Problem Status Onset Large bowel obstruction Acute Zara's syndrome Acute
[2017-07-08] MEDS: NS W/ 20 KCl/L 1,000 ML IV SCH (22:41)
[2017-07-09] MEDS: PIPERACILLIN/TAZO 3.375 GM/DEX 50 ML IV SCH ×3 (00:37→12:34)
[2017-07-09] MEDS: oxyCODONE IR 5 MG TAB PO PRN ×6 (00:37→20:47)
--- NOTE | 2017-07-09 08:20 | HOSPPROG ---
Hospitalist Progress Note Assessment/Plan: 61M s/p multiple surgeries, now with end ileostomy. Discharged 07/04 to [facility], presented in [place] with ileus and fluid collection seen on CT. Now with good ostomy output. # ileus - much improved - hold long acting morphine for now # abd fluid collection - - CT with fluid collection of the anterior abdomen and ileus -was on Zosyn/ IR was unable to do any intervention -reviewed w surgery, plan is keep him on oral antibiotics x one week. Started on Augmentin # end ileostomy, unable to create anastomosis d/t anal stenosis - needs to f/u colorectal surgeon to eval after discharge # urinary bladder distension - no problems urinating recently # hx Hodgkin's # normocytic anemia # homelessness,had been staying at a motel. #Plan: likely dc in the morning if stable Subjective: Mario doesn't have much of an appetite. Overall is feeling ok. Objective: Vital Signs Temp Pulse Resp BP Pulse Ox 36.7 C 61 18 116/47 L 98 07/09/17 04:00 07/09/17 04:00 07/09/17 04:00 07/09/17 04:00 07/09/17 04:00 Laboratory Results 07/07/17 04:30 07/09/17 04:38 07/08/17 07/09/17 07/10/17 05:59 05:59 05:59 Intake Total 2827 1136 Output Total 900 1450 Balance 1927 -314 - Physical Exam Constitutional: no apparent distress, chronically ill appearing, other (thin) Eyes: PERRL Ears, Nose, Mouth, Throat: hearing normal Cardiovascular: regular rate and rhythym Respiratory: no respiratory distress Gastrointestinal: other (ostomy with good output) Skin: warm Musculoskeletal: generalized weakness Neurologic: AAOx3 Psychiatric: interacting appropriately ICD10 Worksheet Patient Problems: Problems Problem Status Onset Large bowel obstruction Acute Zara's syndrome Acute
[2017-07-09] MEDS: buPROPion XL 150 MG TAB PO SCH (08:34)
--- NOTE | 2017-07-09 08:53 | SOAPPROG ---
<Bianka Turcios - Last Filed: 07/09/17 08:51> SOAP Progress Note Assessment/Plan: Assessment/Plan: 61yo M s/p ileostomy revision. Readmitted with SBO Return of bowel function Fluid collection on CT (performed at outside hospital) not amenable to drainage per radiology. 1 week of antibiotics. ok to transition to PO Advance to regular diet Pain controlled Dispo: work with CM on discharge planning. will remove yudy prior to DC S: feeling well. Hungry. No complaints this am. No nausea. Pain controlled. No vomiting. No fevers O: Well-developed well-nourished man in no acute distress No increased work of breathing Positive bowel sounds throughout, soft, nondistended, nontender. Thin stool in ostomy appliance. Midline dressing with min staining. I removed ileostomy takedown dressing, change hydrofera blue ready and allevyn - wound healing well , no evidence of infection. Objective: Vital Signs Temp Pulse Resp BP Pulse Ox 36.8 C 70 16 115/59 L 95 07/09/17 08:00 07/09/17 08:00 07/09/17 08:00 07/09/17 08:00 07/09/17 08:00 Laboratory Results 07/07/17 04:30 07/09/17 04:38 07/08/17 07/09/17 07/10/17 05:59 05:59 05:59 Intake Total 2827 1136 Output Total 900 1450 Balance 1927 -314 ICD10 Worksheet Patient Problems: Problems Problem Status Onset Large bowel obstruction Acute [place]'s syndrome Acute <Leela Coleman - Last Filed: 07/09/17 13:05> SOAP Progress Note Assessment/Plan: Assessment: I saw and evaluated [facility]. Plan as above Plan: 07/09/17 13:05 Objective: Vital Signs Temp Pulse Resp BP Pulse Ox 36.8 C 70 16 115/59 L 95 07/09/17 08:00 07/09/17 08:00 07/09/17 08:00 07/09/17 08:00 07/09/17 08:00 Laboratory Results 07/07/17 04:30 07/09/17 04:38 07/08/17 07/09/17 07/10/17 05:59 05:59 05:59 Intake Total 2827 1136 Output Total 900 1450 Balance 1926
[2017-07-09] MEDS: AMOXICILLIN/CLAVULANATE POT 875/125 MG TAB PO SCH ×2 (15:05→20:47)
[2017-07-10] MEDS: oxyCODONE IR 5 MG TAB PO PRN ×3 (00:43→11:04)
[2017-07-10 07:51] VITALS: BP 111/62
[2017-07-10] MEDS: buPROPion XL 150 MG TAB PO SCH (09:34)
[2017-07-10] MEDS: AMOXICILLIN/CLAVULANATE POT 875/125 MG TAB PO SCH (09:34)
--- NOTE | 2017-07-10 10:29 | SOAPPROG ---
SOAP Progress Note Assessment/Plan: Assessment/Plan: 61yo M s/p ileostomy revision. Readmitted with SBO Return of bowel function Fluid collection on CT (performed at outside hospital) not amenable to drainage per radiology. 1 week of antibiotics. ok to transition to PO Regular diet Pain controlled Dispo: work with CM on discharge planning. stable to DC from surgical standpoint S: ostomy appliance leaking. no other complaints. pain controlled, tolerating diet O: Well-developed well-nourished man in no acute distress No increased work of breathing Abd soft, nondistended, nontender. LUQ ostomy with great profile - appliance changed. Midline incision CDI, yudy removed. RLQ ileostomy takedown site CDI , dressed c silvasorb and allevyn Objective: Vital Signs Temp Pulse Resp BP Pulse Ox 36.7 C 69 16 111/62 99 07/10/17 07:50 07/10/17 07:50 07/10/17 07:50 07/10/17 07:50 07/10/17 07:50 Laboratory Results 07/07/17 04:30 07/09/17 04:38 07/09/17 07/10/17 07/11/17 05:59 05:59 05:59 Intake Total 1136 Output Total 1450 Balance -314 ICD10 Worksheet Patient Problems: Problems Problem Status Onset Large bowel obstruction Acute Zara's syndrome Acute
--- NOTE | 2017-07-10 10:38 | HOSPPROG ---
Hospitalist Progress Note Assessment/Plan: 61M s/p multiple surgeries, now with end ileostomy. Discharged 07/04 to [facility], presented in [employer] with ileus and fluid collection seen on CT. Now with good ostomy output. # ileus - much improved - hold long acting morphine for now # abd fluid collection - - CT with fluid collection of the anterior abdomen and ileus -was on Zosyn/ IR was unable to do any intervention -reviewed w surgery, plan is keep him on oral antibiotics x one week. Started on Augmentin # end ileostomy, unable to create anastomosis d/t anal stenosis - needs to f/u colorectal surgeon to eval after discharge # urinary bladder distension - no problems urinating # hx Hodgkin's # normocytic anemia # homelessness,had been staying at a motel. #Plan: dc on Augmentin for a total of one week, he has dressings for wound care , has a follow up appt w Dr Coleman Subjective: Mario has no complaints. Objective: Vital Signs Temp Pulse Resp BP Pulse Ox 36.7 C 69 16 111/62 99 07/10/17 07:50 07/10/17 07:50 07/10/17 07:50 07/10/17 07:50 07/10/17 07:50 Laboratory Results 07/07/17 04:30 07/09/17 04:38 07/09/17 07/10/17 07/11/17 05:59 05:59 05:59 Intake Total 1136 Output Total 1450 Balance -314 - Physical Exam Constitutional: no apparent distress, appears nourished, not in pain, other ( thin) Eyes: PERRL Ears, Nose, Mouth, Throat: hearing normal Respiratory: no respiratory distress Gastrointestinal: other (ostomy w good output) Skin: warm Musculoskeletal: full muscle strength Neurologic: AAOx3 Psychiatric: interacting appropriately ICD10 Worksheet Patient Problems: Problems Problem Status Onset Large bowel obstruction Acute Zara's syndrome Acute
--- NOTE | 2017-07-10 11:41 | ASMTLACE ---
LACE Length of stay for Answers: 4-6 days current admission Acuity / Level of Answers: Yes Care: Did the patient have an inpatient admission? Comorbidities - select Answers: Any tumor (including all that apply lymphoma or leukemia) Other Notes: colectomy & ileostomy # of Emergency department Answers: 1-2 visits in the last 6 months Social determinants Answers: Homelessness (street, [facility]) Mental health diagnosis (anxiety, depression, pers onality disorders, etc.) Lack of community resources and/or lack of social support (no pcp, lives alone, transportation, ervin d) Score: 21 Date Signed: 07/10/2017 11:40 AM Electronically Signed By:Valentina Pizano RN
--- NOTE | 2017-07-10 12:42 | ASMTCMCOM ---
CM Note CM Note Notes: Spoke with pt re; dc poc. CM discussed [facility] vs hotel, pt states that Rex Suarez said she would pay for hotel at the [facility] [place]. CM confirmed this and a reservation was made for 1 night, confirmation # [id number]. Pt notified, cab voucher given and [facility] filled medication. CM notified Riccardo at [facility] of pt plan, after night in hotel [facility] DC Plan: [facility] Date Signed: 07/10/2017 12:41 PM Electronically Signed By:Valentina Pizano RN
--- NOTE | 2017-07-10 13:06 | GDS ---
[f rep st] DISCHARGE SUMMARY DISCHARGE DIAGNOSES: 1. Ileus. 2. Abdominal fluid collection. 3. Ileostomy. 4. Urinary bladder distention. 5. History of Hodgkin. 6. Normocytic anemia. 7. Homelessness. CONSULTATION: Dr. Leela Coleman. HISTORY: Briefly, the patient is a 61-year-old male, status post multiple surgeries, now with an end ileostomy. He was discharged on July 04 to a hotel, but presented to [place] with ileus and a fluid collection seen on CT. He was seen and evaluated by the surgical team. The plan was for IR to see if they could drain the abscess. This was not amenable to drain, per Radiology. Reviewed his care w [facility] Surgery. The plan is to keep him on oral antibiotics for another week and further followup with Dr. Coleman in the outpatient setting. HOSPITAL COURSE: 1. Ileus. It is much improved. He is having regular bowel movements, eating and drinking well. 2. Abdominal fluid collection. The CT shows a fluid collection of the anterior abdomen and abdomen area. He was on Zosyn. IR was unable to do any intervention. The plan is for oral antibiotics for 1 week. He is on Augmentin. 3. End ileostomy. They have been unable to create an anastomosis due to anal stenosis. He needs to follow up with a colorectal surgeon once he improves. 4. Urinary bladder distention. No further issues. 5. History of Hodgkin, stable. 6. Normocytic anemia, stable. 7. Homelessness. He will go to the [facility]. DISCHARGE CONDITION: Stable. Blood pressure is 111/62. Heart rate is 69. Respiratory rate is 16. O2 sats on room air are 99%. Temperature is 36.7 Celsius. DISCHARGE MEDICATIONS: Please see the EMR. DISCHARGE INSTRUCTIONS: 1. To follow up with Dr. Coleman for followup care. 2. If he develops fever, chills, worsening abdominal pain, to return to the ER. /[id number]/[id number]
== END 2017-07-10 12:36 | disposition home or self-care (01) | DRG 247 ==
LOC: OBSVTOIN 23:55 → F3E 23:55
PROVIDERS: ADMIT Internal Medicine; ATTEND Internal Medicine
DX: K56.7 Ileus, unspecified (principal); R18.8 Other ascites; Z93.2 Ileostomy status; N32.89 Other specified disorders of bladder; D64.9 Anemia, unspecified; Z85.71 Personal history of Hodgkin lymphoma; Z59.0 Homelessness
CPT/HCPCS: J2543

== ENCOUNTER 2017-07-12 23:16 | Inpatient (IN) | payer MEDICAID ==
[2017-07-12] MEDS ORDERED: NS 1,000 ML IV ONE (23:59)
[2017-07-12] MEDS ORDERED: FAMOTIDINE 20 MG/NACL 50 ML IV ONE (23:59)
[2017-07-12] MEDS ORDERED: HYDROmorphONE/DILAUDID 2 MG/ML INJ IVP ONE (23:59)
[2017-07-13] MEDS ORDERED: ONDANSETRON 4 MG/2 ML VIAL IVP ONE
[2017-07-13 00:04] LABS: PLATELET COUNT 318 10^3/uL (150-400)
[2017-07-13] MEDS ORDERED: IOPAMIDOL (ISOVUE-300) 100 ML BTL ONE (00:29)
--- NOTE | 2017-07-13 00:45 | EDPHY ---
H & P Stated Complaint: ABD pain, no stool from colostomy x 2 days Time Seen by Provider: 07/12/17 23:22 HPI/ROS: HPI The patient presents with abdominal pain which began yesterday at 4:00 p.m. After eating a hot dog. The pain is been constant since, is diffuse, moderate in severity. It feels like previous pain that he is had. Before the pain began he was belching, passing gas. However since pain started he has had minimal stool output through his ileostomy and has not been belching. He has nausea, some retching with occasional vomiting. He has not had a fever or chills. He was discharged from the hospital 2 days ago and has been staying at a motel and then the [facility]. He says when he was discharged from the hospital he felt great. He was admitted for an ileus and abdominal fluid collection, now being treated with Augmentin. He is status post multiple abdominal operations with ileostomy in place. Dr. Coleman has plans to follow up with him as an outpatient. REVIEW OF SYSTEMS Constitutional: No fever, no chills. Eyes: No discharge. ENT: No sore throat. Cardiovascular: No chest pain, no palpitations. Respiratory: No cough, no shortness of breath. Gastrointestinal: See HPI Genitourinary: No hematuria. Musculoskeletal: No back pain. Skin: No rashes. Neurological: No headache. PMHx: End ileostomy, status post multiple abdominal operations, recent admission for ileus Soc Hx: Currently residing at the [facility] PHYSICAL General Appearance: Alert, uncomfortable appearing Eyes: Pupils equal and round no pallor or injection ENT, Mouth: Mucous membranes moist Respiratory: There are no retractions, lungs are clear to auscultation Cardiovascular: Regular rate and rhythm Gastrointestinal: Abdomen is soft and diffusely tender left greater than right , ileostomy in place with very small amount of watery stool, midline surgical scar with Steri-Strips in place, bandage in place in his right abdomen with no surrounding erythema, warmth, edema Neurological: A&O, moves all extremities Skin: Warm and dry, no rashes Musculoskeletal: Neck is supple non tender Extremities: symmetrical, full range of motion Psychiatric: Patient is oriented X 3, there is no agitation Source: Patient, Old records Exam Limitations: No limitations - Personal History Tetanus Vaccine Date: 2016 - Medical/Surgical History Hx Asthma: No Hx Chronic Respiratory Disease: No Hx Diabetes: No Hx Cardiac Disease: No Hx Renal Disease: Yes Hx Cirrhosis: No Hx Alcoholism: No Hx HIV/AIDS: No Hx Splenectomy or Spleen Trauma: No Other PMH: scoliosis, russo kerry placed , IBS, rectal reconstruction as infant, hodgkins lymphoma/ remission 2011, lactose intolerance, tremor, "three kidneys", anemia, sciatica. ostomy [id number], depression, ptsd, mood disorder - Social History Smoking Status: Never smoked Constitutional: Initial Vital Signs Temperature (C) 36.7 C 07/12/17 23:24 Heart Rate 86 07/12/17 23:24 Respiratory Rate 20 07/12/17 23:24 Blood Pressure 157/109 H 07/12/17 23:24 O2 Sat (%) 98 07/12/17 23:24 O2 Delivery Mode Nasal Cannula O2 (L/minute) 1 Allergies/Adverse Reactions: ibuprofen [From Motrin] Allergy (Verified 07/12/17 23:20) peanut Allergy (Verified 07/12/17 23:20) Home Medications: Medication Instructions Recorded Bupropion HCl [Wellbutrin Xl] 300 mg PO DAILY 06/14/17 traMADol [Ultram 50 mg (*)] 50 mg PO BID PRN 06/14/17 oxyCODONE IR [Oxycodone Ir (*)] 5 mg PO Q3H PRN #30 tab 07/04/17 Acetaminophen [Tylenol 325mg (*)] 650 mg PO Q4HRS PRN tab 07/10/17 Amoxicillin/Clavulanate Pot 875 mg PO BID #13 tab 07/10/17 [Augmentin 875 MG TAB (*)] Medical Decision Making - Diagnostics Imaging Results: CT abdomen pelvis demonstrates partial small-bowel obstruction discussed with Dr. Brooke of Radiology. Imaging: Discussed imaging studies w/ yardage caller Radiologist Differential Diagnosis: This is a 61-year-old man with history of multiple abdominal operations with end ileostomy currently who a presents with abdominal pain with obstipation for the last 2 days. He was admitted several days ago for an ileus. Differential diagnosis includes ileus, partial small-bowel obstruction, small- bowel obstruction, less likely gastroenteritis. In the emergency department, IV line was started. Labs were checked and were relatively unremarkable with an increase in his white blood cell count though still normal value. Glucose was low at 54. He was given dextrose containing fluids. He was given pain medication with some improvement in his symptoms. CT scan was ordered given high suspicion for bowel obstruction. This revealed partial small-bowel obstruction. This was discussed with the patient. I have consulted with the hospitalist Dr. Herrera. We agree that surgery can be consulted later this morning. We will continue him on IV fluids and bowel rest. - Data Points Laboratory Results: Laboratory Results 07/12/17 00:00 07/12/17 00:00 07/12/17 07/12/17 00:00 00:00 WBC 7.00 10^3/uL 10^3/uL (3.80-9.50) RBC 4.25 10^6/uL L 10^6/uL (4.40-6.38) Hgb 13.0 g/dL L g/dL (13.7-17.5) Hct 37.6 % L % (40.0-51.0) MCV 88.5 fL fL (81.5-99.8) MCH 30.6 pg pg (27.9-34.1) MCHC 34.6 g/dL g/dL (32.4-36.7) RDW 13.9 % % (11.5-15.2) Plt Count 318 10^3/uL 10^3/uL (150-400) MPV 8.7 fL fL (8.7-11.7) Neut % (Auto) 72.8 % % (39.3-74.2) Lymph % (Auto) 20.3 % % (15.0-45.0) [place] % (Auto) 4.1 % L % (4.5-13.0) Eos % (Auto) 1.9 % % (0.6-7.6) Baso % (Auto) 0.6 % % (0.3-1.7) Nucleat RBC Rel Count 0.0 % % (0.0-0.2) Absolute Neuts (auto) 5.10 10^3/uL 10^3/uL (1.70-6.50) Absolute Lymphs (auto) 1.42 10^3/uL 10^3/uL (1.00-3.00) Absolute Monos (auto) 0.29 10^3/uL L 10^3/uL (0.30-0.80) Absolute Eos (auto) 0.13 10^3/uL 10^3/uL (0.03-0.40) Absolute Basos (auto) 0.04 10^3/uL 10^3/uL (0.02-0.10) Absolute Nucleated RBC 0.00 10^3/uL 10^3/uL (0-0.01) Immature Gran % 0.3 % % (0.0-1.1) Immature Gran # 0.02 10^3/uL 10^3/uL (0.00-0.10) Sodium 139 mEq/L mEq/L (135-145) Potassium 4.3 mEq/L mEq/L (3.3-5.0) Chloride 103 mEq/L mEq/L (97-110) Carbon Dioxide 23 mEq/l mEq/l (22-31) Anion Gap 13 mEq/L mEq/L (8-16) BUN 13 mg/dL mg/dL (7-23) Creatinine 1.1 mg/dL mg/dL (0.7-1.3) Estimated GFR > 60 Glucose 94 mg/dL mg/dL (70-100) Calcium 9.5 mg/dL mg/dL (8.5-10.4) Total Bilirubin 0.6 mg/dL mg/dL (0.1-1.4) AST 22 IU/L IU/L (17-59) ALT 26 IU/L IU/L (21-72) Alkaline Phosphatase 90 IU/L IU/L (38-126) Total Protein 8.0 g/dL g/dL (6.3-8.2) Albumin 4.1 g/dL g/dL (3.5-5.0) Lipase 40 IU/L IU/L (23-300) Medications Given: Dextrose/Sodium Chloride (D5w 1/2 Ns) 1,000 mls @ 150 mls/hr IV CONT ESTHELA Stop: 01/09/18 00:59 Last Admin: 07/13/17 01:02 Dose: 1,000 mls Discontinued Medications Hydromorphone HCl (Dilaudid) 0.5 mg IVP EDNOW ONE Stop: 07/13/17 00:00 Last Admin: 07/13/17 00:07 Dose: 0.5 mg Hydromorphone HCl (Dilaudid) 0.5 mg IVP EDNOW ONE Stop: 07/13/17 01:48 Last Admin: 07/13/17 01:59 Dose: 0.5 mg Sodium Chloride (Ns) 1,000 mls @ 0 mls/hr IV EDNOW ONE; Wide Open PRN Reason: Protocol Stop: 07/13/17 00:00 Last Admin: 07/13/17 00:05 Dose: 1,000 mls Famotidine/Sodium Chloride (Pepcid 20 Mg (Premix)) 50 mls @ 200 mls/hr IV EDNOW ONE Stop: 07/13/17 00:13 Last Admin: 07/13/17 00:06 Dose: 50 mls Ondansetron HCl (Zofran) 4 mg IVP EDNOW ONE Stop: 07/13/17 00:01 Last Admin: 07/13/17 00:06 Dose: 4 mg Departure - Departure Disposition: [facility] Inpatient Acute Clinical Impression: Partial small bowel obstruction Abdominal pain Qualifiers: Abdominal location: generalized Qualified Code(s): R10.84 - Generalized abdominal pain Condition: Fair
[2017-07-13] MEDS: D5W 1/2 NS 1,000 ML IV SCH ×4 (01:02→22:13)
[2017-07-13] MEDS ORDERED: HYDROmorphONE/DILAUDID 2 MG/ML INJ IVP ONE (01:47)
[2017-07-13] MEDS ORDERED: ONDANSETRON 4 MG/2 ML VIAL IVP PRN (01:57)
[2017-07-13] MEDS ORDERED: ACETAMINOPHEN 325 MG TAB PO PRN (01:57)
[2017-07-13] MEDS ORDERED: HYDROCODONE/APAP 5/325 TAB PO PRN (01:57)
[2017-07-13] MEDS ORDERED: LORazepam 2 MG/ML INJ IVP PRN (02:00)
[2017-07-13] MEDS: AMPICILLIN/SULBACTAM 3 GM in NS 100 ML IV SCH ×4 (02:46→20:19)
[2017-07-13] MEDS: HYDROmorphONE/DILAUDID 1 MG/ML INJ IVP PRN ×3 (04:06→18:27)
--- NOTE | 2017-07-13 04:30 | PDGENHP ---
History and Physical - Chief Complaint abdominal pain, nausea/vomiting - History of Present Illness Source-patient provides history is a reliable historian. EMR was reviewed and case discussed with ED provider. HPI- pleasant 61-year-old gentleman with past medical history significant for congenital imperforate anus with remote revision and more recently patient underwent a end colostomy for history of recurrent bowel obstruction who presents emergency department with 1 day history of increasing abdominal pain and distention with associated decreased ostomy output. Patient reports some subjective fevers chills and flushing. He did developed nausea vomiting as well as persistent retching. He denies any hematemesis. Denies any melena or hematochezia in his ostomy output. Patient reports that when he was discharged on 07/10/2017 for ileus that he was feeling quite well. He was able to eat a regular diet and reports that prior to onset of his pain was eating hot dogs. Patient was also all during last hospitalization found to have intra-abdominal abscess that was not amenable to drainage via IR. So patient was discharged with several days of Augmentin which he reports he has been compliant with. Prior to onset of this episode of abdominal pain patient denies any fevers chills or sweats from his discharge. History Information - Allergies/Home Medication List Allergies/Adverse Reactions: ibuprofen [From Motrin] Allergy (Verified 07/12/17 23:20) peanut Allergy (Verified 07/12/17 23:20) Home Medications: Bupropion HCl [Wellbutrin Xl] 300 mg PO DAILY 06/14/17 [Last Taken 07/06/17] traMADol [Ultram 50 mg (*)] 50 mg PO BID PRN 06/14/17 [Last Taken 07/06/17] I have personally reviewed and updated: family history, medical history, social history, surgical history - Past Medical History Additional medical history: Hodgkin's lymphoma. Congenital imperforate anus. History of the ileus - Surgical History Reports: colectomy Additional surgical history: Rectal reconstruction, End ileostomy. Back surgery with Mc rods. - Family History Additional family history: Asked, denies - Social History Smoking Status: Never smoked Additional social history: Patient is homeless and resides at a homeless group home. Cor status-full Review of Systems Review of Systems: ROS: 10pt was reviewed & negative except for what was stated in HPI & below Constitutional: Reports: chills (Just prior to arrival in the ER), diaphoresis ( Prior to arrival in the ER with increased pain.). Denies: fever EENMT: Reports: no symptoms. Denies: blurred vision, nose congestion, sore throat Cardiac: Reports: no symptoms. Denies: chest pain, edema, palpitations Respiratory: Reports: no symptoms. Denies: orthopnea, shortness of breath Gastrointestinal: Reports: vomitting, abdominal pain, abdominal distention, nausea. Denies: black stools, diarrhea Genitourinary: Reports: no symptoms. Denies: dysuria, hematuria Muscolosketal: Reports: no symptoms Skin: Reports: no symptoms Neurological: Reports: no symptoms Hematologic/Lymphatic: Reports: anemia Physical Exam Physical Exam: Selected Entries 07/12/17 23:24 Blood Pressure Automatic Method Heart Rate 86 Respiratory 20 Rate O2 Sat (%) 98 Temperature (C) 36.7 C Blood Pressure 157/109 H Mean Arterial 125 H Pressure (MAP) O2 Delivery Room Air Mode Temperature Oral Source Temp Pulse Resp BP Pulse Ox 36.9 C 83 18 141/99 H 95 07/13/17 00:11 07/13/17 02:09 07/13/17 02:09 07/13/17 02:09 07/13/17 02:09 Constitutional: no apparent distress, chronically ill appearing, other (Thin adult gentleman is lying quietly in bed.) Eyes: PERRL, anicteric sclera, EOMI, No scleral injection Ears, Nose, Mouth, Throat: no oral mucosal ulcers, poor dentition (Fair condition), dry mucous membranes Cardiovascular: regular rate and rhythym, no murmur, rub, or gallop, No edema Peripheral Pulses: 2+: dorsalis-pedis (R), dorsalis-pedis (L) Respiratory: no respiratory distress, no rales or rhonchi, clear to auscultation , No respiratory distress Gastrointestinal: no palpable masses, tenderness (Diffuse), other (Hypoactive bowel sounds. Colostomy bag is fairly empty with some traces of old on yellow brown stool. Incision areas are healed clean intact. Patient still does have a few Steri-Strips present.), No guarding, No rebound Genitourinary: no bladder tenderness, No law in urethra Skin: warm, normal color, No rash Neurologic: AAOx3, sensation intact bilaterally, other (Grossly nonfocal. Moves all extremities while lying in bed.), No facial droop Psychiatric: interacting appropriately, not anxious, not encephalopathic, thought process linear, flat affect Lab Data & Imaging Review 07/13/17 04:30 07/13/17 04:30 WBC 7.00 10^3/uL (3.80-9.50) 07/12/17 00:00 RBC 4.25 10^6/uL (4.40-6.38) L 07/12/17 00:00 Hgb 13.0 g/dL (13.7-17.5) L 07/12/17 00:00 Hct 37.6 % (40.0-51.0) L 07/12/17 00:00 MCV 88.5 fL (81.5-99.8) 07/12/17 00:00 MCH 30.6 pg (27.9-34.1) 07/12/17 00:00 MCHC 34.6 g/dL (32.4-36.7) 07/12/17 00:00 RDW 13.9 % (11.5-15.2) 07/12/17 00:00 Plt Count 318 10^3/uL (150-400) 07/12/17 00:00 MPV 8.7 fL (8.7-11.7) 07/12/17 00:00 Neut % (Auto) 72.8 % (39.3-74.2) 07/12/17 00:00 Lymph % (Auto) 20.3 % (15.0-45.0) 07/12/17 00:00 [place] % (Auto) 4.1 % (4.5-13.0) L 07/12/17 00:00 Eos % (Auto) 1.9 % (0.6-7.6) 07/12/17 00:00 Baso % (Auto) 0.6 % (0.3-1.7) 07/12/17 00:00 Nucleat RBC Rel Count 0.0 % (0.0-0.2) 07/12/17 00:00 Absolute Neuts (auto) 5.10 10^3/uL (1.70-6.50) 07/12/17 00:00 Absolute Lymphs (auto) 1.42 10^3/uL (1.00-3.00) 07/12/17 00:00 Absolute Monos (auto) 0.29 10^3/uL (0.30-0.80) L 07/12/17 00:00 Absolute Eos (auto) 0.13 10^3/uL (0.03-0.40) 07/12/17 00:00 Absolute Basos (auto) 0.04 10^3/uL (0.02-0.10) 07/12/17 00:00 Absolute Nucleated RBC 0.00 10^3/uL (0-0.01) 07/12/17 00:00 Immature Gran % 0.3 % (0.0-1.1) 07/12/17 00:00 Immature Gran # 0.02 10^3/uL (0.00-0.10) 07/12/17 00:00 Sodium 139 mEq/L (135-145) 07/12/17 00:00 Potassium 4.3 mEq/L (3.3-5.0) 07/12/17 00:00 Chloride 103 mEq/L (97-110) 07/12/17 00:00 Carbon Dioxide 23 mEq/l (22-31) 07/12/17 00:00 Anion Gap 13 mEq/L (8-16) 07/12/17 00:00 BUN 13 mg/dL (7-23) 07/12/17 00:00 Creatinine 1.1 mg/dL (0.7-1.3) 07/12/17 00:00 Estimated GFR > 60 07/12/17 00:00 Glucose 94 mg/dL (70-100) 07/12/17 00:00 Calcium 9.5 mg/dL (8.5-10.4) 07/12/17 00:00 Total Bilirubin 0.6 mg/dL (0.1-1.4) 07/12/17 00:00 AST 22 IU/L (17-59) 07/12/17 00:00 ALT 26 IU/L (21-72) 07/12/17 00:00 Alkaline Phosphatase 90 IU/L (38-126) 07/12/17 00:00 Total Protein 8.0 g/dL (6.3-8.2) 07/12/17 00:00 Albumin 4.1 g/dL (3.5-5.0) 07/12/17 00:00 Lipase 40 IU/L (23-300) 07/12/17 00:00 Imaging Review: Preliminary CT abdomen pelvis report as below. partial sbo with dilated majority of small bowel except distal at ostemy, partial colon resection right renal cyst, mild hydro left kidney no change degen t and l with scoli and kerry Visualized and Interpreted imaging results: Yes Assessment & Plan Assessment: 61-year-old gentleman with a complicated GI history involving congenital imperforate anus and history recurrent bowel obstructions more recently status post end colostomy and ileus who now presents again with increasing abdominal pain distension nausea vomiting. Partial small bowel obstruction (Acute) - patient will be placed on bowel rest. He is not having any active nausea or vomiting so will hold off on NG tube placement. Will consult surgery in the morning to see if any additional recommendations. Abdominal pain (Acute) - pain improved with opiate therapy. Continue p.r.n. Intra-abdominal abscess - patient reports he had been compliant with his Augmentin as outpatient. He is currently afebrile without any leukocytosis. Will plan to continue Unasyn at this time while patient is NPO. A do not feel any need to escalate antibiotic therapy at this time but consider if patient should become febrile. Patient previously evaluated and he is not a candidate for any intervention or aspiration. Nausea vomiting - improved. Patient does not require NG tube at this time. Antiemetics ordered p.r.n.. Anemia - H&Hs been improving compared to previous labs in hospital stays. Likely some component related to his previous surgery as well as anemia chronic disease. No evidence of active bleeding at this time. History mood disorder - patient is cooperative and pleasant. Not agitated. FEN - normal saline overnight for home gentle hydration while patient is NPO. Continue bowel rest until patient's partial SBO improved. Electrolyte monitoring and replacement if needed. PPX-SCDs. Lovenox. Cor status-full Disposition-patient admitted inpatient status on the medical floor. Given patient's complex past medical history and evidence of small bowel obstruction anticipate greater than 2 midnight stay until patient's bowel function resumes and pain is under control.
[2017-07-13 04:58] LABS: PLATELET COUNT 239 10^3/uL (150-400)
--- NOTE | 2017-07-13 08:32 | PDMN ---
Medical Necessity Medical necessity: C/M review: est. > 2 MN LOS for eval and TX of acute partial small bowel small bowel obstruction seen on CT, abdominal pain requiring future General Surgery consult, ongoing NPO, IV fluids, IV Unasyn, IV Dilaudid, comorbid history recent hospitalization for ileus and intra-abdominal abscess not amenable to drainage via IR, patient discharged 07/10/2017 with oral Augmentin which patient states he has been compliant with, history of congenital imperforate anus with remote revision, more recent colostomy per H/P.
[2017-07-13] MEDS ORDERED: traMADol 50 MG TAB PO PRN (11:39)
--- NOTE | 2017-07-13 11:40 | HOSPPROG ---
Hospitalist Progress Note Assessment/Plan: Mario is a 61 y/o male who has a PMH for congenital imperforate anus w remote revision and most recently underwent a end colostomy for hx of recurrent bowel obstruction. He was recently discharged and returned to the ER with increasing abdominal pain and decreased ostomy output. *Partial small bowel obstruction (Acute) -no vomiting and overall feeling well -ostomy starting to put out some loose stool -will do a trial of clear liquids *Abdominal pain (Acute) -good relief w pain meds *Intra-abdominal abscess -dc on Augmentin on recent dc -not febrile -the abscess wasn't amenable to IR drainage due to location -current prelim CT scan doesn't note an abscess *Nausea & vomiting -none during my evaluation -trial of clear liquids *Anemia -from chronic illness *History of mood disorder -calm and cooperative *Plan: continue current treatment, surgery to see, appreciate Dr Oh (he will see him tomorrow) Subjective: Mario is feeling much better today. Objective: Vital Signs Temp Pulse Resp BP Pulse Ox 36.7 C 65 15 103/57 L 100 07/13/17 11:35 07/13/17 11:35 07/13/17 11:35 07/13/17 11:35 07/13/17 11:35 Laboratory Results 07/13/17 04:30 07/13/17 04:30 07/12/17 07/13/17 07/14/17 05:59 05:59 05:59 Intake Total 1794 Output Total 0 700 Balance 1794 -700 - Physical Exam Constitutional: chronically ill appearing, other (thin) Eyes: PERRL Ears, Nose, Mouth, Throat: hearing normal Cardiovascular: regular rate and rhythym Respiratory: no respiratory distress Gastrointestinal: other (colostomy w some loose stool), No normoactive bowel sounds (hypoactive) Skin: warm Musculoskeletal: full muscle strength Neurologic: AAOx3 Psychiatric: interacting appropriately ICD10 Worksheet Patient Problems: Problems Problem Status Onset Abdominal pain Acute Partial small bowel obstruction Acute Large bowel obstruction Acute [place]'s syndrome Acute
[2017-07-13] MEDS: buPROPion XL 150 MG TAB PO SCH (13:04)
--- NOTE | 2017-07-13 16:05 | ASMTCMCOM ---
CM Note CM Note Notes: CM chart review. Pt is 61 y/o male admitted for small bowl obstruction. Patient was recently treated at [facility] for Ileus and similar presentation and discharged on 07/10/17. Discharge plan TBD, possible surgery. CM to follow. Discharge plan: TBD Date Signed: 07/13/2017 04:05 PM Electronically Signed By:Mimi Nicholson
[2017-07-14] MEDS: HYDROmorphONE/DILAUDID 1 MG/ML INJ IVP PRN (02:37)
[2017-07-14] MEDS: AMPICILLIN/SULBACTAM 3 GM in NS 100 ML IV SCH ×4 (02:37→20:01)
[2017-07-14] MEDS: D5W 1/2 NS 1,000 ML IV SCH (04:54)
[2017-07-14] MEDS: oxyCODONE IR 5 MG TAB PO PRN ×4 (09:08→23:02)
[2017-07-14] MEDS: buPROPion XL 150 MG TAB PO SCH (09:08)
--- NOTE | 2017-07-14 12:43 | HOSPPROG ---
Hospitalist Progress Note Assessment/Plan: Mario is a 61 y/o male who has a PMH for congenital imperforate anus w remote revision and most recently underwent a end colostomy for hx of recurrent bowel obstruction. He was recently discharged and returned to the ER with increasing abdominal pain and decreased ostomy output. *Partial small bowel obstruction (Acute) -no vomiting and overall feeling well -ostomy working well -abd xray shows ongoing partial obstruction *Abdominal pain (Acute) -good relief w pain meds -much improved *Intra-abdominal abscess -dc on Augmentin on recent dc -not febrile -the abscess wasn't amenable to IR drainage due to location on his last admission -current prelim CT scan doesn't note an abscess *Nausea & vomiting -none during my evaluation -trial of clear liquids *Anemia -from chronic illness *History of mood disorder -calm and cooperative *Plan: Mario is feeling well, ostomy has good output. He is c/o how hungry he is, trial of reg diet/ told him take it slow, chew well, trial of soups first. No clear he needs iv antibiotics, will ask Surgery to further evaluate CT scan to see if indicated. Subjective: Mario is feeling much better today. Objective: Vital Signs Temp Pulse Resp BP Pulse Ox 36.7 C 79 15 119/67 98 07/14/17 11:38 07/14/17 11:38 07/14/17 11:38 07/14/17 11:38 07/14/17 11:38 Laboratory Results 07/13/17 04:30 07/13/17 04:30 07/13/17 07/14/17 07/15/17 05:59 05:59 05:59 Intake Total 1794 3300 Output Total 0 3000 750 Balance 1794 300 -750 - Physical Exam Constitutional: no apparent distress, appears nourished, not in pain Eyes: PERRL Ears, Nose, Mouth, Throat: hearing normal Cardiovascular: regular rate and rhythym Respiratory: no respiratory distress Gastrointestinal: normoactive bowel sounds, other (ostomy w good output) Skin: warm Neurologic: AAOx3 Psychiatric: interacting appropriately ICD10 Worksheet Patient Problems: Problems Problem Status Onset Abdominal pain Acute Partial small bowel obstruction Acute Large bowel obstruction Acute [place]'s syndrome Acute
--- NOTE | 2017-07-14 20:54 | SOAPPROG ---
SOAP Progress Note Assessment/Plan: Assessment: ADMITTED FOR SMALL BOWEL OBSTRUCTION AND HIS 2 WAY ABDOMEN STILL SUGGEST PARTIAL SBO HOWEVER HE IS PASSING LOTS OF FLATUS AND BOWEL MOVEMENTS AND TOLERATING P.O. INTAKE AFEBRILE/VITAL SIGNS STABLE POSSIBLE RESOLUTION OF HIS PSEUDO BOWEL OBSTRUCTION Plan: OBSERVATION 07/14/17 20:53 Objective: Vital Signs Temp Pulse Resp BP Pulse Ox 37.0 C 67 18 123/76 H 96 07/14/17 19:56 07/14/17 19:56 07/14/17 19:56 07/14/17 19:56 07/14/17 19:56 Laboratory Results 07/13/17 04:30 07/13/17 04:30 07/13/17 07/14/17 07/15/17 05:59 05:59 05:59 Intake Total 1794 3300 700 Output Total 0 3000 1550 Balance 1794 300 -850 ICD10 Worksheet Patient Problems: Problems Problem Status Onset Abdominal pain Acute Partial small bowel obstruction Acute Large bowel obstruction Acute [place]'s syndrome Acute
[2017-07-15] MEDS: oxyCODONE IR 5 MG TAB PO PRN ×3 (02:20→08:39)
[2017-07-15] MEDS: AMPICILLIN/SULBACTAM 3 GM in NS 100 ML IV SCH ×2 (02:20→08:39)
[2017-07-15 07:24] VITALS: BP 111/73
[2017-07-15] MEDS: buPROPion XL 150 MG TAB PO SCH (08:39)
[2017-07-15] MEDS ORDERED: oxyCODONE IR 5 MG TAB PO PRN (12:23)
--- NOTE | 2017-07-15 12:26 | HOSPPROG ---
Hospitalist Progress Note Assessment/Plan: Mario is a 61 y/o male who has a PMH for congenital imperforate anus w remote revision and most recently underwent a end colostomy for hx of recurrent bowel obstruction. He was recently discharged and returned to the ER with increasing abdominal pain and decreased ostomy output. *Partial small bowel obstruction (Acute) -no vomiting and overall feeling well -ostomy working well -abd xray shows ongoing partial obstruction *Abdominal pain (Acute) -good relief w pain meds -much improved *Intra-abdominal abscess -dc on Augmentin on recent dc -not febrile -the abscess wasn't amenable to IR drainage due to location on his last admission -current prelim CT scan doesn't note an abscess -dc antibiotics *Nausea & vomiting -none during my evaluation -trial of clear liquids *Anemia -from chronic illness *History of mood disorder -calm and cooperative *Plan: Mario has a bed that is available daily at the intermediate, he will likely return frequently due to poor access to food he can eat. If ok w surgical team, will dc. Subjective: Mario is eating and drinking well. cont to have abdominal discomfort. Objective: Vital Signs Temp Pulse Resp BP Pulse Ox 36.6 C 76 16 111/73 95 07/15/17 07:22 07/15/17 07:22 07/15/17 07:22 07/15/17 07:22 07/15/17 07:22 Laboratory Results 07/13/17 04:30 07/13/17 04:30 07/14/17 07/15/17 07/16/17 05:59 05:59 05:59 Intake Total 3300 1500 Output Total 3000 2300 500 Balance 300 -800 -500 - Physical Exam Constitutional: other (thin) Eyes: PERRL Ears, Nose, Mouth, Throat: hearing normal Cardiovascular: regular rate and rhythym Respiratory: no respiratory distress Gastrointestinal: other (ostomy with output) Skin: warm Musculoskeletal: full muscle strength Neurologic: AAOx3 Psychiatric: interacting appropriately ICD10 Worksheet Patient Problems: Problems Problem Status Onset Abdominal pain Acute Partial small bowel obstruction Acute Large bowel obstruction Acute [place]'s syndrome Acute
--- NOTE | 2017-07-15 12:40 | SOAPPROG ---
SOAP Progress Note Assessment/Plan: Assessment/Plan: 61yo M with end ileostomy, readmitted with partial SBO Pain controlled - increased PO to his home dose Return of bowel function Regular diet DC antibiotics OK to DC from surgical standpoint Will have dietary see while inpatient to discuss food choices/options for optimizing nutrition S: very frustrated at being admitted again. having a very difficult time with food choices on the streets. Food "goes right through" him. No nausea, abdominal pain at this time. O: Well-developed well-nourished man in no acute distress No increased work of breathing Abd soft, nondistended, nontender. Gas and stool in ostomy appliance Objective: Vital Signs Temp Pulse Resp BP Pulse Ox 36.6 C 76 16 111/73 95 07/15/17 07:22 07/15/17 07:22 07/15/17 07:22 07/15/17 07:22 07/15/17 07:22 Laboratory Results 07/13/17 04:30 07/13/17 04:30 07/14/17 07/15/17 07/16/17 05:59 05:59 05:59 Intake Total 3300 1500 Output Total 3000 2300 500 Balance 300 -800 -500 ICD10 Worksheet Patient Problems: Problems Problem Status Onset Abdominal pain Acute Partial small bowel obstruction Acute Large bowel obstruction Acute [place]'s syndrome Acute
--- NOTE | 2017-07-15 14:44 | GDS ---
[f rep st] DISCHARGE SUMMARY DISCHARGE DIAGNOSES: 1. Partial small-bowel obstruction. 2. Abdominal pain. 3. Concern for an intraabdominal abscess. 4. Nausea and vomiting. 5. Anemia. 6. History of mood disorder. CONSULTATION: Dr. Gama Oh. HISTORY: Briefly, the patient is a 61-year-old male who has a past medical history for congenital imperforate anus with remote revision and most recently underwent end colostomy for history of recurrent bowel obstruction. He was recently discharged and returned to the emergency room with increasing abdominal pain and decreased ostomy output. HOSPITAL COURSE: 1. Partial small bowel obstruction. He has had no further vomiting. His ostomy is working well. His abdominal x-ray shows ongoing partial obstruction. Reviewed with the patient, avoid long-acting narcotics. I suspect this is playing a factor into this. 2. Abdominal pain. He gets the best relief with OxyIR. Reviewed the PDMP. It appears like he has used most of his medications up. Will give him another prescription and recommended he try alternating with Tylenol. 3. Intraabdominal abscess. Reviewed his current CT scan. This does not note this. 4. Nausea and vomiting. None during my evaluation. 5. Anemia from chronic illness. 6. History of mood disorder. He has been calm and cooperative. DISCHARGE CONDITION: Stable. Blood pressure is 111/73, heart rate 76. Respiratory rate is 16. O2 saturation on room air 95%. Temperature is 36.6 Celsius. DISCHARGE MEDICATIONS: Please see the EMR. DISCHARGE INSTRUCTIONS: 1. He has received guidance from dietary on eating small meals and smaller bites and to chew his food thoroughly. 2. To not use his long-acting narcotics. Suspect this is causing his decrease in his ostomy output. 3. Further followup with Dr. Coleman. /[id number]/MODL MTDD
--- NOTE | 2017-07-15 16:00 | ASMTCMCOM ---
CM Note CM Note Notes: Pt medically stable for d/c, [facility] bed reserved. Pt provided cab to friend Lilo's home in [place]. Date Signed: 07/15/2017 03:59 PM Electronically Signed By:BIN Michelle
--- NOTE | 2017-07-15 16:02 | ASMTLACE ---
LACE Length of stay for Answers: 2 days current admission Acuity / Level of Answers: Yes Care: Did the patient have an inpatient admission? Comorbidities - select Answers: Any tumor (including all that apply lymphoma or leukemia) Other Notes: colectomy and ileostomy # of Emergency department Answers: 3-4 visits in the last 6 months Social determinants Answers: Homelessness (street, fci) Mental health diagnosis (anxiety, depression, pers onality disorders, etc.) Lack of community resources and/or lack of social support (no pcp, lives alone, transportation, ervin d) Score: 21 Date Signed: 07/15/2017 04:01 PM Electronically Signed By:BIN Michelle
== END 2017-07-15 14:35 | disposition home or self-care (01) | DRG 247 ==
LOC: EDUNIT# → F3N 07-13 02:46
PROVIDERS: ADMIT Family Medicine; ATTEND Internal Medicine
DX: K56.600 Partial intestinal obstruction, unspecified as to cause (principal); R10.84 Generalized abdominal pain; R11.2 Nausea with vomiting, unspecified; Q42.3 Congenital absence, atresia and stenosis of anus without fistula; D63.8 Anemia in other chronic diseases classified elsewhere; E86.9 Volume depletion, unspecified; M41.9 Scoliosis, unspecified; F32.9 Major depressive disorder, single episode, unspecified; F43.10 Post-traumatic stress disorder, unspecified; K58.9 Irritable bowel syndrome, unspecified; N28.1 Cyst of kidney, acquired; Z79.2 Long term (current) use of antibiotics; Z85.71 Personal history of Hodgkin lymphoma; Z86.59 Personal history of other mental and behavioral disorders; Z90.49 Acquired absence of other specified parts of digestive tract; Z93.2 Ileostomy status; Z59.8 Other problems related to housing and economic circumstances; Z59.0 Homelessness
CPT/HCPCS: 96374; J0295; J1170; J2405; Q9967

== ENCOUNTER 2017-12-21 17:27 | Emergency (ER) | payer MEDICAID ==
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
[2017-12-21 18:26] LABS: PLATELET COUNT 235 10^3/uL (150-400)
[2017-12-21] MEDS ORDERED: IOPAMIDOL (ISOVUE-300) 100 ML BTL ONE (19:17)
[2017-12-21 20:03] VITALS: BP 164/71
== END 2017-12-21 20:02 | disposition home or self-care (01) ==
DX: Q42.3 Congenital absence, atresia and stenosis of anus without fistula (principal); R10.9 Unspecified abdominal pain; Z93.3 Colostomy status
CPT/HCPCS: Q9967

== ENCOUNTER 2017-12-21 21:03 | Inpatient (IN) | payer MEDICAID, OTHER ==
--- NOTE | 2017-12-21 21:57 | EDPHY ---
H & P Smoking Status: Never smoked Time Seen by Provider: 12/21/17 21:56 HPI/ROS: CHIEF COMPLAINT: Continued abdominal pain and suicidal ideation HISTORY OF PRESENT ILLNESS: The patient is 62-year-old male seen here earlier for abdominal pain associated with ostomy. Labs and CT scan were obtained which showed no acute findings. Patient was discharged in stable condition. 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 Does state that he has prior history of suicide attempts. He takes gabapentin and Wellbutrin but did not take his medication today. Denies any fever, vomiting, blood in the urine, painful urination. Denies any drug or alcohol use currently. REVIEW OF SYSTEMS: Constitutional: No fever, no chills. Eyes: No discharge. ENT: No sore throat. Cardiovascular: No chest pain, no palpitations. Respiratory: No cough, no shortness of breath. Gastrointestinal: + abdominal pain, no vomiting. Genitourinary: No hematuria. Musculoskeletal: No back pain. Skin: No rashes. Neurological: No headache. (Landry Castellon) Physical Exam: General Appearance: Alert and no distress. ENT: normal dentition. No tonsillar exudate or swelling. Eyes: Pupils equal and round no injection. Respiratory: Chest is nontender, lungs are clear to auscultation. Cardiac: regular rate and rhythm. No lower extremity edema Gastrointestinal: Abdomen is soft and nontender, no masses, bowel sounds normal. Musculoskeletal: Neck is supple and nontender. Extremities have full range of motion and are nontender without deformity Skin: No rashes or lesions. Neuro: Cranial nerves grossly intact. Ambulatory. (Landry Castellon) Constitutional: Initial Vital Signs Temperature (C) 37.0 C 12/21/17 21:05 Heart Rate 87 12/21/17 21:05 Respiratory Rate 16 12/21/17 21:05 Blood Pressure 126/87 H 12/21/17 21:05 O2 Sat (%) 99 12/21/17 21:05 O2 Delivery Mode Room Air Allergies/Adverse Reactions: ibuprofen [From Motrin] Allergy (Intermediate, Verified 12/21/17 21:13) Vomiting peanut Allergy (Mild, Verified 12/21/17 21:13) Unknown Home Medications: Medication Instructions Recorded buPROPion XL [Wellbutrin Xl] 300 mg PO DAILY 12/21/17 Cetirizine [ZyrTEC 10 mg (*)] 10 mg PO DAILY 12/23/17 Fluticasone Nasal [Flonase Nasal 1 sprays NASAL DAILY 12/23/17 [place] (RX)] Ketotifen Fumarate 1 drop OP BID 12/23/17 Medical Decision Making ED Course/Re-evaluation: 62-year-old male here with a history of depression and suicide attempts here complaining of suicidal ideation. He is alert and oriented and no evidence of psychosis or being gravely impaired. He does endorse not feeling safe and that he wants to his walk into traffic. He was given Ativan for anxiety and Tylenol for pain. His abdominal pain is of unclear etiology but was fully evaluated this morning with labs and CT scan neither of which revealed any intra- abdominal the emergency. The patient remained hemodynamically stable in the emergency room. He was medically cleared awaiting mental health evaluation in the morning. He was signed out to Dr. Morales at 1245. (Landry Castellon) 7:00 a.m.- Patient stable throughout my shift. He is medically clear and awaiting mental health evaluation this morning. Case will be signed out to Dr. Smith. ( Eileen Morales) Differential Diagnosis: Drug abuse, depression, appendicitis, bowel obstruction, colitis (Landry Castellon) Other Provider: [id number]: Patient complains of itching everywhere and is concerned he has scabies. He has patchy raised, erythematous, and excoriated regions on his skin. Plan to treat with topical Permethrin cream for presumed scabies. (Jimi Smith) I assumed care of the patient at 3:00 p.m. Pending psychiatric disposition. The patient has been accepted at [facility] however can't go there until tomorrow morning because of his recent scabies treatment in the ED. Care is turned over to Dr. Morales at shift change. (Miguel Ángel Castillo) 2:30 p.m. the patient is waiting ambulance transport to [address] [place] [address]. They did order antibiotics for his UTI. (Damir Bell) - Data Points Laboratory Results: 12/23/17 00:00 Urine Color YELLOW Urine Appearance MODERATELY TURBID Urine pH 5.0 (5.0-7.5) Ur Specific [place] > 1.035 H (1.002-1.030) Urine Protein NEGATIVE (NEGATIVE) Urine Ketones NEGATIVE (NEGATIVE) Urine Blood 3+ H (NEGATIVE) Urine Nitrate NEGATIVE (NEGATIVE) Urine Bilirubin NEGATIVE (NEGATIVE) Urine Urobilinogen NEGATIVE EU EU (0.2-1.0) Ur Leukocyte Esterase 3+ H (NEGATIVE) Urine RBC 50-182 /hpf H /hpf (0-3) Urine WBC 50-182 /hpf H /hpf (0-3) Ur Epithelial Cells TRACE /lpf /lpf (NONE-1+) Urine Mucus TRACE /lpf /lpf (NONE-1+) Urine Yeast PRESENT /hpf /hpf (NONE SEEN) Urine Glucose NEGATIVE (NEGATIVE) Medications Given: Ceftriaxone Sodium/Dextrose (Rocephin 1 Gm (Premix)) 50 mls @ 100 mls/hr IV DAILY ESTHELA PRN Reason: Protocol Stop: 01/22/18 14:29 Last Admin: 12/23/17 14:36 Dose: 50 mls Discontinued Medications Acetaminophen (Tylenol) 1,000 mg PO EDNOW ONE Stop: 12/21/17 22:45 Last Admin: 12/22/17 17:24 Dose: 1,000 mg Acetaminophen (Tylenol) 1,000 mg PO EDNOW ONE Stop: 12/22/17 17:21 Last Admin: 12/22/17 17:24 Dose: Not Given Lorazepam (Ativan) 1 mg PO EDNOW ONE Stop: 12/21/17 22:45 Last Admin: 12/21/17 22:50 Dose: 1 mg Permethrin (Elimite 5%) 1 mac TP EDNOW ONE Stop: 12/22/17 09:51 Last Admin: 12/22/17 10:56 Dose: 1 btl Departure - Departure Clinical Impression: Scabies Condition: Fair Instructions: Permethrin (On the skin), Scabies (ED) Referrals: NONE *PRIMARY CARE P,. [Primary Care Provider] - As per Instructions
[2017-12-21] MEDS ORDERED: LORazepam 1 MG TAB PO ONE (22:44)
[2017-12-21] MEDS: ACETAMINOPHEN 500 MG TAB PO ONE (22:50)
[2017-12-22] MEDS ORDERED: PERMETHRIN 5% 60 GM CREAM TP ONE (09:50)
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
[2017-12-22] MEDS ORDERED: ACETAMINOPHEN 500 MG TAB PO ONE (17:20)
[2017-12-22] MEDS: ACETAMINOPHEN 500 MG TAB PO ONE (17:24)
--- NOTE | 2017-12-23 08:53 | ASMTTCLDSP ---
[facility] Discharge Disposition Disposition: Answers: Admit Disposition Notes: Notes: Dr Diamond accepted pt on the condition that he comes to [facility] after he's had the cream for scabies on his skin for 24 hours and is no longer contagious. This will fall at approximately noon tomorrow, December 23. Dr Jin, who is the psychiatrist working on [facility] tomorrow will need to confirm this admission. It does appear that pt's recent homelessness, and the complications this creates for managing his ostomy, have triggered this increased depression and suicidality. Pt is working with a someone on attaining housing; her name is in the evaluation. Francisca Thomason worked with pt previously on housing and will be notified of his admittance to [facility]. Discharge Concerns/Recommendations: Notes: In consultation with [facility] ED physician, Dr Luis MD,and on-call psychiatrist, Dr Lobo MD, both concurred that Pt appears to meet 27-65 criteria requiring psychiatric hospitalization as Pt appears to be at risk of harm to self due to a mental illness condition. Pt was given the 3N prohibited belongings list while in the ED. Was patient given the Answers: Yes Inpatient Behavioral Health Prohibited Belongings List while in the ED? For inpatient Jesus Diamond MD admission, the following psychiatrist agreed to accept patient for admission to [facility] ([facility]): Type of Hold: Answers: M1/72-hour Hold Hold initiated by: Answers: Other Notes: [facility] Clinician Date Signed: 12/23/2017 08:52 AM Electronically Signed By:Enrico Heck
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
[2017-12-23] MEDS ORDERED: cefTRIAXone 1 GM/DEXTROSE 1 GM/50 ML BAG IV ONE (14:31)
[2017-12-23] MEDS ORDERED: LORazepam 2 MG/ML INJ IVP ONE (14:39)
[2017-12-23] MEDS ORDERED: NICOTINE POLACRILEX 2 MG GUM B PRN (16:07)
[2017-12-23] MEDS ORDERED: MAG HYDROX/AL HYDROX/SIMETH 30 ML UDCUP PO PRN (16:07)
[2017-12-23] MEDS ORDERED: MAGNESIUM HYDROXIDE 30 ML UDCUP PO PRN (16:07)
[2017-12-23] MEDS ORDERED: OLANZapine DISINTEGR 10 MG TAB PO PRN (16:10)
[2017-12-23] MEDS ORDERED: buPROPion XL 150 MG TAB PO ONE (16:15)
[2017-12-23] MEDS: ACETAMINOPHEN 325 MG TAB PO PRN (16:21)
[2017-12-23] MEDS: GABAPENTIN 300 MG CAP PO SCH (20:10)
[2017-12-23] MEDS: SULFAMETHOX/TMP 800/160 MG 1 TAB PO SCH (20:10)
[2017-12-23] MEDS ORDERED: SULFAMETHOX/TMP 800/160 MG 1 TAB PO SCH (21:00)
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
[2017-12-24] MEDS: SULFAMETHOX/TMP 800/160 MG 1 TAB PO SCH ×2 (08:45→20:38)
[2017-12-24] MEDS: GABAPENTIN 300 MG CAP PO SCH ×2 (08:45→20:38)
[2017-12-24] MEDS: buPROPion XL 150 MG TAB PO SCH (09:16)
--- NOTE | 2017-12-24 10:10 | PDMN ---
Medical Necessity Medical necessity: [facility] [id number] Posttraumatic Stress Disorder, Adult: Inpatient Care and [id number] Persistent Depressive Disorder (Dysthymia), Adult: Inpatient Care: 62 yo w/ PTSD, Persistent Depressive d/o (dysthymia), suicidal, M1 hold, homeless
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
[2017-12-25] MEDS: ACETAMINOPHEN 325 MG TAB PO PRN ×2 (06:38→20:40)
[2017-12-25] MEDS: buPROPion XL 150 MG TAB PO SCH (09:12)
[2017-12-25] MEDS: SULFAMETHOX/TMP 800/160 MG 1 TAB PO SCH ×2 (09:12→20:40)
[2017-12-25] MEDS: GABAPENTIN 300 MG CAP PO SCH ×2 (09:12→20:40)
[2017-12-25] MEDS ORDERED: PNEUMOCOCCAL 0.5ML VACCINE VIAL IM ONE (12:06)
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
[2017-12-26] MEDS: SULFAMETHOX/TMP 800/160 MG 1 TAB PO SCH ×2 (10:56→21:02)
[2017-12-26] MEDS: buPROPion XL 150 MG TAB PO SCH (10:56)
[2017-12-26] MEDS: GABAPENTIN 300 MG CAP PO SCH ×2 (10:56→21:02)
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
[2017-12-26] MEDS: LORazepam 0.5 MG TAB PO PRN (23:16)
[2017-12-27] MEDS: buPROPion XL 150 MG TAB PO SCH (08:43)
[2017-12-27] MEDS: SULFAMETHOX/TMP 800/160 MG 1 TAB PO SCH ×2 (08:43→21:05)
[2017-12-27] MEDS: GABAPENTIN 300 MG CAP PO SCH ×2 (08:43→21:04)
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
--- NOTE | 2017-12-27 15:42 | SOAPPROG ---
YAKELIN Progress Note Assessment/Plan: Assessment: Plan: 12/25/17 14:22 Mood: Remains tearful and somatic. Will CCM, activate patient toward more self -efficacy. 12/27/17 15:41 Mood: Subjectively unchanged, objectively improved. CCM. Continue to set limits on manipulative behaviors. Subjective: LATE ENTRY FOR 12/26/17. Pt seen, discussed with staff. Reports feeling "really depressed." Continues to state "there's just something wrong with me." Requests neuro consult "to figure out what happened to me." Offers no specific c/o's. Cooperative in milieu. Compliant with meds. Objective: Vital Signs Temp Pulse Resp BP Pulse Ox 36.5 C 63 16 131/66 H 98 12/27/17 06:00 12/27/17 06:00 12/27/17 06:00 12/27/17 06:00 12/27/17 06:00 MSE: Calm, coop. Affect is euthymic, stable, approp. Mood is "depressed." TP linear. TC reveals no psychosis. SI persists unchanged. - Time Spent With Patient Time Spent With Patient: 15" ICD10 Worksheet Patient Problems: Problems Problem Status Onset Scabies Acute Abdominal pain Acute Large bowel obstruction Acute Zara's syndrome Acute Partial small bowel obstruction Acute
--- NOTE | 2017-12-27 15:46 | SOAPPROG ---
SOOMAIRA Progress Note Assessment/Plan: Assessment: Plan: 12/25/17 14:22 Mood: Remains tearful and somatic. Will CCM, activate patient toward more self -efficacy. 12/27/17 15:41 Mood: Subjectively unchanged, objectively improved. CCM. Continue to set limits on manipulative behaviors. 12/27/17 15:46 Mood: More acting out today. He clearly wants to be transferred to a medical bed. He has no indication for this. I instructed the RN that he could be d/c' d if he insists as I believe he is malingering at this point. Subjective: Pt seen, discussed with staff. Reports having trouble with his ostomy bags tearing. He goes into detail about how he was taught to apply them. Staff reports that he has gone through a month's worth of bags in the past three days and concern that he may be tearing them on purpose. He is agreeable to current plan of care with me when I see him in the morning, but RN calls in the afternoon to report pt is demanding transfer to medical unit due to problems with ostomy and desire for Neuro consult. I told him unequivocally that neither of these things were going to happen earlier. He is also fixated about getting his wallet and credit cards out of his belongings despite being aware that they are quarantined due to scabies. Objective: Vital Signs Temp Pulse Resp BP Pulse Ox 36.5 C 63 16 131/66 H 98 12/27/17 06:00 12/27/17 06:00 12/27/17 06:00 12/27/17 06:00 12/27/17 06:00 MSE: Calm, coop. Affect is euthymic, stable, approp. Mood is "OK." TP is linear. TC reveals no psychosis. Does not mention in SI in our discussion today. - Time Spent With Patient Time Spent With Patient: 25" ICD10 Worksheet Patient Problems: Problems Problem Status Onset Scabies Acute Abdominal pain Acute Large bowel obstruction Acute Benton's syndrome Acute Partial small bowel obstruction Acute
[2017-12-27] MEDS: LORazepam 0.5 MG TAB PO PRN (21:05)
[2017-12-28] MEDS: GABAPENTIN 300 MG CAP PO SCH ×2 (08:17→20:05)
[2017-12-28] MEDS: SULFAMETHOX/TMP 800/160 MG 1 TAB PO SCH ×2 (08:18→20:05)
[2017-12-28] MEDS: buPROPion XL 150 MG TAB PO SCH (08:18)
--- NOTE | 2017-12-28 17:21 | SOAPPROG ---
SOAP Progress Note Assessment/Plan: Assessment: Per Dr. Jin's notes: 12/25/17 14:22 Mood: Remains tearful and somatic. Will CCM, activate patient toward more self -efficacy. 12/27/17 15:41 Mood: Subjectively unchanged, objectively improved. CCM. Continue to set limits on manipulative behaviors. 12/27/17 15:46 Mood: More acting out today. He clearly wants to be transferred to a medical bed. He has no indication for this. I instructed the RN that he could be d/c' d if he insists as I believe he is malingering at this point. Subjective: Pt seen, discussed with staff. Reports having trouble with his ostomy bags tearing. He goes into detail about how he was taught to apply them. Staff reports that he has gone through a month's worth of bags in the past three days and concern that he may be tearing them on purpose. He is agreeable to current plan of care with me when I see him in the morning, but RN calls in the afternoon to report pt is demanding transfer to medical unit due to problems with ostomy and desire for Neuro consult. I told him unequivocally that neither of these things were going to happen earlier. He is also fixated about getting his wallet and credit cards out of his belongings despite being aware that they are quarantined due to scabies. Plan: 12/28/17 17:17 1. Patient was calm and cooperative most of the day. He mostly watched TV with peers. 2. Patient admits he doesn't feel depressed and denies SI, but doesn't want to leave the hospital. explained that IP psych is for crisis stabilization, not vermin exterminator tx. MD said that patient will need to see P provider for ongoing OP tx. 3. No problems with eating (100% of meals) and sleeping (7.5 hrs). 4. CCM Subjective: Patient presents calm, appropriate, cooperative. He has spent most of the day on couch watching TV. He does not endorse depression or SI. He told staff he felt "afraid" of acting "impulsively" outside the hospital. MD encouraged patient to keep his regular appointments with P providers so that he can work on safety plan and putting it into action. The best way to reduce risk of impulsivity and recklessness is to plan ahead and keep in touch with providers on regular basis. He agreed, but admits this is something he hasn't done in past. Objective: Vital Signs Temp Pulse Resp BP Pulse Ox 36.8 C 75 14 127/62 H 100 12/28/17 06:00 12/28/17 06:00 12/28/17 06:00 12/28/17 06:00 12/28/17 06:00 MSE: Affect: Euthymic Mood: "OK" TP: Linear, goal-directed TC: Denies SI today Insight/Judgment: Poor - Time Spent With Patient Time Spent With Patient: 15" - Pending Discharge Pending Discharge Within 24 Hours: No Pending Discharge Within 48 Hours: Yes Pending Discharge Date: 12/30/17 (Likely d/c [facility] to [facility]) Pending Discharge Time: 11:00 ICD10 Worksheet Patient Problems: Problems Problem Status Onset Scabies Acute Abdominal pain Acute Large bowel obstruction Acute [place]'s syndrome Acute Partial small bowel obstruction Acute
[2017-12-28] MEDS: LORazepam 0.5 MG TAB PO PRN (20:44)
[2017-12-29 06:49] VITALS: BP 131/78
[2017-12-29] MEDS: SULFAMETHOX/TMP 800/160 MG 1 TAB PO SCH (08:22)
[2017-12-29] MEDS: GABAPENTIN 300 MG CAP PO SCH ×2 (08:22→20:23)
[2017-12-29] MEDS: buPROPion XL 150 MG TAB PO SCH (08:22)
--- NOTE | 2017-12-29 15:05 | ASMTCMCOM ---
CM Note CM Note Notes: Pt. reports his head hurting on the right side and his neck hurts on both sides. Pt. stated he is having [employer] taking over his case and signed an HAILEY for staff to call and send his records over. Pt stated he wants to be seen by a neurologist. Pt. stated "medication not doing it, worried about over medicating". Pt. stated "something is wrong and needs to be fixed. Why am I here, they need to help me". Pt. stated the hospital is "pushing me to my " stating he has been having craving to use meth. CC and pt discussed his cravings, consequences of using, and how to stay clean. Pt. stated he is having tremors and need propranolol Pt. stated he has been compliant and going to groups, but not receiving the care he feels he should be. Pt. stated "you aint done a damn thing", adding he has "been known to go back to my [employer]". Pt. explained he is a part of [employer] and could "make one phone call". Pt. stated that was "not a threat". Pt. stated he plans to have a member of [employer] come continuous pickling line pickler helper his property open the bags, and give patient his credit cards. Pt. requested CC call his cousin, because pt cannot reach his cousin. Pt. stated Dr. Jin stated the hospital can help pt pay his phone bill of $68.00. CC completed mental health endowment application for pt. Pt. presents as alert, frustrated, somewhat manipulative in his statements, demanding at times, good eye contact, and with a mostly friendly demeanor. Staff report pt. sleeping 7.5 hours and being medication compliant. Date Signed: 12/29/2017 03:04 PM Electronically Signed By:Nilda De La Vega
--- NOTE | 2017-12-29 17:15 | SOAPPROG ---
SOAP Progress Note Assessment/Plan: Assessment: Per Dr. Jin's notes: 12/25/17 14:22 Mood: Remains tearful and somatic. Will CCM, activate patient toward more self -efficacy. 12/27/17 15:41 Mood: Subjectively unchanged, objectively improved. CCM. Continue to set limits on manipulative behaviors. 12/27/17 15:46 Mood: More acting out today. He clearly wants to be transferred to a medical bed. He has no indication for this. I instructed the RN that he could be d/c' d if he insists as I believe he is malingering at this point. Subjective: Pt seen, discussed with staff. Reports having trouble with his ostomy bags tearing. He goes into detail about how he was taught to apply them. Staff reports that he has gone through a month's worth of bags in the past three days and concern that he may be tearing them on purpose. He is agreeable to current plan of care with me when I see him in the morning, but RN calls in the afternoon to report pt is demanding transfer to medical unit due to problems with ostomy and desire for Neuro consult. I told him unequivocally that neither of these things were going to happen earlier. He is also fixated about getting his wallet and credit cards out of his belongings despite being aware that they are quarantined due to scabies. Plan: 12/28/17 17:17 1. Patient was calm and cooperative most of the day. He mostly watched TV with peers. 2. Patient admits he doesn't feel depressed and denies SI, but doesn't want to leave the hospital. explained that IP psych is for crisis stabilization, not termite exterminator helper tx. said that patient will need to see [facility] provider for ongoing OP tx. 3. No problems with eating (100% of meals) and sleeping (7.5 hrs). 4. CCM 12/29/17 17:10 1. Patient requesting to shave. Denies any SI/HI. 2. Patient talking to peers, laughing and smiling and making jokes with them. 3. Earlier today, patient making numerous physical complaints, however, in PM, patient denied any acute distress. 4. The CC, Francisca Dill, who has worked with patient in past on med floor requested patient be sent to [facility] and placed in respite bed following discharge. 5. Voluntary Subjective: MD observed patient sitting in front of TV laughing and smiling with female peer. MD asked if patient had any complaints or requests. He said, "No." This AM , he told RN he was having "cramping" in his leg. But he denied that to MD this PM. Later in day, MD observed patient in conversation with several peers. They were all smiling and laughing appropriately. Patient denies feeling depressed, sad, anxious, worthless, helpless, hopeless. He denies any SI/HI. Objective: Vital Signs Temp Pulse Resp BP Pulse Ox 36.8 C 85 15 131/78 H 96 12/28/17 06:00 12/29/17 06:00 12/29/17 06:00 12/29/17 06:00 12/29/17 06:00 MSE: Affect: Smiling, bright Mood: "Good" TP: Linear, goal-directed TC: Denies any SI/HI Insight/Judgment: Improving - Time Spent With Patient Time Spent With Patient: 15" - Pending Discharge Pending Discharge Within 24 Hours: Yes Pending Discharge Date: 12/30/17 (Likely to d/c on Saturday to respite bed through [facility]) Pending Discharge Time: 11:00 ICD10 Worksheet Patient Problems: Problems Problem Status Onset Scabies Acute Abdominal pain Acute Large bowel obstruction Acute Zara's syndrome Acute Partial small bowel obstruction Acute
[2017-12-29] MEDS: LORazepam 0.5 MG TAB PO PRN (20:31)
[2017-12-30] MEDS: ACETAMINOPHEN 325 MG TAB PO PRN (02:16)
[2017-12-30] MEDS: buPROPion XL 150 MG TAB PO SCH (08:31)
[2017-12-30] MEDS: GABAPENTIN 300 MG CAP PO SCH (08:31)
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
== END 2017-12-30 13:20 | disposition home or self-care (01) | DRG 881 ==
LOC: BBEH 12-23 15:25
PROVIDERS: ADMIT Registered Nurse; ATTEND Registered Nurse
DX: F32.9 Major depressive disorder, single episode, unspecified (principal); B86 Scabies; F43.10 Post-traumatic stress disorder, unspecified; G89.29 Other chronic pain; Z76.5 Malingerer [conscious simulation]; Z23 Encounter for immunization; Z93.3 Colostomy status; Z59.0 Homelessness; Z85.71 Personal history of Hodgkin lymphoma
CPT/HCPCS: 80305; 96374; G0008; G0009; G0480; J0696; J2060

== ENCOUNTER 2018-01-04 03:04 | Emergency (ER) | payer MEDICAID ==
[2018-01-04 03:15] VITALS: BP 101/82
--- NOTE | 2018-01-04 04:28 | EDPHY ---
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 He is also homeless. He comes to the department tonight complaining of irritation and blood around his stoma. He has been seen here several times before similar complaints. He also has a history of depression and was admitted recently to [address] [place] [address] and considered to be malingering. Severity: Moderate Modifying factors: None REVIEW OF SYSTEMS: Constitutional: denies: chills, fever, recent illness, recent injury EENTM: denies: blurred vision, double vision, nose congestion Respiratory: denies: cough, shortness of breath Cardiac: denies: chest pain, irregular heart rate, lightheadedness, palpitations Gastrointestinal/Abdominal: Complains of irritation around the stoma Genitourinary: denies: dysuria, frequency, hematuria, pain Musculoskeletal: denies: joint pain, muscle pain Skin: denies: lesions, rash, jaundice, bruising Neurological: denies: headache, numbness, paresthesia, tingling, dizziness, weakness Hematologic/Lymphatic: denies: blood clots, easy bleeding, easy bruising Immunologic/allergic: denies: HIV/AIDS, transplant 10 systems reviewed and negative except as noted EXAM: GENERAL: Well-appearing, well-nourished and in no acute distress. HEAD: Atraumatic, normocephalic. EYES: Pupils equal round and reactive to light, extraocular movements intact, sclera anicteric, conjunctiva are normal. ENT: TMs normal, nares patent, oropharynx clear without exudates. Moist mucous membranes. NECK: Normal range of motion, supple without lymphadenopathy or JVD. LUNGS: Breath sounds clear to auscultation bilaterally and equal. No wheezes rales or rhonchi. HEART: Regular rate and rhythm without murmurs, rubs or gallops. ABDOMEN: Stoma in place, no erythema. No leaking. No bleeding. Liquidy dark stool in bag. Not black. nontender, normoactive bowel sounds. No guarding, no rebound. No masses appreciated. BACK: No CVA tenderness, no spinal tenderness, step-offs or deformities EXTREMITIES: Normal range of motion, no pitting or edema. No clubbing or cyanosis. NEUROLOGICAL: Cranial nerves II through XII grossly intact. Normal speech, normal gait. 5/5 strength, normal movement in all extremities, normal sensation , normal reflexes PSYCH: Normal mood, normal affect. SKIN: Warm, dry, normal turgor, no visible rashes or lesions. Source: Patient Exam Limitations: No limitations - Personal History Tetanus Vaccine Date: 2016 - Medical/Surgical History Hx Asthma: No Hx Chronic Respiratory Disease: No Hx Diabetes: No Hx Cardiac Disease: No Hx Renal Disease: Yes Hx Cirrhosis: No Hx Alcoholism: No Hx HIV/AIDS: No Hx Splenectomy or Spleen Trauma: No Other PMH: scoliosis, russo kerry placed , IBS, rectal reconstruction as , hodgkins lymphoma/ remission 2011, lactose intolerance, tremor, "three kidneys", anemia, sciatica. ostomy [id number], depression, ptsd, mood disorder - Family History Significant Family History: No pertinent family hx - Social History Smoking Status: Never smoked Alcohol Use: Sober Constitutional: Initial Vital Signs Temperature (C) 36.5 C 01/04/18 03:13 Heart Rate 97 01/04/18 03:13 Respiratory Rate 20 01/04/18 03:13 Blood Pressure 101/82 H 01/04/18 03:13 O2 Sat (%) 97 01/04/18 03:13 O2 Delivery Mode Room Air Allergies/Adverse Reactions: ibuprofen [From Motrin] Allergy (Intermediate, Verified 01/04/18 03:13) Vomiting peanut Allergy (Mild, Verified 12/21/17 21:13) Unknown Home Medications: Medication Instructions Recorded Cetirizine [ZyrTEC 10 mg (*)] 10 mg PO DAILY 12/23/17 Gabapentin [Neurontin 300 MG (*)] 600 mg PO BID #60 cap 12/30/17 buPROPion XL [Wellbutrin 150mg XL] 300 mg PO DAILY #30 tab 12/30/17 Medical Decision Making ED Course/Re-evaluation: Patient's stoma looks to be in good shape. He is asking for extra bags. He eventually told me that he is primarily here for [facility] and does not want to leave until the buses are running. I will discharge him at this time. Differential Diagnosis: Partial list of the Differential diagnosis considered include but were not limited to; malingering, stoma irritation, leaking, and although unlikely based on the history and physical exam, I also considered infection, obstruction , volvulus. Departure - Departure Disposition: Home, Routine, Self-Care Clinical Impression: Malingering Condition: Fair Instructions: Colostomy Care (ED) Referrals: NONE *PRIMARY CARE P,. [Primary Care Provider] - As per Instructions Leela Coleman MD [Medical Doctor] - 2-3 days, call for appt.
== END 2018-01-04 05:04 | disposition home or self-care (01) ==
LOC: EDUNIT#
DX: Z76.5 Malingerer [conscious simulation] (principal); Z93.3 Colostomy status; Z59.0 Homelessness

== ENCOUNTER 2018-01-07 02:30 | Inpatient (IN) | payer MEDICAID ==
--- NOTE | 2018-01-07 02:43 | EDPHY ---
H & P Stated Complaint: leaking colostomy site Time Seen by Provider: 01/07/18 02:33 HPI/ROS: HPI The patient presents with leaking from his colostomy bag which began several hours ago. He then removed his bag and has been using paper towels over the area. He says he does have some pain to his stoma and skin with bowel movements. He also complains of epigastric abdominal pain. He has not had any nausea, vomiting, fever. He was able to eat a meal tonight. He is brought in by ambulance. He was seen in the emergency department 3 days ago for the same. There was some concern about snf seeking behavior. He is having usual bowel movements.. REVIEW OF SYSTEMS 10 systems were reviewed and negative with the exception of the elements mentioned in the history of present illness. 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 , complication requiring a colostomy placed in February of 2017, admission in June several times for bowel obstruction Soc Hx: Homeless, currently staying at [facility] PHYSICAL General Appearance: Alert, no distress Eyes: Pupils equal and round no pallor or injection ENT, Mouth: Mucous membranes moist Respiratory: There are no retractions, lungs are clear to auscultation Cardiovascular: Regular rate and rhythm Gastrointestinal: Abdomen is diffusely tender in all quadrants, his ostomy is slightly erythematous and bulging, draining brownish stool, he has some erythema and tissue breakdown of his abdomen below the ostomy site Neurological: A&O, moves all extremities Skin: Warm and dry, no rashes Musculoskeletal: Neck is supple non tender Extremities: symmetrical, full range of motion Psychiatric: Patient is oriented X 3, there is no agitation Source: Patient, EMS, Old records Exam Limitations: No limitations - Personal History Current Tetanus/Diphtheria Vaccine: Yes Tetanus Vaccine Date: 2016 - Medical/Surgical History Hx Asthma: No Hx Chronic Respiratory Disease: No Hx Diabetes: No Hx Cardiac Disease: No Hx Renal Disease: Yes Hx Cirrhosis: No Hx Alcoholism: No Hx HIV/AIDS: No Hx Splenectomy or Spleen Trauma: No Other PMH: scoliosis, russo kerry placed , IBS, rectal reconstruction as , hodgkins lymphoma/ remission 2011, lactose intolerance, tremor, "three kidneys", anemia, sciatica. ostomy [id number], depression, ptsd, mood disorder - Social History Smoking Status: Never smoked Constitutional: Initial Vital Signs Temperature (C) 37.2 C 01/07/18 02:33 Heart Rate 77 01/07/18 02:33 Respiratory Rate 20 01/07/18 02:33 Blood Pressure 133/72 H 01/07/18 02:33 O2 Sat (%) 98 01/07/18 02:33 O2 Delivery Mode Room Air Allergies/Adverse Reactions: ibuprofen [From Motrin] Allergy (Intermediate, Verified 01/07/18 02:36) Vomiting peanut Allergy (Mild, Verified 01/07/18 02:36) Unknown Home Medications: Medication Instructions Recorded Gabapentin [Neurontin 300 MG (*)] 600 mg PO BID #60 cap 12/30/17 buPROPion XL [Wellbutrin 150mg XL] 300 mg PO DAILY #30 tab 12/30/17 Medical Decision Making - Diagnostics Imaging Results: CT abdomen pelvis with IV contrast is mostly inconclusive with no clear bowel obstruction, discussed with Dr. Cancino of Radiology who recommends oral contrast for clear delineation of anatomy. Imaging: Discussed imaging studies w/ drywall contractor Radiologist, I viewed and interpreted images myself Differential Diagnosis: 62-year-old male presents brought in by ambulance for leaking from his ostomy site as well as abdominal pain. On exam, he has removed his ostomy bag and there is fair amount of stool throughout the skin of his abdominal wall. This skin in the area has suffered from breakdown likely because of poorly adherent ostomy bag which could be related to his scaphoid abdomen. He is complaining of abdominal pain, however this could very well be related to his skin breakdown. In the emergency department, ostomy bag was placed on patient and function correctly with no seepage of stool surrounding it. However, patient continued to have abdominal pain and was tender on exam. I reviewed his records extensively. He did have a CT scan of his abdomen pelvis on December 21 and I would like to avoid repeating this steady, however serial abdominal exams were performed by me and the patient is persistently tender so I have ordered this test. CT scan was somewhat inconclusive, there is no obvious bowel obstruction but given the patient's lack of intra-abdominal fat it is difficult to evaluate for any perforation. I reexamined the patient was persistently tender. UA does show urinary tract infection which I will treat with ceftriaxone. He has already received IV fluid for pre renal azotemia. I consulted with Dr. YOAN Oh of the Surgical service who recommends admission to the hospital, surgery will consult today. I have consulted with Dr. Heredia who will admit the patient. - Data Points Laboratory Results: Laboratory Results 01/07/18 02:35 01/07/18 02:35 01/07/18 01/07/18 01/07/18 04:56 04:53 04:53 WBC RBC Hgb POC Hgb 14.3 gm/dL gm/dL (13.7-17.5) Hct POC Hct 42 % % (40-51) MCV MCH MCHC RDW Plt Count MPV Neut % (Auto) Lymph % (Auto) Erie % (Auto) Eos % (Auto) Baso % (Auto) Nucleat RBC Rel Count Absolute Neuts (auto) Absolute Lymphs (auto) Absolute Monos (auto) Absolute Eos (auto) Absolute Basos (auto) Absolute Nucleated RBC Immature Gran % Immature Gran # POC Sodium 138 mEq/L mEq/L (135-145) Sodium POC Potassium 4.5 mEq/L mEq/L (3.3-5.0) Potassium POC Chloride 109 mEq/L mEq/L (97-110) Chloride Carbon Dioxide Anion Gap POC BUN 35 mg/dL H mg/dL (7-23) BUN Creatinine POC Creatinine 1.4 mg/dL H mg/dL (0.7-1.3) Estimated GFR Glucose POC Glucose 85 mg/dL mg/dL (70-100) Calcium Total Bilirubin AST ALT Alkaline Phosphatase Total Protein Albumin Urine Color YELLOW Urine Appearance MODERATELY TURBID Urine pH 5.0 (5.0-7.5) Ur Specific Clarion 1.019 (1.002-1.030) Urine Protein NEGATIVE (NEGATIVE) Urine Ketones NEGATIVE (NEGATIVE) Urine Blood 3+ H (NEGATIVE) Urine Nitrate NEGATIVE (NEGATIVE) Urine Bilirubin NEGATIVE (NEGATIVE) Urine Urobilinogen NEGATIVE EU EU (0.2-1.0) Ur Leukocyte Esterase 3+ H (NEGATIVE) Urine RBC NONE SEEN /hpf /hpf (0-3) Urine WBC 50-182 /hpf H /hpf (0-3) Ur Epithelial Cells TRACE /lpf /lpf (NONE-1+) Hyaline Casts 1-5 /lpf /lpf (0-1) Urine Yeast PRESENT /hpf /hpf (NONE SEEN) Urine Glucose NEGATIVE (NEGATIVE) Stool Occult Bld Scrn NEGATIVE (NEGATIVE) 01/07/18 01/07/18 02:35 02:35 WBC 5.60 10^3/uL 10^3/uL (3.80-9.50) RBC 4.43 10^6/uL 10^6/uL (4.40-6.38) Hgb 13.6 g/dL L g/dL (13.7-17.5) POC Hgb Hct 40.1 % % (40.0-51.0) POC Hct MCV 90.5 fL fL (81.5-99.8) MCH 30.7 pg pg (27.9-34.1) MCHC 33.9 g/dL g/dL (32.4-36.7) RDW 13.7 % % (11.5-15.2) Plt Count 268 10^3/uL 10^3/uL (150-400) MPV 9.4 fL fL (8.7-11.7) Neut % (Auto) 54.8 % % (39.3-74.2) Lymph % (Auto) 32.3 % % (15.0-45.0) Erie % (Auto) 7.3 % % (4.5-13.0) Eos % (Auto) 4.1 % % (0.6-7.6) Baso % (Auto) 1.1 % % (0.3-1.7) Nucleat RBC Rel Count 0.0 % % (0.0-0.2) Absolute Neuts (auto) 3.07 10^3/uL 10^3/uL (1.70-6.50) Absolute Lymphs (auto) 1.81 10^3/uL 10^3/uL (1.00-3.00) Absolute Monos (auto) 0.41 10^3/uL 10^3/uL (0.30-0.80) Absolute Eos (auto) 0.23 10^3/uL 10^3/uL (0.03-0.40) Absolute Basos (auto) 0.06 10^3/uL 10^3/uL (0.02-0.10) Absolute Nucleated RBC 0.00 10^3/uL 10^3/uL (0-0.01) Immature Gran % 0.4 % % (0.0-1.1) Immature Gran # 0.02 10^3/uL 10^3/uL (0.00-0.10) POC Sodium Sodium 136 mEq/L mEq/L (135-145) POC Potassium Potassium 4.7 mEq/L mEq/L (3.3-5.0) POC Chloride Chloride 107 mEq/L mEq/L (97-110) Carbon Dioxide 22 mEq/l mEq/l (22-31) Anion Gap 7 mEq/L mEq/L (6-14) POC BUN BUN 33 mg/dL H mg/dL (7-23) Creatinine 1.5 mg/dL H mg/dL (0.7-1.3) POC Creatinine Estimated GFR 48 Glucose 86 mg/dL mg/dL (70-100) POC Glucose Calcium 8.8 mg/dL mg/dL (8.5-10.4) Total Bilirubin 0.4 mg/dL mg/dL (0.1-1.4) AST 41 IU/L IU/L (17-59) ALT 32 IU/L IU/L (21-72) Alkaline Phosphatase 105 IU/L IU/L (38-126) Total Protein 7.6 g/dL g/dL (6.3-8.2) Albumin 4.0 g/dL g/dL (3.5-5.0) Urine Color Urine Appearance Urine pH Ur Specific Clar[place] Urine Protein Urine Ketones Urine Blood Urine Nitrate Urine Bilirubin Urine Urobilinogen Ur Leukocyte Esterase Urine RBC Urine WBC Ur Epithelial Cells Hyaline Casts Urine Yeast Urine Glucose Stool Occult Bld Scrn Medications Given: Ceftriaxone Sodium/Dextrose (Rocephin 1 Gm (Premix)) 50 mls @ 100 mls/hr IV EDNOW ONE PRN Reason: Protocol Stop: 01/07/18 06:30 Last Admin: 01/07/18 06:13 Dose: 50 mls Discontinued Medications Sodium Chloride (Ns) 1,000 mls @ 0 mls/hr IV EDNOW ONE; Wide Open PRN Reason: Protocol Stop: 01/07/18 04:37 Last Admin: 01/07/18 04:50 Dose: 1,000 mls Sodium Chloride (Ns) 1,000 mls @ 0 mls/hr IV EDNOW ONE; Wide Open PRN Reason: Protocol Stop: 01/07/18 06:02 Last Admin: 01/07/18 06:13 Dose: 1,000 mls Point of Care Test Results: Chemistry 01/07/18 04:56 POC Sodium 138 mEq/L mEq/L (135-145) POC Potassium 4.5 mEq/L mEq/L (3.3-5.0) POC Chloride 109 mEq/L mEq/L (97-110) POC BUN 35 mg/dL H mg/dL (7-23) POC Creatinine 1.4 mg/dL H mg/dL (0.7-1.3) POC Glucose 85 mg/dL mg/dL (70-100) ISTAT H&H 01/07/18 04:56 POC Hgb 14.3 gm/dL gm/dL (13.7-17.5) POC Hct 42 % % (40-51) Departure - Departure Disposition: [facility] Inpatient Acute Clinical Impression: Colostomy complication Abdominal pain Qualifiers: Abdominal location: generalized Qualified Code(s): R10.84 - Generalized abdominal pain Condition: Fair
[2018-01-07] MEDS ORDERED: NS 1,000 ML IV ONE ×2 (04:36→06:01)
[2018-01-07] MEDS ORDERED: IOPAMIDOL (ISOVUE-300) 100 ML BTL ONE (04:45)
[2018-01-07 05:03] LABS: PLATELET COUNT 268 10^3/uL (150-400)
[2018-01-07] MEDS ORDERED: ONDANSETRON DISINTEGRATING 4 MG TAB PO PRN (06:15)
[2018-01-07] MEDS ORDERED: ONDANSETRON 4 MG/2 ML VIAL IVP PRN (06:15)
[2018-01-07] MEDS: HYDROmorphONE/DILAUDID 1 MG/ML INJ IVP PRN ×2 (06:54→11:36)
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
[2018-01-07] MEDS: D5W 1/2 NS 1,000 ML IV SCH ×2 (07:22→16:40)
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
--- NOTE | 2018-01-07 10:15 | ASMTCMCOM ---
CM Note CM Note Notes: Spoke with pt in the room. Pt has been homeless for the last few months after being kicked out of [facility] in [place]. Pt gave CM permission to speak to various people in the community who are helping him find housing. Pt states he is second on the list for housing through the [facility], his contact there is Jose [phone]. Per Jose he was turned down for reasons of background check and letters were sent informing him to the address he provided and the high risk case manager he listed on his application. CM also left a message for Juliet Guardado at [facility] of [employer] cell and who also has a lead on housing for the pt. Pt also has a high risk case manager at [facility] named Poppy Bowens. Message was left for her at [phone]. D/C Plan: TBD Date Signed: 01/07/2018 10:14 AM Electronically Signed By:Laura Mcintyre
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
[2018-01-07] MEDS: buPROPion XL 150 MG TAB PO SCH (11:19)
--- NOTE | 2018-01-07 16:01 | HOSPPROG ---
Hospitalist Progress Note Assessment/Plan: 62 yo M w/ hx of imperforate anus s/p colectomy and ostomy presents with abdominal pain and increased ostomy output Rotavirus - supportive care, IVF's, anti-emetics, adat Hx imperforate anus - S/p colectomy and ileostomy. Appreciate surgical eval MALATHI - Serum creatinine 1.5 on admission, likely pre-renal - cont ivf's - Avoid nephrotoxic agents - Monitor BMP Asymptomatic bacteriuria - S/p CTX x1 in the ED; denies urinary symptoms but does have abdominal pain. - Urine culture pending - Observe off of additional antibiotics pending culture LUE ?abscess - fluctuance and vague discoloration noted, pt denies recent IVDA - warm compresses for now, monitor closely, will d/w surgery, may need drainage H/O IVDA - says last meth use was 1 month ago - check uds Diet - start clears Code - Full Ppx - SCDs Dispo - obs Subjective: Pt feels ok. Less abdominal pain. No N/V. Not having increased ostomy output. NO fevers/chills. Notes painful bump on left forearm. Objective: Vital Signs Temp Pulse Resp BP Pulse Ox 36.7 C 63 18 105/58 L 95 01/07/18 11:45 01/07/18 11:45 01/07/18 11:45 01/07/18 11:45 01/07/18 11:45 01/06/18 01/07/18 01/08/18 05:59 05:59 05:59 Intake Total 2000 Output Total 400 Balance 1600 - Physical Exam Constitutional: no apparent distress Eyes: PERRL Ears, Nose, Mouth, Throat: moist mucous membranes Cardiovascular: regular rate and rhythym Respiratory: no respiratory distress, clear to auscultation Gastrointestinal: normoactive bowel sounds, other (soft, nd, mild diffuse TTP, no r/r/g, ostomy functioning, not a lot of output) Skin: warm Musculoskeletal: full muscle strength Neurologic: AAOx3 Psychiatric: interacting appropriately, anxious ICD10 Worksheet Patient Problems: Problems Problem Status Onset Abdominal pain Acute Colostomy complication Acute Large bowel obstruction Acute [place]'s syndrome Acute Partial small bowel obstruction Acute Scabies Acute
[2018-01-07] MEDS: ACETAMINOPHEN 325 MG TAB PO PRN (16:06)
[2018-01-07] MEDS ORDERED: LIDOCAINE 2% 5 ML SDV IF ONE (17:17)
[2018-01-07] MEDS: GABAPENTIN 300 MG CAP PO SCH (20:11)
[2018-01-08] MEDS: D5W 1/2 NS 1,000 ML IV SCH ×2 (03:00→16:48)
[2018-01-08] MEDS: HYDROmorphONE/DILAUDID 1 MG/ML INJ IVP PRN ×2 (04:29→17:21)
[2018-01-08] MEDS: GABAPENTIN 300 MG CAP PO SCH ×2 (09:24→20:15)
[2018-01-08] MEDS: buPROPion XL 150 MG TAB PO SCH (09:25)
--- NOTE | 2018-01-08 09:37 | GPN ---
DATE OF PROCEDURE: 01/07/2018 PREPROCEDURE DIAGNOSIS: Right forearm abscess. POSTPROCEDURE DIAGNOSIS: Right forearm abscess. PROCEDURE PERFORMED: Incision and drainage of right forearm abscess. INDICATIONS: The patient is a 62-year-old man admitted with abdominal pain, found to have Rotavirus. He is homeless. He has an erythematous fluctuant nodule on his right forearm. FINDINGS: Small amount of serous fluid and blood. No gross purulence. SPECIMENS: None. DESCRIPTION OF PROCEDURE: Verbal consent was obtained. A timeout was performed. The area was prepp ed in the usual sterile fashion. I infiltrated with 3 cc of 2% lidocaine. A cruciate incision was made over the area of fluctuance and a small amount of serous fluid was expre ssed, mixed with blood. There was no gross purulence. There was not enough fluid to send for cultur e. I did not find an obvious abscess cavity. Hemostasis was achieved with direct pressure and Throm bix pad. Packing was not placed. An outer absorptive Allevyn bandage was placed. Following the pro cedure, the area of erythema and induration was improved. /[id number]/MODL
[2018-01-08] MEDS: ACETAMINOPHEN 325 MG TAB PO PRN (09:51)
--- NOTE | 2018-01-08 10:14 | WOCRNPDOC ---
WOCRN Advanced Assessment Note - Ileostomy Assessment, Advanced Abdomen Ileostomy Ileostomy Appliance Intact: No (leaking at 3 and 9 oclock) Ileostomy Appliance Currently in Use: Two Piece Flat, 2 3/4, Cut to Fit Stoma Color: [place] Stoma Turgor: Moist, Shiny Stoma Shape: Oval Stoma Height: Protruding Mucocutaneus Junction: Intact Ileostomy Effluent: Fecal, Pasty Ileostomy Size - Head-to-Toe Length X Width X Depth (cm): 30mm Peristomal Skin: Erythematic, Denuded (mild denudement) Ileostomy Comment/Treatment Details: Ostomy appliance taken down. Mild denuded skin at 6 oclock. Cleaned with water and washcloth. New template created and dated, as old one that was in room was too big. One piece convex appliance placed (patient should use a one piece flat colostomy appliance ideally, but the one piece convex was in hand) with 4.5 mm adapt ring after applying stoma powder to denuded area. Gave patient correct numbers for ordering supplies from [employer]. Brandi RN in room for care. All questions answered. x7 extra rings left in room. Wound care will sign off.
--- NOTE | 2018-01-08 16:09 | ASMTCMCOM ---
CM Note CM Note Notes: CM spoke to Dr. Castillo regarding d/c POC. Pt will not have any surgical interventions during this hospitalization. CHARLES spoke w/ Juliet with [facility] . Juliet has found pt a room for rent in [place]. Pt can have that room for rent as early as tomorrow. CM met w/ pt for dispo planning. Pt is agreeable with this plan. CM will coordinate w/ Juliet for logistics. CM to follow. Date Signed: 01/08/2018 04:08 PM Electronically Signed By:NICKO Cantu
--- NOTE | 2018-01-08 16:55 | PDMN ---
Medical Necessity Medical necessity: Changed to IP as of 01/08/2018 per MD and [facility] (wound and skin management); los > 2 mn for ongoing tx and management of LUE abscess, rotavirus with increased ostomy OP and MALATHI; requiring IVF, serial labs, surgical consult.
--- NOTE | 2018-01-08 17:15 | HOSPPROG ---
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 No fevers/ chills. No abdominal pain. Right forearm is a little better. Objective: Vital Signs Temp Pulse Resp BP Pulse Ox 36.9 C 84 12 112/65 97 01/08/18 15:49 01/08/18 15:49 01/08/18 15:49 01/08/18 15:49 01/08/18 15:49 01/07/18 01/08/18 01/09/18 05:59 05:59 05:59 Output Total 400 Balance -400 - Physical Exam Constitutional: no apparent distress Eyes: PERRL Ears, Nose, Mouth, Throat: moist mucous membranes Cardiovascular: regular rate and rhythym Respiratory: no respiratory distress, clear to auscultation Gastrointestinal: normoactive bowel sounds, soft, non-tender abdomen, other ( ostomy functioning) Skin: warm Musculoskeletal: full muscle strength Neurologic: AAOx3 Psychiatric: interacting appropriately ICD10 Worksheet Patient Problems: Problems Problem Status Onset Abdominal pain Acute Colostomy complication Acute Large bowel obstruction Acute Bladen's syndrome Acute Partial small bowel obstruction Acute Scabies Acute
[2018-01-08] MEDS: ENOXAPARIN 40 MG/0.4 ML SYR SC SCH (18:23)
[2018-01-08 18:44] LABS: HEPATITIS B CORE AB TOTAL REACTIVE (NEGATIVE); HEPATITIS B SURFACE ANTIGEN NEGATIVE (NEGATIVE); HEPATITIS C ANTIBODY TOTAL REACTIVE (NEGATIVE); HIV TYPE 1 AND 2 NEGATIVE (NEGATIVE)
[2018-01-08 19:32] LABS: HEPATITIS B CORE AB IGM NEGATIVE (NEGATIVE)
[2018-01-09] MEDS: HYDROmorphONE/DILAUDID 1 MG/ML INJ IVP PRN ×2 (00:52→07:44)
[2018-01-09] MEDS: D5W 1/2 NS 1,000 ML IV SCH (03:56)
[2018-01-09] MEDS: ACETAMINOPHEN 325 MG TAB PO PRN ×2 (07:44→13:26)
[2018-01-09] MEDS: GABAPENTIN 300 MG CAP PO SCH ×2 (09:52→20:08)
[2018-01-09] MEDS: buPROPion XL 150 MG TAB PO SCH (09:53)
[2018-01-09] MEDS: ENOXAPARIN 40 MG/0.4 ML SYR SC SCH (09:54)
--- NOTE | 2018-01-09 10:53 | ASMTCMCOM ---
CM Note CM Note Notes: CM spoke to Dr. Echols regarding d/c POC. Pt is suicidal today. Pt will need to have a psych eval. CM notified Juliet w/ [facility] [employer]. Juliet will still meet w/ the [facility] for room for rent. CM to follow. Plan: TBD Date Signed: 01/09/2018 10:53 AM Electronically Signed By:NICKO Cantu
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
[2018-01-09] MEDS: SULFAMETHOX/TMP 800/160 MG 1 TAB PO SCH ×2 (13:19→20:08)
--- NOTE | 2018-01-09 14:46 | ASMTCMCOM ---
CM Note CM Note Notes: TLC evaluated pt. Pt is not suicidal. CM spoke to Juliet w/ [facility] [employer]. CM will coordinate w/ her tomorrow AM regarding time and place for pt to meet her. Juliet reports that pt should have a regional bus pass. Juliet is still meeting w/ the [facility] for the room to rent today. CM to follow. Plan: Independent Date Signed: 01/09/2018 02:46 PM Electronically Signed By:NICKO Cantu
[2018-01-10 07:43] VITALS: BP 115/70
[2018-01-10] MEDS: buPROPion XL 150 MG TAB PO SCH (09:03)
[2018-01-10] MEDS: SULFAMETHOX/TMP 800/160 MG 1 TAB PO SCH (09:03)
[2018-01-10] MEDS: GABAPENTIN 300 MG CAP PO SCH (09:03)
[2018-01-10] MEDS: ENOXAPARIN 40 MG/0.4 ML SYR SC SCH (09:04)
[2018-01-10] MEDS: ACETAMINOPHEN 325 MG TAB PO PRN (09:04)
--- NOTE | 2018-01-10 09:40 | ASMTDCNOTE ---
Case Management Discharge Discharge Order Complete? Answers: Yes Patient to Obtain Answers: Independently Medications Transportation Arranged Answers: Bus Tokens EMTALA Complete Answers: No Case Management Transport Answers: No Form Complete Faxed Final Orders Answers: No Agency/Facility Transfer Answers: No Report Printed & Faxed to Receiving Agency Family Notified Answers: No Discharge Comments Notes: CM spoke to Dr. Echols regarding d/c POC. Pt is being discharged today. Pt will be meeting Juliet w/ [employer] for 2PM. Pt will have a meeting w/ the landlord for the room for rent. CM printed out the lease agreement for pt to sign. The room for rent is in [place]. Pt will be getting his room for rent today. CM provided bus passes and clothes from donations. CM available for changes. Plan: Independent Date Signed: 01/10/2018 09:39 AM Electronically Signed By:NICKO Cantu
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
== END 2018-01-10 10:07 | disposition home or self-care (01) | DRG 364 ==
LOC: EDUNIT# → F3E 06:40 → OBSVTOIN 01-08 15:13
PROVIDERS: ADMIT Student in an Organized Health Care Education/Training Program; ATTEND Student in an Organized Health Care Education/Training Program
PROC: 0J9D0ZZ Drainage of Right Upper Arm Subcutaneous Tissue and Fascia, Open Approach (ICD-10-PCS; principal; 2018-01-08)
DX: L02.413 Cutaneous abscess of right upper limb (principal); N17.9 Acute kidney failure, unspecified; A08.0 Rotaviral enteritis; E86.9 Volume depletion, unspecified; Z93.2 Ileostomy status; R82.71 Bacteriuria; F32.9 Major depressive disorder, single episode, unspecified; R51 Headache; F15.90 Other stimulant use, unspecified, uncomplicated; Z59.0 Homelessness
CPT/HCPCS: 80307; 82435-PO; 82565-PO; 82947-PO; 84132-PO; 84295-PO; 84520-PO; 85014-PO; 86704-90; 86705-90; 96365; G0378; G0472; G0480; J0696; J1170; J1650; Q9967

== ENCOUNTER → 2018-02-03 | Outpatient (CLI) | payer MEDICAID ==
[~2018-02-03] MED LIST: GADOBUTROL 10 ML VIAL IVP ONE
== END ==
LOC: FIMAGING 13:47
PROVIDERS: ATTEND Psychiatry & Neurology Neurology
DX: R94.02 Abnormal brain scan (principal); R20.0 Anesthesia of skin
CPT/HCPCS: A9585